=== PATIENT | male | born 1980 | race Caucasian/White ===

== ENCOUNTER 2021-03-03 19:34 | Emergency (ER) | payer OTHER, SELFPAY ==
[2021-03-03 20:05] VITALS: BP 121/65; PULSE 69; RESP 16; TEMP 36.6; O2SAT 95; BMI 29.4
--- NOTE | 2021-03-03 20:56 | ED.PSYCH ---
HPI - Psych General Chief Complaint: Psychiatric Symptoms Stated Complaint: Crisis Source: patient History of Present Illness HPI Narrative: 40-year-old male presents with suicidal ideation with plan to hang himself, has not been taking his medications for several weeks, and is homeless. He does report opioid and cocaine abuse. MD complaint: suicidal ideation, feels depressed and substance abuse Onset (ago): unknown History of same: Yes Exacerbating factors: drug use Context: recent drug abuse and not taking psychiatric medications Associated psychiatric symptoms: depression, suicidal ideation and racing thoughts Associated symptoms: denies other symptoms If self harm: admits thoughts of self harm and has plan Related Data Home Medications Medication Instructions Recorded Confirmed clonidine HCl 0.1 mg PO DAILY 03/03/21 03/03/21 clotrimazole [Antifungal See Rx Instructions .ROUTE .COMPLEX 03/03/21 03/03/21 (clotrimazole)] docusate sodium 1 cap PO BID 03/03/21 03/03/21 gabapentin 1,200 mg PO TID 03/03/21 03/03/21 hydroxyzine HCl 1 tab PO QID 03/03/21 03/03/21 ibuprofen 1 tab PO BID PRN 03/03/21 03/03/21 lurasidone [Latuda] 1 tab PO BEDTIME 03/03/21 03/03/21 melatonin 3 mg PO BEDTIME 03/03/21 03/03/21 methylphenidate HCl 1 tab PO BEDTIME 03/03/21 03/03/21 nicotine (polacrilex) 4 mg PO NEEDED 03/03/21 03/03/21 Allergies Allergy/AdvReac Type Severity Reaction Status Date / Time fish derived [FISH] Allergy Severe ANAPHYLAXIS Unverified 06/07/20 15:25 quetiapine [From SEROQUEL] AdvReac Severe INVOLUNTARY Unverified 06/07/20 15:25 SPASMS trazodone AdvReac Unknown INVOLUNTARY Unverified 06/07/20 15:25 SPASMS SEAFOOD Allergy Severe ANAPHYLAXIS Uncoded 06/07/20 15:25 Review of Systems Review of Systems: Constitutional: No Fever, No Chills ENT/Mouth: No Ear Pain, No Nasal Congestion, No sore throat Eyes: No Eye Pain, No Swelling, No Redness Cardiovascular: No Chest Pain, No SOB Respiratory: No Cough, No Sputum, No Dyspnea Gastrointestinal: No Nausea, No Vomiting, No Diarrhea, No Hematochezia, No Melena Genitourinary: No Dysuria, No Urinary Frequency, No Hematuria Musculoskeletal: No Myalgias Skin: No Skin Lesions, No rash Neuro: No Weakness, No Numbness, No Paresthesias, No Dizziness, No Headache Psych: positive Anxiety, positive Depression, positive SI, positive substance abuse Heme/Lymph: No Lymphadenopathy Endocrine: No Polyuria, No Polydipsia Yes all other systems are reviewed and are negative [facility] Past Medical History Attestation statement: The following information was validated with the patient. Source: old records reviewed Medical History No known health problems Surgical History History of appendectomy Social History Social History Alcohol intake: never Patient Tobacco Use Status: Current everyday Tobacco user Smoked in Last 30 Days: Yes Use of substances other than those prescribed or required for medical reasons: Yes Substance Use Type: Crack/Cocaine and Heroin Last Used Substance: Days (ago) Advance Directives: No Advance Directives Information Provided: Yes Physical Exam Vital Signs: Vital Signs: Last Vital Signs Temp 98 F 03/03/21 20:05 Pulse 69 03/03/21 20:05 Resp 16 03/03/21 20:05 BP 121/65 03/03/21 20:05 Pulse Ox 95 03/03/21 20:05 Body Mass Index 29.4 Appearance: Alert. Oriented X3. Severe psychiatric distress. Eyes: Pupils equal, round and reactive to light. ENT: Pharynx normal. Neck: Normal inspection. Neck supple. CVS: Normal heart rate and rhythm. Pulses normal. Respiratory: No respiratory distress. Breath sounds normal. Abdomen: Soft and nontender. Skin: Skin warm and dry. Normal skin color. Normal skin turgor. Extremities: No lower extremity edema. Neuro: No motor deficit. No sensory deficit. Course Course Course Narrative: 40-year-old male presents with suicidal ideation with plan to hang himself, has not been taking his medications for over 3 weeks, and has been using speed balls and marijuana. Plan is for Section 12. BHN consult. And psychiatric consult for med management. Physician observation started at this time. MDM - Psych Differential Diagnosis Differential diagnosis: Likely acute psychosis, suicidal ideation, depression, drug-induced psychotic disorder, substance abuse and mood disorder Medical Records Attestation: I reviewed the patient's medical records. Lab Data Attestation: I reviewed the patient's lab results. Result diagrams: 03/03/21 21:31 Labs: Lab Results 03/03/21 03/03/21 03/03/21 Range/Units 21:31 21:31 21:31 WBC 4.3 L (4.8-10.8) X10*3/uL RBC 4.11 L (4.60-5.80) X10*6/uL Hgb 12.4 L (14.0-18.0) g/dl Hct 37.3 L (42-52) % MCV 90.8 (80-98) fL MCH 30.2 (27.0-33.0) pg MCHC 33.2 (31.0-36.0) g/dl RDW 12.6 (11.0-16.0) % Plt Count 255 (160-400) X10*3/uL MPV 9.9 (9.4-12.4) fL Immature Gran % (Auto) 0.2 (0.0-0.4) % Neut % (Auto) 34.8 L (45-73) % Lymph % (Auto) 49.9 H (20-40) % [place] % (Auto) 10.4 (2-11) % Eos % (Auto) 4.2 H (0-4) % Baso % (Auto) 0.5 (0-2) % Lymph # (Auto) 2.1 (1.2-4.9) X10*3/uL [place] # (Auto) 0.4 (0.1-1.2) X10*3/uL Eos # (Auto) 0.2 (0.0-0.4) X10*3/uL Baso # (Auto) 0.0 (0.0-0.2) X10*3/uL Abs Immat Gran (auto) 0.01 (0.00-0.03) X10*3/uL Absolute Neuts (auto) 1.5 L (2.0-8.3) X10*3/uL Absolute Nucleated RBC 0.000 (0.0-0.012) X10*3/uL Nucleated RBC % (auto) 0.0 (0.0-0.2) /100WBC Salicylates < 5.0 L (15-30) mg/dL Urine Opiates Screen (Not Detect) Acetaminophen < 1 (<30) mcg/mL Ur Barbiturates Screen (Not Detect) Ur Phencyclidine Scrn (Not Detect) Ur Amphetamines Screen (Not Detect) U Benzodiazepines Scrn (Not Detect) Urine Cocaine Screen (Not Detect) U Marijuana (THC) Screen (Not Detect) Ethyl Alcohol < 10 mg/dL 03/03/21 Range/Units 21:52 WBC (4.8-10.8) X10*3/uL RBC (4.60-5.80) X10*6/uL Hgb (14.0-18.0) g/dl Hct (42-52) % MCV (80-98) fL MCH (27.0-33.0) pg MCHC (31.0-36.0) g/dl RDW (11.0-16.0) % Plt Count (160-400) X10*3/uL MPV (9.4-12.4) fL Immature Gran % (Auto) (0.0-0.4) % Neut % (Auto) (45-73) % Lymph % (Auto) (20-40) % [place] % (Auto) (2-11) % Eos % (Auto) (0-4) % Baso % (Auto) (0-2) % Lymph # (Auto) (1.2-4.9) X10*3/uL [place] # (Auto) (0.1-1.2) X10*3/uL Eos # (Auto) (0.0-0.4) X10*3/uL Baso # (Auto) (0.0-0.2) X10*3/uL Abs Immat Gran (auto) (0.00-0.03) X10*3/uL Absolute Neuts (auto) (2.0-8.3) X10*3/uL Absolute Nucleated RBC (0.0-0.012) X10*3/uL Nucleated RBC % (auto) (0.0-0.2) /100WBC Salicylates (15-30) mg/dL Urine Opiates Screen POSITIVE H (Not Detect) Acetaminophen (<30) mcg/mL Ur Barbiturates Screen Not Detected (Not Detect) Ur Phencyclidine Scrn Not Detected (Not Detect) Ur Amphetamines Screen Not Detected (Not Detect) U Benzodiazepines Scrn Not Detected (Not Detect) Urine Cocaine Screen POSITIVE H (Not Detect) U Marijuana (THC) Screen POSITIVE H (Not Detect) Ethyl Alcohol mg/dL Discharge Plan Discharge Clinical Impression: Suicidal ideation, Acute psychosis Bipolar disorder Qualifiers: Active/Remission status: currently active Current bipolar episode type: manic Current episode severity: severe Psychotic features: with psychotic features Qualified Code(s): F31.2 - Bipolar disorder, current episode manic severe with psychotic features Prescriptions: No Action clonidine HCl 0.1 mg tablet 0.1 mg PO DAILY RF: 0 gabapentin 600 mg tablet 1,200 mg PO TID RF: 0 melatonin 3 mg tablet 3 mg PO BEDTIME RF: 0 nicotine (polacrilex) 4 mg gum 4 mg PO NEEDED RF: 0 methylphenidate HCl 20 mg tablet extended release 1 tab PO BEDTIME RF: 0 docusate sodium 100 mg capsule 1 cap PO BID RF: 0 hydroxyzine HCl 25 mg tablet 1 tab PO QID RF: 0 ibuprofen 600 mg tablet 1 tab PO BID PRN (Reason: Pain) RF: 0 clotrimazole [Antifungal (clotrimazole)] 1 % cream See Rx Instructions .ROUTE .COMPLEX RF: 0 Latuda 60 mg tablet 1 tab PO BEDTIME RF: 0
--- NOTE | 2021-03-03 21:22 | PC.NURSE ---
late entry for 2030. Pt arrival to pod is calm, aware of pod procedures, skin pwd, steady on feet. States his PCP left practice and he's been out of meds x 3+ weeks. homeless, was clean x 1.5 months then used heroine and cocaine yesterday. planned to hang himself in a quiet spot tdoay. on methadone 120mg andtook it this am. [facility] site. hasn't been eating much on the street. Pt given snacks, changed over without diff, unable to give urine. Is calm. no tremor. SKin pwd. no resp depression and pupils 5-6mm.
[2021-03-03 21:36] LABS: MANUAL DIFF FLAG NO
[2021-03-03 21:38] LABS: Basophils Percent Auto 0.5 % (0-2); Eosinophils Absolute Auto 0.2 X10*3/uL (0.0-0.4); Eosinophils Percent Auto 4.2 % (0-4); Hematocrit 37.3 % (42-52); Hemoglobin 12.4 g/dl (14.0-18.0); Imm Gran Abs Auto 0.01 X10*3/uL (0.00-0.03); Imm Gran Pct Auto 0.2 % (0.0-0.4); Lymphocytes Absolute Auto 2.1 X10*3/uL (1.2-4.9); Lymphocytes Percent Auto 49.9 % (20-40); Mean Corpuscular HGB Conc 33.2 g/dl (31.0-36.0); Mean Corpuscular Hemoglobin 30.2 pg (27.0-33.0); Mean Corpuscular Volume 90.8 fL (80-98); Mean Platelet Volume 9.9 fL (9.4-12.4); Monocytes Absolute Auto 0.4 X10*3/uL (0.1-1.2); Monocytes Percent Auto 10.4 % (2-11); Neutrophils Absolute Auto 1.5 X10*3/uL (2.0-8.3); Neutrophils Percent Auto 34.8 % (45-73); Platelet Count 255 X10*3/uL (160-400); Red Blood Count 4.11 X10*6/uL (4.60-5.80); Red Cell Distribution Width 12.6 % (11.0-16.0); White Blood Count 4.3 X10*3/uL (4.8-10.8)
[2021-03-03 22:07] LABS: Ethanol < 10 mg/dL
[2021-03-03 22:09] LABS: Acetaminophen LAB < 1 mcg/mL (<30); Salicylate < 5.0 mg/dL (15-30)
--- NOTE | 2021-03-03 22:20 | PC.NURSE ---
sleeping. NAD. awaits [facility]. Kiera from [facility] called to state that universal branch consultant will arrive around 1130pm.
[2021-03-03 22:26] LABS: Amphetamine Screen Urine Not Detected (Not Detect); Barbiturates, Urine Not Detected (Not Detect); Benzodiazepines Screen Urine Not Detected (Not Detect); Cannabinoid Screen Urine POSITIVE (Not Detect); Cocaine Screen Urine POSITIVE (Not Detect); Opiate Screen Urine POSITIVE (Not Detect); Phencyclidine Screen Urine Not Detected (Not Detect)
--- NOTE | 2021-03-03 22:46 | ECG_ITS ---
Test Reason : MEDICAL CLEAR Blood Pressure : / mmHG Vent. Rate : 045 BPM Atrial Rate : 045 BPM P-R Int : 096 ms QRS Dur : 102 ms QT Int : 506 ms P-R-T Axes : 060 072 026 degrees QTc Int : 437 ms Sinus bradycardia with short WA Otherwise normal ECG When compared with ECG of 17-NOV-2018 07:24, WA shorter Referred By: Rachael Castañeda Electronically Signed By:ABHINAV ESTRADA
[2021-03-04 00:51] VITALS: BP 124/68; PULSE 55; RESP 17; TEMP 36.6; O2SAT 96
--- NOTE | 2021-03-04 01:21 | MHC.CARE ---
Crisis evaluation completed by [facility] clinician, with plan for inpatient psychiatric admission. Pt is on a Sect 12 and will be held in ED until placement is secured. Pt will be presented in the morning for possible admission on M5 or M3 if there is an available bed.
--- NOTE | 2021-03-04 10:07 | PC.NURSE ---
pt in room, resting quietly. calm and cooperative at this time. pts methadone verified and dose given this AM. pt awaiting bed assignment.
[2021-03-04 10:58] VITALS: BP 100/48; PULSE 48; RESP 12; TEMP 36.6; O2SAT 98
--- NOTE | 2021-03-04 11:55 | MHC.RECOVSUP ---
Recovery Support note: This va underwriter checked in with patient to discuss his substance use and recovery. Patient presented to [facility] after a relapse and feeling suicidal after being off his medications for a period of time. Patient is currently awaiting an inpatient psychiatric bed. Patient reports that the methadone has been helpful and that he is ready to get back into recovery. This va underwriter offered patient the opportunity to discuss his substance use and recovery supports and patient declined. Patient also declined meeting with a [employer] at this time. Encouraged patient to reach out to nursing staff if he would like to discuss his recovery. This va underwriter available as needed.
[2021-03-04] MEDS: clonazePAM 1 MG TABLET PO (14:11)
[2021-03-04 20:42] LABS: COVID-19 Test Negative (Negative)
[2021-03-04 21:01] VITALS: BP 118/79; PULSE 66; RESP 17; TEMP 37.1; O2SAT 96
[2021-03-04] MEDS: Gabapentin 600 MG TABLET 1200 MG PO (21:57)
[2021-03-04] MEDS: Melatonin 3 MG TABLET PO (22:00)
[2021-03-05 06:27] VITALS: BP 141/80; PULSE 45; RESP 17; TEMP 36.4; O2SAT 99
[2021-03-05] MEDS: Gabapentin 600 MG TABLET 1200 MG PO ×3 (08:18→20:15)
[2021-03-05] MEDS: Acetaminophen 325 MG TABLET 650 MG PO (08:35)
--- NOTE | 2021-03-05 09:48 | PC.NURSE ---
Patient resting comfortably in bed at this time. Morning medications given and taken with no issues. Patient did complain of 7/10 chronic back pain and Loraine HAY made aware, PRN tylenol placed in the patients MAR. Patient is a bedsearch, aware of plan and agreeable. Will update as needed.
--- NOTE | 2021-03-05 11:23 | PC.NURSE ---
Patient ambulting throughout the pod conversing with staff and other patients. Patient states that the prior Tylenol did relieve his chronic back pain and this RN informed him to alert staff if it returns. Patient agreeable to plan of care, aware that he is a current bed search. Patients needs met and will update when more information is known.
--- NOTE | 2021-03-05 12:41 | PC.NURSE ---
Patient has been calm and cooperative throughout the morning with no complaints at this time. Per update from CARE team the patient will remain a bedsearch at this time. Patient alerted of the plan of care and is agreeable at this time. Patient ambulating throughout the pod with no complaints, basic care needs met.
[2021-03-05] MEDS: clonazePAM 1 MG TABLET PO (13:05)
[2021-03-05] MEDS: Nicotine Polacrilex 2 MG GUM 4 MG BUCCAL (13:10)
--- NOTE | 2021-03-05 15:16 | PC.NURSE ---
Patient given medication for anxiety as a 1X dose per Loraine ALLEN Pt anxiously awaiting bed assignment and told that we will update him with any news. Patient resting comfortably in his room in NAD, advised to alert staff if increasing anxiety or chronic back pain returns.
[2021-03-05 19:28] VITALS: BP 146/77; PULSE 68; RESP 18; TEMP 37.1; O2SAT 96
[2021-03-05] MEDS: LORazepam 1 MG TABLET 2 MG PO (20:11)
[2021-03-05] MEDS: Melatonin 3 MG TABLET PO (20:15)
[2021-03-06 00:45] VITALS: BP 114/64; PULSE 54; RESP 16; TEMP 36.4; O2SAT 97
--- NOTE | 2021-03-06 07:21 | PC.NURSE ---
patient appears to be at rest at present respirations even and unlabored, patient appears in no distress
[2021-03-06] MEDS: Gabapentin 600 MG TABLET 1200 MG PO (08:34)
[2021-03-06] MEDS: Acetaminophen 325 MG TABLET 650 MG PO (08:36)
--- NOTE | 2023-03-15 13:38 | ED.PSYCH ---
HPI - Psych General Chief Complaint: Psychiatric Symptoms Stated Complaint: Crisis Time Seen by Provider: 03/04/21 00:53 Source: patient History of Present Illness Exacerbating factors: drug use Associated symptoms: denies other symptoms Related Data Home Medications Medication Instructions Recorded Confirmed methadone 10 mg/mL oral 115 mg PO DAILY 06/12/21 03/07/22 concentrate (Methadose) Previous Rx's Medication Instructions Recorded clonidine HCl 0.1 mg tablet 0.1 mg PO DAILY PRN 03/17/22 anxiety/agitation 30 days #30 tabs clonidine HCl 0.2 mg tablet 0.2 mg PO BEDTIME 30 days #30 tabs 03/17/22 divalproex 250 mg tablet,extended 250 mg PO BID 30 days #60 tabs 03/17/22 release 24 hr doxepin 25 mg capsule 100 mg PO BEDTIME 30 days #120 caps 03/17/22 fenofibrate 54 mg tablet 54 mg PO DAILY 30 days #30 tabs 03/17/22 gabapentin 400 mg capsule 800 mg PO QID 30 days #240 caps 03/17/22 hydroxyzine HCl 50 mg tablet 50 mg PO BID PRN Anxiety 30 days 03/17/22 #60 tabs ibuprofen 800 mg tablet 800 mg PO BID PRN knee pain, tooth 03/17/22 pain 30 days #60 tabs lurasidone 40 mg tablet (Latuda) 40 mg PO DAILY@1800 30 days #30 03/17/22 tabs melatonin 3 mg tablet 9 mg PO BEDTIME PRN sleep 30 days 03/17/22 #60 tabs nicotine (polacrilex) 2 mg gum 2 mg buccal Q2H PRN nicotine 03/17/22 withdrawal 30 days #120 ea sennosides 8.6 mg tablet (Senna 8.6 mg PO BID 30 days #60 tabs 03/17/22 Lax) dextroamphetamine-amphetamine ER 30 mg PO DAILY 30 days #30 caps 03/19/22 30 mg 24hr capsule,extend release (Adderall XR) Allergies Allergy/AdvReac Type Severity Reaction Status Date / Time fish derived [FISH] Allergy Severe ANAPHYLAXIS Verified 03/04/21 20:52 quetiapine [From SEROQUEL] AdvReac Severe INVOLUNTARY Verified 03/04/21 20:52 SPASMS trazodone AdvReac Unknown INVOLUNTARY Verified 03/04/21 20:52 SPASMS SEAFOOD Allergy Severe ANAPHYLAXIS Uncoded 03/04/21 20:52 Review of Systems Review of Systems: ROS: See HPI, all other ROS are negative PMFSH Past Medical History Medical History Chronic post-traumatic stress disorder (PTSD) Hepatitis C MDD (major depressive disorder), recurrent episode, moderate No known health problems Surgical History History of appendectomy Social History Social History Household Members: Other Household Members Other:: 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 couch-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 Housing: Other Do you presently have visiting nurse or other home services: No Alcohol intake: never Patient Tobacco Use Status: Current everyday Tobacco user Tobacco use type: Cigarette Cigarette Packs Per Day: 1 Cigarettes Per Day: 20.0 Years Smoked: 10 e-Cigarette/Vaping Use: Never Used Second Hand Smoke Exposure: No Substance Use Type: Crack/Cocaine service: No Current occupational status: unemployed Sexual orientation: Straight/Heterosexual Physical Exam Vital Signs: Vital Signs: Last Vital Signs Temp 97.6 F 03/06/21 00:45 Pulse 54 03/06/21 00:45 Resp 16 03/06/21 00:45 BP 114/64 03/06/21 00:45 Pulse Ox 97 03/06/21 00:45 O2 Del Method Room Air 03/06/21 00:45 BMI result Body Mass Index 29.4 Medications Administered Discontinued Medications Generic Name Dose Route Start Last Admin Trade Name Tyrone PRN Reason Stop Dose Admin Acetaminophen 650 mg 03/05/21 08:27 03/06/21 08:36 Acetaminophen 325 Mg Tablet PO 650 mg Q6H PRN Administration pain Clonazepam 1 mg 03/04/21 14:05 03/04/21 14:11 Clonazepam 1 Mg Tablet PO 03/04/21 14:06 1 mg ONCE ONE Administration Clonazepam 1 mg 03/05/21 13:01 03/05/21 13:05 Clonazepam 1 Mg Tablet PO 03/05/21 13:02 1 mg ONCE ONE Administration Gabapentin 1,200 mg 03/04/21 21:15 03/06/21 08:34 Gabapentin 600 Mg Tablet PO 1,200 mg TID DACIA Administration Lorazepam 2 mg 03/05/21 20:05 03/05/21 20:11 Lorazepam 1 Mg Tablet PO 03/05/21 20:06 2 mg ONCE ONE Administration Melatonin 3 mg 03/04/21 08:45 03/05/21 20:15 Melatonin 3 Mg Tablet PO 3 mg BEDTIME PRN Administration Sleep Methadone HCl 120 mg 03/04/21 09:00 03/06/21 09:22 Methadone Hcl 1 Mg/0.1 Ml Oral.Conc PO 120 mg DAILY DACIA Administration Nicotine Polacrilex 4 mg 03/04/21 08:45 03/05/21 13:10 Nicotine Polacrilex 2 Mg Gum BUCCAL 4 mg Q2H PRN Administration Nicotine Cravings Medical Decision Making Medical Decision Making MDM Narrative: This record is being created on 03/15/2023 in order to complete documentation of the record from 03/06/2022. Exam: ROS: See HPI, all other ROS are negative General: Awake, alert in no distress Head: Normocephalic, atraumatic EENT: PERRL, Lids normal, sclera normal, conjunctiva normal, nose normal , ears normal, throat without erythema or exudates Neck: Supple, no adenopathy, trachea midline and nontender Lung: breath sounds symmetric, no wheezing, rales or rhonchi Chest: symmetric movement, nontender Heart: regular rate and rhythm, normal S1, S2 no murmurs or rubs Abdomen: soft, non-tender, nondistended, normal bowel sounds Back: no vertebral tenderness, no CVAT Extremities: no deformities, moves all extremities symmetrically Skin: no rashes, no lesion, normal color and warmth Neuro: Awake, alert, oriented, normal speech, cranial nerves intact, moves all extremities symmetrically Psych: Pleasant, cooperative, Mic MD Светлана (my printed name counts as my signature for this document Lab Data 03/03/21 21:31 Labs: Lab Results 03/03/21 03/03/21 03/03/21 Range/Units 21:31 21:31 21:31 WBC 4.3 L (4.8-10.8) X10*3/uL RBC 4.11 L (4.60-5.80) X10*6/uL Hgb 12.4 L (14.0-18.0) g/dl Hct 37.3 L (42-52) % MCV 90.8 (80-98) fL MCH 30.2 (27.0-33.0) pg MCHC 33.2 (31.0-36.0) g/dl RDW 12.6 (11.0-16.0) % Plt Count 255 (160-400) X10*3/uL MPV 9.9 (9.4-12.4) fL Immature Gran % (Auto) 0.2 (0.0-0.4) % Neut % (Auto) 34.8 L (45-73) % Lymph % (Auto) 49.9 H (20-40) % [place] % (Auto) 10.4 (2-11) % Eos % (Auto) 4.2 H (0-4) % Baso % (Auto) 0.5 (0-2) % Lymph # (Auto) 2.1 (1.2-4.9) X10*3/uL [place] # (Auto) 0.4 (0.1-1.2) X10*3/uL Eos # (Auto) 0.2 (0.0-0.4) X10*3/uL Baso # (Auto) 0.0 (0.0-0.2) X10*3/uL Abs Immat Gran (auto) 0.01 (0.00-0.03) X10*3/uL Absolute Neuts (auto) 1.5 L (2.0-8.3) X10*3/uL Absolute Nucleated RBC 0.000 (0.0-0.012) X10*3/uL Nucleated RBC % (auto) 0.0 (0.0-0.2) /100WBC Salicylates < 5.0 L (15-30) mg/dL Urine Opiates Screen (Not Detect) Acetaminophen < 1 (<30) mcg/mL Ur Barbiturates Screen (Not Detect) Ur Phencyclidine Scrn (Not Detect) Ur Amphetamines Screen (Not Detect) U Benzodiazepines Scrn (Not Detect) Urine Cocaine Screen (Not Detect) U Marijuana (THC) Screen (Not Detect) Ethyl Alcohol < 10 mg/dL COVID-19 (GILMA) (Negative) COVID-19 Clin Com 03/03/21 03/04/21 Range/Units 21:52 20:02 WBC (4.8-10.8) X10*3/uL RBC (4.60-5.80) X10*6/uL Hgb (14.0-18.0) g/dl Hct (42-52) % MCV (80-98) fL MCH (27.0-33.0) pg MCHC (31.0-36.0) g/dl RDW (11.0-16.0) % Plt Count (160-400) X10*3/uL MPV (9.4-12.4) fL Immature Gran % (Auto) (0.0-0.4) % Neut % (Auto) (45-73) % Lymph % (Auto) (20-40) % [place] % (Auto) (2-11) % Eos % (Auto) (0-4) % Baso % (Auto) (0-2) % Lymph # (Auto) (1.2-4.9) X10*3/uL [place] # (Auto) (0.1-1.2) X10*3/uL Eos # (Auto) (0.0-0.4) X10*3/uL Baso # (Auto) (0.0-0.2) X10*3/uL Abs Immat Gran (auto) (0.00-0.03) X10*3/uL Absolute Neuts (auto) (2.0-8.3) X10*3/uL Absolute Nucleated RBC (0.0-0.012) X10*3/uL Nucleated RBC % (auto) (0.0-0.2) /100WBC Salicylates (15-30) mg/dL Urine Opiates Screen POSITIVE H (Not Detect) Acetaminophen (<30) mcg/mL Ur Barbiturates Screen Not Detected (Not Detect) Ur Phencyclidine Scrn Not Detected (Not Detect) Ur Amphetamines Screen Not Detected (Not Detect) U Benzodiazepines Scrn Not Detected (Not Detect) Urine Cocaine Screen POSITIVE H (Not Detect) U Marijuana (THC) Screen POSITIVE H (Not Detect) Ethyl Alcohol mg/dL COVID-19 (GILMA) Negative (Negative) COVID-19 Clin Com See Note Discharge Plan Discharge Clinical Impression: Suicidal ideation, Bipolar disorder, Acute psychosis Patient Disposition: Xfer Psychiatric Hosp Transfer Details: [facility] at 11:00am via BLS Instructions: Bipolar Disorder (ED), Suicide Prevention (ED) Prescriptions: No Action methadone [Methadose] 10 mg/mL concentrate 115 mg PO DAILY nicotine (polacrilex) 2 mg Gum 2 mg buccal Q2H PRN (Reason: nicotine withdrawal) 30 Days Qty: 120 0RF clonidine HCl 0.1 mg Tablet 0.1 mg PO DAILY PRN (Reason: anxiety/agitation) 30 Days Qty: 30 0RF Protocol: Hold for SBP< HOLD for SBP < : 90 ibuprofen 800 mg Tablet 800 mg PO BID PRN (Reason: knee pain, tooth pain ) 30 Days Qty: 60 0RF doxepin 25 mg Capsule 100 mg PO BEDTIME 30 Days Qty: 120 0RF gabapentin 400 mg Capsule 800 mg PO QID 30 Days Qty: 240 0RF hydroxyzine HCl 50 mg Tablet 50 mg PO BID PRN (Reason: Anxiety) 30 Days Qty: 60 0RF clonidine HCl 0.2 mg Tablet 0.2 mg PO BEDTIME 30 Days Qty: 30 0RF Protocol: Hold for SBP< HOLD for SBP < : 90 divalproex 250 mg Tablet Extended Release 24 Hr 250 mg PO BID 30 Days Qty: 60 0RF fenofibrate 54 mg Tablet 54 mg PO DAILY 30 Days Qty: 30 0RF Latuda 40 mg Tablet 40 mg PO DAILY@1800 30 Days Qty: 30 0RF sennosides [Senna Lax] 8.6 mg Tablet 8.6 mg PO BID 30 Days Qty: 60 0RF melatonin 3 mg Tablet 9 mg PO BEDTIME PRN (Reason: sleep) 30 Days Qty: 60 0RF dextroamphetamine-amphetamine [Adderall XR] 30 mg capsule,extended release 24hr 30 mg PO DAILY 30 Days Qty: 30 0RF Rx Instructions: Partial Fill upon patient request. Referrals: Erika Tena NP [Primary Care Provider] - 2 days Discharge Date/Time: 03/06/21 10:27 Print Language: Danish
== END 2021-03-06 10:27 ==
PROVIDERS: Nurse Practitioner Family; Physician Assistant; Emergency Provider Emergency Medicine Emergency Medical Services; PCP Nurse Practitioner Family
DX: F31.2 Bipolar disorder, current episode manic severe with psychotic features (principal); R45.851 Suicidal ideations; F23 Brief psychotic disorder; F41.9 Anxiety disorder, unspecified; G89.29 Other chronic pain; M54.9 Dorsalgia, unspecified; F17.210 Nicotine dependence, cigarettes, uncomplicated; F14.90 Cocaine use, unspecified, uncomplicated; F11.20 Opioid dependence, uncomplicated; Z59.0 Homelessness; Z91.14 Patient's other noncompliance with medication regimen
CPT/HCPCS: 36415; 80143; 80179; 80307; 82077; 85025; 87635; 93005; 99285

== ENCOUNTER 2021-04-27 18:48 | Inpatient (IN) | payer OTHER, SELFPAY ==
[2021-04-27 18:52] VITALS: BP 130/88; PULSE 91; RESP 16; TEMP 37.1; O2SAT 98; BMI 31.8
[2021-04-27 19:31] LABS: Glucose Urine UA NEG (NEG); Leukocyte Esterase Urine NEG (NEG); Nitrite Urine NEG (NEG); Specific Gravity - Urine >= 1.030 (1.005-1.025); UACC Culture Trigger NO; Urine Blood NEG (NEG); Urine Ketones 5 MG/DL (NEG); Urine Protein 1+ MG/DL (NEG-TRACE)
[2021-04-27 19:34] LABS: Appearance Urine HAZY; Color Urine DARK YELLOW
[2021-04-27] MEDS: Lactulose 20 GM/30 ML SOLUTION 10 GM PO (19:37)
[2021-04-27] MEDS: Nicotine 21 MG PATCH.TD24 TRANSDERMA (19:37)
--- NOTE | 2021-04-27 19:38 | ED.PSYCH ---
HPI - Psych General Chief Complaint: Psychiatric Symptoms Stated Complaint: crisis Time Seen by Provider: 04/27/21 19:17 Source: patient Mode of arrival: ambulatory Limitations: no limitations History of Present Illness HPI Narrative: 37-year-old male with a past medical history of hepatitis-C, substance abuse here with complaints of suicidal thoughts, hearing voices telling him to kill himself for the last few days. Recently released from [facility]. Missed methadone doses this weekend. Last night used heroin and cocaine in an attempt to overdose and kill himself. Patient tells me he woke up hours later and his bag in his bottles of medications were gone. Now he is feeling more suicidal. Depressed. Complaining of mild headache. Complaining of constipation. No vomiting or abdominal pain. Related Data Home Medications Medication Instructions Recorded Confirmed clonazepam 1 mg tablet 1 tab PO TID PRN 04/27/21 04/27/21 dextroamphetamine-amphetamine ER 1 cap PO BEDTIME 04/27/21 04/27/21 30 mg 24hr capsule,extend release doxazosin 2 mg tablet 1 tab PO BEDTIME 04/27/21 04/27/21 fenofibrate 54 mg tablet 1 tab PO DAILY 04/27/21 04/27/21 gabapentin 600 mg tablet 1,200 mg PO 04/27/21 glecaprevir 100 mg-pibrentasvir 40 3 tab PO DAILY 04/27/21 04/27/21 mg tablet (Mavyret) hydroxyzine pamoate 50 mg capsule 1 cap PO TID 04/27/21 04/27/21 lurasidone 60 mg tablet (Latuda) 1 tab PO BEDTIME 04/27/21 04/27/21 melatonin 5 mg tablet 1 tab PO BEDTIME 04/27/21 04/27/21 omega-3 acid ethyl esters 1 gram 1 PO BEDTIME 04/27/21 capsule Allergies Allergy/AdvReac Type Severity Reaction Status Date / Time fish derived [FISH] Allergy Severe ANAPHYLAXIS Verified 03/04/21 20:52 quetiapine [From SEROQUEL] AdvReac Severe INVOLUNTARY Verified 03/04/21 20:52 SPASMS trazodone AdvReac Unknown INVOLUNTARY Verified 03/04/21 20:52 SPASMS SEAFOOD Allergy Severe ANAPHYLAXIS Uncoded 03/04/21 20:52 Review of Systems Review of Systems: Yes all other systems are reviewed and are negative Constitutional: Constitutional: Reports no additional constitutional complaints, Denies body ache(s), Denies chills, Denies fever(s), Reports headache(s) and Denies weakness Eyes: Eyes: Reports no additional eye complaints and Denies change in vision ENT: Reports system reviewed and no additional complaints, except as documented, Denies dizziness, Reports headache(s), Denies nasal congestion, Denies nasal discharge and Denies neck pain Cardiovascular: Cardiovascular: Reports no additional cardiovascular complaints, Denies chest pain, Denies leg edema and Denies dyspnea Respiratory: Respiratory: Reports no additional respiratory complaints, Denies cough and Denies dyspnea Gastrointestinal: Gastrointestinal: Reports no additional gastrointestinal complaints, Denies abdominal pain, Reports constipation, Denies diarrhea, Denies nausea and Denies vomiting Genitourinary: Genitourinary: Denies urinary incontinence Musculoskeletal: Musculoskeletal: Reports no additional musculoskeletal complaints, Denies back pain, Denies arthralgias, Denies joint swelling, Denies neck pain, Denies numbness and Denies tingling Integumentary/Breasts: Skin/Breast: Reports system reviewed and no additional complaints, except as docu and Denies rash Neurologic: Reports system reviewed and no additional complaints, except as documented, Denies Abnormal speech present, Denies dizziness, Reports headache(s), Denies numbness, Denies tingling and Denies weakness Psychiatric: Psychiatric: Denies anxiety, Reports depression, Denies hallucinations, Denies homicidal ideation and Reports suicidal ideation [facility] Past Medical History Attestation statement: The following information was validated with the patient. Source: old records reviewed and nursing notes reviewed Medical History No known health problems Surgical History History of appendectomy Social History Social History Alcohol intake: never Patient Tobacco Use Status: Current everyday Tobacco user Substance Use Type: Crack/Cocaine and Heroin Advance Directives: No Advance Directives Information Provided: No Physical Exam Vital Signs: Vital Signs: Last Vital Signs Temp 98.7 F 04/27/21 18:52 Pulse 91 04/27/21 18:52 Resp 16 04/27/21 18:52 BP 130/88 04/27/21 18:52 Pulse Ox 98 04/27/21 18:52 Body Mass Index 31.8 Const: General: cooperative, healthy appearing, comfortable and no acute distress Orientation/consciousness: patient oriented x3 Limitations: no limitations HENMT: Head: Yes normal to inspection Ears: hearing grossly normal bilaterally General nose exam: Normal external nose present Face and sinus: Yes normal facial exam Mouth: Normal oral and palatal mucosa present Throat: Yes posterior oropharynx normal Eyes: General: appearance normal, both eyes and all related structures Pupils: Equal, round and reactive pupils present Neck: Neck: Yes normal visual inspection Chest: Chest palpation & inspection: normal inspection of the chest Resp: Effort & Inspection: normal respiratory effort Auscultation: clear to auscultation bilaterally Cardio: Rate: regular rate Rhythm: regular rhythm Peripheral pulses: Peripheral pulses 2+ throughout GI: Inspection: Yes normal to inspection Palpation (GI): Soft to palpation and nontender Auscultation: normal bowel sounds Back/Spine/Pelvis: Thoracic/Lumbar Spine: thoracic and lumbar spine normal to inspection Skin: General skin exam: no rashes or lesions noted Neuro: General: patient oriented x3, no focal motor deficits and normal sensation to monofilament Cranial nerves: Yes Equal, round and reactive pupils present Cognition (Neuro): normal cognition Speech: No Abnormal speech present Gait exam (Neuro): Normal gait present Motor exam (neuro): 5/5 motor strength present throughout Extrem: General: Yes normal to inspection Course Course Course Narrative: 40-year-old male here with suicidal thoughts, increasing depression, attempt of OD last night to kill himself. Complaining of mild headache and constipation. Will check labs, drug screen, EKG, COVID screen. Nursing to verify medications. WIll need crisis eval once medically cleared. Placed in physician observation pending above 2100-Medications reconciled. Sign out to night team pending above. MDM - Psych Medical Records Attestation: I reviewed the patient's medical records. Lab Data Attestation: I reviewed the patient's lab results. Labs: Lab Results 04/27/21 04/27/21 04/27/21 Range/Units 19:24 19:24 19:24 Urine Color DARK YELLOW Urine Appearance HAZY Urine pH 6.0 (5.0-8.0) Ur Specific [place] >= 1.030 H (1.005-1.025) Urine Protein 1+ H (NEG-TRACE) MG/DL Urine Glucose (UA) NEG (NEG) MG/DL Urine Ketones 5 (NEG) MG/DL Urine Blood NEG (NEG) Urine Nitrite NEG (NEG) Ur Leukocyte Esterase NEG (NEG) Urine RBC 10-14 H (0) /HPF Urine WBC 0 (0-4) /HPF Ur Squamous Epith Cells TRACE /LPF Calcium Oxalate Crystal 2+ /LPF Urine Bacteria TRACE /LPF Urine Mucus 4+ /LPF Urine Opiates Screen POSITIVE H (Not Detect) Ur Barbiturates Screen Not Detected (Not Detect) Ur Phencyclidine Scrn Not Detected (Not Detect) Ur Amphetamines Screen POSITIVE H (Not Detect) U Benzodiazepines Scrn POSITIVE H (Not Detect) Urine Cocaine Screen POSITIVE H (Not Detect) U Marijuana (THC) Screen POSITIVE H (Not Detect) Coronavirus (PCR) NEGATIVE (Negative) Influenza Type A (PCR) NEGATIVE (Negative) Influenza Type B (PCR) NEGATIVE (Negative) RSV RNA Qual (PCR) NEGATIVE (Negative) ECG Data Attestation: I personally reviewed and interpreted this ECG as follows: ECG interpretation date: 04/27/21 ECG interpretation time: 19:38 Interpretation: Normal sinus rhythm, normal NC, normal QRS, normal QT Discharge Plan Discharge Clinical Impression: Suicidal ideation Prescriptions: No Action gabapentin 600 mg tablet 1,200 mg PO RF: 0 clonazepam 1 mg tablet 1 tab PO TID PRN (Reason: Anxiety) RF: 0 hydroxyzine pamoate 50 mg capsule 1 cap PO TID RF: 0 dextroamphetamine-amphetamine 30 mg capsule,extended release 24hr 1 cap PO BEDTIME RF: 0 doxazosin 2 mg tablet 1 tab PO BEDTIME RF: 0 omega-3 acid ethyl esters 1 gram capsule 1 PO BEDTIME RF: 0 melatonin 5 mg tablet 1 tab PO BEDTIME RF: 0 fenofibrate 54 mg tablet 1 tab PO DAILY RF: 0 Latuda 60 mg tablet 1 tab PO BEDTIME RF: 0 Mavyret 100-40 mg tablet 3 tab PO DAILY RF: 0
[2021-04-27 19:45] LABS: Bacteria Urine TRACE /LPF; Calcium Oxalate Crystals Urine 2+ /LPF; Mucus Urine 4+ /LPF; Squamous Epithelial Cell Urine TRACE /LPF; WBC Urine 0 /HPF (0-4)
[2021-04-27 19:56] LABS: Amphetamine Screen Urine POSITIVE (Not Detect); Barbiturates, Urine Not Detected (Not Detect); Benzodiazepines Screen Urine POSITIVE (Not Detect); Cannabinoid Screen Urine POSITIVE (Not Detect); Cocaine Screen Urine POSITIVE (Not Detect); Opiate Screen Urine POSITIVE (Not Detect); Phencyclidine Screen Urine Not Detected (Not Detect)
[2021-04-27 20:08] LABS: Influenza A PCR NEGATIVE (Negative); Influenza B PCR NEGATIVE (Negative); Resp Syncy Virus RNA Qual PCR NEGATIVE (Negative); SARS COV2 PCR INHOUSE NEGATIVE (Negative)
[2021-04-27 21:32] LABS: MANUAL DIFF FLAG NO
[2021-04-27 21:33] LABS: Basophils Percent Auto 0.3 % (0-2); Eosinophils Absolute Auto 0.3 X10*3/uL (0.0-0.4); Eosinophils Percent Auto 4.9 % (0-4); Hematocrit 35.3 % (42-52); Hemoglobin 12.2 g/dl (14.0-18.0); Imm Gran Abs Auto 0.01 X10*3/uL (0.00-0.03); Imm Gran Pct Auto 0.2 % (0.0-0.4); Lymphocytes Percent Auto 29.8 % (20-40); Mean Corpuscular HGB Conc 34.6 g/dl (31.0-36.0); Mean Corpuscular Hemoglobin 30.9 pg (27.0-33.0); Mean Corpuscular Volume 89.4 fL (80-98); Mean Platelet Volume 9.9 fL (9.4-12.4); Monocytes Absolute Auto 0.4 X10*3/uL (0.1-1.2); Monocytes Percent Auto 6.1 % (2-11); Neutrophils Absolute Auto 3.9 X10*3/uL (2.0-8.3); Neutrophils Percent Auto 58.7 % (45-73); Platelet Count 196 X10*3/uL (160-400); Red Blood Count 3.95 X10*6/uL (4.60-5.80); Red Cell Distribution Width 12.5 % (11.0-16.0); White Blood Count 6.6 X10*3/uL (4.8-10.8)
[2021-04-27] MEDS: hydrOXYzine HCL 50 MG TABLET PO (21:49)
[2021-04-27 21:57] VITALS: BP 97/55; PULSE 80
[2021-04-27 22:00] LABS: Ethanol < 10 mg/dL
[2021-04-27] MEDS: Lurasidone HCl 20 MG TABLET 60 MG PO (22:01)
[2021-04-27 22:05] LABS: Alanine Aminotransferase 25 U/L (0-40); Albumin Level 4.2 g/dL (3.5-5.0); Alkaline Phosphatase 47 U/L (39-117); Anion Gap 12 (12-20); Aspartate Amino Transferase 29 U/L (5-37); Bilirubin Direct 0.3 mg/dL (0.0-0.5); Bilirubin Total 0.7 mg/dL (0.0-1.0); Blood Urea Nitrogen 14 mg/dL (9-16); Calcium 9.1 mg/dL (8.4-10.2); Carbon Dioxide 30 mmol/L (22-29); Chloride 103 mmol/L (96-108); Creatinine Clr Calc Pharmacy 105.1; Estimated Glomerular Filt Rate > 60; Glucose Random 130 mg/dL (60-115); Potassium 3.5 mmol/L (3.3-5.1); Sodium 141 mmol/L (135-145); Total Protein 7.1 g/dL (6.5-8.0)
--- NOTE | 2021-04-27 22:20 | PC.NURSE ---
[facility] faxed and called spoke with pavan
--- NOTE | 2021-04-27 23:31 | PC.NURSE ---
Patient resting comfortably in bed no s/s of pain or discomfort. Awaiting BHN consult.
[2021-04-28 08:02] VITALS: BP 106/56; PULSE 63; RESP 18; TEMP 37.2; O2SAT 95
[2021-04-28] MEDS: clonazePAM 1 MG TABLET PO ×2 (10:04→17:04)
[2021-04-28] MEDS: Acetaminophen 325 MG TABLET 650 MG PO (10:04)
[2021-04-28] MEDS: hydrOXYzine HCL 50 MG TABLET PO ×2 (10:04→20:19)
[2021-04-28] MEDS: Ibuprofen 800 MG TABLET PO ×2 (10:27→17:09)
[2021-04-28] MEDS: Fenofibrate 54 MG TABLET PO (10:28)
[2021-04-28] MEDS: Cyclobenzaprine HCl 10 MG TABLET PO ×2 (10:28→17:10)
--- NOTE | 2021-04-28 11:11 | MHC.RECOVSUP ---
Recovery Support note: Patient is a 40 year old Slovenian speaking male who presented to [facility] ED reporting that he is off his medications, recently used heroin and is experiencing AH. Patient was evaluated by the CARE Team and is currently awaiting an inpatient psychiatric bed. This information writer met with patient to discuss his methadone treatment. Patient reports that he goes to [facility] in [place] and that he was last dosed on 04/23. Patient reports he gets 110mg. Patient states that he received take home bottles on 04/23 and brought them to a [facility] affiliated with [facility] in [place]. Patient reports he left AMA and they did not provide him with his bottles upon discharge. Patient states he did not take any of the bottles while at [facility]. Patient reports he is going out of his mind and having difficulty sleeping. Patient appears agitated however no other withdrawal symptoms are noted. This information writer spoke with Yari at [facility] and she reports patient got 111mg on 04/23 and that he got enough bottles to last until tomorrow. Discussed with patient's RN and completed methadone dose verification form which was faxed to pharmacy. Discussed case with Marissa Christianson NP who recommends 30-40mg today and she will re-evaluate patient tomorrow. This information writer explained the situation to patient and he expressed frustration, stating that won't do anything for me. Reassured patient that he will be re-evaluated tomorrow and that his dose will be adjusted if needed. Patient requests 30mg now and 10mg later on to help him sleep. Discussed case with patient's ED provider. This information writer will follow up with patient later on in the day.
--- NOTE | 2021-04-28 11:37 | PC.NURSE ---
Pt medicated with prns previously as charted, sleeping as this RN entered the room, states no relief in pain, medicated with Methadon 30 mg, pt was previously being dosed by [facility] in [place] with a dose of 111mg but has not had a dose since 04/23. Plan to start on 30-40mg / day to start, Marissa Christianson and recovery team involved in pt care.
[2021-04-28 20:18] VITALS: BP 120/75; PULSE 57
[2021-04-28] MEDS: Doxazosin Mesylate 2 MG TABLET PO (20:18)
[2021-04-28] MEDS: Melatonin 3 MG TABLET 6 MG PO (20:18)
[2021-04-28] MEDS: Lurasidone HCl 20 MG TABLET 60 MG PO (20:22)
--- NOTE | 2021-04-28 21:21 | PC.NURSE ---
Pt's gabapentin returned to pyxis, pt currently sleeping
--- NOTE | 2021-04-29 | ECG_ITS ---
Test Reason : MEDCLEARANCE Blood Pressure : / mmHG Vent. Rate : 066 BPM Atrial Rate : 066 BPM P-R Int : 158 ms QRS Dur : 106 ms QT Int : 432 ms P-R-T Axes : 015 038 024 degrees QTc Int : 452 ms Normal sinus rhythm Normal ECG When compared with ECG of 04-MAR-2021 00:34, No significant change was found Referred By: Marissa Christianson Electronically Signed By:RACHEL GRECO MD
[2021-04-29 03:57] VITALS: BP 126/77; PULSE 62; TEMP 36; O2SAT 97
--- NOTE | 2021-04-29 06:39 | PC.NURSE ---
Patient slept through the night, no distress observed/reported, asymptomatic of withdrawal at this time, out of room x1 for bathroom use and back, VSS, appetite adequate, disposition is section 12 inpatient bed search, med compliant, behavior appropriate, will continue to monitor.
--- NOTE | 2021-04-29 07:11 | PC.NURSE ---
patient appears to remain at rest at present with even unlabored breaths, patient appears in no distress
[2021-04-29] MEDS: Gabapentin 400 MG CAPSULE 800 MG PO ×4 (08:11→20:36)
[2021-04-29] MEDS: hydrOXYzine HCL 50 MG TABLET PO ×2 (08:11→14:21)
[2021-04-29] MEDS: Fenofibrate 54 MG TABLET PO (08:11)
[2021-04-29] MEDS: clonazePAM 1 MG TABLET PO ×2 (08:16→12:56)
[2021-04-29 08:46] VITALS: BP 122/76; PULSE 79; RESP 13; TEMP 36.6; O2SAT 99
[2021-04-29] MEDS: Ibuprofen 800 MG TABLET PO (10:56)
[2021-04-29 14:21] VITALS: BP 135/81; PULSE 67; RESP 14; O2SAT 98
[2021-04-29] MEDS: Nicotine Polacrilex 2 MG GUM BUCCAL ×3 (14:21→20:53)
--- NOTE | 2021-04-29 16:22 | MHC.RECOVRN ---
T/w met with pt in [facility] to discuss methadone. Pt worried that if he was transferred to another facility that his methadone increase would not occur. T/w spoke with CARE Team and pt will most likely stay at [facility] for inpatient treatment. Pt appears comfortable in bed, napping when t/w entered. Woke to voice. T/w will obtain DAIN for [facility] in order to maintain continuity of care. Will continue to follow.
--- NOTE | 2021-04-29 16:32 | HO.ADDICT_ITS ---
History of Present Illness Date of Service: 04/29/2021 Chief Complaint: crisis Reason for Consult: methadone titration Requesting physician: Adelina Beauchamp Discussed with referring provider: Yes Additional Sources of Information: Recovery administrative support clerk [facility] Narrative: Patient is a 40 year old male with OUD on methadone, in ED awaiting psychiatric admission. Consult requested to assess and treat OUD and patient has missed several doses o f daily methadone. Patient seen in room 2 of ED, minimal engagement, laying on his side under t he blankets. Reporting that he is feeling some withdrawal--chills, body aches, loose stools, irritability. Per documentation patient has been receiving methadone 111mg QD. Last documented dose was 04/23 for 111mg. Presented to ED yesterday and was given 40mg, which patient tolerated. Patient hoping to be titrated back to previous dose Review of Systems Review of Systems as per HPI Diagnostics Vital Signs (24Hr): Vital Signs - 24 hr 04/28/21 20:18 04/29/21 03:57 04/29/21 08:46 Temperature 96.8 F 97.8 F Pulse Rate 57 62 79 Respiratory Rate 13 Blood Pressure 120/75 126/77 122/76 Pulse Oximetry 97 99 04/29/21 14:21 Temperature Pulse Rate 67 Respiratory Rate 14 Blood Pressure 135/81 Pulse Oximetry 98 Body Mass Index 31.8 Labs Results: 04/27/21 21:26 04/27/21 21:26 Labs: Laboratory Results - last 48 hr 04/27/21 04/27/21 04/27/21 19:24 19:24 19:24 WBC RBC Hgb Hct MCV MCH MCHC RDW Plt Count MPV Immature Gran % (Auto) Neut % (Auto) Lymph % (Auto) Parker % (Auto) Eos % (Auto) Baso % (Auto) Lymph # (Auto) Parker # (Auto) Eos # (Auto) Baso # (Auto) Abs Immat Gran (auto) Absolute Neuts (auto) Absolute Nucleated RBC Nucleated RBC % (auto) Sodium Potassium Chloride Carbon Dioxide Anion Gap BUN Creatinine Estim Creat Clear Calc Estimated GFR Random Glucose Calcium Total Bilirubin Direct Bilirubin AST ALT Alkaline Phosphatase Total Protein Albumin Urine Color DARK YELLOW Urine Appearance HAZY Urine pH 6.0 Ur Specific [place] >= 1.030 H Urine Protein 1+ H Urine Glucose (UA) NEG Urine Ketones 5 Urine Blood NEG Urine Nitrite NEG Ur Leukocyte Esterase NEG Urine RBC 10-14 H Urine WBC 0 Ur Squamous Epith Cells TRACE Calcium Oxalate Crystal 2+ Urine Bacteria TRACE Urine Mucus 4+ Urine Opiates Screen POSITIVE H Ur Barbiturates Screen Not Detected Ur Phencyclidine Scrn Not Detected Ur Amphetamines Screen POSITIVE H U Benzodiazepines Scrn POSITIVE H Urine Cocaine Screen POSITIVE H U Marijuana (THC) Screen POSITIVE H Ethyl Alcohol Coronavirus (PCR) NEGATIVE Influenza Type A (PCR) NEGATIVE Influenza Type B (PCR) NEGATIVE RSV RNA Qual (PCR) NEGATIVE 04/27/21 04/27/21 04/27/21 21:26 21:26 21:26 WBC 6.6 RBC 3.95 L Hgb 12.2 L Hct 35.3 L MCV 89.4 MCH 30.9 MCHC 34.6 RDW 12.5 Plt Count 196 MPV 9.9 Immature Gran % (Auto) 0.2 Neut % (Auto) 58.7 Lymph % (Auto) 29.8 Parker % (Auto) 6.1 Eos % (Auto) 4.9 H Baso % (Auto) 0.3 Lymph # (Auto) 2.0 Parker # (Auto) 0.4 Eos # (Auto) 0.3 Baso # (Auto) 0.0 Abs Immat Gran (auto) 0.01 Absolute Neuts (auto) 3.9 Absolute Nucleated RBC 0.000 Nucleated RBC % (auto) 0.0 Sodium 141 Potassium 3.5 Chloride 103 Carbon Dioxide 30 H Anion Gap 12 BUN 14 Creatinine 1.19 Estim Creat Clear Calc 105.1 Estimated GFR > 60 Random Glucose 130 H Calcium 9.1 Total Bilirubin 0.7 Direct Bilirubin 0.3 AST 29 ALT 25 Alkaline Phosphatase 47 Total Protein 7.1 Albumin 4.2 Urine Color Urine Appearance Urine pH Ur Specific [place] Urine Protein Urine Glucose (UA) Urine Ketones Urine Blood Urine Nitrite Ur Leukocyte Esterase Urine RBC Urine WBC Ur Squamous Epith Cells Calcium Oxalate Crystal Urine Bacteria Urine Mucus Urine Opiates Screen Ur Barbiturates Screen Ur Phencyclidine Scrn Ur Amphetamines Screen U Benzodiazepines Scrn Urine Cocaine Screen U Marijuana (THC) Screen Ethyl Alcohol < 10 Coronavirus (PCR) Influenza Type A (PCR) Influenza Type B (PCR) RSV RNA Qual (PCR) EKG EKG: reviewed Mental Status Exam Mental Status Exam Patient Appearance: Appropriate Level of Consciousness: Awake and Alert Patient Behavior: Guarded and Anxious Thought Process: Goal Oriented Thought Content: positive for Goal Oriented Medications Medications Current Medications Generic Name Dose Route Start Last Admin Trade Name Freq PRN Reason Stop Dose Admin Acetaminophen 650 mg 04/27/21 19:24 04/28/21 10:04 Acetaminophen 325 Mg Tablet PO 650 mg QID PRN Administration pain Acetaminophen 650 mg 04/28/21 10:15 Acetaminophen 325 Mg Tablet PO Q6H PRN PAIN Amphetamine/Dextroamphetamine 30 mg 04/28/21 09:00 04/29/21 08:10 Dextroamphetami/Amphetamine Xr 10 Mg Cap.Er.24h PO 30 mg DAILY DACIA Administration Clonazepam 1 mg 04/27/21 20:33 04/29/21 12:56 Clonazepam 1 Mg Tablet PO 1 mg TID PRN Administration Anxiety Cyclobenzaprine HCl 10 mg 04/28/21 10:15 04/28/21 17:10 Cyclobenzaprine Hcl 10 Mg Tablet PO 10 mg Q6H PRN Administration PAIN Doxazosin Mesylate 2 mg 04/27/21 21:00 04/28/21 20:18 Doxazosin Mesylate 2 Mg Tablet PO 2 mg BEDTIME DACIA Administration Protocol Fenofibrate 54 mg 04/28/21 09:00 04/29/21 08:11 Fenofibrate 54 Mg Tablet PO 54 mg DAILY DACIA Administration Gabapentin 800 mg 04/28/21 21:15 04/29/21 12:56 Gabapentin 400 Mg Capsule PO 800 mg QID DACIA Administration Hydroxyzine HCl 50 mg 04/27/21 21:00 04/29/21 14:21 Hydroxyzine Hcl 50 Mg Tablet PO 50 mg TID DACIA Administration Ibuprofen 800 mg 04/28/21 10:15 04/29/21 10:56 Ibuprofen 800 Mg Tablet PO 800 mg Q6H PRN Administration PAIN Lurasidone HCl 60 mg 04/27/21 21:30 04/28/21 20:22 Lurasidone Hcl 20 Mg Tablet PO 60 mg BEDTIME DACIA Administration Melatonin 6 mg 04/28/21 21:00 04/28/21 20:18 Melatonin 3 Mg Tablet PO 6 mg BEDTIME DACIA Administration Nicotine Polacrilex 2 mg 04/27/21 19:24 04/29/21 14:21 Nicotine Polacrilex 2 Mg Gum BUCCAL 2 mg QID PRN Administration nicotine withdrawl Non-Formulary Medication 3 tab 04/28/21 09:00 Glecaprevir-Pibrentasvir [Mavyret] PO DAILY [facility] Pharmacy Consult 1 each 04/27/21 19:24 Consult Rx Perform Med Rec MISCELLANE ONCE PRN Consult order Allergies Allergies Allergy/AdvReac Type Severity Reaction Status Date / Time fish derived [FISH] Allergy Severe ANAPHYLAXIS Verified 03/04/21 20:52 quetiapine [From SEROQUEL] AdvReac Severe INVOLUNTARY Verified 03/04/21 20:52 SPASMS trazodone AdvReac Unknown INVOLUNTARY Verified 03/04/21 20:52 SPASMS SEAFOOD Allergy Severe ANAPHYLAXIS Uncoded 03/04/21 20:52 Assessment & Plan Assessment & Plan (1) Opioid use disorder: Status: Acute Code(s): F11.99 - Opioid use, unspecified with unspecified opioid-induced disorder Assessment and Plan: * this AM received methadone 50mg--tolerated dose * this evening additional 10mg (total of 60mg today) * tomorrow morning 60mg in AM and re-eval with plan to increase by 10mg more if appropriate * pending admission, will continue to follow and titrate dose * Please monitor for sedation during titration period and hold evening methadone dose as appropriate 35 mins spent with patient coordinating care Greater than 50% of the session was spent on counseling and/or coordination of care PMFSH Past Medical History Medical History No known health problems Surgical History Surgical History History of appendectomy Social History Social History Alcohol intake: never Patient Tobacco Use Status: Current everyday Tobacco user Substance Use Type: Crack/Cocaine and Heroin Advance Directives: No Advance Directives Information Provided: No Healthcare Proxy: No Guardian: No
[2021-04-29] MEDS: clonazePAM 0.5 MG TABLET PO (20:36)
[2021-04-29] MEDS: Melatonin 3 MG TABLET 6 MG PO (20:36)
[2021-04-29] MEDS: Lurasidone HCl 20 MG TABLET 60 MG PO (20:51)
[2021-04-29 20:52] VITALS: BP 128/63; PULSE 62
[2021-04-29] MEDS: Doxazosin Mesylate 2 MG TABLET PO (20:52)
[2021-04-29 20:55] VITALS: BP 128/63; PULSE 62; RESP 18; TEMP 36.7; O2SAT 97
--- NOTE | 2021-04-30 06:06 | PC.NURSE ---
Patient slept through the night, no distress observed/reported, med compliant, patient exhibited some sadness over his medication changes, appetite good, VSS, behavior mostly appropriate, disposition is inpatient bed search, pre-accepted to [facility], will continue to monitor.
--- NOTE | 2021-04-30 07:34 | PC.NURSE ---
patient appears to remain at rest at present patient appears in no distress respirations even and unlabored
[2021-04-30] MEDS: Nicotine Polacrilex 2 MG GUM BUCCAL (08:22)
[2021-04-30] MEDS: Fenofibrate 54 MG TABLET PO (08:51)
[2021-04-30] MEDS: Gabapentin 400 MG CAPSULE 800 MG PO ×4 (08:51→21:20)
[2021-04-30] MEDS: clonazePAM 0.5 MG TABLET PO ×4 (08:54→21:21)
--- NOTE | 2021-04-30 10:02 | MHC.RECOVRN ---
T/w met with pt to obtain clarity on where pts home OTP is. Pts home OTP is [facility] in [place]. Pt had gone to [facility] x 14 days and then transitioned to [facility]. While at [facility] pt was guest dosing at [facility] in [place], receiving take home bottles. Most recently, per pt, he had received 3. He took one dose (the 111 mg on 04/23) and did not take the other two. Per pt, provider at [facility] OT did not want to continue that methadone dose while pt was also on other sedating medications and requested pt return to [facility] to detox from benzodiazepines. It was at this time pt became upset and left [facility] and the last 2 bottles of methadone. Pt currently in [facility] in ED with plans to transfer to later today. Pt would like to increase methadone slightly but not titrate to previous dose. Case discussed with Marissa Christianson APRN.
--- NOTE | 2021-04-30 17:22 | PM.EVENT ---
Event Note Date of Service: 04/30/21 Event Note: Addiction follow up: Patient tolerating methadone 60 mg dose. Reporting that he would like to increase by 10 mg but does not want to go back up to 111 mg as he previously was. Patient is somewhat upset that clonazepam dose was decreased by this sign writer letterer or painter to 0.5 mg t.i.d., discussed with patient that medication history was miss read by this sign writer letterer or painter. Patient understanding and not upset, but does wish to have clonazepam increased back to 1 mg t.i.d.. Patient also concerned about hep C medication as he is due for it and is not on formulary here. Plan: -increase methadone to 70 mg tomorrow -recovery support nurse had hepatitis C medication transferred to local pharmacy, this sign writer letterer or painter pick it up and bring it in to the hospital tomorrow 05/01. -patient pending admission to [facility] today, clonazepam ordered to be addressed at that time by attending provider. Patient verbalized understanding -recovery support RN verified that patient has main clinic is [facility] in [place], and this is where patient wishes to resume his care.
[2021-04-30 21:00] VITALS: BP 141/94; PULSE 69; TEMP 36.1
[2021-04-30 21:20] VITALS: BP 141/94; PULSE 69
[2021-04-30] MEDS: Melatonin 3 MG TABLET 6 MG PO (21:20)
[2021-04-30] MEDS: Doxazosin Mesylate 2 MG TABLET PO (21:20)
[2021-04-30] MEDS: Cyclobenzaprine HCl 10 MG TABLET PO (21:20)
[2021-04-30] MEDS: Ibuprofen 800 MG TABLET PO (21:21)
[2021-04-30] MEDS: hydrOXYzine HCL 50 MG TABLET PO (21:21)
--- NOTE | 2021-04-30 23:50 | PC.ADMIT ---
Pt is a 40 year old male who came into [facility] secondary to intentional OD with Heroin and cocaine as a means to ending his life. Pt reported that he went on a recent binge and reports that he was 40 days clean prior. I got about 20 bags and $100 dollars worth of cocaine . States that he does not experience withdrawal symptoms during the day I mostly get anxious around this time (1999) with restlessness and I can not go to sleep . Tox positive for amphetamines, benzos, marijuana, opiates and cocaine. Rates pain in lower back 7/10 and hand pain 5/10. Experiences AH telling him that he is worthless . Denies SI and HI. Extensive history of trauma and substance use. On Methadone through [facility]'s methadone clinic in [place]. CV signed. Placed on 15 minute checks. Medications ordered and prescribed by recreation assistant MD.
[2021-05-01] MEDS: Gabapentin 400 MG CAPSULE 800 MG PO ×4 (08:02→20:09)
[2021-05-01] MEDS: Fenofibrate 54 MG TABLET PO (08:02)
[2021-05-01] MEDS: clonazePAM 0.5 MG TABLET PO ×2 (08:19→11:16)
--- NOTE | 2021-05-01 09:42 | P.HPPS_ITS ---
HPI Chief Complaint: Suicide Sources of Information: patient interviewed, chart reviewed and crisis/core team assessment reviewed HPI Subjective Notes: Colón Warning and Conditional Voluntary Narrative: Patient is a 41-year-old male with history of PTSD, depression and substance abuse who presents for depression and reportedly SI. Patient reports that he is currently no longer depressed, that it was short-lived and fully resolved. He says he has never really suicidal and did not want to and denied intentionally overdosed; he says he was just upset and used more than he should have; patient also reports that he reported suicidality in order to get admission since he felt he had no where else to go and would be without his medications otherwise. Patient said that he has been sober for a little over a month was recently at the [facility] program; though pt has chronic mild depression he felt stable. However, anxiety and subsequently depression worsened when he learned that his outpatient physician retired and he had no way to get his medications which he says are helpful and he relies on. Because of this, he left the [facility] program hoping to get an urgent appointment at [facility] so he could get refills on his medications, however this did not work out. Patient went to his methadone clinic, but without last dose letter from the [facility] in [place] and the methadone clinic would not dose him and he says they refused to call [facility] program to confirm. Patient said he became overwhelmed and very upset which for him is a big trigger to relapse. He said he procured an used IV heroin; he says it was a clean needle and not shared. Patient denies this was a suicide attempt and that was only an accidental overdose. Patient had only missed about 2 days of his medication. Since coming to the hospital patient has been restarted on Latuda which he says is very helpful as are his other medications. Patient says that his anxiety is overall in control. He feels ready for discharge and says that if he can get into a program even if it will not start for a few weeks, he can stay with his stepmother until then. Past Psychiatric History: History of admissions, detox History of trauma and depression Medical Evaluation Reviewed: Yes [facility] Medical History (Updated 05/02/21 @ 12:10 by Yogi Cao MD) Chronic post-traumatic stress disorder (PTSD) MDD (major depressive disorder), recurrent episode, moderate No known health problems Surgical History History of appendectomy Family History: See care team note Social History: See care team note Substance History: See HPI Trauma History: History of trauma; patient did not want to discuss Diagnostics Vital Signs (24Hr): Vital Signs - 24 hr 04/30/21 21:00 04/30/21 21:20 Temperature 97.0 F Pulse Rate 69 69 Blood Pressure 141/94 H 141/94 H Body Mass Index 31.8 Labs Results: 05/01/21 12:26 05/01/21 12:26 Meds/Allergies Meds Home Medications Acetaminophen (Acetaminophen 325 Mg Tablet) 650 mg PO Q6H PRN PRN Reason: PAIN Last Admin: 05/02/21 09:46 Dose: 650 mg Documented by: Acetaminophen (Acetaminophen 325 Mg Tablet) 650 mg PO Q6H PRN PRN Reason: Headache/Pain Mild Scale (1-3) Al Hydroxide/Mg Hydroxide (Magnesium Hydrox/Alum Hydrox 30 Ml Oral.Susp) 30 ml PO Q6H PRN PRN Reason: Heartburn/Nausea Amphetamine/Dextroamphetamine (Dextroamphetami/Amphetamine Xr 10 Mg Cap.Er.24h) 30 mg PO DAILY DACIA Last Admin: 05/02/21 08:51 Dose: 30 mg Documented by: Clonazepam (Clonazepam 1 Mg Tablet) 1 mg PO TID PRN PRN Reason: Anxiety Last Admin: 05/02/21 09:45 Dose: 1 mg Documented by: Doxazosin Mesylate (Doxazosin Mesylate 2 Mg Tablet) 2 mg PO BEDTIME DACIA; Protocol Last Admin: 05/01/21 20:10 Dose: 2 mg Documented by: Fenofibrate (Fenofibrate 54 Mg Tablet) 54 mg PO DAILY DACIA Last Admin: 05/02/21 08:52 Dose: 54 mg Documented by: Gabapentin (Gabapentin 400 Mg Capsule) 800 mg PO QID DACIA Last Admin: 05/02/21 08:52 Dose: 800 mg Documented by: Hydroxyzine HCl (Hydroxyzine Hcl 50 Mg Tablet) 50 mg PO TID PRN PRN Reason: Anxiety Last Admin: 05/01/21 20:11 Dose: 50 mg Documented by: Ibuprofen (Ibuprofen 800 Mg Tablet) 800 mg PO Q6H PRN PRN Reason: PAIN Last Admin: 04/30/21 21:21 Dose: 800 mg Documented by: Lurasidone HCl (Lurasidone Hcl 20 Mg Tablet) 60 mg PO BEDTIME [facility] Last Admin: 05/01/21 20:10 Dose: 60 mg Documented by: Magnesium Hydroxide (Milk Of Magnesia 30 Ml Oral.Susp) 30 ml PO DAILY PRN PRN Reason: Constipation Melatonin (Melatonin 3 Mg Tablet) 6 mg PO BEDTIME [facility] Last Admin: 05/01/21 20:10 Dose: 6 mg Documented by: Methadone HCl (Methadone Hcl 1 Mg/0.1 Ml Oral.Conc) 70 mg PO DAILY [facility] Last Admin: 05/02/21 08:51 Dose: 70 mg Documented by: Nicotine (Nicotine 21 Mg Patch.Td24) 21 mg TRANSDERMA DAILY PRN PRN Reason: smoking cessation Last Admin: 05/02/21 09:32 Dose: 21 mg Documented by: Nicotine Polacrilex (Nicotine Polacrilex 2 Mg Gum) 4 mg BUCCAL Q1H PRN PRN Reason: nicotine withdrawl Last Admin: 05/01/21 20:10 Dose: 4 mg Documented by: Non-Formulary Medication (Glecaprevir-Pibrentasvir [Mavyret]) 3 tab PO DAILY [facility] Pharmacy Consult (Consult Rx Perform Med Rec) 1 each MISCELLANE ONCE PRN PRN Reason: Consult order Trazodone HCl (Trazodone Hcl 50 Mg Tablet) 50 mg PO BEDTIME PRN PRN Reason: Insomnia Allergies Allergies Allergy/AdvReac Type Severity Reaction Status Date / Time fish derived [FISH] Allergy Severe ANAPHYLAXIS Verified 03/04/21 20:52 quetiapine [From SEROQUEL] AdvReac Severe INVOLUNTARY Verified 03/04/21 20:52 SPASMS trazodone AdvReac Unknown INVOLUNTARY Verified 03/04/21 20:52 SPASMS SEAFOOD Allergy Severe ANAPHYLAXIS Uncoded 03/04/21 20:52 Mental Status Exam Mental Status Exam Narrative: Pt is alert and oriented; behavior is cooperative, friendly and calm; patient is not in distress; dressed in casual attirewith adequate hygiene; mood is describe d as good and affect congruent; eye contact appropriate; Speech is normal rate, volume and prosody and not pressured; no psychomotor agitation/retardation present; thought process is organized, linear, logical and goal directed. Thought content is on treatment; otherwise TC relevant to pertinent topics and without any delusional content, paranoid ideations or grandiosity; denies any SI/HI. There is no evidence of perceptual disturbance. ?Patients insight and judgment appear intact. Assessment & Plan Assessment & Plan (1) MDD (major depressive disorder), recurrent episode, moderate: Status: Chronic Code(s): F33.1 - Major depressive disorder, recurrent, moderate (2) Chronic post-traumatic stress disorder (PTSD): Status: Chronic Code(s): F43.12 - Post-traumatic stress disorder, chronic (3) Opioid use disorder: Status: Acute Code(s): F11.99 - Opioid use, unspecified with unspecified opioid-induced disorder Assessment and Plan: Impression: Patient is a 41-year-old male with history of PTSD, depression and substance abuse who presents for depression and reportedly SI. Patient reports that he is currently no longer depressed, that it was short-lived and fully resolved. Patient denies SI and says overdose was unintentional but that use situation to gain admission since he felt he had no other choice and would otherwise be without medication, which he felt would subsequently worsen his depression and eventually lead to worse outcome. Patient was restarted on home medication to good effect. Patient feels that he is likely ready for discharge soon Plan: Patient on CV Q 15 minutes checks Will continue home medications which were restarted in the ED Dispo planning with social Work Reason for continued inpatient stay Substantial Risk for: rapid decompensation
[2021-05-01] MEDS: Nicotine Polacrilex 2 MG GUM BUCCAL (11:18)
[2021-05-01] MEDS: hydrOXYzine HCL 50 MG TABLET PO ×2 (12:23→20:11)
[2021-05-01 12:48] LABS: MANUAL DIFF FLAG NO
[2021-05-01 12:53] LABS: Basophils Percent Auto 0.3 % (0-2); Eosinophils Absolute Auto 0.2 X10*3/uL (0.0-0.4); Eosinophils Percent Auto 2.7 % (0-4); Hematocrit 39.9 % (42-52); Hemoglobin 14.1 g/dl (14.0-18.0); Imm Gran Abs Auto 0.02 X10*3/uL (0.00-0.03); Imm Gran Pct Auto 0.3 % (0.0-0.4); Lymphocytes Absolute Auto 2.6 X10*3/uL (1.2-4.9); Lymphocytes Percent Auto 40.2 % (20-40); Mean Corpuscular HGB Conc 35.3 g/dl (31.0-36.0); Mean Corpuscular Hemoglobin 30.9 pg (27.0-33.0); Mean Corpuscular Volume 87.5 fL (80-98); Mean Platelet Volume 10.5 fL (9.4-12.4); Monocytes Absolute Auto 0.3 X10*3/uL (0.1-1.2); Monocytes Percent Auto 4.8 % (2-11); Neutrophils Absolute Auto 3.3 X10*3/uL (2.0-8.3); Neutrophils Percent Auto 51.7 % (45-73); Platelet Count 260 X10*3/uL (160-400); Red Blood Count 4.56 X10*6/uL (4.60-5.80); Red Cell Distribution Width 12.8 % (11.0-16.0); White Blood Count 6.4 X10*3/uL (4.8-10.8)
[2021-05-01 13:32] LABS: Albumin Level 4.6 g/dL (3.5-5.0); Alkaline Phosphatase 48 U/L (39-117); Aspartate Amino Transferase 35 U/L (5-37); Bilirubin Direct 0.2 mg/dL (0.0-0.5); Bilirubin Total 0.6 mg/dL (0.0-1.0); Blood Urea Nitrogen 13 mg/dL (9-16); Creatinine Clr Calc Pharmacy 107.8; Estimated Glomerular Filt Rate > 60; Glucose Fasting 86 mg/dL (60-99); Magnesium 2.1 mg/dL (1.6-2.6); Total Protein 8.2 g/dL (6.5-8.0)
[2021-05-01 13:45] LABS: Alanine Aminotransferase 40 U/L (0-40); Anion Gap 17 (12-20); Carbon Dioxide 18 mmol/L (22-29); Chloride 106 mmol/L (96-108); Potassium 4.8 mmol/L (3.3-5.1); Sodium 136 mmol/L (135-145)
[2021-05-01 13:50] LABS: Thyroid Stimulating Hormone 0.62 uIU/mL (0.32-4.0)
[2021-05-01] MEDS: clonazePAM 1 MG TABLET PO ×2 (14:07→20:11)
[2021-05-01] MEDS: Nicotine Polacrilex 2 MG GUM 4 MG BUCCAL ×2 (16:46→20:10)
[2021-05-01] MEDS: Acetaminophen 325 MG TABLET 650 MG PO (17:05)
[2021-05-01 17:13] VITALS: BP 125/81; PULSE 70; RESP 18; TEMP 36.4; O2SAT 97
[2021-05-01 20:06] VITALS: BP 124/77; PULSE 91; RESP 16; TEMP 36.3; O2SAT 98
[2021-05-01 20:10] VITALS: BP 124/77; PULSE 91
[2021-05-01] MEDS: Doxazosin Mesylate 2 MG TABLET PO (20:10)
[2021-05-01] MEDS: Lurasidone HCl 20 MG TABLET 60 MG PO (20:10)
[2021-05-01] MEDS: Melatonin 3 MG TABLET 6 MG PO (20:10)
[2021-05-02 06:00] VITALS: BP 107/61; PULSE 64; RESP 14; TEMP 36.7; O2SAT 95
--- NOTE | 2021-05-02 08:31 | MHC.RECOVRN ---
T/w spoke with Alicia Garza, Operating Theatre Technician [facility], who reports pt is able to return to the program upon dc. They are requesting pt have an appt with outpatient psychiatrist prior to dc. T/w available as needed.
[2021-05-02] MEDS: Fenofibrate 54 MG TABLET PO (08:52)
[2021-05-02] MEDS: Gabapentin 400 MG CAPSULE 800 MG PO ×4 (08:52→20:37)
[2021-05-02] MEDS: Nicotine 21 MG PATCH.TD24 TRANSDERMA (09:32)
[2021-05-02] MEDS: clonazePAM 1 MG TABLET PO ×3 (09:45→20:32)
[2021-05-02] MEDS: Acetaminophen 325 MG TABLET 650 MG PO (09:46)
[2021-05-02] MEDS: Nicotine Polacrilex 2 MG GUM 4 MG BUCCAL ×2 (12:49→20:32)
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
[2021-05-02 18:00] VITALS: BP 132/76; PULSE 78; TEMP 36.6
[2021-05-02] MEDS: hydrOXYzine HCL 50 MG TABLET PO ×2 (18:54→20:37)
[2021-05-02] MEDS: Melatonin 3 MG TABLET 6 MG PO (20:32)
[2021-05-02 20:33] VITALS: BP 139/88; PULSE 81
[2021-05-02] MEDS: Doxazosin Mesylate 2 MG TABLET PO (20:33)
[2021-05-02] MEDS: Lurasidone HCl 20 MG TABLET 60 MG PO (20:33)
[2021-05-02 20:53] VITALS: BP 139/88; PULSE 81; TEMP 36.9
[2021-05-03 06:00] VITALS: BP 111/74; PULSE 87; RESP 18; TEMP 36.4; O2SAT 97
--- NOTE | 2021-05-03 06:50 | HO.HSGERICON ---
History of Present Illness Data of Consult Service Date: 05/02/21 Primary Care Provider: Unknown Physician HPI Reason for consult: Hepatitis-C This is a 40-year-old male with past medical history of hepatitis-C currently being treated, admitted to [facility] for suicidal ideation wanted to speak to medical team regarding his hepatitis-C medication. Patient is concerned because he has not had access to his hepatitis-C medications for the past 1 week since being admitted to [facility] and is concerned that the medication may not be effective or he may have to restart medication all over again. He also wanted to know his viral load. It appears that the indication is non formulary, patient does not have the medication at home because he was homeless, his outpatient pharmacy is feeling the medication, [facility] unit attempted to machine operator picker the medication from the pharmacy yesterday but the medication was not ready. Review of Systems Review of Systems: Yes all other systems are reviewed and are negative [facility] Medical History (Updated 05/03/21 @ 06:53 by Yanique Mullins MD) Chronic post-traumatic stress disorder (PTSD) Hepatitis C MDD (major depressive disorder), recurrent episode, moderate No known health problems Surgical History History of appendectomy Social History Household Members: Unknown / Unable to assess Housing: Unknown / Unable to assess Do you presently have visiting nurse or other home services: No Alcohol intake: never Patient Tobacco Use Status: Current everyday Tobacco user Tobacco use type: Cigarette Cigarette Packs Per Day: 0.5 Cigarettes Per Day: 10.0 Smoked in Last 30 Days: No Patient Interested in Nicotine Replacement: Yes Patient Given Instructions on How to Stop Smoking: No Second Hand Smoke Exposure: No Use of substances other than those prescribed or required for medical reasons: Yes Substance Use Type: Crack/Cocaine and Marijuana Substance Use Frequency: Recent Binge Last Used Substance: Just Prior to Admission Currently Displaying Signs/Symptoms of Drug Intoxication Withdrawal: No Any prior treatment program specific to substance use: No Have you been hit, kicked, punched, or otherwise hurt by someone within the past year? If so, by whom?: No Do you feel safe in your current relationship?: No Is there a partner from a previous relationship who is making you feel unsafe now?: No Are you made to feel afraid or neglected: No Advance Directives: No Advance Directives Information Provided: No Advance Directives on File: No Healthcare Proxy: No Guardian: No Do you have thoughts of harming others: None Do you have a plan to hurt others: No Plan Recently lost weight without trying: Unsure How much weight loss: Unsure Eating poorly because of decreased appetite: No Nutrition screen score: 4 Nutrition Risks: No Nutritional Risk Poor oral hygiene: No service: No Sexual orientation: Straight/Heterosexual Meds Allergies Allergy/AdvReac Type Severity Reaction Status Date / Time fish derived [FISH] Allergy Severe ANAPHYLAXIS Verified 03/04/21 20:52 quetiapine [From SEROQUEL] AdvReac Severe INVOLUNTARY Verified 03/04/21 20:52 SPASMS trazodone AdvReac Unknown INVOLUNTARY Verified 03/04/21 20:52 SPASMS SEAFOOD Allergy Severe ANAPHYLAXIS Uncoded 03/04/21 20:52 Active Medications: Current Medications Generic Name Dose Route Start Last Admin Trade Name Freq PRN Reason Stop Dose Admin Acetaminophen 650 mg 04/28/21 10:15 05/02/21 09:46 Acetaminophen 325 Mg Tablet PO 650 mg Q6H PRN Administration PAIN Acetaminophen 650 mg 04/30/21 19:08 Acetaminophen 325 Mg Tablet PO Q6H PRN Headache/Pain Mild Scale (1-3) Al Hydroxide/Mg Hydroxide 30 ml 04/30/21 19:08 Magnesium Hydrox/Alum Hydrox 30 Ml Oral.Susp PO Q6H PRN Heartburn/Nausea Amphetamine/Dextroamphetamine 30 mg 04/28/21 09:00 05/02/21 08:51 Dextroamphetami/Amphetamine Xr 10 Mg Cap.Er.24h PO 30 mg DAILY DACIA Administration Clonazepam 1 mg 05/01/21 15:00 05/02/21 20:32 Clonazepam 1 Mg Tablet PO 1 mg TID PRN Administration Anxiety Doxazosin Mesylate 2 mg 04/27/21 21:00 05/02/21 20:33 Doxazosin Mesylate 2 Mg Tablet PO 2 mg BEDTIME DACIA Administration Protocol Fenofibrate 54 mg 04/28/21 09:00 05/02/21 08:52 Fenofibrate 54 Mg Tablet PO 54 mg DAILY DACIA Administration Gabapentin 800 mg 04/28/21 21:15 05/02/21 20:37 Gabapentin 400 Mg Capsule PO 800 mg QID DACIA Administration Hydroxyzine HCl 50 mg 04/29/21 17:14 05/02/21 20:37 Hydroxyzine Hcl 50 Mg Tablet PO 50 mg TID PRN Administration Anxiety Ibuprofen 800 mg 04/28/21 10:15 04/30/21 21:21 Ibuprofen 800 Mg Tablet PO 800 mg Q6H PRN Administration PAIN Lurasidone HCl 60 mg 04/27/21 21:30 05/02/21 20:33 Lurasidone Hcl 20 Mg Tablet PO 60 mg BEDTIME DACIA Administration Magnesium Hydroxide 30 ml 04/30/21 19:08 Milk Of Magnesia 30 Ml Oral.Susp PO DAILY PRN Constipation Melatonin 6 mg 04/28/21 21:00 05/02/21 20:32 Melatonin 3 Mg Tablet PO 6 mg BEDTIME DACIA Administration Methadone HCl 70 mg 05/01/21 09:00 05/02/21 08:51 Methadone Hcl 1 Mg/0.1 Ml Oral.Conc PO 70 mg DAILY DACIA Administration Nicotine 21 mg 05/01/21 12:56 05/02/21 09:32 Nicotine 21 Mg Patch.Td24 TRANSDERMA 21 mg DAILY PRN Administration smoking cessation Nicotine Polacrilex 4 mg 05/01/21 11:27 05/02/21 20:32 Nicotine Polacrilex 2 Mg Gum BUCCAL 4 mg Q1H PRN Administration nicotine withdrawl Non-Formulary Medication 3 tab 04/28/21 09:00 Glecaprevir-Pibrentasvir [Mavyret] PO DAILY [facility] Pharmacy Consult 1 each 04/27/21 19:24 Consult Rx Perform Med Rec MISCELLANE ONCE PRN Consult order Home Medications Medication Instructions Recorded Confirmed Last Taken Type clonazepam 1 mg tablet 1 tab PO TID PRN 04/27/21 04/27/21 Unknown History dextroamphetamine-amphetamine ER 1 cap PO DAILY 04/27/21 04/27/21 Unknown History 30 mg 24hr capsule,extend release doxazosin 2 mg tablet 1 tab PO BEDTIME 04/27/21 04/27/21 Unknown History fenofibrate 54 mg tablet 1 tab PO DAILY 04/27/21 04/27/21 Unknown History gabapentin 600 mg tablet 1,200 mg PO 04/27/21 Unknown History glecaprevir 100 mg-pibrentasvir 40 3 tab PO DAILY 04/27/21 04/27/21 Unknown History mg tablet (Mavyret) hydroxyzine pamoate 50 mg capsule 1 cap PO TID 04/27/21 04/27/21 Unknown History lurasidone 60 mg tablet (Latuda) 1 tab PO BEDTIME 04/27/21 04/27/21 Unknown History melatonin 5 mg tablet 1 tab PO BEDTIME 04/27/21 04/27/21 Unknown History omega-3 acid ethyl esters 1 gram 1 PO BEDTIME 04/27/21 Unknown History capsule gabapentin 400 mg capsule 800 mg PO QID 04/28/21 04/28/21 Unknown History Results Labs CBC and Chem 7: 05/01/21 12:26 05/01/21 12:26 Assessment and Plan (1) Hepatitis C: Status: Acute 40-year-old male with past medical history of hepatitis-C currently being managed with Mavyret his medication since being admitted to the hospital for suicidal ideation and depression. U will attempt to pick of patient's medication from outpatient pharmacy today, patient is also curious about obtaining his viral load, hepatitis C viral load ordered The advised patient to follow-up with frozen meat cutter/administrative project coordinator upon discharge to discuss his medications and further evaluation of his hepatitis-C Thank you for this consult Physical Exam Vital Signs: Last Vital Signs Temp 97.6 F 05/03/21 06:00 Pulse 87 05/03/21 06:00 Resp 18 05/03/21 06:00 BP 111/74 05/03/21 06:00 Pulse Ox 97 05/03/21 06:00 Body Mass Index 31.8 Const General: cooperative and no acute distress Orientation/consciousness: patient oriented x3 Eyes General: appearance normal, both eyes and all related structures Resp Effort & Inspection: normal respiratory effort and able to speak in complete sentences Cardio Rate: regular rate Rhythm: regular rhythm GI Palpation (GI): Soft to palpation Auscultation: normal bowel sounds Skin General skin exam: no rashes or lesions noted Neuro General: patient oriented x3 Cranial nerves: Yes CN's II-XII intact bilaterally Cognition (Neuro): normal cognition Extrem General: Yes normal to inspection
[2021-05-03] MEDS: Fenofibrate 54 MG TABLET PO (08:52)
[2021-05-03] MEDS: Gabapentin 400 MG CAPSULE 800 MG PO ×4 (08:52→20:11)
[2021-05-03] MEDS: clonazePAM 1 MG TABLET PO ×3 (09:08→18:33)
[2021-05-03] MEDS: Nicotine Polacrilex 2 MG GUM 4 MG BUCCAL (09:08)
--- NOTE | 2021-05-03 17:18 | P.DS_ITS ---
DS: Providers Provider Date of Service: 05/05/21 Date of admission: 04/30/21 19:09 Date of discharge: 05/05/21 Primary care physician: Unknown Physician Attending physician on admission: Yogi Cao Consults: 05/02/21 09:40 Consult to Infectious Diseases Routine Consulting Provider: Danisha Aguilar Reason for consultation: hep C; on meds for this; has questions Attending physician on discharge: Yogi Cao DS: Diagnosis Discharge Diagnosis (1) MDD (major depressive disorder), recurrent episode, moderate: Status: Chronic (2) Chronic post-traumatic stress disorder (PTSD): Status: Chronic (3) Opioid use disorder: Status: Chronic (4) Hepatitis C: Status: Chronic DS: Medications Discharge Medications Home Medications: Home Medications Medication Instructions Recorded Confirmed glecaprevir 100 mg-pibrentasvir 40 3 tab PO DAILY 04/27/21 04/27/21 mg tablet (Mavyret) omega-3 acid ethyl esters 1 gram 1 PO BEDTIME 04/27/21 capsule Previous Rx's Medication Instructions Recorded clonazepam 1 mg tablet 1 mg PO TID PRN 15 Days #45 tab 05/03/21 dextroamphetamine-amphetamine ER 1 cap PO DAILY 30 Days #30 cap 05/03/21 30 mg 24hr capsule,extend release doxazosin 1 mg tablet 3 mg PO BEDTIME 30 Days #90 tab 05/03/21 fenofibrate 54 mg tablet 54 mg PO DAILY 30 Days #30 tab 05/03/21 gabapentin 400 mg capsule 800 mg PO QID 15 Days #120 cap 05/03/21 hydroxyzine pamoate 50 mg capsule 50 mg PO TID PRN 30 Days #90 cap 05/03/21 lurasidone 60 mg tablet (Latuda) 60 mg PO BEDTIME 30 Days #30 tab 05/03/21 melatonin 3 mg tablet 6 mg PO BEDTIME PRN 30 Days #60 tab 05/03/21 methadone 10 mg/mL oral 70 mg PO DAILY #0 ml 05/03/21 concentrate (Methadose) Mental Status Exam Mental Status Exam Narrative: dr. Schmitt: in today's visit he is alert, oriented and pleasant.? Normal speech.? Good eye contact.? Appropriate affect.? No signs of depression.? No SI/HI.? Cognitively is intact.? Judgment is intact Data Data Completed and Pending Completed studies during hospitalization [Text1]: 04/27/21 04/27/21 04/27/21 19:24 19:24 19:24 WBC RBC Hgb Hct MCV MCH MCHC RDW Plt Count MPV Immature Gran % (Auto) Neut % (Auto) Lymph % (Auto) [place] % (Auto) Eos % (Auto) Baso % (Auto) Lymph # (Auto) [place] # (Auto) Eos # (Auto) Baso # (Auto) Abs Immat Gran (auto) Absolute Neuts (auto) Absolute Nucleated RBC Nucleated RBC % (auto) Sodium Potassium Chloride Carbon Dioxide Anion Gap BUN Creatinine Estim Creat Clear Calc Estimated GFR Random Glucose Fasting Glucose Calcium Magnesium Total Bilirubin Direct Bilirubin AST ALT Alkaline Phosphatase Total Protein Albumin TSH Urine Color DARK YELLOW Urine Appearance HAZY Urine pH 6.0 Ur Specific [place] >= 1.030 H Urine Protein 1+ H Urine Glucose (UA) NEG Urine Ketones 5 Urine Blood NEG Urine Nitrite NEG Ur Leukocyte Esterase NEG Urine RBC 10-14 H Urine WBC 0 Ur Squamous Epith Cells TRACE Calcium Oxalate Crystal 2+ Urine Bacteria TRACE Urine Mucus 4+ Urine Opiates Screen POSITIVE H Ur Barbiturates Screen Not Detected Ur Phencyclidine Scrn Not Detected Ur Amphetamines Screen POSITIVE H U Benzodiazepines Scrn POSITIVE H Urine Cocaine Screen POSITIVE H U Marijuana (THC) Screen POSITIVE H Ethyl Alcohol Coronavirus (PCR) NEGATIVE Hep C Viral Load Hep C Viral Load Log Influenza Type A (PCR) NEGATIVE Influenza Type B (PCR) NEGATIVE RSV RNA Qual (PCR) NEGATIVE 04/27/21 04/27/21 04/27/21 21:26 21:26 21:26 WBC 6.6 RBC 3.95 L Hgb 12.2 L Hct 35.3 L MCV 89.4 MCH 30.9 MCHC 34.6 RDW 12.5 Plt Count 196 MPV 9.9 Immature Gran % (Auto) 0.2 Neut % (Auto) 58.7 Lymph % (Auto) 29.8 [place] % (Auto) 6.1 Eos % (Auto) 4.9 H Baso % (Auto) 0.3 Lymph # (Auto) 2.0 [place] # (Auto) 0.4 Eos # (Auto) 0.3 Baso # (Auto) 0.0 Abs Immat Gran (auto) 0.01 Absolute Neuts (auto) 3.9 Absolute Nucleated RBC 0.000 Nucleated RBC % (auto) 0.0 Sodium 141 Potassium 3.5 Chloride 103 Carbon Dioxide 30 H Anion Gap 12 BUN 14 Creatinine 1.19 Estim Creat Clear Calc 105.1 Estimated GFR > 60 Random Glucose 130 H Fasting Glucose Calcium 9.1 Magnesium Total Bilirubin 0.7 Direct Bilirubin 0.3 AST 29 ALT 25 Alkaline Phosphatase 47 Total Protein 7.1 Albumin 4.2 TSH Urine Color Urine Appearance Urine pH Ur Specific [place] Urine Protein Urine Glucose (UA) Urine Ketones Urine Blood Urine Nitrite Ur Leukocyte Esterase Urine RBC Urine WBC Ur Squamous Epith Cells Calcium Oxalate Crystal Urine Bacteria Urine Mucus Urine Opiates Screen Ur Barbiturates Screen Ur Phencyclidine Scrn Ur Amphetamines Screen U Benzodiazepines Scrn Urine Cocaine Screen U Marijuana (THC) Screen Ethyl Alcohol < 10 Coronavirus (PCR) Hep C Viral Load Hep C Viral Load Log Influenza Type A (PCR) Influenza Type B (PCR) RSV RNA Qual (PCR) 05/01/21 05/01/21 05/03/21 12:26 12:26 08:59 WBC 6.4 RBC 4.56 L Hgb 14.1 Hct 39.9 L MCV 87.5 MCH 30.9 MCHC 35.3 RDW 12.8 Plt Count 260 D MPV 10.5 Immature Gran % (Auto) 0.3 Neut % (Auto) 51.7 Lymph % (Auto) 40.2 H [place] % (Auto) 4.8 Eos % (Auto) 2.7 Baso % (Auto) 0.3 Lymph # (Auto) 2.6 [place] # (Auto) 0.3 Eos # (Auto) 0.2 Baso # (Auto) 0.0 Abs Immat Gran (auto) 0.02 Absolute Neuts (auto) 3.3 Absolute Nucleated RBC 0.000 Nucleated RBC % (auto) 0.0 Sodium 136 Potassium 4.8 D Chloride 106 Carbon Dioxide 18 L Anion Gap 17 BUN 13 Creatinine 1.16 Estim Creat Clear Calc 107.8 Estimated GFR > 60 Random Glucose Fasting Glucose 86 Calcium 10.0 D Magnesium 2.1 Total Bilirubin 0.6 Direct Bilirubin 0.2 AST 35 ALT 40 Alkaline Phosphatase 48 Total Protein 8.2 H Albumin 4.6 TSH 0.62 Urine Color Urine Appearance Urine pH Ur Specific [place] Urine Protein Urine Glucose (UA) Urine Ketones Urine Blood Urine Nitrite Ur Leukocyte Esterase Urine RBC Urine WBC Ur Squamous Epith Cells Calcium Oxalate Crystal Urine Bacteria Urine Mucus Urine Opiates Screen Ur Barbiturates Screen Ur Phencyclidine Scrn Ur Amphetamines Screen U Benzodiazepines Scrn Urine Cocaine Screen U Marijuana (THC) Screen Ethyl Alcohol Coronavirus (PCR) Hep C Viral Load Pending Hep C Viral Load Log Pending Influenza Type A (PCR) Influenza Type B (PCR) RSV RNA Qual (PCR) DS: Summary Hospital Course Hospital Course: Impression: Patient is a 41-year-old male with history of PTSD, depression and substance abuse who presents for depression and reportedly SI.? Patient reports that he is currently no longer depressed, that it was short-lived and fully resolved.? Patient denied SI and says overdose was unintentional but that he used thesituation to gain admission since he felt he had no other choice and would otherwise be without medication, which he felt would subsequently worsen his depression and eventually lead to worse outcome. Patient had only been off his medications for a couple of days; he was restarted on home medication regimen to good effect.? Patient feels that he is likely ready for discharge soon Over the next few days...Depression remains resolved; pt in good mood, future oriented and w/out SI.? Patient signed a 3 day notice increased Doxasosin to address nightmares; otherwise no med changes Throughout the admission, patient remained without SI or HI and demonstrated appropriate behaviors and good behavioral and impulse control. He was in a good mood, future oriented and optimistic about staying sober. Patient's plan was to go stay at his stepmother's who is supportive, until his program is available. Patient is not in imminent risk for harm to self or others and does not meet criteria for involuntary commitment. Patient's request for discharge was honored. Time spent discussing smoking cessation with patient: 3 to 10 minutes Status at Discharge Functional status at discharge: independent ambulation Overall status at discharge: patient is back to baseline Time Spent with Patient Time attestation: Total time spent providing and/or coordinating discharge services: Time spent: Less than 30 minutes Discharge Plan Discharge Patient Disposition: Home, Self-Care Discharge Diagnosis: MDD, recurrent, moderate in remission Referrals: [facility] [Other] - 05/06/21 6:00 am (Please arrive at the clinic between 6-8AM on Thursday to be reinstated in the program. Please also bring your last dose letter and discharge packet) [facility] [Other] - 1 Week (Please contact Disha Owen, Packaging Sales Consultant, at the above number upon discharge to show continued interest in the program) [facility] [Other] - 1 Week (*A referral has been placed on your behalf for [facility]. Please contact Kenyatta Benefits Consultant, at the above number if you are interested in attending the program after discharge) Loraine Colin (therapy) [Other] - 05/07/21 10:00 am (This appointment is via Telehealth) Lilia Richards (psychiatry) [Other] - 06/05/21 12:00 pm (This appointment is via Telehealth) Lilia Richards (psychiatry) [Other] - 07/02/21 10:40 am (This appointment is via Telehealth) Physician,Unknown [Primary Care Provider] - 1 Week Discharge Medications: New doxazosin 1 mg Tablet 3 mg PO BEDTIME 30 Days Qty: 90 RF: 0 melatonin 3 mg Tablet 6 mg PO BEDTIME PRN (Reason: sleep) 30 Days Qty: 60 RF: 0 methadone [Methadose] 10 mg/mL Concentrate 70 mg PO DAILY Qty: 0 RF: 0 Continued omega-3 acid ethyl esters 1 gram capsule 1 PO BEDTIME RF: 0 Mavyret 100-40 mg tablet 3 tab PO DAILY RF: 0 gabapentin 400 mg capsule 800 mg PO QID 15 Days Qty: 120 RF: 1 dextroamphetamine-amphetamine 30 mg capsule,extended release 24hr 1 cap PO DAILY 30 Days Qty: 30 RF: 0 Changed clonazepam 1 mg tablet 1 mg PO TID PRN (Reason: Anxiety) 15 Days Qty: 45 RF: 1 hydroxyzine pamoate 50 mg capsule 50 mg PO TID PRN (Reason: anxiety) 30 Days Qty: 90 RF: 0 fenofibrate 54 mg tablet 54 mg PO DAILY 30 Days Qty: 30 RF: 0 Latuda 60 mg tablet 60 mg PO BEDTIME 30 Days Qty: 30 RF: 0 Discontinued gabapentin 600 mg tablet 1,200 mg PO RF: 0 doxazosin 2 mg tablet 1 tab PO BEDTIME RF: 0 melatonin 5 mg tablet 1 tab PO BEDTIME RF: 0 Discharge Orders: Discharge Order (Routine); Ordered 05/05/21 Ordered By: Yogi Cao Diet: regular diet Activity on Discharge: As tolerated Stand Alone Forms: Patient Portal Discharge page, Community Support Care Plan Goals: Maintain mood and safe behaviors Take medications as prescribed Continue to pursue sobriety Practice coping skills Continue with outpatient providers and reach out to them as needed Health Concerns: Mood instability and behaviors Substance Abuse Hep C Plan of Treatment: Follow up with your PCP and psychiatric provider regarding above concerns Take medications as prescribed Assessment: Risk assessment at time of discharge:? Patient was interviewed prior to discharge and found to be fully oriented and without any SI or HI. Patient has insight and demonstrates good judgment in terms of wanting to pursue treatment. Patient is not in imminent risk of harm to self or others and has a safety plan that includes presenting to the closest ER or calling 911 if feeling unsafe.? Patient has been observed closely by nursing and unit staff throughout admission; patient has not engaged in any behaviors that suggest dangerousness to self or others and has demonstrated appropriate behaviors and impulse control. Discharge Date/Time: 05/05/21 12:20
--- NOTE | 2021-05-03 17:18 | HO.PSYCHPN ---
Subjective Subjective Date of Service: 05/04/21 Reason For Visit: Suicide Interim History: pt reports doing well; he shared that he got anxious last night due to trauma hx/ptsd symptoms being triggered by yelling on the unit and sharing about trauma during a group but that anxiety has since resolved Pt disclosed some of childhood trauma and says this issue is something he's never really addressed until recently; he feels it's what drives much of his relapse and he's feeling ready to deal with it in therapy. Pt feels ready for discharge home to step mothers where he'll wait for program to start. He says he's in good mood w/out any SI and feeling optimistic about staying sober. Mental Status Exam Mental Status Exam Narrative: Pt is alert and oriented; behavior is cooperative, friendly and calm; patient is not in distress; dressed in casual attire with adequate hygiene; mood is described as good and affect congruent; eye contact appropriate; Speech is normal rate, volume and prosody and not pressured; no psychomotor agitation/retardation present; thought process is organized, linear, logical and goal directed. Thought content is on treatment; otherwise TC relevant to pertinent topics and without any delusional content, paranoid ideations or grandiosity; denies any SI/HI. There is no evidence of perceptual disturbance. ?Patients insight and judgment appear intact. Diagnostics Vital Signs (24Hr): Vital Signs - 24 hr 05/02/21 18:00 05/02/21 20:33 05/02/21 20:53 Temperature 98 F 98.4 F Pulse Rate 78 81 81 Respiratory Rate Blood Pressure 132/76 139/88 139/88 Pulse Oximetry 05/03/21 06:00 Temperature 97.6 F Pulse Rate 87 Respiratory Rate 18 Blood Pressure 111/74 Pulse Oximetry 97 Body Mass Index 31.8 Labs Results: 05/01/21 12:26 05/01/21 12:26 Medications Medications Current Medications Generic Name Dose Route Start Last Admin Trade Name Freq PRN Reason Stop Dose Admin Acetaminophen 650 mg 04/28/21 10:15 05/02/21 09:46 Acetaminophen 325 Mg Tablet PO 650 mg Q6H PRN Administration PAIN Acetaminophen 650 mg 04/30/21 19:08 Acetaminophen 325 Mg Tablet PO Q6H PRN Headache/Pain Mild Scale (1-3) Al Hydroxide/Mg Hydroxide 30 ml 04/30/21 19:08 Magnesium Hydrox/Alum Hydrox 30 Ml Oral.Susp PO Q6H PRN Heartburn/Nausea Amphetamine/Dextroamphetamine 30 mg 04/28/21 09:00 05/03/21 08:55 Dextroamphetami/Amphetamine Xr 10 Mg Cap.Er.24h PO 30 mg DAILY DACIA Administration Clonazepam 1 mg 05/01/21 15:00 05/03/21 13:09 Clonazepam 1 Mg Tablet PO 1 mg TID PRN Administration Anxiety Doxazosin Mesylate 3 mg 05/03/21 21:00 Doxazosin Mesylate 1 Mg Tablet PO BEDTIME DACIA Protocol Fenofibrate 54 mg 04/28/21 09:00 05/03/21 08:52 Fenofibrate 54 Mg Tablet PO 54 mg DAILY DACIA Administration Gabapentin 800 mg 04/28/21 21:15 05/03/21 17:16 Gabapentin 400 Mg Capsule PO 800 mg QID DACIA Administration Hydroxyzine HCl 50 mg 04/29/21 17:14 05/02/21 20:37 Hydroxyzine Hcl 50 Mg Tablet PO 50 mg TID PRN Administration Anxiety Ibuprofen 800 mg 04/28/21 10:15 04/30/21 21:21 Ibuprofen 800 Mg Tablet PO 800 mg Q6H PRN Administration PAIN Lurasidone HCl 60 mg 04/27/21 21:30 05/02/21 20:33 Lurasidone Hcl 20 Mg Tablet PO 60 mg BEDTIME DACIA Administration Magnesium Hydroxide 30 ml 04/30/21 19:08 Milk Of Magnesia 30 Ml Oral.Susp PO DAILY PRN Constipation Melatonin 6 mg 04/28/21 21:00 05/02/21 20:32 Melatonin 3 Mg Tablet PO 6 mg BEDTIME DACIA Administration Methadone HCl 70 mg 05/01/21 09:00 05/03/21 08:53 Methadone Hcl 1 Mg/0.1 Ml Oral.Conc PO 70 mg DAILY DACIA Administration Nicotine 21 mg 05/01/21 12:56 05/02/21 09:32 Nicotine 21 Mg Patch.Td24 TRANSDERMA 21 mg DAILY PRN Administration smoking cessation Nicotine Polacrilex 4 mg 05/01/21 11:27 05/03/21 09:08 Nicotine Polacrilex 2 Mg Gum BUCCAL 4 mg Q1H PRN Administration nicotine withdrawl Non-Formulary Medication 3 tab 05/03/21 15:45 05/03/21 16:17 Glecaprevir-Pibrentasvir [Mavyret] PO 3 tab DAILY DACIA Administration Pharmacy Consult 1 each 04/27/21 19:24 Consult Rx Perform Med Rec MISCELLANE ONCE PRN Consult order Allergies Allergies Allergy/AdvReac Type Severity Reaction Status Date / Time fish derived [FISH] Allergy Severe ANAPHYLAXIS Verified 03/04/21 20:52 quetiapine [From SEROQUEL] AdvReac Severe INVOLUNTARY Verified 03/04/21 20:52 SPASMS trazodone AdvReac Unknown INVOLUNTARY Verified 03/04/21 20:52 SPASMS SEAFOOD Allergy Severe ANAPHYLAXIS Uncoded 03/04/21 20:52 Assessment & Plan Assessment & Plan (1) Hepatitis C: Status: Acute Code(s): B19.20 - Unspecified viral hepatitis C without hepatic coma Assessment and Plan: hospitalist consult: 40-year-old male with past medical history of hepatitis-C currently being managed with Mavyret his medication since being admitted to the hospital for suicidal ideation and depression. [facility] will attempt to pick of patient's medication from outpatient pharmacy today, patient is also curious about obtaining his viral load, hepatitis C viral load ordered The advised patient to follow-up with international student advisor/contour path tape mill operator upon discharge to discuss his medications and further evaluation of his hepatitis-C Impression: Patient is a 41-year-old male with history of PTSD, depression and substance abuse who presents for depression and reportedly SI.? Patient reports that he is currently no longer depressed, that it was short-lived and fully resolved.? Patient denies SI and says overdose was unintentional but that use situation to gain admission since he felt he had no other choice and would otherwise be without medication, which he felt would subsequently worsen his depression and eventually lead to worse outcome. Patient was restarted on home medication to good effect.? Patient feels that he is likely ready for discharge soon Depression remains abated; pt in good mood, future oriented and w/out SI.? will increase Doxasosin to address nightmares; otherwise no med changes Pharmacy fed-exing Pedro Hep C med and dosing ordered pt to DC Thursday Plan: Patient signed 3 day notice; he says he has willing to stay a few more days for dispo planning Q 15 minutes checks Dispo planning with social Work Greater than 50% of the session was spent on counseling and/or coordination of care Reason for contiued inpatient stay Substantial Risk for: stable for discharge
--- NOTE | 2021-05-03 18:24 | PM.EVENT ---
Event Note Date of Service: 05/03/21 Event Note: Addiction note: -patient reporting withdrawl sx overnight--frequent waking, discomfort. Plan: -Increase methadone 5mg (total of 75mg) starting 05/04
[2021-05-03] MEDS: Melatonin 3 MG TABLET 6 MG PO (20:11)
[2021-05-03] MEDS: Lurasidone HCl 20 MG TABLET 60 MG PO (20:11)
[2021-05-03 20:12] VITALS: BP 126/76; PULSE 67
[2021-05-03] MEDS: Doxazosin Mesylate 1 MG TABLET 3 MG PO (20:12)
[2021-05-03] MEDS: hydrOXYzine HCL 50 MG TABLET PO (20:18)
[2021-05-03 21:00] VITALS: BP 124/76; PULSE 67; TEMP 36.7
[2021-05-04 06:00] VITALS: BP 111/68; PULSE 75; RESP 18; TEMP 36.6; O2SAT 96
[2021-05-04] MEDS: Fenofibrate 54 MG TABLET PO (08:15)
[2021-05-04] MEDS: Gabapentin 400 MG CAPSULE 800 MG PO ×4 (08:15→21:57)
[2021-05-04] MEDS: clonazePAM 1 MG TABLET PO ×4 (08:15→21:56)
[2021-05-04] MEDS: Ibuprofen 800 MG TABLET PO (11:04)
--- NOTE | 2021-05-04 11:56 | P.PNPSI_ITS ---
Subjective Subjective Date of Service: 05/04/21 Reason For Visit: Suicide Interim History: Patient was seen in rounds today. He has been stable and is doing well, preparing for a planned discharge tomorrow. He denies any side effects. No complaints. Eating and sleeping adequately. Questions about his discharge planning discussed. No changes were made today Review of Systems Review of Systems Yes all other systems are reviewed and are negative Mental Status Exam Mental Status Exam Narrative: In today's visit he is alert, oriented and pleasant. Normal speech. Good eye contact. Appropriate affect. No SI/HI. No signs of psychosis. Cognitively intact. Judgment is intact Diagnostics Vital Signs (24Hr): Vital Signs - 24 hr 05/03/21 20:12 05/03/21 21:00 05/04/21 06:00 Temperature 98.1 F 97.9 F Pulse Rate 67 67 75 Respiratory Rate 18 Blood Pressure 126/76 124/76 111/68 Pulse Oximetry 96 Body Mass Index 31.8 Labs Results: 05/01/21 12:26 05/01/21 12:26 Medications Medications Current Medications Generic Name Dose Route Start Last Admin Trade Name Freq PRN Reason Stop Dose Admin Acetaminophen 650 mg 04/28/21 10:15 05/02/21 09:46 Acetaminophen 325 Mg Tablet PO 650 mg Q6H PRN Administration PAIN Acetaminophen 650 mg 04/30/21 19:08 Acetaminophen 325 Mg Tablet PO Q6H PRN Headache/Pain Mild Scale (1-3) Al Hydroxide/Mg Hydroxide 30 ml 04/30/21 19:08 Magnesium Hydrox/Alum Hydrox 30 Ml Oral.Susp PO Q6H PRN Heartburn/Nausea Amphetamine/Dextroamphetamine 30 mg 04/28/21 09:00 05/04/21 08:15 Dextroamphetami/Amphetamine Xr 10 Mg Cap.Er.24h PO 30 mg DAILY DACIA Administration Clonazepam 1 mg 05/01/21 15:00 05/04/21 08:15 Clonazepam 1 Mg Tablet PO 1 mg TID PRN Administration Anxiety Doxazosin Mesylate 3 mg 05/03/21 21:00 05/03/21 20:12 Doxazosin Mesylate 1 Mg Tablet PO 3 mg BEDTIME DACIA Administration Protocol Fenofibrate 54 mg 04/28/21 09:00 05/04/21 08:15 Fenofibrate 54 Mg Tablet PO 54 mg DAILY DACIA Administration Gabapentin 800 mg 04/28/21 21:15 05/04/21 08:15 Gabapentin 400 Mg Capsule PO 800 mg QID DACIA Administration Hydroxyzine HCl 50 mg 04/29/21 17:14 05/03/21 20:18 Hydroxyzine Hcl 50 Mg Tablet PO 50 mg TID PRN Administration Anxiety Ibuprofen 800 mg 04/28/21 10:15 05/04/21 11:04 Ibuprofen 800 Mg Tablet PO 800 mg Q6H PRN Administration PAIN Lurasidone HCl 60 mg 04/27/21 21:30 05/03/21 20:11 Lurasidone Hcl 20 Mg Tablet PO 60 mg BEDTIME DACIA Administration Magnesium Hydroxide 30 ml 04/30/21 19:08 Milk Of Magnesia 30 Ml Oral.Susp PO DAILY PRN Constipation Melatonin 6 mg 04/28/21 21:00 05/03/21 20:11 Melatonin 3 Mg Tablet PO 6 mg BEDTIME DACIA Administration Methadone HCl 75 mg 05/04/21 09:00 05/04/21 08:15 Methadone Hcl 1 Mg/0.1 Ml Oral.Conc PO 75 mg DAILY DACIA Administration Naloxone HCl 4 mg 05/05/21 09:00 Naloxone Hcl Nasal Take Home 4 Mg [place] NOSTRILALT 05/05/21 09:01 ONCE ONE Nicotine 21 mg 05/01/21 12:56 05/02/21 09:32 Nicotine 21 Mg Patch.Td24 TRANSDERMA 21 mg DAILY PRN Administration smoking cessation Nicotine Polacrilex 4 mg 05/01/21 11:27 05/03/21 09:08 Nicotine Polacrilex 2 Mg Gum BUCCAL 4 mg Q1H PRN Administration nicotine withdrawl Non-Formulary Medication 3 tab 05/04/21 16:00 Glecaprevir-Pibrentasvir [Mavyret] PO DAILY@1600 [facility] Pharmacy Consult 1 each 04/27/21 19:24 Consult Rx Perform Med Rec MISCELLANE ONCE PRN Consult order Allergies Allergies Allergy/AdvReac Type Severity Reaction Status Date / Time fish derived [FISH] Allergy Severe ANAPHYLAXIS Verified 03/04/21 20:52 quetiapine [From SEROQUEL] AdvReac Severe INVOLUNTARY Verified 03/04/21 20:52 SPASMS trazodone AdvReac Unknown INVOLUNTARY Verified 03/04/21 20:52 SPASMS SEAFOOD Allergy Severe ANAPHYLAXIS Uncoded 03/04/21 20:52 Assessment & Plan Assessment & Plan (1) Hepatitis C: Status: Acute Code(s): B19.20 - Unspecified viral hepatitis C without hepatic coma Assessment and Plan: hospitalist consult: 40-year-old male with past medical history of hepatitis-C currently being managed with Mavyret his medication since being admitted to the hospital for suicidal ideation and depression. [facility] will attempt to pick of patient's medication from outpatient pharmacy today, patient is also curious about obtaining his viral load, hepatitis C viral load ordered The advised patient to follow-up with newspaper library manager/ribbing machine operator upon discharge to discuss his medications and further evaluation of his hepatitis-C Impression: Patient is a 41-year-old male with history of PTSD, depression and substance ab use who presents for depression and reportedly SI.? Patient reports that he is currently no longer depressed, that it was short-lived and fully resolved.? Patient denies SI and says overdose was unintentional but that use situation to gain admission since he felt he had no other choice and would otherwise be without medication, which he felt would subsequently worsen his depression and eventually lead to worse outcome. Patient was restarted on home medication to good effect.? Patient feels that he is likely ready for discharge soon Continue current regimen and proceed with discharge tomorrow Greater than 50% of the session was spent on counseling and/or coordination of care Reason for contiued inpatient stay Substantial Risk for: other
[2021-05-04] MEDS: Nicotine Polacrilex 2 MG GUM 4 MG BUCCAL ×2 (12:38→21:58)
--- NOTE | 2021-05-04 14:51 | W.PM.IDCN ---
History of Present Illness Data of Consult Service Date: 05/03/21 Requesting physician: Yogi Cao Primary Care Provider: Unknown Physician HPI Reason for consult: hepatitis C He present to hospital for depression/psych care. He has hepatitis C positivity,reason for consult. He has OUD and is on Mavyret. He has been on Methadone. He has been on Mavyret (DAA for Hepatitis C) for one month He is seen through [facility] Review of Systems Review of Systems: Yes all other systems are reviewed and are negative [facility] Past Medical History Medical History (Updated 05/13/21 @ 00:01 by Quinton Romero) Chronic post-traumatic stress disorder (PTSD) Hepatitis C MDD (major depressive disorder), recurrent episode, moderate No known health problems Family History Family history: reviewed and not pertinent Surgical History Surgical History History of appendectomy Social History Social History Household Members: Unknown / Unable to assess Housing: Unknown / Unable to assess Do you presently have visiting nurse or other home services: No Alcohol intake: never Patient Tobacco Use Status: Current everyday Tobacco user Tobacco use type: Cigarette Cigarette Packs Per Day: 0.5 Cigarettes Per Day: 10.0 Smoked in Last 30 Days: No Patient Interested in Nicotine Replacement: Yes Patient Given Instructions on How to Stop Smoking: No Second Hand Smoke Exposure: No Use of substances other than those prescribed or required for medical reasons: Yes Substance Use Type: Crack/Cocaine and Marijuana Substance Use Frequency: Recent Binge Last Used Substance: Just Prior to Admission Currently Displaying Signs/Symptoms of Drug Intoxication Withdrawal: No Any prior treatment program specific to substance use: No Have you been hit, kicked, punched, or otherwise hurt by someone within the past year? If so, by whom?: No Do you feel safe in your current relationship?: No Is there a partner from a previous relationship who is making you feel unsafe now?: No Are you made to feel afraid or neglected: No Advance Directives: No Advance Directives Information Provided: No Advance Directives on File: No Healthcare Proxy: No Guardian: No Do you have thoughts of harming others: None Do you have a plan to hurt others: No Plan Recently lost weight without trying: Unsure How much weight loss: Unsure Eating poorly because of decreased appetite: No Nutrition screen score: 4 Nutrition Risks: No Nutritional Risk Poor oral hygiene: No service: No Sexual orientation: Straight/Heterosexual Meds Allergies Allergy/AdvReac Type Severity Reaction Status Date / Time fish derived [FISH] Allergy Severe ANAPHYLAXIS Verified 03/04/21 20:52 quetiapine [From SEROQUEL] AdvReac Severe INVOLUNTARY Verified 03/04/21 20:52 SPASMS trazodone AdvReac Unknown INVOLUNTARY Verified 03/04/21 20:52 SPASMS SEAFOOD Allergy Severe ANAPHYLAXIS Uncoded 03/04/21 20:52 Active Medications: Current Medications Generic Name Dose Route Start Last Admin Trade Name Freq PRN Reason Stop Dose Admin Acetaminophen 650 mg 04/28/21 10:15 05/02/21 09:46 Acetaminophen 325 Mg Tablet PO 650 mg Q6H PRN Administration PAIN Acetaminophen 650 mg 04/30/21 19:08 Acetaminophen 325 Mg Tablet PO Q6H PRN Headache/Pain Mild Scale (1-3) Al Hydroxide/Mg Hydroxide 30 ml 04/30/21 19:08 Magnesium Hydrox/Alum Hydrox 30 Ml Oral.Susp PO Q6H PRN Heartburn/Nausea Amphetamine/Dextroamphetamine 30 mg 04/28/21 09:00 05/04/21 08:15 Dextroamphetami/Amphetamine Xr 10 Mg Cap.Er.24h PO 30 mg DAILY DACIA Administration Clonazepam 1 mg 05/01/21 15:00 05/04/21 12:38 Clonazepam 1 Mg Tablet PO 1 mg TID PRN Administration Anxiety Doxazosin Mesylate 3 mg 05/03/21 21:00 05/03/21 20:12 Doxazosin Mesylate 1 Mg Tablet PO 3 mg BEDTIME DACIA Administration Protocol Fenofibrate 54 mg 04/28/21 09:00 05/04/21 08:15 Fenofibrate 54 Mg Tablet PO 54 mg DAILY DACIA Administration Gabapentin 800 mg 04/28/21 21:15 05/04/21 12:38 Gabapentin 400 Mg Capsule PO 800 mg QID DACIA Administration Hydroxyzine HCl 50 mg 04/29/21 17:14 05/03/21 20:18 Hydroxyzine Hcl 50 Mg Tablet PO 50 mg TID PRN Administration Anxiety Ibuprofen 800 mg 04/28/21 10:15 05/04/21 11:04 Ibuprofen 800 Mg Tablet PO 800 mg Q6H PRN Administration PAIN Lurasidone HCl 60 mg 04/27/21 21:30 05/03/21 20:11 Lurasidone Hcl 20 Mg Tablet PO 60 mg BEDTIME DACIA Administration Magnesium Hydroxide 30 ml 04/30/21 19:08 Milk Of Magnesia 30 Ml Oral.Susp PO DAILY PRN Constipation Melatonin 6 mg 04/28/21 21:00 05/03/21 20:11 Melatonin 3 Mg Tablet PO 6 mg BEDTIME DACIA Administration Methadone HCl 75 mg 05/04/21 09:00 05/04/21 08:15 Methadone Hcl 1 Mg/0.1 Ml Oral.Conc PO 75 mg DAILY DACIA Administration Naloxone HCl 4 mg 05/05/21 09:00 Naloxone Hcl Nasal Take Home 4 Mg [place] NOSTRILALT 05/05/21 09:01 ONCE ONE Nicotine 21 mg 05/01/21 12:56 05/02/21 09:32 Nicotine 21 Mg Patch.Td24 TRANSDERMA 21 mg DAILY PRN Administration smoking cessation Nicotine Polacrilex 4 mg 05/01/21 11:27 05/04/21 12:38 Nicotine Polacrilex 2 Mg Gum BUCCAL 4 mg Q1H PRN Administration nicotine withdrawl Non-Formulary Medication 3 tab 05/04/21 16:00 Glecaprevir-Pibrentasvir [Mavyret] PO DAILY@1600 [facility] Pharmacy Consult 1 each 04/27/21 19:24 Consult Rx Perform Med Rec MISCELLANE ONCE PRN Consult order Home Medications Medication Instructions Recorded Confirmed Last Taken Type glecaprevir 100 mg-pibrentasvir 40 3 tab PO DAILY 04/27/21 04/27/21 Unknown History mg tablet (Mavyret) omega-3 acid ethyl esters 1 gram 1 PO BEDTIME 04/27/21 Unknown History capsule Physical Exam Vital Signs: Vital Signs: Last Vital Signs Temp 97.9 F 05/04/21 06:00 Pulse 75 05/04/21 06:00 Resp 18 05/04/21 06:00 BP 111/68 05/04/21 06:00 Pulse Ox 96 05/04/21 06:00 Body Mass Index 31.8 Const: General: cooperative Orientation/consciousness: patient oriented x3 HENMT: Head: Yes normal to inspection Mouth: Normal oral and palatal mucosa present Resp: Effort & Inspection: normal respiratory effort Cardio: Rate: regular rate Rhythm: regular rhythm GI: Palpation (GI): Soft to palpation and nontender Skin: General skin exam: no rashes or lesions noted Neuro: General: patient oriented x3 Results Labs CBC & Chem 7: 05/01/21 12:26 05/01/21 12:26 Assessment and Plan (1) Hepatitis C: Status: Chronic He has active Hepatitis C and is four of eight weeks therapy presumably He has been taking regularly but stopped one week ago Would get medication from home Check hepatitis C viral load and HIV test (2) Chronic post-traumatic stress disorder (PTSD): Status: Chronic (3) MDD (major depressive disorder), recurrent episode, moderate: Status: Chronic (4) Opioid use disorder: Status: Chronic (5) Suicidal ideation: Status: Resolved
[2021-05-04] MEDS: GLECAPREVIR PIBRENTASVIR 3 EACH PO (16:02)
[2021-05-04 20:51] VITALS: BP 122/75; PULSE 75; TEMP 36.8
[2021-05-04 21:16] LABS: HCV Log PCR 1.54 Log IU/mL (NOT DETECTED); HepC Viral Load 35 IU/mL (NOT DETECTED)
[2021-05-04 21:56] VITALS: BP 122/75; PULSE 75
[2021-05-04] MEDS: Doxazosin Mesylate 1 MG TABLET 3 MG PO (21:56)
[2021-05-04] MEDS: Melatonin 3 MG TABLET 6 MG PO (21:56)
[2021-05-04] MEDS: hydrOXYzine HCL 50 MG TABLET PO (21:58)
[2021-05-04] MEDS: Lurasidone HCl 20 MG TABLET 60 MG PO (21:58)
[2021-05-05] MEDS: Gabapentin 400 MG CAPSULE 800 MG PO (08:09)
[2021-05-05] MEDS: Naloxone HCl Nasal TAKE HOME 4 MG SPRAY NOSTRILALT (08:10)
--- NOTE | 2021-05-05 08:30 | HO.PSYCHPN ---
Subjective Subjective Date of Service: 05/05/21 Reason For Visit: Suicide Interim History: patient was seen in rounds today. He states that he is feeling ready for discharge as it was planned and implemented by Dr. Cao. he is connected to the [facility] an outpatient referral has also been made for psychiatric follow-up and therapy. He did not have any questions and feels good about his stay here Medication Compliance: Yes Side effects from medications: No Review of Systems Review of Systems Yes all other systems are reviewed and are negative Mental Status Exam Mental Status Exam Narrative: in today's visit he is alert, oriented and pleasant. Normal speech. Good eye contact. Appropriate affect. No signs of depression. No SI/HI. Cognitively is intact. Judgment is intact Diagnostics Vital Signs (24Hr): Vital Signs - 24 hr 05/04/21 20:51 05/04/21 21:56 Temperature 98.3 F Pulse Rate 75 75 Blood Pressure 122/75 122/75 Body Mass Index 31.8 Labs Results: 05/01/21 12:26 05/01/21 12:26 Labs: Laboratory Results - last 48 hr 05/03/21 08:59 Hep C Viral Load 35 H Hep C Viral Load Log 1.54 H Medications Medications Current Medications Generic Name Dose Route Start Last Admin Trade Name Freq PRN Reason Stop Dose Admin Acetaminophen 650 mg 04/28/21 10:15 05/02/21 09:46 Acetaminophen 325 Mg Tablet PO 650 mg Q6H PRN Administration PAIN Acetaminophen 650 mg 04/30/21 19:08 Acetaminophen 325 Mg Tablet PO Q6H PRN Headache/Pain Mild Scale (1-3) Al Hydroxide/Mg Hydroxide 30 ml 04/30/21 19:08 Magnesium Hydrox/Alum Hydrox 30 Ml Oral.Susp PO Q6H PRN Heartburn/Nausea Amphetamine/Dextroamphetamine 30 mg 04/28/21 09:00 05/05/21 08:09 Dextroamphetami/Amphetamine Xr 10 Mg Cap.Er.24h PO 30 mg DAILY DACIA Administration Clonazepam 1 mg 05/01/21 15:00 05/04/21 21:56 Clonazepam 1 Mg Tablet PO 1 mg TID PRN Administration Anxiety Doxazosin Mesylate 3 mg 05/03/21 21:00 05/04/21 21:56 Doxazosin Mesylate 1 Mg Tablet PO 3 mg BEDTIME DACIA Administration Protocol Fenofibrate 54 mg 04/28/21 09:00 05/04/21 08:15 Fenofibrate 54 Mg Tablet PO 54 mg DAILY DACIA Administration Gabapentin 800 mg 04/28/21 21:15 05/05/21 08:09 Gabapentin 400 Mg Capsule PO 800 mg QID DACIA Administration Hydroxyzine HCl 50 mg 04/29/21 17:14 05/04/21 21:58 Hydroxyzine Hcl 50 Mg Tablet PO 50 mg TID PRN Administration Anxiety Ibuprofen 800 mg 04/28/21 10:15 05/04/21 11:04 Ibuprofen 800 Mg Tablet PO 800 mg Q6H PRN Administration PAIN Lurasidone HCl 60 mg 04/27/21 21:30 05/04/21 21:58 Lurasidone Hcl 20 Mg Tablet PO 60 mg BEDTIME DACIA Administration Magnesium Hydroxide 30 ml 04/30/21 19:08 Milk Of Magnesia 30 Ml Oral.Susp PO DAILY PRN Constipation Melatonin 6 mg 04/28/21 21:00 05/04/21 21:56 Melatonin 3 Mg Tablet PO 6 mg BEDTIME DACIA Administration Methadone HCl 75 mg 05/04/21 09:00 05/05/21 08:09 Methadone Hcl 1 Mg/0.1 Ml Oral.Conc PO 75 mg DAILY DACIA Administration Naloxone HCl 4 mg 05/05/21 09:00 05/05/21 08:10 Naloxone Hcl Nasal Take Home 4 Mg [place] NOSTRILALT 05/05/21 09:01 4 mg ONCE ONE Administration Nicotine 21 mg 05/01/21 12:56 05/02/21 09:32 Nicotine 21 Mg Patch.Td24 TRANSDERMA 21 mg DAILY PRN Administration smoking cessation Nicotine Polacrilex 4 mg 05/01/21 11:27 05/04/21 21:58 Nicotine Polacrilex 2 Mg Gum BUCCAL 4 mg Q1H PRN Administration nicotine withdrawl Non-Formulary Medication 3 tab 05/04/21 16:00 05/04/21 16:02 Glecaprevir-Pibrentasvir [Mavyret] PO 3 tab DAILY@1600 DACIA Administration Pharmacy Consult 1 each 04/27/21 19:24 Consult Rx Perform Med Rec MISCELLANE ONCE PRN Consult order Allergies Allergies Allergy/AdvReac Type Severity Reaction Status Date / Time fish derived [FISH] Allergy Severe ANAPHYLAXIS Verified 03/04/21 20:52 quetiapine [From SEROQUEL] AdvReac Severe INVOLUNTARY Verified 03/04/21 20:52 SPASMS trazodone AdvReac Unknown INVOLUNTARY Verified 03/04/21 20:52 SPASMS SEAFOOD Allergy Severe ANAPHYLAXIS Uncoded 03/04/21 20:52 Assessment & Plan Assessment & Plan (1) Hepatitis C: Status: Acute Code(s): B19.20 - Unspecified viral hepatitis C without hepatic coma Assessment and Plan: patient will be discharged today as planned (2) Chronic post-traumatic stress disorder (PTSD): Status: Chronic Code(s): F43.12 - Post-traumatic stress disorder, chronic (3) MDD (major depressive disorder), recurrent episode, moderate: Status: Chronic Code(s): F33.1 - Major depressive disorder, recurrent, moderate (4) Opioid use disorder: Status: Acute Code(s): F11.99 - Opioid use, unspecified with unspecified opioid-induced disorder (5) Suicidal ideation: Status: Acute Code(s): R45.851 - Suicidal ideations Greater than 50% of the session was spent on counseling and/or coordination of care Reason for contiued inpatient stay Substantial Risk for: other
[2021-05-05] MEDS: Fenofibrate 54 MG TABLET PO (08:33)
[2021-05-05 09:34] VITALS: BP 146/77; PULSE 73; RESP 16; TEMP 36.5; O2SAT 96
[2021-05-05] MEDS: clonazePAM 1 MG TABLET PO (11:43)
== END 2021-05-05 12:20 | disposition home or self-care (01) | DRG 885 ==
LOC: HO.ED 19:17 → HO.PM5 04-30 19:42
PROVIDERS: Internal Medicine; Nurse Practitioner Family; Admitting Provider Psychiatry & Neurology Psychiatry; Emergency Provider Internal Medicine; Visit Provider Psychiatry & Neurology Psychiatry
DX: F33.1 Major depressive disorder, recurrent, moderate (principal); F11.20 Opioid dependence, uncomplicated; F17.210 Nicotine dependence, cigarettes, uncomplicated; F43.12 Post-traumatic stress disorder, chronic; B19.20 Unspecified viral hepatitis C without hepatic coma; Z91.5 Personal history of self-harm; Z71.6 Tobacco abuse counseling; Z20.822 Contact with and (suspected) exposure to COVID-19; Z79.899 Other long term (current) drug therapy
CPT/HCPCS: 0241U; 36415; 80048; 80053; 80076; 80307; 81001; 82077; 83735; 84443; 85025; 87522; 93005; 99285

== ENCOUNTER 2021-05-21 02:49 | Emergency (ER) | payer OTHER, SELFPAY ==
[2021-05-21 03:01] VITALS: BP 147/84; BP 150/93; PULSE 89; PULSE 98; RESP 21; TEMP 36.9; O2SAT 95; O2SAT 97; BMI 31.8
--- NOTE | 2021-05-21 03:18 | ED.ALLEREA ---
HPI - Allergic Reaction General Chief complaint: Allergic Reaction Stated complaint: HIVES Time Seen by Provider: 05/21/21 03:07 Source: patient Mode of arrival: ambulatory History of Present Illness HPI narrative: 40-year-old male, SAUNDRA, arrives via EMS with acute onset of fleshy papular rash that patient states he woke up with and denies new foods, exposure to lotions/soaps. Otherwise, denies scratchy throat but states that his chest does feel tight. Endorses that took to COVID-19 tests, 1 was positive and the other was negative. Also states that his last use injection drugs was 3 days ago. Related Data Home Medications Medication Instructions Recorded Confirmed glecaprevir 100 mg-pibrentasvir 40 3 tab PO DAILY 04/27/21 04/27/21 mg tablet (Mavyret) omega-3 acid ethyl esters 1 gram 1 PO BEDTIME 04/27/21 capsule Previous Rx's Medication Instructions Recorded clonazepam 1 mg tablet 1 mg PO TID PRN 15 Days #45 tab 05/03/21 dextroamphetamine-amphetamine ER 1 cap PO DAILY 30 Days #30 cap 05/03/21 30 mg 24hr capsule,extend release doxazosin 1 mg tablet 3 mg PO BEDTIME 30 Days #90 tab 05/03/21 fenofibrate 54 mg tablet 54 mg PO DAILY 30 Days #30 tab 05/03/21 gabapentin 400 mg capsule 800 mg PO QID 15 Days #120 cap 05/03/21 hydroxyzine pamoate 50 mg capsule 50 mg PO TID PRN 30 Days #90 cap 05/03/21 lurasidone 60 mg tablet (Latuda) 60 mg PO BEDTIME 30 Days #30 tab 05/03/21 melatonin 3 mg tablet 6 mg PO BEDTIME PRN 30 Days #60 tab 05/03/21 methadone 10 mg/mL oral 70 mg PO DAILY #0 ml 05/03/21 concentrate (Methadose) Allergies Allergy/AdvReac Type Severity Reaction Status Date / Time fish derived [FISH] Allergy Severe ANAPHYLAXIS Verified 03/04/21 20:52 quetiapine [From SEROQUEL] AdvReac Severe INVOLUNTARY Verified 03/04/21 20:52 SPASMS trazodone AdvReac Unknown INVOLUNTARY Verified 03/04/21 20:52 SPASMS SEAFOOD Allergy Severe ANAPHYLAXIS Uncoded 03/04/21 20:52 Review of Systems Review of Systems: Pertinent positives and negatives as stated in HPI 10 point review of systems is otherwise negative. [facility] Past Medical History Source: nursing notes reviewed Medical History Chronic post-traumatic stress disorder (PTSD) Hepatitis C MDD (major depressive disorder), recurrent episode, moderate No known health problems Surgical History History of appendectomy Social History Social History Household Members: Unknown / Unable to assess Housing: Unknown / Unable to assess Do you presently have visiting nurse or other home services: No Alcohol intake: never Patient Tobacco Use Status: Current everyday Tobacco user Tobacco use type: Cigarette Cigarette Packs Per Day: 0.5 Cigarettes Per Day: 10.0 Second Hand Smoke Exposure: No Substance Use Type: Crack/Cocaine and Marijuana Advance Directives: No service: No Sexual orientation: Straight/Heterosexual Physical Exam Vital Signs: Vital Signs: Last Vital Signs Temp 98.5 F 05/21/21 03:01 Pulse 82 05/21/21 03:33 Resp 12 05/21/21 03:33 BP 133/84 05/21/21 03:33 Pulse Ox 96 05/21/21 03:33 Body Mass Index 31.8 VITAL SIGNS: Reviewed. GENERAL: Well developed, well nourished, in no acute distress. HEAD: Normocephalic/atraumatic EYES: PERRLA, EOMI OROPHARYNX: no oral lesions noted, posterior pharynx clear, no lip/tongue swelling, there is some mild swelling on the underside of right eye NECK: Supple, no adenopathy LUNGS: Normal breath sounds. No adventitious sounds or accessory muscle use. SpO2<95> CARDIOVASCULAR: Regular rate and rhythm without noted murmurs ABDOMEN: Soft, non-tender, non-distended with bowel sounds. MUSCULOSKELETAL: No tenderness, deformities, or effusions noted on gross inspection. EXTREMITIES: No cyanosis, clubbing or edema. SKIN: Inspection of the skin reveals no rashes, flesh-colored papular lesions primarily at the axilla/buttocks/groin NEUROLOGIC: Alert and oriented x 4. Strength and sensation to light touch were grossly intact x 4. Course Course Course Narrative: 40-year-old male with history and clinical presentation consistent with allergic reaction with hives and no lip/tongue swelling. And receiving both Benadryl, Solu-Medrol, and Pepcid the rash has almost completely resolved. Informed by nursing that patient eloped. MDM - Allergic Reaction Lab Data Labs: Lab Results 05/21/21 Range/Units 03:34 COVID-19 ([facility]) Negative (Negative) COVID-19 Clin Com See Note Discharge Plan Discharge Clinical Impression: Allergic reaction Patient Disposition: Elopement Prescriptions: No Action omega-3 acid ethyl esters 1 gram capsule 1 PO BEDTIME RF: 0 Mavyret 100-40 mg tablet 3 tab PO DAILY RF: 0 doxazosin 1 mg Tablet 3 mg PO BEDTIME 30 Days Qty: 90 RF: 0 melatonin 3 mg Tablet 6 mg PO BEDTIME PRN (Reason: sleep) 30 Days Qty: 60 RF: 0 methadone [Methadose] 10 mg/mL Concentrate 70 mg PO DAILY Qty: 0 RF: 0 gabapentin 400 mg capsule 800 mg PO QID 15 Days Qty: 120 RF: 1 clonazepam 1 mg tablet 1 mg PO TID PRN (Reason: Anxiety) 15 Days Qty: 45 RF: 1 hydroxyzine pamoate 50 mg capsule 50 mg PO TID PRN (Reason: anxiety) 30 Days Qty: 90 RF: 0 dextroamphetamine-amphetamine 30 mg capsule,extended release 24hr 1 cap PO DAILY 30 Days Qty: 30 RF: 0 fenofibrate 54 mg tablet 54 mg PO DAILY 30 Days Qty: 30 RF: 0 Latuda 60 mg tablet 60 mg PO BEDTIME 30 Days Qty: 30 RF: 0 Discharge Date/Time: 05/21/21 22:00
[2021-05-21] MEDS: methylPREDNISolone Sod Succ 125 MG/2 ML VIAL IVPUSH (03:27)
[2021-05-21] MEDS: Famotidine/PF 20 MG/2 ML VIAL IVPUSH (03:27)
[2021-05-21] MEDS: diphenhydrAMINE HCL 50 MG/ML VIAL IVPUSH (03:27)
[2021-05-21 03:33] VITALS: BP 133/84; PULSE 82; RESP 12; O2SAT 96
[2021-05-21 03:55] LABS: COVID-19 Test Negative (Negative); IDNOW Serial# 9DD0AD1C
--- NOTE | 2021-05-21 22:12 | PC.NURSE ---
CALLED PT RE: VISIT IN THE ED/DISCHARGE FROM ED. PT DID NOT [employer] INST[employer] AND VOICEMAIL WAS FULL SO UNABLE TO LEAVE A MESSAGE AT THIS TIME.
--- NOTE | 2021-05-22 03:43 | PC.NURSE ---
This writer technical publications took the patients IV out before he left the department.
== END 2021-05-21 22:00 | disposition left against medical advice (07) ==
PROVIDERS: Emergency Provider Student in an Organized Health Care Education/Training Program; PCP Nurse Practitioner Family
DX: R21 Rash and other nonspecific skin eruption (principal); T78.40XA Allergy, unspecified, initial encounter; X58.XXXA Exposure to other specified factors, initial encounter; F19.10 Other psychoactive substance abuse, uncomplicated; Z20.822 Contact with and (suspected) exposure to COVID-19; F17.210 Nicotine dependence, cigarettes, uncomplicated
CPT/HCPCS: 36415; 87635; 96374; 96375; 99283; 99284; J1200; J2930

== ENCOUNTER 2021-06-11 23:34 | Inpatient (IN) | payer OTHER, SELFPAY ==
[2021-06-11 23:49] VITALS: BP 120/70; PULSE 40; PULSE 43; RESP 14; TEMP 36.6; O2SAT 96; O2SAT 97; BMI 31.1
--- NOTE | 2021-06-11 23:52 | ED.OVERDOSE ---
HPI - Overdose General Chief Complaint: Overdose Stated Complaint: intentional OD/SI/bradycardia Time Seen by Provider: 06/11/21 23:49 Source: patient Mode of arrival: EMS History of Present Illness HPI Narrative: Patient history of depression, IVDA heroin abuse took intentionally about 60 tablets of 0.1 mg clonidine an hour prior to arrival (22:00) patient has been more depressed lately. Still feels suicidal . patient has been more lethargic and sleepy MD complaint: intentional overdose Related Data Home Medications Medication Instructions Recorded Confirmed glecaprevir 100 mg-pibrentasvir 40 3 tab PO DAILY 04/27/21 04/27/21 mg tablet (Mavyret) omega-3 acid ethyl esters 1 gram 1 PO BEDTIME 04/27/21 capsule Previous Rx's Medication Instructions Recorded clonazepam 1 mg tablet 1 mg PO TID PRN 15 Days #45 tab 05/03/21 dextroamphetamine-amphetamine ER 1 cap PO DAILY 30 Days #30 cap 05/03/21 30 mg 24hr capsule,extend release doxazosin 1 mg tablet 3 mg PO BEDTIME 30 Days #90 tab 05/03/21 fenofibrate 54 mg tablet 54 mg PO DAILY 30 Days #30 tab 05/03/21 gabapentin 400 mg capsule 800 mg PO QID 15 Days #120 cap 05/03/21 hydroxyzine pamoate 50 mg capsule 50 mg PO TID PRN 30 Days #90 cap 05/03/21 lurasidone 60 mg tablet (Latuda) 60 mg PO BEDTIME 30 Days #30 tab 05/03/21 melatonin 3 mg tablet 6 mg PO BEDTIME PRN 30 Days #60 tab 05/03/21 methadone 10 mg/mL oral 70 mg PO DAILY #0 ml 05/03/21 concentrate (Methadose) Allergies Allergy/AdvReac Type Severity Reaction Status Date / Time fish derived [FISH] Allergy Severe ANAPHYLAXIS Verified 03/04/21 20:52 quetiapine [From SEROQUEL] AdvReac Severe INVOLUNTARY Verified 03/04/21 20:52 SPASMS trazodone AdvReac Unknown INVOLUNTARY Verified 03/04/21 20:52 SPASMS SEAFOOD Allergy Severe ANAPHYLAXIS Uncoded 03/04/21 20:52 Review of Systems Review of Systems: Constitutional : No Fever, No Chills ENT/Mouth : No Ear Pain, No Nasal Congestion, No sore throat Eyes: No Eye Pain, No Swelling, No Redness Cardiovascular : No Chest Pain, No SOB Respiratory : No Cough, No Sputum, No Dyspnea Gastrointestinal : No Nausea, No Vomiting, No Diarrhea, No Hematochezia, No Melena Genitourinary : No Dysuria, No Urinary Frequency, No Hematuria Musculoskeletal : No Myalgias Skin : No Skin Lesions, No rash Neuro : No Weakness, No Numbness, No Paresthesias, No Dizziness, No Headache Psych : neg Anxiety, positive Depression, positive SI Heme/Lymph: No Lymphadenopathy Endocrine : No Polyuria, No Polydipsia [facility] Past Medical History Medical History Chronic post-traumatic stress disorder (PTSD) Hepatitis C MDD (major depressive disorder), recurrent episode, moderate No known health problems Surgical History History of appendectomy Social History Social History Household Members: Unknown / Unable to assess Housing: Unknown / Unable to assess Do you presently have visiting nurse or other home services: No Alcohol intake: never Patient Tobacco Use Status: Current everyday Tobacco user Tobacco use type: Cigarette Cigarette Packs Per Day: 0.5 Cigarettes Per Day: 10.0 Second Hand Smoke Exposure: No Substance Use Type: Crack/Cocaine and Marijuana Advance Directives: No Advance Directives Information Provided: Yes service: No Sexual orientation: Straight/Heterosexual Physical Exam Vital Signs: Vital Signs: Last Vital Signs Temp 100.3 F 06/12/21 06:00 Pulse 38 L 06/12/21 06:00 Resp 15 06/12/21 06:00 BP 118/68 06/12/21 06:00 Pulse Ox 97 06/12/21 06:00 Body Mass Index 31.1 Appearance: Alert. Oriented X3. No acute distress. Lethargic sleepy easily arousable Eyes: Pupils 2 mm bilaterally No Nystagmus ENT: Pharynx normal. Oral Mucosa moist Neck: Normal inspection. Neck supple. CVS: Sinus bradycardia, no murmur or gallop Pulses normal. Respiratory: No respiratory distress. Equal air entry bilateral, no wheezing/rales/rhonchi Abdomen: Soft and nontender. Bowel sounds are present, no mass palpable, no CVA tenderness Skin: Skin warm and dry. Normal skin color. Normal skin turgor. Extremities: No lower extremity edema. No calf tenderness Neuro: Oriented X 3. No motor deficit. No sensory deficit.No cerebellar signs , cranial nerves II-XII intact MDM - Overdose MDM Narrative Medical decision making narrative: Patient with clonidine overdose responded to Narcan intermittently saturating 96% at room air heart rate dropping to 36 will give atropine 0.5 plan to admit to ICU. Patient alert oriented x3 but lethargic case discussed with poison Control agreed for observation and management Lab Data Attestation: I reviewed the patient's lab results. Result diagrams: 06/12/21 00:18 06/12/21 00:47 Labs: Lab Results 06/11/21 06/12/21 06/12/21 Range/Units 23:58 00:18 00:25 WBC 7.5 (4.8-10.8) X10*3/uL RBC 4.01 L (4.60-5.80) X10*6/uL Hgb 12.4 L (14.0-18.0) g/dl Hct 36.4 L (42-52) % MCV 90.8 (80-98) fL MCH 30.9 (27.0-33.0) pg MCHC 34.1 (31.0-36.0) g/dl RDW 12.2 (11.0-16.0) % Plt Count 237 (160-400) X10*3/uL MPV 10.3 (9.4-12.4) fL Immature Gran % (Auto) 0.3 (0.0-0.4) % Neut % (Auto) 59.1 (45-73) % Lymph % (Auto) 31.9 (20-40) % [place] % (Auto) 7.3 (2-11) % Eos % (Auto) 1.1 (0-4) % Baso % (Auto) 0.3 (0-2) % Lymph # (Auto) 2.4 (1.2-4.9) X10*3/uL [place] # (Auto) 0.6 (0.1-1.2) X10*3/uL Eos # (Auto) 0.1 (0.0-0.4) X10*3/uL Baso # (Auto) 0.0 (0.0-0.2) X10*3/uL Abs Immat Gran (auto) 0.02 (0.00-0.03) X10*3/uL Absolute Neuts (auto) 4.4 (2.0-8.3) X10*3/uL Absolute Nucleated RBC 0.000 (0.0-0.012) X10*3/uL Nucleated RBC % (auto) 0.0 (0.0-0.2) /100WBC Sodium (135-145) mmol/L Potassium (3.3-5.1) mmol/L Chloride (96-108) mmol/L Carbon Dioxide (22-29) mmol/L Anion Gap (12-20) BUN (9-16) mg/dL Creatinine (0.5-1.4) mg/dL Estim Creat Clear Calc Estimated GFR Random Glucose (60-115) mg/dL Calcium (8.4-10.2) mg/dL Magnesium (1.6-2.6) mg/dL Total Bilirubin (0.0-1.0) mg/dL Direct Bilirubin (0.0-0.5) mg/dL AST (5-37) U/L ALT (0-40) U/L Alkaline Phosphatase (39-117) U/L Total Protein (6.5-8.0) g/dL Albumin (3.5-5.0) g/dL Salicylates (15-30) mg/dL Acetaminophen (<30) mcg/mL Ethyl Alcohol < 10 mg/dL COVID-19 ([facility]) Negative (Negative) COVID-19 Clin Com See Note 06/12/21 Range/Units 00:47 WBC (4.8-10.8) X10*3/uL RBC (4.60-5.80) X10*6/uL Hgb (14.0-18.0) g/dl Hct (42-52) % MCV (80-98) fL MCH (27.0-33.0) pg MCHC (31.0-36.0) g/dl RDW (11.0-16.0) % Plt Count (160-400) X10*3/uL MPV (9.4-12.4) fL Immature Gran % (Auto) (0.0-0.4) % Neut % (Auto) (45-73) % Lymph % (Auto) (20-40) % [place] % (Auto) (2-11) % Eos % (Auto) (0-4) % Baso % (Auto) (0-2) % Lymph # (Auto) (1.2-4.9) X10*3/uL [place] # (Auto) (0.1-1.2) X10*3/uL Eos # (Auto) (0.0-0.4) X10*3/uL Baso # (Auto) (0.0-0.2) X10*3/uL Abs Immat Gran (auto) (0.00-0.03) X10*3/uL Absolute Neuts (auto) (2.0-8.3) X10*3/uL Absolute Nucleated RBC (0.0-0.012) X10*3/uL Nucleated RBC % (auto) (0.0-0.2) /100WBC Sodium 138 (135-145) mmol/L Potassium 4.0 (3.3-5.1) mmol/L Chloride 101 (96-108) mmol/L Carbon Dioxide 29 (22-29) mmol/L Anion Gap 12 (12-20) BUN 15 (9-16) mg/dL Creatinine 1.15 (0.5-1.4) mg/dL Estim Creat Clear Calc 104.6 Estimated GFR > 60 Random Glucose 148 H (60-115) mg/dL Calcium 9.1 D (8.4-10.2) mg/dL Magnesium 2.1 (1.6-2.6) mg/dL Total Bilirubin 0.5 (0.0-1.0) mg/dL Direct Bilirubin 0.2 (0.0-0.5) mg/dL AST 39 H (5-37) U/L ALT 26 (0-40) U/L Alkaline Phosphatase 64 D (39-117) U/L Total Protein 6.8 (6.5-8.0) g/dL Albumin 4.1 (3.5-5.0) g/dL Salicylates < 5.0 L (15-30) mg/dL Acetaminophen < 1 (<30) mcg/mL Ethyl Alcohol mg/dL COVID-19 ([facility]) (Negative) COVID-19 Clin Com ECG Data Attestation: I personally reviewed and interpreted this ECG as follows: Interpretation: Sinus bradycardia with heart rate 42 beats per minute normal intervals normal axis no acute ischemic changes Critical Care Time Critical Care Time Critical Care Time: Yes Total Critical Care Time: 45 Attestation: I spent 45 minutes of critical care, with interventions, assessments, speaking to patient, consultants, Discharge Plan Discharge Clinical Impression: Opioid use disorder Drug overdose Qualifiers: Encounter type: initial encounter Injury intent: intentional self-harm Qualified Code(s): T50.902A - Poisoning by unspecified drugs, medicaments and biological substances, intentional self-harm, initial encounter Major depression Qualifiers: Major depression recurrence: recurrent Active/Remission status: currently active Major depression episode severity: severe Psychotic features: without psychotic features Qualified Code(s): F33.2 - Major depressive disorder, recurrent severe without psychotic features Patient Disposition: Admitted As Inpatient Interventions: Admission Worksheet (ED) Last Done: 06/12/21 05:38
--- NOTE | 2021-06-11 23:53 | ECG_ITS ---
Test Reason : OD Blood Pressure : / mmHG Vent. Rate : 042 BPM Atrial Rate : 042 BPM P-R Int : 188 ms QRS Dur : 106 ms QT Int : 508 ms P-R-T Axes : 027 036 022 degrees QTc Int : 424 ms Marked sinus bradycardia Abnormal ECG When compared with ECG of 29-APR-2021 14:06, Vent. rate has decreased BY 24 BPM Referred By: Guy Jonas Electronically Signed By:MIRTHA MILTON
[2021-06-12] VITALS (25 sets, daily range): BP systolic 91–163; BP diastolic 44–86; PULSE 35–55; RESP 11–100; TEMP 36.1–37.9; O2SAT 92–99; BMI 31.1
[2021-06-12 00:25] LABS: MANUAL DIFF FLAG NO
[2021-06-12 00:26] LABS: Basophils Percent Auto 0.3 % (0-2); Eosinophils Absolute Auto 0.1 X10*3/uL (0.0-0.4); Eosinophils Percent Auto 1.1 % (0-4); Hematocrit 36.4 % (42-52); Hemoglobin 12.4 g/dl (14.0-18.0); Imm Gran Abs Auto 0.02 X10*3/uL (0.00-0.03); Imm Gran Pct Auto 0.3 % (0.0-0.4); Lymphocytes Absolute Auto 2.4 X10*3/uL (1.2-4.9); Lymphocytes Percent Auto 31.9 % (20-40); Mean Corpuscular HGB Conc 34.1 g/dl (31.0-36.0); Mean Corpuscular Hemoglobin 30.9 pg (27.0-33.0); Mean Corpuscular Volume 90.8 fL (80-98); Mean Platelet Volume 10.3 fL (9.4-12.4); Monocytes Absolute Auto 0.6 X10*3/uL (0.1-1.2); Monocytes Percent Auto 7.3 % (2-11); Neutrophils Absolute Auto 4.4 X10*3/uL (2.0-8.3); Neutrophils Percent Auto 59.1 % (45-73); Platelet Count 237 X10*3/uL (160-400); Red Blood Count 4.01 X10*6/uL (4.60-5.80); Red Cell Distribution Width 12.2 % (11.0-16.0); White Blood Count 7.5 X10*3/uL (4.8-10.8)
[2021-06-12] MEDS: 0.9 % Sodium Chloride 1,000 ML 999 ML IVCONT (00:32)
[2021-06-12] MEDS: Naloxone HCl 2 MG/2 ML SYRINGE 1 MG IVPUSH (00:32)
[2021-06-12] MEDS: Activated charcoaL 50 GM/240 ML ORAL.SUSP PO (00:33)
[2021-06-12 00:42] LABS: COVID-19 Test Negative (Negative)
[2021-06-12 00:43] LABS: Ethanol < 10 mg/dL
[2021-06-12 01:43] LABS: Alanine Aminotransferase 26 U/L (0-40); Albumin Level 4.1 g/dL (3.5-5.0); Alkaline Phosphatase 64 U/L (39-117); Anion Gap 12 (12-20); Aspartate Amino Transferase 39 U/L (5-37); Bilirubin Direct 0.2 mg/dL (0.0-0.5); Bilirubin Total 0.5 mg/dL (0.0-1.0); Blood Urea Nitrogen 15 mg/dL (9-16); Calcium 9.1 mg/dL (8.4-10.2); Carbon Dioxide 29 mmol/L (22-29); Chloride 101 mmol/L (96-108); Creatinine Clr Calc Pharmacy 104.6; Estimated Glomerular Filt Rate > 60; Glucose Random 148 mg/dL (60-115); Magnesium 2.1 mg/dL (1.6-2.6); Sodium 138 mmol/L (135-145); Total Protein 6.8 g/dL (6.5-8.0)
--- NOTE | 2021-06-12 02:46 | PC.NURSE ---
poison controll called and talked with Laurie, monitor pt for resp distress, give supportive care, may treat with narcan and atropine if needed. provider made aware.
[2021-06-12 03:38] LABS: Acetaminophen LAB < 1 mcg/mL (<30); Salicylate < 5.0 mg/dL (15-30)
[2021-06-12] MEDS: Atropine Sulfate 1 MG/10 ML SYRINGE 0.5 MG IVPUSH (04:38)
--- NOTE | 2021-06-12 04:51 | PM.CCHP ---
History of Present Illness Date of Service: 06/12/21 Attending physician on admission: Kobi Rodriguez Chief Complaint: OD, Bradycardia HPI:? Patient with underlying history of significant depression, PTSD, opiate abuse, hep C, drug abuse (heroin), was seen in emergency room around 10:00 p.m. last night reporting feeling suicidal and feeling well, patient reported he intentionally ingested approximately 60 tablets of 0.1 mg clonidine above 9:00 a.m. last night. Lately he has been feeling more depressed than usual. In the air he was still reporting to feel suicidal, he was found to be significantly lethargic and sleepy. Poison control was contacted, patient was placed on monitor, he received charcoal and was advised to monitor his heart rate. In the ER, patient's heart rate has been anywhere between 30 and 40 beats per minute. In the ER, workup revealed white count 7.5, H&H of 12.4 and 36 respectively with an MCV of 90.8.? Platelet count 237. Sodium 138, potassium 4.0, chloride 101, carbon dioxide 29, anion gap 12, BUN 15, creatinine 1.15, random glucose 148, calcium 9.1, magnesium 2.1.? S 8039, ALT 26, total bilirubin 0.5.? Albumin 4.1. Toxicology screen reveal salicylates less than 5, acetaminophen less than 1, ethyl alcohol less than 10. EKG revealed sinus bradycardia 42 beats per minute. No ST elevations, no depressions. QTC 424. Given significant bradycardia, the patient was admitted to ICU. Covid (-). ROS:? Unable to obtain due to lethargy Past Medical History: As above Past Surgical History: Appendectomy Family history:? Noncontributory Social History:? History of IV drug abuse. Smokes half pack per day. No alcohol reported. Smokes marijuana. Living situation is unknown. CODE STATUS: Full code Allergies:? Fish (anaphylaxis) Seroquel and trazodone (involuntary spasms) Home Medications: Please see med rec PHYSICAL EXAM: VS:? Blood pressure 100/53, heart rate 38, respirations 10, O2 sat 96% on room air ?General:? Lethargic and sleeping. Arthrosis to verbal and touch full stimuli, follows basic commands. ?Skin:? Intact, no lesions, edema, erythema, clubbing or cyanosis.? No ulcers. ?HEENT:? Head is normocephalic, atraumatic, pupils equal round reactive to light accommodation bilaterally.? Extraocular movements appear intact.? Buccal mucosa is dry. Neck is supple without lymphadenopathy. ?Cardiac:? Clear S1-S2, bradycardic at 40 beats per minute; no murmurs rubs or gallops. ?Pulmonary:? Clear to auscultation, no wheezes, rales or rhonchi. ?Abdomen:? Protuberant, positive bowel sounds in all 4 quadrants.? Soft, nontender, no rebound or guarding.?? ?Musculoskeletal:? Moving all 4 extremities upon request a major joints, there is no crepitus or tenderness.? The strength is 5/5 bilaterally and throughout all 4 extremities.? There is no leg edema , no calf tenderness , no leg asymmetry.? Gait not assessed at this point. ?Neurologic:? As above, cranial nerves 2-12 are grossly intact.? No focal deficits noted. ?Motor strength as above.?? ?Vascular:? 2+ pulses upper and lower extremities distally.? ? SIGNIFICANT LABORATORY DATA: As above REVIEW OF IMAGES:? None EKG REVIEW: As above ASSESSMENT AND PLAN: 1. Clonidine intentional overdose 2. Bradycardia secondary to above 3. Lethargy due to above 4. Major depressive disorder with suicidal ideation and attempt 5. Reactive hypotension due to toxic ingestion 6. History of methadone dependence, dose to be confirmed. Admit to ICU, I's and O's, vital signs, pacer pads at bedside, monitor heart rate and rhythm, gentle IV fluids, Reglan p.r.n. nausea, avoid QT prolonging agents, poison control was contacted no additional advised at this point. Patient will need a one-to-one sitter, psych evaluation. If bradycardia worsen or patient is symptomatic, will administer atropine. Pacer pads at bedside. Will add TSH level, repeat salicylate, Tylenol level and remainder U tox panel. Methadone and does administration site should be confirmed. GI PROPHYLAXIS: IV ppi DVT PROPHYLAXIS: Lovenox subQ Critical care time used for critical evaluation of this patient, diagnosis, treatment and coordination of care, review her records and documentation TOTAL CRITICAL CARE TIME 90 MIN .? Patient's care was discussed in detail with Dr. Rodriguez.? He is aware of all the above as well as the plan of care for this patient.? [facility]LY [facility], [facility] Past Medical History Medical History Chronic post-traumatic stress disorder (PTSD) Hepatitis C MDD (major depressive disorder), recurrent episode, moderate No known health problems Surgical History Surgical History History of appendectomy Social History Social History Household Members: Unknown / Unable to assess Housing: Homeless Do you presently have visiting nurse or other home services: No Alcohol intake: never Patient Tobacco Use Status: Current everyday Tobacco user Tobacco use type: Cigarette Cigarette Packs Per Day: 0.5 Cigarettes Per Day: 10.0 Second Hand Smoke Exposure: No Use of substances other than those prescribed or required for medical reasons: Yes Substance Use Type: Crack/Cocaine, Heroin, IV Drugs, Marijuana, Opiates, Painkillers and Prescription Drugs Currently Displaying Signs/Symptoms of Drug Intoxication Withdrawal: No Have you been hit, kicked, punched, or otherwise hurt by someone within the past year? If so, by whom?: No Do you feel safe in your current relationship?: No Current Relationship Is there a partner from a previous relationship who is making you feel unsafe now?: No Are you made to feel afraid or neglected: No Advance Directives: No Advance Directives Information Provided: Yes Advance Directives on File: No Do you have thoughts of harming others: None Do you have a plan to hurt others: No Plan Recently lost weight without trying: Unsure Nutrition Risks: No Nutritional Risk Poor oral hygiene: Yes service: No Current occupational status: unemployed Sexual orientation: Straight/Heterosexual Meds Allergies Allergy/AdvReac Type Severity Reaction Status Date / Time fish derived [FISH] Allergy Severe ANAPHYLAXIS Verified 03/04/21 20:52 quetiapine [From SEROQUEL] AdvReac Severe INVOLUNTARY Verified 03/04/21 20:52 SPASMS trazodone AdvReac Unknown INVOLUNTARY Verified 03/04/21 20:52 SPASMS SEAFOOD Allergy Severe ANAPHYLAXIS Uncoded 03/04/21 20:52 Home Medications Medication Instructions Recorded Confirmed Last Taken Type glecaprevir 100 mg-pibrentasvir 40 3 tab PO DAILY 04/27/21 06/12/21 Unknown History mg tablet (Mavyret) clonidine HCl 0.1 mg tablet 1 tab PO TID PRN 06/12/21 06/12/21 Unknown History divalproex 125 mg tablet,delayed 1 tab PO BID 06/12/21 06/12/21 Unknown History release doxepin 50 mg capsule 1 mg PO BEDTIME 06/12/21 06/12/21 Unknown History methadone 10 mg/mL oral 75 mg PO DAILY 06/12/21 06/12/21 Unknown History concentrate (Methadose) Physical Exam Vital Signs: Vital Signs: Last Vital Signs Temp 97.9 F 06/11/21 23:49 Pulse 43 L 06/12/21 04:48 Resp 100 H 06/12/21 04:41 BP 100/53 L 06/12/21 04:41 Pulse Ox 98 06/12/21 04:41 Body Mass Index 31.1 Results Labs CBC and Chem 7: 06/12/21 00:18 06/12/21 00:47 Labs: Laboratory Results - last 24 hr 06/11/21 06/12/21 06/12/21 23:58 00:18 00:25 Hgb 12.4 L MCV 90.8 MCH 30.9 MCHC 34.1 RDW 12.2 Plt Count 237 MPV 10.3 Immature Gran % (Auto) 0.3 Neut % (Auto) 59.1 Lymph % (Auto) 31.9 [place] % (Auto) 7.3 Eos % (Auto) 1.1 Baso % (Auto) 0.3 Lymph # (Auto) 2.4 [place] # (Auto) 0.6 Eos # (Auto) 0.1 Baso # (Auto) 0.0 Abs Immat Gran (auto) 0.02 Absolute Neuts (auto) 4.4 Absolute Nucleated RBC 0.000 Nucleated RBC % (auto) 0.0 Anion Gap Estim Creat Clear Calc Estimated GFR Random Glucose Calcium Magnesium Total Bilirubin Direct Bilirubin AST ALT Alkaline Phosphatase Total Protein Albumin Salicylates Acetaminophen Ethyl Alcohol < 10 COVID-19 ([facility]) Negative COVID-19 Clin Com See Note 06/12/21 00:47 Hgb MCV MCH MCHC RDW Plt Count MPV Immature Gran % (Auto) Neut % (Auto) Lymph % (Auto) [place] % (Auto) Eos % (Auto) Baso % (Auto) Lymph # (Auto) [place] # (Auto) Eos # (Auto) Baso # (Auto) Abs Immat Gran (auto) Absolute Neuts (auto) Absolute Nucleated RBC Nucleated RBC % (auto) Anion Gap 12 Estim Creat Clear Calc 104.6 Estimated GFR > 60 Random Glucose 148 H Calcium 9.1 D Magnesium 2.1 Total Bilirubin 0.5 Direct Bilirubin 0.2 AST 39 H ALT 26 Alkaline Phosphatase 64 D Total Protein 6.8 Albumin 4.1 Salicylates < 5.0 L Acetaminophen < 1 Ethyl Alcohol COVID-19 ([facility]) COVID-19 Clin Com
--- NOTE | 2021-06-12 05:42 | PC.NURSE ---
report given to Laurie from poison controll. pt is being admitted to icu.
[2021-06-12 06:08] LABS: Acetaminophen LAB < 1 mcg/mL (<30); Salicylate < 5.0 mg/dL (15-30)
[2021-06-12] MEDS: Pantoprazole Sodium 40 MG/10 ML VIAL IVPUSH (06:34)
[2021-06-12] MEDS: Enoxaparin Sodium 40 MG/0.4 ML SYRINGE SUBCUT (06:34)
[2021-06-12 06:46] LABS: Thyroid Stimulating Hormone 0.27 uIU/mL (0.32-4.0)
--- NOTE | 2021-06-12 10:09 | MHC.CLN ---
DISCUSSED CASE WITH MD AT ROUNDS MD REQUESTED REGULAR DIET TO START
--- NOTE | 2021-06-12 10:29 | PC.NURSE ---
METHADONE DOSE OF 75 MG VERIFIED THIS MORNING AT 0930 WITH GLADYS FROM [facility]. LAST DOSE GIVEN YESTERDAY 06/11/21. RELEASE FORM SENT TO FACILITY AT GLADYS'S REQUEST FAX: [phone]. OUR METHADONE VERIFICATION FORM GIVEN TO PHARMACIST IN ROUNDS. PRIMARY RN AWARE.
--- NOTE | 2021-06-12 11:24 | MHC.CM.PN ---
Pt in ICU with bradycardia after intentional ingestion of Clonidine. Met with pt to review demographics and discuss d/c planning: pt states he has a mailing address in [place] but stays with other people or on the streets on occassion. Affiliated with [facility] Methadone clinic per pt: pt would not disclose much information, declined listing a next of contact or HCP and frequently asked for food and methadone. Pt would not state where he was going to stay following C d/c only noting, local, I'll be around Pt states his providers are Lilia and Erika from [facility]. At this time, pt is minimally participatory in CM interview. He will need to see CARE team and [facility] when he is medically stable for SI and continued substance abuse. CM will follow.
[2021-06-12] MEDS: methADONE HCl 20 MG/2 ML ORAL.CONC 75 MG PO (13:30)
--- NOTE | 2021-06-12 18:43 | PC.NURSE ---
Patient remained sinus jud. Slowly awoke through the day. Cooperative and appropriate. PO Methadone as ordered. Tolerating PO foods. Voiding without issue. POISON CONTROL updated. Patient's mother called, patient did not want any detailed information given. He only wanted her to know that he was OK .
[2021-06-12] MEDS: Divalproex Sodium Sprinkles 125 MG CAP.DR.SPR PO (22:44)
[2021-06-12] MEDS: clonazePAM 1 MG TABLET PO (22:45)
--- NOTE | 2021-06-12 23:27 | PC.NURSE ---
Assumed care of pt at 1900. Pt was upset at that time because he said he had to go to the bathroom to have a bowel movement and was told by SOFTWARE PROJECT ENGINEER he had to use bedside commode. He wanted a real bathroom with a toilet. He said he felt like he was going to have diarrhea. Finally accepted the commode because he had to go. Said he was going to throw the contents of the commode at the staff but when he was finished, he did not do that. He got into bed and fell asleep. BHARTI Howard at bedside for pt's outburst. Orders put in for a few of the pt's meds as at home but, according to Jose Angel, nothing that can lower the bp or heart rate. Pt received clonazepam prn for anxiety later in the shift at 0. He was cooperative and took med. Was hungry and snack given. He ate 2 jellos and some anibal damien. Monitor shows SB, HR mid 40's. SBP soft with a map mid 60's. 1:1 sitter at bedside for suicide precautions.
[2021-06-13] VITALS (13 sets, daily range): BP systolic 99–128; BP diastolic 34–74; PULSE 44–65; RESP 14–26; TEMP 36.4–36.7; O2SAT 93–98; BMI 31.9
[2021-06-13] MEDS: Pantoprazole Sodium 40 MG/10 ML VIAL IVPUSH (06:28)
--- NOTE | 2021-06-13 08:02 | MHC.CARE ---
Please consult CARE Team when medically cleared for intervention.
[2021-06-13] MEDS: Divalproex Sodium Sprinkles 125 MG CAP.DR.SPR PO ×2 (08:30→21:50)
[2021-06-13] MEDS: Fenofibrate 54 MG TABLET PO (08:30)
[2021-06-13] MEDS: clonazePAM 1 MG TABLET PO ×2 (08:31→18:29)
[2021-06-13] MEDS: NaPROXEN 500 MG TABLET PO (08:31)
[2021-06-13] MEDS: methADONE HCl 20 MG/2 ML ORAL.CONC 75 MG PO (09:08)
[2021-06-13] MEDS: Nicotine 14 MG PATCH.TD24 TRANSDERMA (09:08)
--- NOTE | 2021-06-13 09:11 | P.PNCC_ITS ---
Subjective Subjective Date of Service: 06/13/21 Interval History: Mr. Gustafson was admitted to the ICU yesterday from the ED after presenting with a deliberate clonidine overdose. The patient is a 40 yo M with underlying history of significant depression, P TSD, opiate abuse, hep C, and drug abuse (heroin), currently on methadone. He was BIBA to the ED late 06/11 feeling suicidal, reporting that he intentionally ingested approximately 60 tablets of 0.1 mg clonidine about 9pm.? Lately been feeling more depressed than usual.? In the ED he was still feeling suicidal.? On exam, he was lethargic.? Heart rate was 38, blood pressure was 118/68, respiratory rate was 15, with a sat 97% on room air.? General exam was otherwise unremarkable. The patient was given a dose of atropine in the ED and his heart rate shot up to the 140s.? Poison control was contacted, and charcoal was given.? Labs were ba sically unremarkable.? Tox screen was negative. ?COVID negative.? The patient was admitted to the ICU for monitoring. Over the day yesterday the patient was sleepy but easily arousable and ate lunch and dinner with no problem. ?Heart rate during the day yesterday ran around 40, with blood pressure running around high 90s/45.? Since 19:00 last night the heart rate has been above 40 ranging into the 60s.? Blood pressures since 1am has been 101-118 systolic. This morning, he is easily arousable, asking questions.? Complaining of back pain; I gave him 500 mg Naprosyn.? Also requested a nicotine patch.? Heart rate is 48, blood pressure 102/46.? Breathing easy on room air with sat mid 90s.? He?s afebrile.? Chest is clear, with normal expiratory phase.? No edema. LABORATORY DATA:? None this morning. ASSESSMENT AND PLAN: 1. Clonidine intentional overdose. 2. Bradycardia secondary to above.? Resolving.? According to the [employer] tech vital signs records, his baseline heart rate appears to be in the 60s-70. 3. Major depressive disorder with suicidal ideation and attempt.? The patient has a sitter and will need psychiatric evaluation. 4. History of intravenous drug use, on methadone.? His methadone dose has been determined (75 mg daily), and we get we gave him his methadone dose yesterday. Hemodynamics are stable enough for transfer to the floor.? I will sign out to the hospitalists. Time:? [id number]. Critical Care Time (minutes): 0 Physical Exam Vital Signs: Vital Signs: Last Vital Signs Temp 97.5 F 06/13/21 08:00 Pulse 49 L 06/13/21 09:00 Resp 23 H 06/13/21 09:00 BP 115/56 L 06/13/21 09:00 Pulse Ox 93 06/13/21 09:00 Oxygen Flow Rate 2 06/12/21 04:40 Body Mass Index 31.9 Objective Data Labs CBC & Chem 7: 06/12/21 00:18 06/12/21 00:47 Quality Stroke Does the patient have a stroke diagnosis?: No VTE Prior VTE?: No VTE Risk Level:: Medical - moderate - high VTE Device Contraindication: N/A - Device Ordered VTE Drug Contraindication: N/A - Med Ordered
[2021-06-14] VITALS: BP 126/73; PULSE 50; RESP 17; TEMP 36.3; O2SAT 95
[2021-06-14 03:53] VITALS: BP 128/71; PULSE 52; RESP 16; TEMP 36.4; O2SAT 96
[2021-06-14 08:27] VITALS: BP 135/73; PULSE 50; RESP 15; TEMP 36; O2SAT 99
[2021-06-14] MEDS: Fenofibrate 54 MG TABLET PO (09:00)
[2021-06-14] MEDS: Divalproex Sodium Sprinkles 125 MG CAP.DR.SPR PO ×2 (09:00→20:39)
[2021-06-14] MEDS: methADONE HCl 20 MG/2 ML ORAL.CONC 75 MG PO (09:00)
[2021-06-14] MEDS: clonazePAM 1 MG TABLET PO ×3 (09:01→20:38)
--- NOTE | 2021-06-14 11:57 | HO.PM.IMPN ---
Subjective Subjective Date of Service: 06/14/21 Interval History: seen and examined feels depressed denies dizzines, cp, sob Review of Systems +depression denies cp or sob or dizziness Physical Exam Vital Signs: Vital Signs: Last Vital Signs Temp 96.8 F 06/14/21 08:27 Pulse 50 06/14/21 08:27 Resp 15 06/14/21 08:27 BP 135/73 06/14/21 08:27 Pulse Ox 99 06/14/21 08:27 Oxygen Flow Rate 2 06/12/21 04:40 Body Mass Index 31.9 Const: Other: General - no acute distress, appears comfortable, appears depressed Cardiovascular - s1s2, bradycardic, sinus jud on monitor without any blocks Lungs - normal respiratory effort, clear to auscultation bilaterally, no wheezing Abdomen - soft, nontender, no rebound or guarding Extremities - no edema bilaterally Neuro - awake and alert, no focal deficits psych - flat affect Objective Data Active Medications Clonazepam (Clonazepam 1 Mg Tablet) 1 mg PO TID PRN PRN Reason: Anxiety Last Admin: 06/14/21 09:01 Dose: 1 mg Documented by: CARI Divalproex Sodium (Divalproex Sodium Sprinkles 125 Mg Tha.) 125 mg PO BID [facility] Last Admin: 06/14/21 09:00 Dose: 125 mg Documented by: CARI Enoxaparin Sodium (Enoxaparin Sodium 40 Mg/0.4 Ml Syringe) 40 mg SUBCUT Q24H [facility] Last Admin: 06/14/21 05:04 Dose: Not Given Documented by: CHASE Non-Admin Reason: Patient Refused Fenofibrate (Fenofibrate 54 Mg Tablet) 54 mg PO DAILY [facility] Last Admin: 06/14/21 09:00 Dose: 54 mg Documented by: CRAI Methadone HCl (Methadone Hcl 20 Mg/2 Ml Oral.Conc) 75 mg PO DAILY [facility] Last Admin: 06/14/21 09:00 Dose: 75 mg Documented by: CARI Nicotine (Nicotine 14 Mg Patch.Td24) 14 mg TRANSDERMA DAILY [facility] Last Admin: 06/14/21 09:01 Dose: Not Given Documented by: CARI Non-Admin Reason: Patient Refused Non-Formulary Medication (Dextroamphetamine-Amphetamine) 1 cap PO DAILY [facility] Non-Formulary Medication (Glecaprevir-Pibrentasvir [Mavyret]) 3 tab PO DAILY [facility] Pharmacy Consult (Consult Rx Perform Med Rec) 1 each MISCELLANE ONCE PRN PRN Reason: Consult order Labs CBC & Chem 7: 06/12/21 00:18 06/12/21 00:47 Assessment and Plan (1) Clonidine overdose: Status: Acute Assessment and Plan: This is a 40 yo M with a PMH of Depression, PTSD, substance abuse who was initially admitted to ICU on 06/12 after intentional OD with approximately 60 tabs of 0.1mg clonidine. Initially admitted to ICU and transferred out on 06/13/2021. 1. Intentional OD with clonidine HR remains in the 40s/50s but BP has normalized he denies any symptoms of bradycardia will touch base with poison control to determined duration of his monitoring. If cleared by them, will get Crisis/Care team involved. Still feeling depressed and I anticipate he will need inpatient psych admission. Keep 1:1 obs 2. Chronic opiate dependence methadone 3. Mood anticipate inpatient psych admission DVT pptx, Lovenox Quality Stroke Does the patient have a stroke diagnosis?: No VTE Prior VTE?: No VTE Risk Level:: Medical - moderate - high VTE Device Contraindication: N/A - Device Ordered VTE Drug Contraindication: N/A - Med Ordered
--- NOTE | 2021-06-14 12:43 | MHC.CM.PN ---
per multi dis rounds pt meeds to be cleared by [facility] prior to dc
[2021-06-14 14:56] VITALS: BP 139/82; PULSE 43; RESP 16; TEMP 36.4; O2SAT 96
--- NOTE | 2021-06-14 17:54 | PM.EVENT ---
Event Note Date of Service: 06/14/21 Event Note: Nurse reported complaints of chest pain. Patient is sleeping upon arrival to bedside. Pt reports intermittent left-sided stabbing chest pain lasting a few minutes in duration each time and resolving spontaneously. Patient denies any associated dizziness, diaphoresis, shortness of breath, palpitations. This pain has been intermittent since last night. Patient refused EKG or further lab testing at this time. Was encouraged to update nurse if pain returns.
--- NOTE | 2021-06-14 18:20 | PC.NURSE ---
Patient complained of chest pain 7/10 midsternal intermittent. Sinus jud on telemetry. VS stable. PA at bedside to evaluate patient. EKG ordered but pt refused. No other new orders at this time.
[2021-06-14 19:05] VITALS: BP 139/83; PULSE 44; RESP 17; TEMP 36.6; O2SAT 96
[2021-06-14] MEDS: Melatonin 3 MG TABLET 6 MG PO (21:21)
[2021-06-14] MEDS: Doxepin HCl 25 MG CAPSULE 50 MG PO (21:21)
[2021-06-15] VITALS: PULSE 41
[2021-06-15] MEDS: methADONE HCl 20 MG/2 ML ORAL.CONC 75 MG PO (10:09)
[2021-06-15] MEDS: Fenofibrate 54 MG TABLET PO (10:10)
[2021-06-15] MEDS: Divalproex Sodium Sprinkles 125 MG CAP.DR.SPR PO ×2 (10:10→20:33)
[2021-06-15] MEDS: clonazePAM 1 MG TABLET PO ×2 (10:25→16:50)
--- NOTE | 2021-06-15 12:19 | PM.PSYCN ---
History of Present Illness Date of Service: 06/15/21 Chief Complaint: OD Reason for Consult: medication management Requesting physician: Josselyn Ladd Discussed with referring provider: Yes Sources of Information: patient interviewed and chart reviewed Additional Sources of Information: pt reports his mood is still depressed, but says SI has mostly resolved. He says he still thinks he needs inpatient psychiatric admission to which tech writer agrees. Pt wants to restart his home psychiatric medications and at first had trouble accepting that due overdose and subsequent bradycardia, some of these meds will need to remain held. However with further discussion pt agreed and understood need to be care about restarting some meds. to that end, tech writer agreed that Adderall could be restarted He is also on Depakote, Latuda and doxasosin, all of which carries some risk, albeit low of hypotenstion. Pt is on Gabapentin 800mg qid. This too carries some risk of hypotension, however he's been on high dose and will consider restarting but at lower dose. HPI Past Psychiatric History: History of admissions, detox History of trauma and depression Medical Evaluation Reviewed: Yes [facility] Medical History Chronic post-traumatic stress disorder (PTSD) Hepatitis C MDD (major depressive disorder), recurrent episode, moderate No known health problems Surgical History History of appendectomy Family History: See care team note Social History: See care team note Trauma History: History of trauma; patient did not want to discuss Diagnostics Vital Signs (24Hr): Vital Signs - 24 hr 06/14/21 14:56 06/14/21 19:05 06/15/21 00:00 Temperature 97.6 F 97.8 F Pulse Rate 43 L 44 L 41 L Respiratory Rate 16 17 Blood Pressure 139/82 139/83 Pulse Oximetry 96 96 Body Mass Index 31.9 Labs Results: 06/12/21 00:18 06/12/21 00:47 Medications Medications Current Medications Clonazepam (Clonazepam 1 Mg Tablet) 1 mg PO TID PRN PRN Reason: Anxiety Last Admin: 06/15/21 10:25 Dose: 1 mg Documented by: Divalproex Sodium (Divalproex Sodium Sprinkles 125 Mg ) 125 mg PO BID [facility] Last Admin: 06/15/21 10:10 Dose: 125 mg Documented by: Doxepin HCl (Doxepin Hcl 25 Mg Capsule) 50 mg PO BEDTIME [facility] Last Admin: 06/14/21 21:21 Dose: 50 mg Documented by: Enoxaparin Sodium (Enoxaparin Sodium 40 Mg/0.4 Ml Syringe) 40 mg SUBCUT Q24H [facility] Last Admin: 06/15/21 05:03 Dose: Not Given Documented by: Fenofibrate (Fenofibrate 54 Mg Tablet) 54 mg PO DAILY [facility] Last Admin: 06/15/21 10:10 Dose: 54 mg Documented by: Hydroxyzine HCl (Hydroxyzine Hcl 50 Mg Tablet) 50 mg PO TID PRN PRN Reason: anxiety Melatonin (Melatonin 3 Mg Tablet) 6 mg PO BEDTIME [facility] Last Admin: 06/14/21 21:21 Dose: 6 mg Documented by: Methadone HCl (Methadone Hcl 20 Mg/2 Ml Oral.Conc) 75 mg PO DAILY [facility] Last Admin: 06/15/21 10:09 Dose: 75 mg Documented by: Nicotine (Nicotine 14 Mg Patch.Td24) 14 mg TRANSDERMA DAILY [facility] Last Admin: 06/15/21 10:03 Dose: Not Given Documented by: Non-Formulary Medication (Dextroamphetamine-Amphetamine) 1 cap PO DAILY [facility] Non-Formulary Medication (Glecaprevir-Pibrentasvir [Mavyret]) 3 tab PO DAILY [facility] Pharmacy Consult (Consult Rx Perform Med Rec) 1 each MISCELLANE ONCE PRN PRN Reason: Consult order Allergies Allergies Allergy/AdvReac Type Severity Reaction Status Date / Time fish derived [FISH] Allergy Severe ANAPHYLAXIS Verified 03/04/21 20:52 quetiapine [From SEROQUEL] AdvReac Severe INVOLUNTARY Verified 03/04/21 20:52 SPASMS trazodone AdvReac Unknown INVOLUNTARY Verified 03/04/21 20:52 SPASMS SEAFOOD Allergy Severe ANAPHYLAXIS Uncoded 03/04/21 20:52 Assessment & Plan Assessment & Plan (1) Clonidine overdose: Status: Acute Code(s): T46.5X1A - Poisoning by other antihypertensive drugs, accidental (unintentional), initial encounter Assessment and Plan: 40 yo male with hx ptsd, depression, substance abuse on Methadone, currenty treated on medical floor following intentional overdose with clonidine. Counsellors consulted to assess psychiatric meds. Plan: -tech writer discussed case with Dr. Arcos -tech writer agreed that Adderall could be restarted (tech writer restarted) -Patient is also normally on Depakote, Latuda and doxasosin, all of which carries some risk, albeit low, of hypotension.?Also on clonazepam. -Pt is on Gabapentin 800mg qid. This too carries some risk of hypotension, however he's been on high dose and will consider restarting but at lower dose. Will defer to Dr. Arcos regarding Gabapentin (and clonazepam) otherwise remain on 1:1 admit to psychiatric floor once stable Greater than 50% of the session was spent on counseling and/or coordination of care
--- NOTE | 2021-06-15 13:47 | HO.PM.IMPN ---
Subjective Subjective Date of Service: 06/15/21 Interval History: Clonidine OD follow-up Review of Systems Patient sitting comfortably and seems depressed, asking for taking bath Denies any new complaint of chest pain or shortness of breath or abdominal pain or fever or chills or nausea or vomiting Denies any cough Denies any weakness or numbness. Physical Exam Vital Signs: Vital Signs: Last Vital Signs Temp 97.8 F 06/14/21 19:05 Pulse 41 L 06/15/21 00:00 Resp 17 06/14/21 19:05 BP 139/83 06/14/21 19:05 Pulse Ox 96 06/14/21 19:05 Oxygen Flow Rate 2 06/12/21 04:40 Body Mass Index 31.9 General - no acute distress, appears comfortable, appears depressed Cardiovascular - s1s2, bradycardic, sinus jud on monitor without any blocks Lungs - normal respiratory effort, clear to auscultation bilaterally, no wheezing Abdomen - soft, nontender, no rebound or guarding Extremities - no edema bilaterally Neuro - awake and alert, no focal deficits psych - flat affect Objective Data Active Medications Clonazepam (Clonazepam 1 Mg Tablet) 1 mg PO TID PRN PRN Reason: Anxiety Last Admin: 06/15/21 10:25 Dose: 1 mg Documented by: IZABELLA Divalproex Sodium (Divalproex Sodium Sprinkles 125 Mg ) 125 mg PO BID [facility] Last Admin: 06/15/21 10:10 Dose: 125 mg Documented by: IZABELLA Doxepin HCl (Doxepin Hcl 25 Mg Capsule) 50 mg PO BEDTIME [facility] Last Admin: 06/14/21 21:21 Dose: 50 mg Documented by: AJZ Enoxaparin Sodium (Enoxaparin Sodium 40 Mg/0.4 Ml Syringe) 40 mg SUBCUT Q24H [facility] Last Admin: 06/15/21 05:03 Dose: Not Given Documented by: JAZ Non-Admin Reason: Patient Refused Fenofibrate (Fenofibrate 54 Mg Tablet) 54 mg PO DAILY [facility] Last Admin: 06/15/21 10:10 Dose: 54 mg Documented by: IZABELLA Hydroxyzine HCl (Hydroxyzine Hcl 50 Mg Tablet) 50 mg PO TID PRN PRN Reason: anxiety Melatonin (Melatonin 3 Mg Tablet) 6 mg PO BEDTIME [facility] Last Admin: 06/14/21 21:21 Dose: 6 mg Documented by: JAZ Methadone HCl (Methadone Hcl 20 Mg/2 Ml Oral.Conc) 75 mg PO DAILY [facility] Last Admin: 06/15/21 10:09 Dose: 75 mg Documented by: IZABELLA Nicotine (Nicotine 14 Mg Patch.Td24) 14 mg TRANSDERMA DAILY [facility] Last Admin: 06/15/21 10:03 Dose: Not Given Documented by: IZABELLA Non-Admin Reason: Patient Refused Non-Formulary Medication (Dextroamphetamine-Amphetamine) 1 cap PO DAILY [facility] Non-Formulary Medication (Glecaprevir-Pibrentasvir [Mavyret]) 3 tab PO DAILY [facility] Pharmacy Consult (Consult Rx Perform Med Rec) 1 each MISCELLANE ONCE PRN PRN Reason: Consult order Labs CBC & Chem 7: 06/12/21 00:18 06/12/21 00:47 Assessment and Plan (1) Clonidine overdose: Status: Acute Assessment and Plan: 40 yo M with a PMH of Depression, PTSD, substance abuse who was initially admitted to ICU on 06/12 after intentional OD with approximately 60 tabs of 0.1mg clonidine. Initially admitted to ICU and transferred out on 06/13/2021. 1. Intentional OD with clonidine HR remains in the 40s/50s but BP has normalized he denies any symptoms of bradycardia will touch base with poison control to determined duration of his monitoring-d/w poision control recommended to observe until heart rate comes near baseline, his heart rate pretty much was in 60-80 range before . If heart rate improves and remain symptomatic then will consider BH and crisis in the morning. Still feeling depressed and I anticipate he will need inpatient psych admission. Keep 1:1 obs 2. Chronic opiate dependence methadone 3. Mood anticipate inpatient psych admission DVT pptx, Lovenox Quality Stroke Does the patient have a stroke diagnosis?: No VTE Prior VTE?: No VTE Risk Level:: Medical - moderate - high VTE Device Contraindication: N/A - Device Ordered VTE Drug Contraindication: N/A - Med Ordered
[2021-06-15 15:03] VITALS: BP 134/77; PULSE 52; RESP 20; TEMP 36.5; O2SAT 96
[2021-06-15] MEDS: Amphetamine Mixed Salts 10 MG TABLET PO (16:39)
[2021-06-15] MEDS: Melatonin 3 MG TABLET 6 MG PO (20:32)
[2021-06-15] MEDS: Doxepin HCl 25 MG CAPSULE 50 MG PO (20:33)
[2021-06-16] MEDS: clonazePAM 1 MG TABLET PO ×2 (02:08→12:50)
[2021-06-16 07:30] VITALS: BP 124/72; PULSE 56; RESP 18; TEMP 36.1; O2SAT 94
[2021-06-16] MEDS: methADONE HCl 20 MG/2 ML ORAL.CONC 75 MG PO (08:06)
[2021-06-16] MEDS: Divalproex Sodium Sprinkles 125 MG CAP.DR.SPR PO (08:06)
[2021-06-16] MEDS: Amphetamine Mixed Salts 10 MG TABLET PO ×2 (08:07→12:50)
[2021-06-16] MEDS: Fenofibrate 54 MG TABLET PO (08:07)
--- NOTE | 2021-06-16 09:56 | MHC.CM.PN ---
MD indicates patient most likely will require M5 for D/C from unit. CM to follow.
--- NOTE | 2021-06-16 13:53 | P.DS_ITS ---
DS: Providers Provider Date of Service: 06/16/21 Date of admission: 06/12/21 04:40 Date of discharge: 06/16/21 Primary care physician: Unknown Physician Consults: 06/15/21 10:21 Consult to Psychiatry Routine Consulting Provider: Psych Covering Reason for consultation: clonidine overdose , patient is very anxious /depressed -please advise . Has provider been notified: No 06/16/21 08:14 Consult to Crisis Stat Reason for consultation: Medical clear, need psych placement Has provider been notified: No 06/16/21 09:08 Consult to Care Team Routine Comment: Reason for consultation: med clear , need psych placement DS: Diagnosis Discharge Diagnosis (1) Clonidine overdose: Status: Acute DS: Summary Hospital Course Hospital Course: 40 yo M with a PMH of Depression, PTSD, substance abuse who was initially admitted to ICU on 06/12 after intentional OD with approximately 60 tabs of 0.1mg clonidine. Initially admitted to ICU and transferred out on 06/13/2021. Hospital course: Intentional OD with clonidine-patient was initially admitted to ICU for monitoring subsequently patient was feeling better and transferred to the floor on 06/13/2021-patient was monitored and his heart rate is coming to 50s and above now and he is asymptomatic, discussed with the poison Control since is heart rate is near baseline and also patient asymptomatic. Patient will go to inpatient psych for further but and management of his depression and mood disorder and and recent clonidine overdose. Will hold of a clonidine. Gabapentin and Latuda is on hold due to above, further use as per Psychiatry 2. Chronic opiate dependence methadone. Discussed with psych attending in detail-patient is being transferred to psych service. Above management discussed with the patient in detail length he understand and in agreement with the above plan, time spent 50 minutes and 50% time spent on counseling. Significant findings: As above. Procedures performed: None. Treatment and response: As above. Complications: None. Time Spent with Patient Time attestation: Total time spent providing and/or coordinating discharge s ervices: Discharge coordination time: Greater than 30 minutes Quality: Stroke Does the patient have a stroke diagnosis?: No Physical Exam Vital Signs: Vital Signs: Last Vital Signs Temp 96.9 F 06/16/21 07:30 Pulse 56 06/16/21 07:30 Resp 18 06/16/21 07:30 BP 124/72 06/16/21 07:30 Pulse Ox 94 06/16/21 07:30 Oxygen Flow Rate 2 06/12/21 04:40 Body Mass Index 31.9 General - no acute distress, appears comfortable, appears depressed Cardiovascular - s1s2, bradycardic, sinus jud on monitor without any blocks Lungs - normal respiratory effort, clear to auscultation bilaterally, no wheezing Abdomen - soft, nontender, no rebound or guarding Extremities - no edema bilaterally Neuro - awake and alert, no focal deficits psych - flat affect Discharge Plan Discharge Patient Disposition: Xfer Psychiatric Hosp Discharge Diagnosis: clonidine overdose Referrals: Physician,Unknown [Primary Care Provider] - 1 Week Discharge Medications: New nicotine 14 mg/24 hr Patch 24 Hour 14 mg transdermal DAILY Qty: 1 RF: 0 Continued Mavyret 100-40 mg tablet 3 tab PO DAILY RF: 0 melatonin 3 mg Tablet 6 mg PO BEDTIME PRN (Reason: sleep) 30 Days Qty: 60 RF: 0 clonazepam 1 mg tablet 1 mg PO TID PRN (Reason: Anxiety) 15 Days Qty: 45 RF: 1 hydroxyzine pamoate 50 mg capsule 50 mg PO TID PRN (Reason: anxiety) 30 Days Qty: 90 RF: 0 dextroamphetamine-amphetamine 30 mg capsule,extended release 24hr 1 cap PO DAILY 30 Days Qty: 30 RF: 0 fenofibrate 54 mg tablet 54 mg PO DAILY 30 Days Qty: 30 RF: 0 methadone [Methadose] 10 mg/mL concentrate 75 mg PO DAILY RF: 0 doxepin 50 mg capsule 50 mg PO BEDTIME RF: 0 divalproex 125 mg tablet,delayed release (DR/EC) 1 tab PO BID RF: 0 Held gabapentin 400 mg capsule 800 mg PO QID 15 Days Qty: 120 RF: 1 Hold Instructions: Resume on 06/28/21. Further use as per Psychiatry. Latuda 60 mg tablet 60 mg PO BEDTIME 30 Days Qty: 30 RF: 0 Hold Instructions: Resume on 06/27/21. Further use as per Psychiatry outpatient. Discontinued clonidine HCl 0.1 mg tablet 1 tab PO TID PRN (Reason: anxiety) RF: 0 Discharge Orders: Discharge Order (Routine); Ordered 06/16/21 Ordered By: Josselyn Ladd Diet: advance to usual diet Activity on Discharge: As tolerated Stand Alone Forms: Patient Portal Discharge page Discharge Date/Time: 06/16/21 15:19
[2021-06-16 15:04] VITALS: BP 132/90; PULSE 93; RESP 20; TEMP 36.6; O2SAT 96
== END 2021-06-16 15:19 | DRG 918 ==
LOC: HO.ED 06-12 04:39 → HO.ICU 06-12 04:46 → HO.IMC 06-13 14:31
PROVIDERS: Admitting Provider Physician Assistant Medical; Emergency Provider Internal Medicine; Visit Provider Internal Medicine
DX: T46.5X2A Poisoning by other antihypertensive drugs, intentional self-harm, initial encounter (principal); R45.851 Suicidal ideations; F11.20 Opioid dependence, uncomplicated; F33.2 Major depressive disorder, recurrent severe without psychotic features; R00.1 Bradycardia, unspecified; F43.12 Post-traumatic stress disorder, chronic; F17.210 Nicotine dependence, cigarettes, uncomplicated; Z71.6 Tobacco abuse counseling; Z20.822 Contact with and (suspected) exposure to COVID-19; Z79.899 Other long term (current) drug therapy
CPT/HCPCS: 36415; 80048; 80076; 80143; 80179; 82077; 83735; 84443; 85025; 87635; 93005; 99285; J0461; J1650

== ENCOUNTER 2021-06-16 15:33 | Inpatient (IN) | payer OTHER, SELFPAY ==
[2021-06-16] MEDS: Acetaminophen 325 MG TABLET 650 MG PO (17:02)
[2021-06-16] MEDS: clonazePAM 1 MG TABLET PO (17:07)
[2021-06-16 18:36] VITALS: BP 129/85; PULSE 96; RESP 18; TEMP 36.6; O2SAT 100
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
[2021-06-16 18:44] VITALS: BMI 29.2
[2021-06-16] MEDS: Nicotine Polacrilex 2 MG GUM 4 MG BUCCAL (18:59)
[2021-06-16] MEDS: Divalproex Sodium Sprinkles 125 MG CAP.DR.SPR PO (21:30)
[2021-06-16] MEDS: Sennosides 8.6 MG TABLET PO (21:30)
[2021-06-16] MEDS: Melatonin 3 MG TABLET 6 MG PO (21:30)
[2021-06-16] MEDS: Doxepin HCl 25 MG CAPSULE 50 MG PO (21:30)
[2021-06-16] MEDS: Gabapentin 400 MG CAPSULE 800 MG PO (21:30)
[2021-06-17] MEDS: Gabapentin 400 MG CAPSULE 800 MG PO ×3 (08:23→20:06)
[2021-06-17] MEDS: Fenofibrate 54 MG TABLET PO (08:25)
[2021-06-17] MEDS: Sennosides 8.6 MG TABLET PO ×2 (08:25→20:06)
[2021-06-17] MEDS: Divalproex Sodium Sprinkles 125 MG CAP.DR.SPR PO ×2 (08:25→20:06)
[2021-06-17] MEDS: Amphetamine Mixed Salts 10 MG TABLET PO ×2 (08:25→12:08)
[2021-06-17] MEDS: Nicotine Polacrilex 2 MG GUM 4 MG BUCCAL ×3 (08:36→15:11)
[2021-06-17] MEDS: methADONE HCl 20 MG/2 ML ORAL.CONC 75 MG PO (09:07)
--- NOTE | 2021-06-17 12:39 | P.HPPS_ITS ---
HPI Date of Service: 06/17/21 Chief Complaint: OD HPI Narrative: amina yoon MD 06/15 consultation: pt reports his mood is still depressed, but says SI has mostly resolved. He says he still thinks he needs inpatient psychiatric admission to which engineering technical writer agrees. Pt wants to restart his home psychiatric medications and at first had trouble accepting that due overdose and subsequent bradycardia, some of these meds will need to remain held. However with further discussion pt agreed and understood need to be care about restarting some meds. to that end, engineering technical writer agreed that Adderall could be restarted He is also on Depakote, Latuda and doxasosin, all of which carries some risk, albeit low of hypotenstion. Pt is on Gabapentin 800mg qid. This too carries some risk of hypotension, however he's been on high dose and will consider restarting but at lower dose.? HPI Past Psychiatric History: History of admissions, detox History of trauma and depression Medical Evaluation Reviewed: Yes pt was transferred from medicine to psychiatry on 06/16. amina lee MD 06/17 evaluation: pt states he does not believe he was really trying to kill himself. ? he was just trying to get messed up. ? he reports he lost two good friends in the past month and has been feeling down.? he ran out of meds and didn't have a psych MD bcse he no-showed to the appointment he got at discharge from .? he states he took 20 pills of clonidine, which he had from a previous script, and ended up telling someone on the street about it.? that person told him he could and urged him to call 911, which he did.? he states he is glad to be alive.? he would like to get back on the regimen he was on prior to discharging from .? specifics of said regimen discussed, as well as his current medications and clinical state.? changes to current regimen agreed up include:? increasing gabapentin 800 mg from BID to TID, restarting latuda at 20 mg with dinner, and changing stimulant dosing to once daily in the morning.? departures from previous regimen which pt would like to continue are as follows: discontinuation of doxazosin, increase in methadone from 70 mg daily to 75 mg daily, initiation of VPA 125 BID, and start of doxepin 50 mg at bedtime.? per staff, pt overdosed on clonidine.? was on M5 a few weeks ago.? felt meds there were helpful, but ran out, then relapsed. Past Psychiatric History: History of admissions, detox History of trauma and depression Medical Evaluation Reviewed: Yes [facility] Medical History Chronic post-traumatic stress disorder (PTSD) Hepatitis C MDD (major depressive disorder), recurrent episode, moderate No known health problems Surgical History History of appendectomy Family History: See care team note Social History: See care team note Trauma History: History of trauma; patient did not want to discuss Diagnostics Vital Signs (24Hr): Body Mass Index 29.2 Meds/Allergies Allergies Allergies Allergy/AdvReac Type Severity Reaction Status Date / Time fish derived [FISH] Allergy Severe ANAPHYLAXIS Verified 03/04/21 20:52 quetiapine [From SEROQUEL] AdvReac Severe INVOLUNTARY Verified 03/04/21 20:52 SPASMS trazodone AdvReac Unknown INVOLUNTARY Verified 03/04/21 20:52 SPASMS SEAFOOD Allergy Severe ANAPHYLAXIS Uncoded 03/04/21 20:52 Mental Status Exam Mental Status Exam Narrative: in today's visit he is alert, oriented and pleasant.? Normal speech.? Good eye contact.? Appropriate affect.? No signs of depression.? No SI/HI.? Cognitively is intact.? Judgment is intact. Assessment & Plan Assessment & Plan (1) Chronic post-traumatic stress disorder (PTSD): Status: Chronic Code(s): F43.12 - Post-traumatic stress disorder, chronic (2) Opioid use disorder: Status: Chronic Code(s): F11.99 - Opioid use, unspecified with unspecified opioid-induced disorder Assessment and Plan: return to regimen pt was on at the conclusion of his recent M5 stay, with a few changes as detailed above. improved mood already, lack of SI. Reason for continued inpatient stay Substantial Risk for: harm to self, inability to function and rapid decompensation
--- NOTE | 2021-06-17 13:21 | HO.PSYCHPN ---
Subjective Subjective Date of Service: 06/17/21 Reason For Visit: OD Interim History: pt states he does not believe he was really trying to kill himself. he was just trying to get messed up. he reports he lost two good friends in the past month and has been feeling down. he ran out of meds and didn't have a psych MD rosend[place] he no-showed to the appointment he got at discharge from . he states he took 20 pills of clonidine, which he had from a previous script, and ended up telling someone on the street about it. that person told him he could and urged him to call 911, which he did. he states he is glad to be alive. he would like to get back on the regimen he was on prior to discharging from . specifics of said regimen discussed, as well as his current medications and clinical state. changes to current regimen agreed up include: increasing gabapentin 800 mg from BID to TID, restarting latuda at 20 mg with dinner, and changing stimulant dosing to once daily in the morning. departures from previous regimen which pt would like to continue are as follows: discontinuation of doxazosin, increase in methadone from 70 mg daily to 75 mg daily, initiation of VPA 125 BID, and start of doxepin 50 mg at bedtime. per staff, pt overdosed on clonidine. was on M5 a few weeks ago. felt meds there were helpful, but ran out, then relapsed. Mental Status Exam Mental Status Exam Narrative: in today's visit he is alert, oriented and pleasant. Normal speech. Good eye contact. Appropriate affect. No signs of depression. No SI/HI. Cognitively is intact. Judgment is intact. Diagnostics Vital Signs (24Hr): Vital Signs - 24 hr 06/16/21 18:36 Temperature 97.9 F Pulse Rate 96 Respiratory Rate 18 Blood Pressure 129/85 Pulse Oximetry 100 Body Mass Index 29.2 Medications Medications Current Medications Acetaminophen (Acetaminophen 325 Mg Tablet) 650 mg PO Q6H PRN PRN Reason: Headache/Pain Mild Scale (1-3) Last Admin: 06/16/21 17:02 Dose: 650 mg Documented by: Al Hydroxide/Mg Hydroxide (Magnesium Hydrox/Alum Hydrox 30 Ml Oral.Susp) 30 ml PO Q6H PRN PRN Reason: Heartburn/Nausea Amphetamine/Dextroamphetamine (Amphetamine Mixed Salts 10 Mg Tablet) 20 mg PO DAILY [facility] Clonazepam (Clonazepam 1 Mg Tablet) 1 mg PO TID PRN PRN Reason: Anxiety Last Admin: 06/16/21 17:07 Dose: 1 mg Documented by: Divalproex Sodium (Divalproex Sodium Sprinkles 125 Mg ) 125 mg PO BID [facility] Last Admin: 06/17/21 08:25 Dose: 125 mg Documented by: Doxepin HCl (Doxepin Hcl 25 Mg Capsule) 50 mg PO BEDTIME [facility] Last Admin: 06/16/21 21:30 Dose: 50 mg Documented by: Fenofibrate (Fenofibrate 54 Mg Tablet) 54 mg PO DAILY [facility] Last Admin: 06/17/21 08:25 Dose: 54 mg Documented by: Gabapentin (Gabapentin 400 Mg Capsule) 800 mg PO TID [facility] Hydroxyzine HCl (Hydroxyzine Hcl 50 Mg Tablet) 50 mg PO TID PRN PRN Reason: anxiety Hydroxyzine HCl (Hydroxyzine Hcl 25 Mg Tablet) 25 mg PO BEDTIME PRN PRN Reason: Anxiety Lurasidone HCl (Lurasidone Hcl 40 Mg Tablet) 40 mg PO DAILY [facility] Magnesium Hydroxide (Milk Of Magnesia 30 Ml Oral.Susp) 30 ml PO DAILY PRN PRN Reason: Constipation Melatonin (Melatonin 3 Mg Tablet) 6 mg PO BEDTIME [facility] Last Admin: 06/16/21 21:30 Dose: 6 mg Documented by: Methadone HCl (Methadone Hcl 20 Mg/2 Ml Oral.Conc) 75 mg PO DAILY [facility] Last Admin: 06/17/21 09:07 Dose: 75 mg Documented by: Nicotine (Nicotine 14 Mg Patch.Td24) 14 mg TRANSDERMA DAILY [facility] Last Admin: 06/17/21 09:58 Dose: Not Given Documented by: Nicotine Polacrilex (Nicotine Polacrilex 2 Mg Gum) 4 mg BUCCAL Q2H PRN PRN Reason: Nicotine Cravings Last Admin: 06/17/21 11:01 Dose: 4 mg Documented by: Senna (Sennosides 8.6 Mg Tablet) 8.6 mg PO BID [facility] Last Admin: 06/17/21 08:25 Dose: 8.6 mg Documented by: Allergies Allergies Allergy/AdvReac Type Severity Reaction Status Date / Time fish derived [FISH] Allergy Severe ANAPHYLAXIS Verified 03/04/21 20:52 quetiapine [From SEROQUEL] AdvReac Severe INVOLUNTARY Verified 03/04/21 20:52 SPASMS trazodone AdvReac Unknown INVOLUNTARY Verified 03/04/21 20:52 SPASMS SEAFOOD Allergy Severe ANAPHYLAXIS Uncoded 03/04/21 20:52 Assessment & Plan Assessment & Plan (1) Chronic post-traumatic stress disorder (PTSD): Status: Chronic Code(s): F43.12 - Post-traumatic stress disorder, chronic (2) Opioid use disorder: Status: Chronic Code(s): F11.99 - Opioid use, unspecified with unspecified opioid-induced disorder Assessment and Plan: return to regimen pt was on at the conclusion of his recent M5 stay, with a few changes as detailed above. improved mood already, lack of SI. Greater than 50% of the session was spent on counseling and/or coordination of care Reason for contiued inpatient stay Substantial Risk for: harm to self
[2021-06-17] MEDS: hydrOXYzine HCL 50 MG TABLET PO (14:05)
--- NOTE | 2021-06-17 15:36 | MHC.CLN ---
NUTRITION PATIENT REQUESTING VANILLA SOY MILK EACH MEAL. KITCHEN AWARE. SUSPECT ERROR IN RECENT WEIGHT WITH 06/16=97.7 KG AND 06/1384=172.9 KG. BSVHBO=821.9 KG IS IN LINE WITH MOST RECENT WEIGHTS. INTAKE RECORDED GOOD AT PRIOR ADMISSION.
[2021-06-17] MEDS: Lurasidone HCl 40 MG TABLET PO (18:03)
[2021-06-17] MEDS: clonazePAM 1 MG TABLET PO (18:05)
[2021-06-17 19:54] VITALS: BP 118/77; PULSE 99; TEMP 36.3; O2SAT 96
[2021-06-17] MEDS: Doxepin HCl 25 MG CAPSULE 50 MG PO (20:06)
[2021-06-17] MEDS: Melatonin 3 MG TABLET 6 MG PO (20:06)
[2021-06-18 09:10] VITALS: BP 138/89; PULSE 87; RESP 18; TEMP 36.3; O2SAT 100
[2021-06-18] MEDS: Nicotine 14 MG PATCH.TD24 TRANSDERMA (09:10)
[2021-06-18] MEDS: Gabapentin 400 MG CAPSULE 800 MG PO ×4 (09:11→20:07)
[2021-06-18] MEDS: Sennosides 8.6 MG TABLET PO ×2 (09:11→20:06)
[2021-06-18] MEDS: methADONE HCl 20 MG/2 ML ORAL.CONC 75 MG PO (09:11)
[2021-06-18] MEDS: Divalproex Sodium Sprinkles 125 MG CAP.DR.SPR PO ×2 (09:11→20:06)
[2021-06-18] MEDS: Fenofibrate 54 MG TABLET PO (09:11)
[2021-06-18] MEDS: Amphetamine Mixed Salts 10 MG TABLET 20 MG PO (09:11)
[2021-06-18] MEDS: Lurasidone HCl 40 MG TABLET PO (09:26)
[2021-06-18] MEDS: clonazePAM 1 MG TABLET PO ×2 (11:57→18:23)
--- NOTE | 2021-06-18 13:46 | P.PNPSI_ITS ---
Subjective Subjective Date of Service: 06/18/21 Reason For Visit: OD Interim History: pt reports he feels well. would like to get back to his previous regimen, largely, and then discharge home. states he has neuropathic pain in right hand/finger which he continues to feel at gabapentin 800 TID but which is largely controlled at 800 QID. agrees to increase gabapentin dosing to 800 QID, reports no sedation or ill effect from the 800 TID dosing these past 24 hours. hoping for discharge thursday. per staff, visible, watching TV. anxious, polite. slept well. signed 3-day notice, retracted today, then signed another one today. Mental Status Exam Mental Status Exam Narrative: in today's visit he is alert, oriented and pleasant. Normal speech. Good eye contact. Appropriate affect. No signs of depression. No SI/HI. Cognitively is intact. Judgment is intact. Diagnostics Vital Signs (24Hr): Vital Signs - 24 hr 06/17/21 19:54 06/18/21 09:10 Temperature 97.3 F 97.4 F Pulse Rate 99 87 Respiratory Rate 18 Blood Pressure 118/77 138/89 Pulse Oximetry 96 100 Body Mass Index 29.2 Medications Medications Current Medications Acetaminophen (Acetaminophen 325 Mg Tablet) 650 mg PO Q6H PRN PRN Reason: Headache/Pain Mild Scale (1-3) Last Admin: 06/16/21 17:02 Dose: 650 mg Documented by: Al Hydroxide/Mg Hydroxide (Magnesium Hydrox/Alum Hydrox 30 Ml Oral.Susp) 30 ml PO Q6H PRN PRN Reason: Heartburn/Nausea Amphetamine/Dextroamphetamine (Amphetamine Mixed Salts 10 Mg Tablet) 20 mg PO DAILY [facility] Last Admin: 06/18/21 09:11 Dose: 20 mg Documented by: Clonazepam (Clonazepam 1 Mg Tablet) 1 mg PO TID PRN PRN Reason: Anxiety Last Admin: 06/18/21 11:57 Dose: 1 mg Documented by: Divalproex Sodium (Divalproex Sodium Sprinkles 125 Mg ) 125 mg PO BID [facility] Last Admin: 06/18/21 09:11 Dose: 125 mg Documented by: Doxepin HCl (Doxepin Hcl 25 Mg Capsule) 50 mg PO BEDTIME [facility] Last Admin: 06/17/21 20:06 Dose: 50 mg Documented by: Fenofibrate (Fenofibrate 54 Mg Tablet) 54 mg PO DAILY [facility] Last Admin: 06/18/21 09:11 Dose: 54 mg Documented by: Gabapentin (Gabapentin 400 Mg Capsule) 800 mg PO QID [facility] Last Admin: 06/18/21 13:14 Dose: 800 mg Documented by: Hydroxyzine HCl (Hydroxyzine Hcl 50 Mg Tablet) 50 mg PO TID PRN PRN Reason: anxiety Last Admin: 06/17/21 14:05 Dose: 50 mg Documented by: Hydroxyzine HCl (Hydroxyzine Hcl 25 Mg Tablet) 25 mg PO BEDTIME PRN PRN Reason: Anxiety Lurasidone HCl (Lurasidone Hcl 40 Mg Tablet) 40 mg PO DAILY [facility] Last Admin: 06/18/21 09:26 Dose: 40 mg Documented by: Magnesium Hydroxide (Milk Of Magnesia 30 Ml Oral.Susp) 30 ml PO DAILY PRN PRN Reason: Constipation Melatonin (Melatonin 3 Mg Tablet) 6 mg PO BEDTIME [facility] Last Admin: 06/17/21 20:06 Dose: 6 mg Documented by: Methadone HCl (Methadone Hcl 20 Mg/2 Ml Oral.Conc) 75 mg PO DAILY [facility] Last Admin: 06/18/21 09:11 Dose: 75 mg Documented by: Nicotine (Nicotine 14 Mg Patch.Td24) 14 mg TRANSDERMA DAILY [facility] Last Admin: 06/18/21 09:10 Dose: 14 mg Documented by: Nicotine Polacrilex (Nicotine Polacrilex 2 Mg Gum) 4 mg BUCCAL Q2H PRN PRN Reason: Nicotine Cravings Last Admin: 06/17/21 15:11 Dose: 4 mg Documented by: Senna (Sennosides 8.6 Mg Tablet) 8.6 mg PO BID [facility] Last Admin: 06/18/21 09:11 Dose: 8.6 mg Documented by: Allergies Allergies Allergy/AdvReac Type Severity Reaction Status Date / Time fish derived [FISH] Allergy Severe ANAPHYLAXIS Verified 03/04/21 20:52 quetiapine [From SEROQUEL] AdvReac Severe INVOLUNTARY Verified 03/04/21 20:52 SPASMS trazodone AdvReac Unknown INVOLUNTARY Verified 03/04/21 20:52 SPASMS SEAFOOD Allergy Severe ANAPHYLAXIS Uncoded 03/04/21 20:52 Assessment & Plan Assessment & Plan (1) Chronic post-traumatic stress disorder (PTSD): Status: Chronic Code(s): F43.12 - Post-traumatic stress disorder, chronic (2) Opioid use disorder: Status: Chronic Code(s): F11.99 - Opioid use, unspecified with unspecified opioid-induced disorder Assessment and Plan: return to regimen pt was on at the conclusion of his recent M5 stay, with a few changes as detailed in note of 06/17. gabapentin increased from 800 TID to 800 QID as of today. plan to increase latuda from 20 mg daily to 40 mg daily as of 06/19. improved mood already, lack of SI. Greater than 50% of the session was spent on counseling and/or coordination of care Reason for contiued inpatient stay Substantial Risk for: rapid decompensation
[2021-06-18] MEDS: hydrOXYzine HCL 50 MG TABLET PO (15:56)
[2021-06-18] MEDS: Nicotine Polacrilex 2 MG GUM 4 MG BUCCAL (15:56)
[2021-06-18] MEDS: Doxepin HCl 25 MG CAPSULE 50 MG PO (20:06)
[2021-06-18] MEDS: Melatonin 3 MG TABLET 6 MG PO (20:06)
[2021-06-18 20:26] VITALS: BP 116/72; PULSE 93; TEMP 36.1; O2SAT 95
[2021-06-19] MEDS: hydrOXYzine HCL 50 MG TABLET PO ×2 (04:53→23:00)
[2021-06-19 08:15] VITALS: BP 125/75; PULSE 85; RESP 16; TEMP 36.6; O2SAT 96
[2021-06-19] MEDS: Divalproex Sodium Sprinkles 125 MG CAP.DR.SPR PO ×2 (08:15→20:10)
[2021-06-19] MEDS: Amphetamine Mixed Salts 10 MG TABLET 20 MG PO (08:16)
[2021-06-19] MEDS: Sennosides 8.6 MG TABLET PO ×2 (08:16→20:10)
[2021-06-19] MEDS: Gabapentin 400 MG CAPSULE 800 MG PO ×4 (08:17→20:09)
[2021-06-19] MEDS: Fenofibrate 54 MG TABLET PO (08:18)
[2021-06-19] MEDS: methADONE HCl 20 MG/2 ML ORAL.CONC 75 MG PO (08:19)
[2021-06-19] MEDS: clonazePAM 1 MG TABLET PO ×3 (08:22→22:58)
[2021-06-19] MEDS: Lurasidone HCl 40 MG TABLET PO ×2 (10:24→17:34)
--- NOTE | 2021-06-19 15:23 | HO.PSYCHPN ---
Subjective Subjective Date of Service: 06/19/21 Reason For Visit: OD Interim History: pt reports poor night of sleep, asks for increase in doxepin or melatonin. also states latuda is a bit sedating and would like to have it all in the evening, with dinner. MD suggests that will help him sleep at night and melatonin also increased at bedtime. pt planning for DC on thursday. will start latuda 60 mg tomorrow evening (but will get 40 twice today for a total of 80 mg today). per staff, appears to be sleeping well despite his report of last night, med-compliant, social. good convo with mother. doesn't feel rested this morning. planning for thursday discharge. Mental Status Exam Mental Status Exam Narrative: in today's visit he is alert, oriented and pleasant. Normal speech. Good eye contact. Appropriate affect. No signs of depression. No SI/HI. Cognitively is intact. Judgment is intact. Diagnostics Vital Signs (24Hr): Vital Signs - 24 hr 06/18/21 20:26 06/19/21 08:15 Temperature 97.0 F 97.9 F Pulse Rate 93 85 Respiratory Rate 16 Blood Pressure 116/72 125/75 Pulse Oximetry 95 96 Body Mass Index 29.2 Medications Medications Current Medications Acetaminophen (Acetaminophen 325 Mg Tablet) 650 mg PO Q6H PRN PRN Reason: Headache/Pain Mild Scale (1-3) Last Admin: 06/16/21 17:02 Dose: 650 mg Documented by: Al Hydroxide/Mg Hydroxide (Magnesium Hydrox/Alum Hydrox 30 Ml Oral.Susp) 30 ml PO Q6H PRN PRN Reason: Heartburn/Nausea Amphetamine/Dextroamphetamine (Amphetamine Mixed Salts 10 Mg Tablet) 20 mg PO DAILY [facility] Last Admin: 06/19/21 08:16 Dose: 20 mg Documented by: Clonazepam (Clonazepam 1 Mg Tablet) 1 mg PO TID PRN PRN Reason: Anxiety Last Admin: 06/19/21 13:29 Dose: 1 mg Documented by: Divalproex Sodium (Divalproex Sodium Sprinkles 125 Mg ) 125 mg PO BID [facility] Last Admin: 06/19/21 08:15 Dose: 125 mg Documented by: Doxepin HCl (Doxepin Hcl 25 Mg Capsule) 50 mg PO BEDTIME [facility] Last Admin: 06/18/21 20:06 Dose: 50 mg Documented by: Fenofibrate (Fenofibrate 54 Mg Tablet) 54 mg PO DAILY [facility] Last Admin: 06/19/21 08:18 Dose: 54 mg Documented by: Gabapentin (Gabapentin 400 Mg Capsule) 800 mg PO QID [facility] Last Admin: 06/19/21 12:36 Dose: 800 mg Documented by: Hydroxyzine HCl (Hydroxyzine Hcl 50 Mg Tablet) 50 mg PO TID PRN PRN Reason: anxiety Last Admin: 06/19/21 04:53 Dose: 50 mg Documented by: Hydroxyzine HCl (Hydroxyzine Hcl 25 Mg Tablet) 25 mg PO BEDTIME PRN PRN Reason: Anxiety Lurasidone HCl (Lurasidone Hcl 40 Mg Tablet) 40 mg PO DAILY@1700 [facility] Stop: 06/20/21 09:00 Lurasidone HCl (Lurasidone Hcl 20 Mg Tablet) 60 mg PO DAILY@1700 [facility] Magnesium Hydroxide (Milk Of Magnesia 30 Ml Oral.Susp) 30 ml PO DAILY PRN PRN Reason: Constipation Melatonin (Melatonin 3 Mg Tablet) 9 mg PO BEDTIME [facility] Methadone HCl (Methadone Hcl 20 Mg/2 Ml Oral.Conc) 75 mg PO DAILY [facility] Last Admin: 06/19/21 08:19 Dose: 75 mg Documented by: Nicotine (Nicotine 14 Mg Patch.Td24) 14 mg TRANSDERMA DAILY [facility] Last Admin: 06/19/21 10:31 Dose: Not Given Documented by: Nicotine Polacrilex (Nicotine Polacrilex 2 Mg Gum) 4 mg BUCCAL Q2H PRN PRN Reason: Nicotine Cravings Last Admin: 06/18/21 15:56 Dose: 4 mg Documented by: Senna (Sennosides 8.6 Mg Tablet) 8.6 mg PO BID [facility] Last Admin: 06/19/21 08:16 Dose: 8.6 mg Documented by: Allergies Allergies Allergy/AdvReac Type Severity Reaction Status Date / Time fish derived [FISH] Allergy Severe ANAPHYLAXIS Verified 03/04/21 20:52 quetiapine [From SEROQUEL] AdvReac Severe INVOLUNTARY Verified 03/04/21 20:52 SPASMS trazodone AdvReac Unknown INVOLUNTARY Verified 03/04/21 20:52 SPASMS SEAFOOD Allergy Severe ANAPHYLAXIS Uncoded 03/04/21 20:52 Assessment & Plan Assessment & Plan (1) Chronic post-traumatic stress disorder (PTSD): Status: Chronic Code(s): F43.12 - Post-traumatic stress disorder, chronic (2) Opioid use disorder: Status: Chronic Code(s): F11.99 - Opioid use, unspecified with unspecified opioid-induced disorder Assessment and Plan: return to regimen pt was on at the conclusion of his recent M5 stay, with a few changes as detailed in note of 06/17. gabapentin increased from 800 TID to 800 QID as of 06/18. latuda increased to 60 mg daily as of 06/20. melatonin increased from 6 mg QHS to 9 mg QHS as of 06/19. improved mood already, lack of SI. Greater than 50% of the session was spent on counseling and/or coordination of care Reason for contiued inpatient stay Substantial Risk for: harm to self, inability to function and rapid decompensation
[2021-06-19] MEDS: Nicotine Polacrilex 2 MG GUM 4 MG BUCCAL (17:34)
[2021-06-19 18:00] VITALS: BP 118/70; PULSE 91; RESP 16; TEMP 36.6; O2SAT 96
[2021-06-19] MEDS: Doxepin HCl 25 MG CAPSULE 50 MG PO (20:09)
[2021-06-19] MEDS: Melatonin 3 MG TABLET 9 MG PO (20:10)
[2021-06-20] MEDS: Magnesium Hydrox/Alum Hydrox 30 ML ORAL.SUSP PO (02:37)
[2021-06-20] MEDS: Fenofibrate 54 MG TABLET PO (08:09)
[2021-06-20] MEDS: Gabapentin 400 MG CAPSULE 800 MG PO ×4 (08:09→20:15)
[2021-06-20] MEDS: Sennosides 8.6 MG TABLET PO ×2 (08:09→20:15)
[2021-06-20] MEDS: Amphetamine Mixed Salts 10 MG TABLET 20 MG PO (08:09)
[2021-06-20] MEDS: Acetaminophen 325 MG TABLET 650 MG PO (08:10)
[2021-06-20] MEDS: clonazePAM 1 MG TABLET PO ×2 (08:10→20:14)
[2021-06-20] MEDS: Divalproex Sodium Sprinkles 125 MG CAP.DR.SPR PO (08:11)
[2021-06-20] MEDS: methADONE HCl 20 MG/2 ML ORAL.CONC 75 MG PO (08:11)
[2021-06-20 08:30] VITALS: BP 127/76; PULSE 82; RESP 18; TEMP 36.3; O2SAT 98
[2021-06-20] MEDS: hydrOXYzine HCL 50 MG TABLET PO ×2 (10:49→15:37)
[2021-06-20] MEDS: Nicotine Polacrilex 2 MG GUM 4 MG BUCCAL (13:13)
[2021-06-20] MEDS: Lurasidone HCl 20 MG TABLET 60 MG PO (18:16)
[2021-06-20 20:10] VITALS: BP 118/73; PULSE 81; TEMP 36.5; O2SAT 97
[2021-06-20] MEDS: hydrOXYzine HCL 25 MG TABLET PO (20:15)
[2021-06-20] MEDS: Melatonin 3 MG TABLET 9 MG PO (20:15)
[2021-06-20] MEDS: Divalproex Sodium Sprinkles 125 MG CAP.DR.SPR 250 MG PO (20:15)
[2021-06-20] MEDS: Doxepin HCl 25 MG CAPSULE 50 MG PO (20:15)
--- NOTE | 2021-06-20 20:59 | HO.PSYCHPN ---
Subjective Subjective Date of Service: 06/20/21 Reason For Visit: OD Subjective Notes: Conditional Voluntary and 3 Day Interim History: Patient future oriented denies current self-harming thoughts patient again given the [place] warning he is aware he is on a 3 day this hopeful for discharge tomorrow some anxiety and depressive symptoms noted Medication Compliance: Yes Mental Status Exam Mental Status Exam Narrative: Patient cooperative casually dressed speech regular rate and rhythm mood anxious mildly dysphoric denies any self-harming thoughts able to take in information regarding blood work no psychotic symptoms noted Diagnostics Vital Signs (24Hr): Vital Signs - 24 hr 06/20/21 08:30 06/20/21 20:10 Temperature 97.3 F 97.7 F Pulse Rate 82 81 Respiratory Rate 18 Blood Pressure 127/76 118/73 Pulse Oximetry 98 97 Body Mass Index 29.2 Medications Medications Current Medications Acetaminophen (Acetaminophen 325 Mg Tablet) 650 mg PO Q6H PRN PRN Reason: Headache/Pain Mild Scale (1-3) Last Admin: 06/20/21 08:10 Dose: 650 mg Documented by: Al Hydroxide/Mg Hydroxide (Magnesium Hydrox/Alum Hydrox 30 Ml Oral.Susp) 30 ml PO Q6H PRN PRN Reason: Heartburn/Nausea Last Admin: 06/20/21 02:37 Dose: 30 ml Documented by: Amphetamine/Dextroamphetamine (Amphetamine Mixed Salts 10 Mg Tablet) 20 mg PO DAILY [facility] Last Admin: 06/20/21 08:09 Dose: 20 mg Documented by: Clonazepam (Clonazepam 1 Mg Tablet) 1 mg PO TID PRN PRN Reason: Anxiety Last Admin: 06/20/21 20:14 Dose: 1 mg Documented by: Divalproex Sodium (Divalproex Sodium Sprinkles 125 Mg ) 250 mg PO BID [facility] Last Admin: 06/20/21 20:15 Dose: 250 mg Documented by: Doxepin HCl (Doxepin Hcl 25 Mg Capsule) 50 mg PO BEDTIME [facility] Last Admin: 06/20/21 20:15 Dose: 50 mg Documented by: Fenofibrate (Fenofibrate 54 Mg Tablet) 54 mg PO DAILY [facility] Last Admin: 06/20/21 08:09 Dose: 54 mg Documented by: Gabapentin (Gabapentin 400 Mg Capsule) 800 mg PO QID [facility] Last Admin: 06/20/21 20:15 Dose: 800 mg Documented by: Hydroxyzine HCl (Hydroxyzine Hcl 50 Mg Tablet) 50 mg PO TID PRN PRN Reason: anxiety Last Admin: 06/20/21 15:37 Dose: 50 mg Documented by: Hydroxyzine HCl (Hydroxyzine Hcl 25 Mg Tablet) 25 mg PO BEDTIME PRN PRN Reason: Anxiety Last Admin: 06/20/21 20:15 Dose: 25 mg Documented by: Lurasidone HCl (Lurasidone Hcl 20 Mg Tablet) 60 mg PO DAILY@1700 [facility] Last Admin: 06/20/21 18:16 Dose: 60 mg Documented by: Magnesium Hydroxide (Milk Of Magnesia 30 Ml Oral.Susp) 30 ml PO DAILY PRN PRN Reason: Constipation Melatonin (Melatonin 3 Mg Tablet) 9 mg PO BEDTIME [facility] Last Admin: 06/20/21 20:15 Dose: 9 mg Documented by: Methadone HCl (Methadone Hcl 20 Mg/2 Ml Oral.Conc) 75 mg PO DAILY [facility] Last Admin: 06/20/21 08:11 Dose: 75 mg Documented by: Nicotine (Nicotine 14 Mg Patch.Td24) 14 mg TRANSDERMA DAILY [facility] Last Admin: 06/20/21 10:47 Dose: Not Given Documented by: Nicotine Polacrilex (Nicotine Polacrilex 2 Mg Gum) 4 mg BUCCAL Q2H PRN PRN Reason: Nicotine Cravings Last Admin: 06/20/21 13:13 Dose: 4 mg Documented by: Senna (Sennosides 8.6 Mg Tablet) 8.6 mg PO BID [facility] Last Admin: 06/20/21 20:15 Dose: 8.6 mg Documented by: Allergies Allergies Allergy/AdvReac Type Severity Reaction Status Date / Time fish derived [FISH] Allergy Severe ANAPHYLAXIS Verified 03/04/21 20:52 quetiapine [From SEROQUEL] AdvReac Severe INVOLUNTARY Verified 03/04/21 20:52 SPASMS trazodone AdvReac Unknown INVOLUNTARY Verified 03/04/21 20:52 SPASMS SEAFOOD Allergy Severe ANAPHYLAXIS Uncoded 03/04/21 20:52 Assessment & Plan Assessment & Plan (1) Chronic post-traumatic stress disorder (PTSD): Status: Chronic Code(s): F43.12 - Post-traumatic stress disorder, chronic Assessment and Plan: Patient had been on Depakote 125 b.i.d. increased to 250 b.i.d. history of hepatitis-C no Depakote levels have been done check LFTs (2) Opioid use disorder: Status: Chronic Code(s): F11.99 - Opioid use, unspecified with unspecified opioid-induced disorder Assessment and Plan: return to regimen pt was on at the conclusion of his recent M5 stay, with a few changes as detailed in note of 06/17. gabapentin increased from 800 TID to 800 QID as of 06/18. latuda increased to 60 mg daily as of 06/20. melatonin increased from 6 mg QHS to 9 mg QHS as of 06/19. improved mood already, lack of SI. Patient had been started on Depakote 125 b.i.d. for the past week Increased to 250 b.i.d. check fasting blood sugar LFTs check TSH Greater than 50% of the session was spent on counseling and/or coordination of care Reason for contiued inpatient stay Substantial Risk for: inability to function and rapid decompensation
[2021-06-21] MEDS: methADONE HCl 20 MG/2 ML ORAL.CONC 75 MG PO (08:51)
[2021-06-21] MEDS: Divalproex Sodium Sprinkles 125 MG CAP.DR.SPR 250 MG PO (08:53)
[2021-06-21] MEDS: Fenofibrate 54 MG TABLET PO (08:53)
[2021-06-21] MEDS: Gabapentin 400 MG CAPSULE 800 MG PO (08:53)
[2021-06-21] MEDS: Amphetamine Mixed Salts 10 MG TABLET 20 MG PO (08:54)
[2021-06-21] MEDS: Sennosides 8.6 MG TABLET PO (08:54)
[2021-06-21] MEDS: Nicotine Polacrilex 2 MG GUM 4 MG BUCCAL (09:48)
--- NOTE | 2021-06-21 10:08 | P.DS_ITS ---
DS: Providers Provider Date of Service: 06/21/21 Date of admission: 06/16/21 15:33 Primary care physician: Unknown Physician DS: Diagnosis Discharge Diagnosis (1) Chronic post-traumatic stress disorder (PTSD): Status: Chronic (2) Opioid use disorder: Status: Chronic DS: Medications Discharge Medications Home Medications: Home Medications Medication Instructions Recorded Confirmed doxepin 50 mg capsule 50 mg PO BEDTIME 06/12/21 06/14/21 methadone 10 mg/mL oral 75 mg PO DAILY 06/12/21 06/12/21 concentrate (Methadose) Previous Rx's Medication Instructions Recorded fenofibrate 54 mg tablet 54 mg PO DAILY 30 Days #30 tab 05/03/21 hydroxyzine pamoate 50 mg capsule 50 mg PO TID PRN 30 Days #90 cap 05/03/21 clonazepam 1 mg tablet 1 mg PO TID PRN 15 Days #45 tab 06/21/21 dextroamphetamine-amphetamine ER 1 cap PO DAILY 30 Days #30 cap 06/21/21 30 mg 24hr capsule,extend release divalproex 125 mg capsule,delayed 250 mg PO BID 30 Days #120 cap 06/21/21 release sprinkle gabapentin 400 mg capsule 800 mg PO QID 15 Days #120 cap 06/21/21 lurasidone 60 mg tablet (Latuda) 60 mg PO BEDTIME 30 Days #30 tab 06/21/21 melatonin 3 mg tablet 9 mg PO BEDTIME PRN 30 Days #60 tab 06/21/21 sennosides 8.6 mg tablet (Senna 8.6 mg PO BID 30 Days #60 tab 06/21/21 Lax) Mental Status Exam Mental Status Exam Narrative: in today's visit he is alert, oriented and pleasant. Normal speech. Good eye contact. mood good. Appropriate affect. No signs of depression. No SI/HI/AVH. Cognitively is intact. Judgment is intact. DS: Summary Hospital Course Hospital Course: per Kiley 06/15 Consult Note: pt reports his mood is still depressed, but says SI has mostly resolved. 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 Pt wants to restart his home psychiatric medications and at first had trouble accepting that due overdose and subsequent bradycardia, some of these meds will need to remain held. However with further discussion pt agreed and understood need to be care about restarting some meds. to that end, telegraphic typewriter operator agreed that Adderall could be restarted He is also on Depakote, Latuda and doxasosin, all of which carries some risk, albeit low of hypotenstion. Pt is on Gabapentin 800mg qid. This too carries some risk of hypotension, however he's been on high dose and will consider restarting but at lower dose.? HPI Past Psychiatric History: History of admissions, detox History of trauma and depression Medical Evaluation Reviewed: Yes [facility] Medical History? Chronic post-traumatic stress disorder (PTSD) Hepatitis C MDD (major depressive disorder), recurrent episode, moderate No known health problems Surgical History? History of appendectomy Family History: See care team note Social History: See care team note Trauma History: History of trauma; patient did not want to discuss per Tuan 06/17 Progress Note: pt states he does not believe he was really trying to kill himself. ? he was just trying to get messed up. ? he reports he lost two good friends in the past month and has been feeling down.? he ran out of meds and didn't have a psych MD rosendoe he no-showed to the appointment he got at discharge from .? he states he took 20 pills of clonidine, which he had from a previous script, and ended up telling someone on the street about it.? that person told him he could and u rged him to call 911, which he did.? he states he is glad to be alive.? he would like to get back on the regimen he was on prior to discharging from .? specifics of said regimen discussed, as well as his current medications and clinical state.? changes to current regimen agreed up include:? increasing gabapentin 800 mg from BID to TID, restarting latuda at 20 mg with dinner, and changing stimulant dosing to once daily in the morning.? departures from previous regimen which pt would like to continue are as follows: discontinuation of doxazosin, increase in methadone from 70 mg daily to 75 mg daily, initiation of VPA 125 BID, and start of doxepin 50 mg at bedtime.? per staff, pt overdosed on clonidine.? was on M5 a few weeks ago.? felt meds there were helpful, but ran out, then relapsed. per Tuan 06/18 Progress Note: pt reports he feels well.? would like to get back to his previous regimen, largely, and then discharge home.? states he has neuropathic pain in right hand/finger which he continues to feel at gabapentin 800 TID but which is largely controlled at 800 QID.? agrees to increase gabapentin dosing to 800 QID, reports no sedation or ill effect from the 800 TID dosing these past 24 hours.? hoping for discharge thursday.? per staff, visible, watching TV.? anxious, polite.? slept well.? signed 3-day notice, retracted today, then signed another one today. per Tuan 06/19 Progress Note: pt reports poor night of sleep, asks for increase in doxepin or melatonin.? also states latuda is a bit sedating and would like to have it all in the evening, with dinner.? suggests that will help him sleep at night and melatonin also increased at bedtime.? pt planning for DC on thursday.? will start latuda 60 mg tomorrow evening (but will get 40 twice today for a total of 80 mg today).? per staff, appears to be sleeping well despite his report of last night, med- compliant, social.? good convo with mother.? doesn't feel rested this morning.? planning for thursday discharge. per Paul 06/20 Progress Note: Patient future oriented denies current self-harming thoughts patient again given the [place] warning he is aware he is on a 3 day this hopeful for discharge tomorrow some anxiety and depressive symptoms noted Medication Compliance: Yes 06/21: pt remains feeling well, interested in discharge today. meds reviewed, reconciled, prescribed. no safety concerns, aftercare in place. per staff, pleasant, visible, engageable. in a good space. quiet, isolative. Time Spent with Patient Time attestation: Total time spent providing and/or coordinating discharge services: Discharge Plan Discharge Patient Disposition: Home, Self-Care Discharge Diagnosis: PTSD, Chronic Referrals: Yair (therapy intake) [Other] - 07/03/21 10:00 am (In-office appointment) Rodrigo Helton ([facility]) [Other] (Rodirgo will be calling early next week to provide more information about services. Please reach out with any questions in the meantime) [facility] [Other] - 1 Week (Please fax DC paperwork Attn: Lyndsey Smith ) Psychiatry [Other] - 3-5 Days (Referral submitted, please follow up if you do not receive a call within a few days to provide appointment) Physician,Unknown [Primary Care Provider] - 1 Week Discharge Medications: New sennosides [Senna Lax] 8.6 mg Tablet 8.6 mg PO BID 30 Days Qty: 60 RF: 0 divalproex 125 mg Capsule, Delayed Rel Sprinkle 250 mg PO BID 30 Days Qty: 120 RF: 0 Continued hydroxyzine pamoate 50 mg capsule 50 mg PO TID PRN (Reason: anxiety) 30 Days Qty: 90 RF: 0 fenofibrate 54 mg tablet 54 mg PO DAILY 30 Days Qty: 30 RF: 0 methadone [Methadose] 10 mg/mL concentrate 75 mg PO DAILY RF: 0 doxepin 50 mg capsule 50 mg PO BEDTIME RF: 0 gabapentin 400 mg capsule 800 mg PO QID 15 Days Qty: 120 RF: 1 clonazepam 1 mg tablet 1 mg PO TID PRN (Reason: Anxiety) 15 Days Qty: 45 RF: 1 dextroamphetamine-amphetamine 30 mg capsule,extended release 24hr 1 cap PO DAILY 30 Days Qty: 30 RF: 0 Latuda 60 mg tablet 60 mg PO BEDTIME 30 Days Qty: 30 RF: 0 Changed melatonin 3 mg Tablet 9 mg PO BEDTIME PRN (Reason: sleep) 30 Days Qty: 60 RF: 0 Discontinued Mavyret 100-40 mg tablet 3 tab PO DAILY RF: 0 clonidine HCl 0.1 mg tablet 1 tab PO TID PRN (Reason: anxiety) RF: 0 divalproex 125 mg tablet,delayed release (DR/EC) 1 tab PO BID RF: 0 Discharge Orders: Discharge Order (Routine); Ordered 06/21/21 Ordered By: Jose Dickerson Diet: advance to usual diet Activity on Discharge: As tolerated Stand Alone Forms: Patient Portal Discharge page, Community Support, Substance Abuse Outpt Detox Care Plan Goals: maintain independent and substance-free living in the community, supported by outpatient providerd and [facility] services. Health Concerns: Hyperlipidemia Plan of Treatment: continue to take medications as prescribed, attend appointments as scheduled. Assessment: not at imminent risk of harm to self or others. Discharge Date/Time: 06/21/21 11:23
[2021-06-21] MEDS: clonazePAM 1 MG TABLET PO (11:06)
== END 2021-06-21 11:23 | disposition home or self-care (01) | DRG 882 ==
PROVIDERS: Admitting Provider Psychiatry & Neurology Psychiatry; Visit Provider Psychiatry & Neurology Psychiatry
DX: F43.12 Post-traumatic stress disorder, chronic (principal); F11.20 Opioid dependence, uncomplicated; G62.9 Polyneuropathy, unspecified; F17.210 Nicotine dependence, cigarettes, uncomplicated; Z71.6 Tobacco abuse counseling; Z79.899 Other long term (current) drug therapy

== ENCOUNTER 2022-03-06 13:13 | Inpatient (IN) | payer OTHER, SELFPAY ==
--- NOTE | 2022-03-06 | ECG_ITS ---
Test Reason : MEDICAL CLEARANCE Blood Pressure : / mmHG Vent. Rate : 047 BPM Atrial Rate : 047 BPM P-R Int : 164 ms QRS Dur : 110 ms QT Int : 470 ms P-R-T Axes : 030 045 025 degrees QTc Int : 415 ms Sinus bradycardia Otherwise normal ECG When compared with ECG of 11-JUN-2021 23:59, No significant change was found Referred By: Tabby Christie Electronically Signed By:Paolo Carroll
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
[2022-03-06 13:27] VITALS: BP 143/77; PULSE 55; RESP 17; TEMP 36.2; O2SAT 97; BMI 25.7
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
[2022-03-06] MEDS: Ibuprofen 600 MG TABLET PO (15:32)
[2022-03-06] MEDS: LORazepam 1 MG TABLET 2 MG PO ×2 (15:33→19:55)
[2022-03-06 15:56] LABS: Appearance Urine CLEAR; Color Urine YELLOW; Glucose Urine UA NEG (NEG); Leukocyte Esterase Urine NEG (NEG); Nitrite Urine NEG (NEG); Specific Gravity - Urine >= 1.030 (1.005-1.025); Urine Blood NEG (NEG); Urine Ketones NEG (NEG); Urine Protein NEG (NEG-TRACE)
[2022-03-06 16:13] LABS: Amphetamine Screen Urine Not Detected (Not Detect); Barbiturates, Urine Not Detected (Not Detect); Benzodiazepines Screen Urine Not Detected (Not Detect); Cannabinoid Screen Urine POSITIVE (Not Detect); Cocaine Screen Urine POSITIVE (Not Detect); Fentanyl, urine POSITIVE (Not Detect); Opiate Screen Urine POSITIVE (Not Detect); Phencyclidine Screen Urine Not Detected (Not Detect)
[2022-03-06 16:35] LABS: MANUAL DIFF FLAG NO
[2022-03-06 16:39] LABS: IDNOW Serial# 9DB6401D
[2022-03-06 16:39] LABS: Basophils Percent Auto 0.2 % (0-2); Eosinophils Absolute Auto 0.2 X10*3/uL (0.0-0.4); Eosinophils Percent Auto 3.2 % (0-4); Hematocrit 40.1 % (42.0-52.0); Hemoglobin 13.3 g/dl (14.0-18.0); Imm Gran Abs Auto 0.01 X10*3/uL (0.00-0.03); Imm Gran Pct Auto 0.2 % (0.0-0.4); Lymphocytes Percent Auto 42.7 % (20-40); Mean Corpuscular HGB Conc 33.2 g/dl (31.0-36.0); Mean Corpuscular Volume 90.3 fL (80.0-98.0); Mean Platelet Volume 10.2 fL (9.4-12.4); Monocytes Absolute Auto 0.4 X10*3/uL (0.1-1.2); Monocytes Percent Auto 8.2 % (2-11); Neutrophils Absolute Auto 2.1 x10*3/uL (2.0-8.3); Neutrophils Percent Auto 45.5 % (45-73); Platelet Count 244 X10*3/uL (160-400); Red Blood Count 4.44 X10*6/uL (4.60-5.80); Red Cell Distribution Width 12.6 % (11.0-16.0); White Blood Count 4.7 X10*3/uL (4.8-10.8)
[2022-03-06 16:40] LABS: COVID-19 Test Negative (Negative)
[2022-03-06 16:44] LABS: Acetaminophen LAB < 1 mcg/mL (<30); Alanine Aminotransferase 104 U/L (0-40); Albumin Level 4.4 g/dL (3.5-5.0); Alkaline Phosphatase 76 U/L (39-117); Anion Gap 14 (12-20); Aspartate Amino Transferase 45 U/L (5-37); Bilirubin Total 0.5 mg/dL (0.0-1.0); Blood Urea Nitrogen 15 mg/dL (9-16); Calcium 9.3 mg/dL (8.4-10.2); Carbon Dioxide 22 mmol/L (22-29); Chloride 107 mmol/L (96-108); Creatinine Clr Calc Pharmacy 119.7; Estimated Glomerular Filt Rate > 60; Glucose Random 91 mg/dL (60-115); Lipase 25 U/L (8-78); Potassium 4.2 mmol/L (3.3-5.1); Salicylate < 5.0 mg/dL (15-30); Sodium 139 mmol/L (135-145)
[2022-03-06 16:47] LABS: INTERNATIONAL NORM RATIO 1.1 (0.9-1.1)
[2022-03-06 16:50] LABS: Partial Thromboplastin Time 37.6 SEC (24.1-38.0)
[2022-03-06 16:53] LABS: Ethanol < 10 mg/dL
--- NOTE | 2022-03-06 19:49 | PHA.MEDREC ---
Pharmacy Consult ? Medication Reconciliation Pharmacy has completed the medication reconciliation. updated medications per pt report
[2022-03-06 23:53] VITALS: BP 105/49; PULSE 53; RESP 16; TEMP 36.6; O2SAT 98
[2022-03-07 00:56] VITALS: BP 146/82; PULSE 68; RESP 18; TEMP 36.3; O2SAT 97
[2022-03-07] MEDS: Doxepin HCl 25 MG CAPSULE 50 MG PO ×2 (01:04→20:51)
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
[2022-03-07 09:05] VITALS: BP 134/92; PULSE 61; RESP 15; TEMP 36.4; O2SAT 99
[2022-03-07] MEDS: methADONE HCl 20 MG/2 ML ORAL.CONC 115 MG PO (09:06)
[2022-03-07] MEDS: Nicotine 21 MG PATCH.TD24 TRANSDERMA (09:07)
[2022-03-07] MEDS: Acetaminophen 325 MG TABLET 650 MG PO ×2 (10:25→20:52)
[2022-03-07] MEDS: Nicotine Polacrilex 2 MG GUM BUCCAL (10:26)
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
[2022-03-07] MEDS: Divalproex Sodium ER 250 MG TAB.ER.24H PO ×2 (16:13→20:51)
[2022-03-07] MEDS: Sennosides 8.6 MG TABLET PO ×2 (16:13→20:52)
[2022-03-07] MEDS: Gabapentin 300 MG CAPSULE PO ×2 (16:13→20:52)
[2022-03-07 20:20] VITALS: BP 131/83; PULSE 61; RESP 18; TEMP 36.4; O2SAT 96
[2022-03-07] MEDS: Lurasidone HCl 20 MG TABLET PO (20:51)
[2022-03-07] MEDS: hydrOXYzine HCL 25 MG TABLET PO (20:52)
[2022-03-08 05:44] VITALS: BP 141/76; PULSE 62; RESP 16; TEMP 36.1; O2SAT 99
[2022-03-08] MEDS: cloNIDine HCL 0.1 MG TABLET PO ×2 (05:46→10:32)
[2022-03-08 08:29] VITALS: BP 129/79; PULSE 63; RESP 17; TEMP 36.5; O2SAT 98
[2022-03-08] MEDS: Divalproex Sodium ER 250 MG TAB.ER.24H PO ×2 (08:34→21:31)
[2022-03-08] MEDS: Sennosides 8.6 MG TABLET PO ×2 (08:35→21:32)
[2022-03-08] MEDS: Fenofibrate 54 MG TABLET PO (08:35)
[2022-03-08] MEDS: Gabapentin 300 MG CAPSULE PO ×2 (08:35→14:05)
[2022-03-08] MEDS: Acetaminophen 325 MG TABLET 650 MG PO (08:35)
[2022-03-08] MEDS: methADONE HCl 20 MG/2 ML ORAL.CONC 115 MG PO (08:36)
[2022-03-08] MEDS: Nicotine Polacrilex 2 MG GUM BUCCAL (14:05)
[2022-03-08] MEDS: Ibuprofen 800 MG TABLET PO (14:59)
--- NOTE | 2022-03-08 17:26 | HO.PSYCHPN ---
Subjective Subjective Date of Service: 03/08/22 Reason For Visit: Depression, Anxiety, SI Medical Problems Affecting Mental Status: No Interim History: met with patient. Discussed with Nursing. Aware concerns regarding left knee. Overall continues to report feeling depressed with poor concentration, poor sleep, low energy and no motivation. Had been off medications for around 1 month. Team had restarted same. Previously on Latuda 60 mg and gabapentin 800 mg 3 times per day. Still has suicidal thoughts but no plans or intent. Feels thankful is in the hospital. Regarding left knee, same examined there is swelling and bruising consistent with injury described in the ED. X-ray in ED was unremarkable. Patient has been weight-bearing and during interview with web content writer was crossing legs and moving knee without difficulty. We utilize Motrin and ice patient is satisfied with same. Medication Compliance: Yes Side effects from medications: No Attending Groups: Intermittent Review of Systems Acute medical concerns: No see above ref knee Medical Review of Systems: unchanged Review of Systems Review of Systems left knee pain Mental Status Exam Mental Status Exam Narrative: Seen in room. Pleasant. Poor self-care. Engaged. Depressed. SI without plan or intent. No HI. No psychosis. Insight and judgment okay Diagnostics Vital Signs (24Hr): Vital Signs - 24 hr 03/07/22 20:20 03/08/22 05:44 03/08/22 08:29 Temperature 97.6 F 97.0 F 97.7 F Pulse Rate 61 62 63 Respiratory Rate 18 16 17 Blood Pressure 131/83 141/76 H 129/79 Pulse Oximetry 96 99 98 Oxygen Delivery Method Room Air Room Air Room Air BMI result Body Mass Index 25.7 Labs Results: 03/06/22 16:29 03/06/22 16:09 Imaging Radiology Impressions: ITS Impressions Knee X-Ray 03/06/22 15:52 IMPRESSION: Normal left knee. Medications Medications Current Medications Acetaminophen (Acetaminophen 325 Mg Tablet) 650 mg PO Q6H PRN PRN Reason: Headache/Pain Mild Scale (1-3) Last Admin: 03/08/22 08:35 Dose: 650 mg Al Hydroxide/Mg Hydroxide (Magnesium Hydrox/Alum Hydrox 30 Ml Oral.Susp) 30 ml PO Q6H PRN PRN Reason: Heartburn/Nausea Clonidine HCl (Clonidine Hcl 0.1 Mg Tablet) 0.1 mg PO Q2H PRN; Protocol PRN Reason: anxiety/agitation Last Admin: 03/08/22 10:32 Dose: 0.1 mg Divalproex Sodium (Divalproex Sodium Er 250 Mg Tab.Er.24h) 250 mg PO BID [facility] Last Admin: 03/08/22 08:34 Dose: 250 mg Doxepin HCl (Doxepin Hcl 25 Mg Capsule) 50 mg PO BEDTIME [facility] Last Admin: 03/07/22 20:51 Dose: 50 mg Fenofibrate (Fenofibrate 54 Mg Tablet) 54 mg PO DAILY [facility] Last Admin: 03/08/22 08:35 Dose: 54 mg Gabapentin (Gabapentin 400 Mg Capsule) 400 mg PO BID@0800,1500 [facility] Gabapentin (Gabapentin 600 Mg Tablet) 600 mg PO BEDTIME [facility] Hydroxyzine HCl (Hydroxyzine Hcl 25 Mg Tablet) 25 mg PO Q6H PRN PRN Reason: Anxiety Last Admin: 03/07/22 20:52 Dose: 25 mg Ibuprofen (Ibuprofen 800 Mg Tablet) 800 mg PO Q8H PRN PRN Reason: knee pain Lurasidone HCl (Lurasidone Hcl 40 Mg Tablet) 40 mg PO DAILY@1800 [facility] Magnesium Hydroxide (Milk Of Magnesia 30 Ml Oral.Susp) 30 ml PO DAILY PRN PRN Reason: Constipation Methadone HCl (Methadone Hcl 20 Mg/2 Ml Oral.Conc) 115 mg PO DAILY [facility] Last Admin: 03/08/22 08:36 Dose: 115 mg Nicotine (Nicotine 21 Mg Patch.Td24) 21 mg TRANSDERMA DAILY [facility] Last Admin: 03/08/22 08:39 Dose: Not Given Nicotine Polacrilex (Nicotine Polacrilex 2 Mg Gum) 2 mg BUCCAL Q2H PRN PRN Reason: nicotine withdrawal Last Admin: 03/08/22 14:05 Dose: 2 mg Senna (Sennosides 8.6 Mg Tablet) 8.6 mg PO BID [facility] Last Admin: 03/08/22 08:35 Dose: 8.6 mg Allergies Allergies Allergy/AdvReac Type Severity Reaction Status Date / Time fish derived [FISH] Allergy Severe ANAPHYLAXIS Verified 03/04/21 20:52 quetiapine [From SEROQUEL] AdvReac Severe INVOLUNTARY Verified 03/04/21 20:52 SPASMS trazodone AdvReac Unknown INVOLUNTARY Verified 03/04/21 20:52 SPASMS SEAFOOD Allergy Severe ANAPHYLAXIS Uncoded 03/04/21 20:52 Assessment & Plan Assessment & Plan (1) Depression: Status: Acute Code(s): F32.A - Depression, unspecified (2) Suicidal ideation: Status: Acute Code(s): R45.851 - Suicidal ideations (3) Opiate use: Status: Acute Code(s): F11.90 - Opioid use, unspecified, uncomplicated (4) Cocaine use: Status: Acute Code(s): F14.90 - Cocaine use, unspecified, uncomplicated (5) Chronic post-traumatic stress disorder (PTSD): Status: Chronic Code(s): F43.12 - Post-traumatic stress disorder, chronic (6) MDD (major depressive disorder), recurrent episode, moderate: Status: Chronic Code(s): F33.1 - Major depressive disorder, recurrent, moderate Plan restart last regimen from [facility] aside from adderall and klonopin. start gabapentin at 300 TID and plan to titrate to 800 TID as indicated. start latuda 20 mg daily and titrate toward 60 mg daily as indicated. start senna, fenofibrate. continune doxepin. continue methadone 115 mg daily. restart VPA 250 mg BID. clonidine 0.1 mg PRN anxiety. 03/08/2022: Increase Latuda to 40 mg and gabapentin 400 mg morning and afternoon and 600 mg at bedtime. Motrin 800 mg as needed 3 times per day and ice for left knee I spent minutes with the patient and/or on the patient floor today, greater than?50% of which was spent counseling/coordinating care. Reason for contiued inpatient stay Substantial Risk for: harm to self
[2022-03-08] MEDS: Lurasidone HCl 40 MG TABLET PO (19:03)
[2022-03-08] MEDS: Doxepin HCl 25 MG CAPSULE 50 MG PO (21:31)
[2022-03-08] MEDS: Gabapentin 600 MG TABLET PO (21:32)
[2022-03-09 08:45] VITALS: BP 118/65; PULSE 65; RESP 18; TEMP 36.4; O2SAT 98
[2022-03-09] MEDS: Divalproex Sodium ER 250 MG TAB.ER.24H PO ×2 (08:49→20:23)
[2022-03-09] MEDS: Sennosides 8.6 MG TABLET PO ×2 (08:49→20:23)
[2022-03-09] MEDS: Fenofibrate 54 MG TABLET PO (08:49)
[2022-03-09] MEDS: Gabapentin 400 MG CAPSULE PO ×2 (08:49→15:42)
[2022-03-09] MEDS: Nicotine Polacrilex 2 MG GUM BUCCAL ×4 (08:51→16:38)
[2022-03-09] MEDS: hydrOXYzine HCL 25 MG TABLET PO (08:51)
[2022-03-09] MEDS: Ibuprofen 800 MG TABLET PO ×2 (08:51→16:38)
[2022-03-09] MEDS: methADONE HCl 20 MG/2 ML ORAL.CONC 115 MG PO (08:53)
[2022-03-09] MEDS: Nicotine 21 MG PATCH.TD24 TRANSDERMA ×2 (10:55→10:56)
[2022-03-09] MEDS: Acetaminophen 325 MG TABLET 650 MG PO ×2 (11:06→20:23)
--- NOTE | 2022-03-09 11:14 | P.PNPSI_ITS ---
Subjective Subjective Date of Service: 03/09/22 Reason For Visit: Depression, Anxiety, SI Subjective Notes: Colón Warning and Conditional Voluntary Interim History: Patient seen and discussed with team. Per team, Germán has been complaining of anxiety. Patient evaluated today and upon interview he reports he feels really depressed and has been having very bad anxiety attacks. Sleep is not good due to anxiety. Appetite is low. Continues to endorse passive SI, I wish i wouldnt wake up. Says he has been on doxepin 100 mg, asks for dose to be increased for sleep. Pt says in the past he has been on klonopin for anxiety, was on this during his previous admission, I know people dont wanna give it to me, but says anxiety is unbearable. Says he is okay with not having this prescribed when he discharges. Denies benefit on PRN Vistaril and says PRN clonidine really just makes me sleepy. Says he has had a bad reaction to seoquel i.e. restless legs. He reports previous dose of gabapentin 800 mg QID was working well, also asks for an increase in this. Denies withdrawal sx. In the milieu, patient is safe but keeps to himself. Says he feels safe. Medication Compliance: Yes Side effects from medications: No Attending Groups: Yes Review of Systems Acute medical concerns: No Medical Review of Systems: unchanged Mental Status Exam Mental Status Exam Narrative: A&O. Casual attire. Poor eye contact, attentive. No Tics or Tremors. No abnormal involuntary movements. Calm, cooperative, engaged. Non-pressured speech, spontaneous with regular rate and rhythm, normal volume and prosody. No prolonged speech latency or dysarthria. Mood is ?anxious,? affect is anxious. Endorses passive SI without plan or intent/ Denies SIB/HI upon inquiry. Denies A/VH or delusional thought content. Thoughts are goal oriented. No known cognitive or memory impairment. Insight/ Judgment fair and adequate. Diagnostics Vital Signs (24Hr): BMI result Body Mass Index 25.7 Labs Results: 03/06/22 16:29 03/06/22 16:09 Imaging Radiology Impressions: ITS Impressions Knee X-Ray 03/06/22 15:52 IMPRESSION: Normal left knee. Medications Medications Current Medications Acetaminophen (Acetaminophen 325 Mg Tablet) 650 mg PO Q6H PRN PRN Reason: Headache/Pain Mild Scale (1-3) Last Admin: 03/09/22 11:06 Dose: 650 mg Al Hydroxide/Mg Hydroxide (Magnesium Hydrox/Alum Hydrox 30 Ml Oral.Susp) 30 ml PO Q6H PRN PRN Reason: Heartburn/Nausea Clonidine HCl (Clonidine Hcl 0.1 Mg Tablet) 0.1 mg PO Q2H PRN; Protocol PRN Reason: anxiety/agitation Last Admin: 03/08/22 10:32 Dose: 0.1 mg Divalproex Sodium (Divalproex Sodium Er 250 Mg Tab.Er.24h) 250 mg PO BID [facility] Last Admin: 03/09/22 08:49 Dose: 250 mg Doxepin HCl (Doxepin Hcl 25 Mg Capsule) 50 mg PO BEDTIME [facility] Last Admin: 03/08/22 21:31 Dose: 50 mg Fenofibrate (Fenofibrate 54 Mg Tablet) 54 mg PO DAILY [facility] Last Admin: 03/09/22 08:49 Dose: 54 mg Gabapentin (Gabapentin 400 Mg Capsule) 400 mg PO BID@0800,1500 [facility] Last Admin: 03/09/22 08:49 Dose: 400 mg Gabapentin (Gabapentin 600 Mg Tablet) 600 mg PO BEDTIME [facility] Last Admin: 03/08/22 21:32 Dose: 600 mg Hydroxyzine HCl (Hydroxyzine Hcl 25 Mg Tablet) 25 mg PO Q6H PRN PRN Reason: Anxiety Last Admin: 03/09/22 08:51 Dose: 25 mg Ibuprofen (Ibuprofen 800 Mg Tablet) 800 mg PO Q8H PRN PRN Reason: knee pain Last Admin: 03/09/22 08:51 Dose: 800 mg Lurasidone HCl (Lurasidone Hcl 40 Mg Tablet) 40 mg PO DAILY@1800 [facility] Last Admin: 03/08/22 19:03 Dose: 40 mg Magnesium Hydroxide (Milk Of Magnesia 30 Ml Oral.Susp) 30 ml PO DAILY PRN PRN Reason: Constipation Methadone HCl (Methadone Hcl 20 Mg/2 Ml Oral.Conc) 115 mg PO DAILY [facility] Last Admin: 03/09/22 08:53 Dose: 115 mg Nicotine (Nicotine 21 Mg Patch.Td24) 21 mg TRANSDERMA DAILY [facility] Last Admin: 03/09/22 10:56 Dose: 21 mg Nicotine Polacrilex (Nicotine Polacrilex 2 Mg Gum) 2 mg BUCCAL Q2H PRN PRN Reason: nicotine withdrawal Last Admin: 03/09/22 10:55 Dose: 2 mg Senna (Sennosides 8.6 Mg Tablet) 8.6 mg PO BID [facility] Last Admin: 03/09/22 08:49 Dose: 8.6 mg Allergies Allergies Allergy/AdvReac Type Severity Reaction Status Date / Time fish derived [FISH] Allergy Severe ANAPHYLAXIS Verified 03/04/21 20:52 quetiapine [From SEROQUEL] AdvReac Severe INVOLUNTARY Verified 03/04/21 20:52 SPASMS trazodone AdvReac Unknown INVOLUNTARY Verified 03/04/21 20:52 SPASMS SEAFOOD Allergy Severe ANAPHYLAXIS Uncoded 03/04/21 20:52 Assessment & Plan Assessment & Plan (1) Depression: Status: Acute Code(s): F32.A - Depression, unspecified (2) Suicidal ideation: Status: Acute Code(s): R45.851 - Suicidal ideations (3) Opiate use: Status: Acute Code(s): F11.90 - Opioid use, unspecified, uncomplicated (4) Cocaine use: Status: Acute Code(s): F14.90 - Cocaine use, unspecified, uncomplicated (5) Chronic post-traumatic stress disorder (PTSD): Status: Chronic Code(s): F43.12 - Post-traumatic stress disorder, chronic (6) MDD (major depressive disorder), recurrent episode, moderate: Status: Chronic Code(s): F33.1 - Major depressive disorder, recurrent, moderate Plan restart last regimen from [facility] aside from adderall and klonopin. start gabapentin at 300 TID and plan to titrate to 800 TID as indicated. start latuda 20 mg daily and titrate toward 60 mg daily as indicated. start senna, fenofibrate. continune doxepin. continue methadone 115 mg daily. restart VPA 250 mg BID. clonidine 0.1 mg PRN anxiety. 03/08/2022: Increase Latuda to 40 mg and gabapentin 400 mg morning and afternoon and 600 mg at bedtime. Motrin 800 mg as needed 3 times per day and ice for left knee 03/09/22: Increase gabapentin to 600 mg TID. Start klonopin 1 mg BID PRN, however pt understands this may not be continued on discharge. Will increase doxepin to 100 mg QHS for sleep. I spent minutes with the patient and/or on the patient floor today, greater than?50% of which was spent counseling/coordinating care. Patient educated on: medication risk/benefits Reason for contiued inpatient stay Substantial Risk for: harm to self and med/psych decompensation
[2022-03-09] MEDS: clonazePAM 1 MG TABLET PO ×2 (16:38→20:23)
[2022-03-09] MEDS: Lurasidone HCl 40 MG TABLET PO (19:36)
[2022-03-09 20:18] VITALS: BP 130/84; PULSE 71; RESP 18; TEMP 36.3; O2SAT 98
[2022-03-09] MEDS: Doxepin HCl 25 MG CAPSULE 100 MG PO (20:22)
[2022-03-09] MEDS: Gabapentin 600 MG TABLET PO (20:23)
[2022-03-10] MEDS: Nicotine Polacrilex 2 MG GUM BUCCAL (05:41)
[2022-03-10] MEDS: Ibuprofen 800 MG TABLET PO ×2 (05:41→21:30)
[2022-03-10] MEDS: clonazePAM 1 MG TABLET PO ×3 (05:41→21:30)
[2022-03-10 08:19] VITALS: BP 119/67; PULSE 75; RESP 16; TEMP 36.7; O2SAT 98
[2022-03-10] MEDS: Sennosides 8.6 MG TABLET PO ×2 (08:23→21:30)
[2022-03-10] MEDS: Fenofibrate 54 MG TABLET PO (08:23)
[2022-03-10] MEDS: Nicotine 21 MG PATCH.TD24 TRANSDERMA (08:23)
[2022-03-10] MEDS: Divalproex Sodium ER 250 MG TAB.ER.24H PO ×2 (08:23→21:30)
[2022-03-10] MEDS: Gabapentin 300 MG CAPSULE 600 MG PO ×2 (08:23→14:41)
[2022-03-10] MEDS: methADONE HCl 20 MG/2 ML ORAL.CONC 115 MG PO (08:24)
[2022-03-10 11:55] VITALS: BP 138/79; PULSE 83; RESP 17
[2022-03-10] MEDS: Acetaminophen 325 MG TABLET 650 MG PO (11:57)
[2022-03-10] MEDS: cloNIDine HCL 0.1 MG TABLET PO (11:57)
[2022-03-10] MEDS: Lurasidone HCl 40 MG TABLET PO (17:00)
--- NOTE | 2022-03-10 17:36 | HO.PSYCHPN ---
Subjective Subjective Date of Service: 03/10/22 Reason For Visit: Depression, Anxiety, SI Interim History: Patient seen and discussed with team. Patient evaluated today and upon interview he reports he is feeling ramona down and My mind is racing everywhere. Pt is found in the sensory room with the lights off. Says he is not sleeping and that the Doxepin is not working, waking up every 10 minutes. Reports lack of benefit on most sleep aids and that when i took adderall i was able to sleep and i was calm. Says at night Nothing is waking me up, its just my mind doesnt stop. He says he is worried about his job. Likes his med regimen that he was discharged on during last admission, that?s the best deisy done. He is advocating for adderall and says he prefers that to klonopin. Says his knee is still in pain and he asks for an orthopedic consult, which was placed. Denies SI/SIB/HI upon inquiry. Denies irritability or assaultive ideation. Says he feels safe. Medication Compliance: Yes Side effects from medications: No Attending Groups: No Review of Systems Acute medical concerns: No Medical Review of Systems: unchanged Mental Status Exam Mental Status Exam Narrative: A&O. Casual attire. Poor eye contact, attentive. No Tics or Tremors. No abnormal involuntary movements. Calm, cooperative, engaged. Non-pressured speech, spontaneous with regular rate and rhythm, normal volume and prosody. No prolonged speech latency or dysarthria. Mood is ?anxious,? affect is anxious. Denies SI/SIB/HI upon inquiry. Denies A/VH or delusional thought content. Thoughts are goal oriented. No known cognitive or memory impairment. Insight/ Judgment fair and adequate. Diagnostics Vital Signs (24Hr): Vital Signs - 24 hr 03/09/22 20:18 03/10/22 08:19 03/10/22 11:55 Temperature 97.4 F 98.1 F Pulse Rate 71 75 83 Respiratory Rate 18 16 17 Blood Pressure 130/84 119/67 138/79 Pulse Oximetry 98 98 Oxygen Delivery Method Room Air Room Air BMI result Body Mass Index 25.7 Labs Results: 03/06/22 16:29 03/06/22 16:09 Imaging Radiology Impressions: ITS Impressions Knee X-Ray 03/06/22 15:52 IMPRESSION: Normal left knee. Medications Medications Current Medications Acetaminophen (Acetaminophen 325 Mg Tablet) 650 mg PO Q6H PRN PRN Reason: Headache/Pain Mild Scale (1-3) Last Admin: 03/10/22 11:57 Dose: 650 mg Al Hydroxide/Mg Hydroxide (Magnesium Hydrox/Alum Hydrox 30 Ml Oral.Susp) 30 ml PO Q6H PRN PRN Reason: Heartburn/Nausea Clonazepam (Clonazepam 1 Mg Tablet) 1 mg PO BID PRN PRN Reason: anxiety Last Admin: 03/10/22 11:57 Dose: 1 mg Clonidine HCl (Clonidine Hcl 0.1 Mg Tablet) 0.1 mg PO Q2H PRN; Protocol PRN Reason: anxiety/agitation Last Admin: 03/10/22 11:57 Dose: 0.1 mg Divalproex Sodium (Divalproex Sodium Er 250 Mg Tab.Er.24h) 250 mg PO BID [facility] Last Admin: 03/10/22 08:23 Dose: 250 mg Doxepin HCl (Doxepin Hcl 25 Mg Capsule) 100 mg PO BEDTIME [facility] Last Admin: 03/09/22 20:22 Dose: 100 mg Fenofibrate (Fenofibrate 54 Mg Tablet) 54 mg PO DAILY [facility] Last Admin: 03/10/22 08:23 Dose: 54 mg Gabapentin (Gabapentin 600 Mg Tablet) 600 mg PO BEDTIME [facility] Last Admin: 03/09/22 20:23 Dose: 600 mg Gabapentin (Gabapentin 300 Mg Capsule) 600 mg PO BID@0800,1500 [facility] Last Admin: 03/10/22 14:41 Dose: 600 mg Hydroxyzine HCl (Hydroxyzine Hcl 25 Mg Tablet) 25 mg PO Q6H PRN PRN Reason: Anxiety Last Admin: 03/09/22 08:51 Dose: 25 mg Ibuprofen (Ibuprofen 800 Mg Tablet) 800 mg PO Q8H PRN PRN Reason: knee pain Last Admin: 03/10/22 05:41 Dose: 800 mg Lurasidone HCl (Lurasidone Hcl 40 Mg Tablet) 40 mg PO DAILY@1800 [facility] Last Admin: 03/10/22 17:00 Dose: 40 mg Magnesium Hydroxide (Milk Of Magnesia 30 Ml Oral.Susp) 30 ml PO DAILY PRN PRN Reason: Constipation Methadone HCl (Methadone Hcl 20 Mg/2 Ml Oral.Conc) 115 mg PO DAILY [facility] Last Admin: 03/10/22 08:24 Dose: 115 mg Nicotine (Nicotine 21 Mg Patch.Td24) 21 mg TRANSDERMA DAILY [facility] Last Admin: 03/10/22 08:23 Dose: 21 mg Nicotine Polacrilex (Nicotine Polacrilex 2 Mg Gum) 2 mg BUCCAL Q2H PRN PRN Reason: nicotine withdrawal Last Admin: 03/10/22 05:41 Dose: 2 mg Senna (Sennosides 8.6 Mg Tablet) 8.6 mg PO BID [facility] Last Admin: 03/10/22 08:23 Dose: 8.6 mg Allergies Allergies Allergy/AdvReac Type Severity Reaction Status Date / Time fish derived [FISH] Allergy Severe ANAPHYLAXIS Verified 03/04/21 20:52 quetiapine [From SEROQUEL] AdvReac Severe INVOLUNTARY Verified 03/04/21 20:52 SPASMS trazodone AdvReac Unknown INVOLUNTARY Verified 03/04/21 20:52 SPASMS SEAFOOD Allergy Severe ANAPHYLAXIS Uncoded 03/04/21 20:52 Assessment & Plan Assessment & Plan (1) Depression: Status: Acute Code(s): F32.A - Depression, unspecified (2) Suicidal ideation: Status: Acute Code(s): R45.851 - Suicidal ideations (3) Opiate use: Status: Acute Code(s): F11.90 - Opioid use, unspecified, uncomplicated (4) Cocaine use: Status: Acute Code(s): F14.90 - Cocaine use, unspecified, uncomplicated (5) Chronic post-traumatic stress disorder (PTSD): Status: Chronic Code(s): F43.12 - Post-traumatic stress disorder, chronic (6) MDD (major depressive disorder), recurrent episode, moderate: Status: Chronic Code(s): F33.1 - Major depressive disorder, recurrent, moderate Plan restart last regimen from [facility] aside from adderall and klonopin. start gabapentin at 300 TID and plan to titrate to 800 TID as indicated. start latuda 20 mg daily and titrate toward 60 mg daily as indicated. start senna, fenofibrate. continune doxepin. continue methadone 115 mg daily. restart VPA 250 mg BID. clonidine 0.1 mg PRN anxiety. 03/08/2022: Increase Latuda to 40 mg and gabapentin 400 mg morning and afternoon and 600 mg at bedtime. Motrin 800 mg as needed 3 times per day and ice for left knee 03/09/22: Increase gabapentin to 600 mg TID. Start klonopin 1 mg BID PRN, however pt understands this may not be continued on discharge. Will increase doxepin to 100 mg QHS for sleep. 03/10/22: Discontinue klonopin and start adderall XR 20 mg QAM, reviewed previous med regimen and pt is advocating for adderall as harm reduction for substance use and for focus. I spent minutes with the patient and/or on the patient floor today, greater than?50% of which was spent counseling/coordinating care. Patient educated on: medication risk/benefits and therapeutic strategies Reason for contiued inpatient stay Substantial Risk for: harm to self and med/psych decompensation
[2022-03-10 18:46] VITALS: BP 133/69; PULSE 76; RESP 16; TEMP 36.2; O2SAT 97
[2022-03-10] MEDS: Gabapentin 600 MG TABLET PO (21:30)
[2022-03-10] MEDS: Doxepin HCl 25 MG CAPSULE 100 MG PO (21:30)
[2022-03-11] MEDS: cloNIDine HCL 0.1 MG TABLET PO (02:24)
[2022-03-11 08:40] VITALS: BP 118/75; PULSE 68; RESP 16; TEMP 36.7; O2SAT 98
[2022-03-11] MEDS: Fenofibrate 54 MG TABLET PO (08:45)
[2022-03-11] MEDS: Gabapentin 300 MG CAPSULE 600 MG PO (08:45)
[2022-03-11] MEDS: Sennosides 8.6 MG TABLET PO ×2 (08:45→20:33)
[2022-03-11] MEDS: Dextroamphetamine/Amphetamine XR 10 MG CAP.ER.24H 20 MG PO (08:45)
[2022-03-11] MEDS: Divalproex Sodium ER 250 MG TAB.ER.24H PO ×2 (08:45→20:32)
[2022-03-11] MEDS: methADONE HCl 20 MG/2 ML ORAL.CONC 115 MG PO (08:45)
[2022-03-11] MEDS: Nicotine Polacrilex 2 MG GUM BUCCAL ×5 (09:55→20:34)
[2022-03-11] MEDS: Acetaminophen 325 MG TABLET 650 MG PO (09:55)
[2022-03-11] MEDS: Gabapentin 600 MG TABLET PO ×3 (12:01→20:33)
[2022-03-11 13:08] LABS: Alanine Aminotransferase 146 U/L (0-40); Albumin Level 4.4 g/dL (3.5-5.0); Alkaline Phosphatase 72 U/L (39-117); Aspartate Amino Transferase 72 U/L (5-37); Bilirubin Direct < 0.2 mg/dL (0.0-0.5); Bilirubin Total 0.4 mg/dL (0.0-1.0); Cholesterol 182 mg/dL; HDL Cholesterol 42 mg/dL; LDL Cholesterol Calculated 82 mg/dl; Total Protein 7.8 g/dL (6.5-8.0); Triglycerides 292 mg/dL
--- NOTE | 2022-03-11 13:19 | P.PNPSI_ITS ---
Subjective Subjective Date of Service: 03/11/22 Reason For Visit: Depression, Anxiety, SI Interim History: pt calm, cooperative. reviews weekend's events, his having restarted klonopin and then discontinued it. having started adderall today. c/o anxiety. agree to increase gabapentin to 600 QID. concerned about DM and lipids, agrees to labs today. trying to get into a [facility]. per staff, feeling improved. anx 4, dep 6. no SI. attending groups but leaves after 10 minutes typically. social with peers. panic attack yesterday and got klonopin and clonidine. Mental Status Exam Mental Status Exam Narrative: in today's visit he is alert, oriented and pleasant.? Normal speech.? Good eye contact.? Appropriate affect.? c/o depression and anxiety.? + SI, no intent or plan.? denies HI/AVH. Cognitively is intact.? Judgment is impaired. Diagnostics Vital Signs (24Hr): Vital Signs - 24 hr 03/10/22 18:46 03/11/22 08:40 Temperature 97.2 F 98.1 F Pulse Rate 76 68 Respiratory Rate 16 16 Blood Pressure 133/69 118/75 Pulse Oximetry 97 98 Oxygen Delivery Method Room Air Room Air BMI result Body Mass Index 25.7 Labs Results: 03/06/22 16:29 03/06/22 16:09 Labs: Laboratory Results - last 48 hr 03/11/22 12:17 Total Bilirubin 0.4 Direct Bilirubin < 0.2 AST 72 H ALT 146 H Alkaline Phosphatase 72 Total Protein 7.8 Albumin 4.4 Triglycerides 292 Cholesterol 182 LDL Cholesterol, Calc 82 HDL Cholesterol 42 Imaging Radiology Impressions: ITS Impressions Knee X-Ray 03/06/22 15:52 IMPRESSION: Normal left knee. Medications Medications Current Medications Acetaminophen (Acetaminophen 325 Mg Tablet) 650 mg PO Q6H PRN PRN Reason: Headache/Pain Mild Scale (1-3) Last Admin: 03/11/22 09:55 Dose: 650 mg Al Hydroxide/Mg Hydroxide (Magnesium Hydrox/Alum Hydrox 30 Ml Oral.Susp) 30 ml PO Q6H PRN PRN Reason: Heartburn/Nausea Amphetamine/Dextroamphetamine (Dextroamphetamine/Amphetamine Xr 10 Mg Cap.Er.24h) 20 mg PO DAILY [facility] Last Admin: 03/11/22 08:45 Dose: 20 mg Clonidine HCl (Clonidine Hcl 0.1 Mg Tablet) 0.1 mg PO Q2H PRN; Protocol PRN Reason: anxiety/agitation Last Admin: 03/11/22 02:24 Dose: 0.1 mg Clonidine HCl (Clonidine Hcl 0.2 Mg Tablet) 0.2 mg PO BEDTIME [facility]; Protocol Divalproex Sodium (Divalproex Sodium Er 250 Mg Tab.Er.24h) 250 mg PO BID [facility] Last Admin: 03/11/22 08:45 Dose: 250 mg Doxepin HCl (Doxepin Hcl 25 Mg Capsule) 100 mg PO BEDTIME [facility] Last Admin: 03/10/22 21:30 Dose: 100 mg Fenofibrate (Fenofibrate 54 Mg Tablet) 54 mg PO DAILY [facility] Last Admin: 03/11/22 08:45 Dose: 54 mg Gabapentin (Gabapentin 600 Mg Tablet) 600 mg PO QID [facility] Last Admin: 03/11/22 12:01 Dose: 600 mg Hydroxyzine HCl (Hydroxyzine Hcl 50 Mg Tablet) 50 mg PO Q6H PRN PRN Reason: Anxiety Ibuprofen (Ibuprofen 800 Mg Tablet) 800 mg PO Q8H PRN PRN Reason: knee pain Last Admin: 03/10/22 21:30 Dose: 800 mg Lurasidone HCl (Lurasidone Hcl 40 Mg Tablet) 40 mg PO DAILY@1800 [facility] Last Admin: 03/10/22 17:00 Dose: 40 mg Magnesium Hydroxide (Milk Of Magnesia 30 Ml Oral.Susp) 30 ml PO DAILY PRN PRN Reason: Constipation Methadone HCl (Methadone Hcl 20 Mg/2 Ml Oral.Conc) 115 mg PO DAILY [facility] Last Admin: 03/11/22 08:45 Dose: 115 mg Nicotine (Nicotine 21 Mg Patch.Td24) 21 mg TRANSDERMA DAILY [facility] Last Admin: 03/11/22 09:21 Dose: Not Given Nicotine Polacrilex (Nicotine Polacrilex 2 Mg Gum) 2 mg BUCCAL Q2H PRN PRN Reason: nicotine withdrawal Last Admin: 03/11/22 12:01 Dose: 2 mg Senna (Sennosides 8.6 Mg Tablet) 8.6 mg PO BID [facility] Last Admin: 03/11/22 08:45 Dose: 8.6 mg Allergies Allergies Allergy/AdvReac Type Severity Reaction Status Date / Time fish derived [FISH] Allergy Severe ANAPHYLAXIS Verified 03/04/21 20:52 quetiapine [From SEROQUEL] AdvReac Severe INVOLUNTARY Verified 03/04/21 20:52 SPASMS trazodone AdvReac Unknown INVOLUNTARY Verified 03/04/21 20:52 SPASMS SEAFOOD Allergy Severe ANAPHYLAXIS Uncoded 03/04/21 20:52 Assessment & Plan Assessment & Plan (1) Depression: Status: Acute Code(s): F32.A - Depression, unspecified (2) Suicidal ideation: Status: Acute Code(s): R45.851 - Suicidal ideations (3) Opiate use: Status: Acute Code(s): F11.90 - Opioid use, unspecified, uncomplicated (4) Cocaine use: Status: Acute Code(s): F14.90 - Cocaine use, unspecified, uncomplicated (5) Chronic post-traumatic stress disorder (PTSD): Status: Chronic Code(s): F43.12 - Post-traumatic stress disorder, chronic (6) MDD (major depressive disorder), recurrent episode, moderate: Status: Chronic Code(s): F33.1 - Major depressive disorder, recurrent, moderate Plan restart last regimen from [facility] [place] aside from adderall and klonopin. start gabapentin at 300 TID and plan to titrate to 800 TID as indicated. start latuda 20 mg daily and titrate toward 60 mg daily as indicated. start senna, fenofibrate. continune doxepin. continue methadone 115 mg daily. restart VPA 250 mg BID. clonidine 0.1 mg PRN anxiety. 03/08/2022: Increase Latuda to 40 mg and gabapentin 400 mg morning and afternoon and 600 mg at bedtime. Motrin 800 mg as needed 3 times per day and ice for left knee 03/09/22: Increase gabapentin to 600 mg TID. Start klonopin 1 mg BID PRN, however pt understands this may not be continued on discharge. Will increase doxepin to 100 mg QHS for sleep. 03/10: adderall restarted. klonopin DCed. 03/11: gabapentin increased to 600 QID. lipds WNL, minor LFT elevations remain (pt reports he is Hep C +). I spent ___25___ minutes with the patient and/or on the patient floor today, greater than?50% of which was spent counseling/coordinating care. Reason for contiued inpatient stay Substantial Risk for: inability to function and rapid decompensation
[2022-03-11 13:47] LABS: Estimated Average Glucose 103 mg/dL; Hemoglobin A1c % 5.2 %
[2022-03-11] MEDS: hydrOXYzine HCL 50 MG TABLET PO (14:22)
[2022-03-11] MEDS: Lurasidone HCl 40 MG TABLET PO (18:15)
[2022-03-11 20:30] VITALS: BP 129/70; PULSE 75; RESP 18; TEMP 36.2; O2SAT 96
[2022-03-11] MEDS: Doxepin HCl 25 MG CAPSULE 100 MG PO (20:33)
[2022-03-11] MEDS: cloNIDine HCL 0.2 MG TABLET PO (20:33)
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
[2022-03-12 08:20] VITALS: BP 119/68; PULSE 67; RESP 16; TEMP 36.6; O2SAT 97
[2022-03-12] MEDS: Fenofibrate 54 MG TABLET PO (08:39)
[2022-03-12] MEDS: Divalproex Sodium ER 250 MG TAB.ER.24H PO ×2 (08:39→21:10)
[2022-03-12] MEDS: Dextroamphetamine/Amphetamine XR 10 MG CAP.ER.24H 20 MG PO (08:39)
[2022-03-12] MEDS: methADONE HCl 20 MG/2 ML ORAL.CONC 115 MG PO (08:39)
[2022-03-12] MEDS: Sennosides 8.6 MG TABLET PO ×2 (08:39→21:09)
[2022-03-12] MEDS: Gabapentin 600 MG TABLET PO ×4 (08:39→21:10)
[2022-03-12] MEDS: Ibuprofen 800 MG TABLET PO (09:38)
[2022-03-12] MEDS: Nicotine Polacrilex 2 MG GUM BUCCAL ×2 (09:39→15:04)
--- NOTE | 2022-03-12 14:16 | P.PNPSI_ITS ---
Subjective Subjective Date of Service: 03/12/22 Reason For Visit: Depression, Anxiety, SI Interim History: pt reports he got into a sober house, about which he feels good. feels his mood is picking up. asks to return to his previous outpt dose of adderall XR, 30 mg daily, which is so ordered. only other med change he remains interested in is returning gabapentin to 800 QID, which we plan to do in the next couple of days. slept well, no issues. per staff, attending some groups. seen by ortho today. anx/dep 02/28. slept well. Mental Status Exam Mental Status Exam Narrative: in today's visit he is alert, oriented and pleasant.? Normal speech.? Good eye contact.? Appropriate affect.? reports improved mood. no SI/HI/AVH expressed.? Cognitively is intact.? Judgment is adequate. Diagnostics Vital Signs (24Hr): Vital Signs - 24 hr 03/11/22 20:30 03/12/22 08:20 Temperature 97.2 F 97.9 F Pulse Rate 75 67 Respiratory Rate 18 16 Blood Pressure 129/70 119/68 Pulse Oximetry 96 97 Oxygen Delivery Method Room Air Room Air BMI result Body Mass Index 25.7 Labs Results: 03/06/22 16:29 03/06/22 16:09 Labs: Laboratory Results - last 48 hr 03/11/22 03/11/22 12:17 12:17 Estimat Average Glucose 103 Hemoglobin A1c % 5.2 Total Bilirubin 0.4 Direct Bilirubin < 0.2 AST 72 H ALT 146 H Alkaline Phosphatase 72 Total Protein 7.8 Albumin 4.4 Triglycerides 292 Cholesterol 182 LDL Cholesterol, Calc 82 HDL Cholesterol 42 Imaging Radiology Impressions: ITS Impressions Knee X-Ray 03/06/22 15:52 IMPRESSION: Normal left knee. Medications Medications Current Medications Acetaminophen (Acetaminophen 325 Mg Tablet) 650 mg PO Q6H PRN PRN Reason: Headache/Pain Mild Scale (1-3) Last Admin: 03/11/22 09:55 Dose: 650 mg Al Hydroxide/Mg Hydroxide (Magnesium Hydrox/Alum Hydrox 30 Ml Oral.Susp) 30 ml PO Q6H PRN PRN Reason: Heartburn/Nausea Amphetamine/Dextroamphetamine (Dextroamphetamine/Amphetamine Xr 10 Mg Cap.Er.24h) 30 mg PO DAILY [facility] Clonidine HCl (Clonidine Hcl 0.1 Mg Tablet) 0.1 mg PO Q2H PRN; Protocol PRN Reason: anxiety/agitation Last Admin: 03/11/22 02:24 Dose: 0.1 mg Clonidine HCl (Clonidine Hcl 0.2 Mg Tablet) 0.2 mg PO BEDTIME [facility]; Protocol Last Admin: 03/11/22 20:33 Dose: 0.2 mg Divalproex Sodium (Divalproex Sodium Er 250 Mg Tab.Er.24h) 250 mg PO BID [facility] Last Admin: 03/12/22 08:39 Dose: 250 mg Doxepin HCl (Doxepin Hcl 25 Mg Capsule) 100 mg PO BEDTIME [facility] Last Admin: 03/11/22 20:33 Dose: 100 mg Fenofibrate (Fenofibrate 54 Mg Tablet) 54 mg PO DAILY [facility] Last Admin: 03/12/22 08:39 Dose: 54 mg Gabapentin (Gabapentin 600 Mg Tablet) 600 mg PO QID [facility] Last Admin: 03/12/22 12:24 Dose: 600 mg Hydroxyzine HCl (Hydroxyzine Hcl 50 Mg Tablet) 50 mg PO Q6H PRN PRN Reason: Anxiety Last Admin: 03/11/22 14:22 Dose: 50 mg Ibuprofen (Ibuprofen 800 Mg Tablet) 800 mg PO Q8H PRN PRN Reason: knee pain Last Admin: 03/12/22 09:38 Dose: 800 mg Lurasidone HCl (Lurasidone Hcl 40 Mg Tablet) 40 mg PO DAILY@1800 [facility] Last Admin: 03/11/22 18:15 Dose: 40 mg Magnesium Hydroxide (Milk Of Magnesia 30 Ml Oral.Susp) 30 ml PO DAILY PRN PRN Reason: Constipation Methadone HCl (Methadone Hcl 20 Mg/2 Ml Oral.Conc) 115 mg PO DAILY [facility] Last Admin: 03/12/22 08:39 Dose: 115 mg Nicotine (Nicotine 21 Mg Patch.Td24) 21 mg TRANSDERMA DAILY [facility] Last Admin: 03/12/22 09:03 Dose: Not Given Nicotine Polacrilex (Nicotine Polacrilex 2 Mg Gum) 2 mg BUCCAL Q2H PRN PRN Reason: nicotine withdrawal Last Admin: 03/12/22 09:39 Dose: 2 mg Senna (Sennosides 8.6 Mg Tablet) 8.6 mg PO BID [facility] Last Admin: 03/12/22 08:39 Dose: 8.6 mg Allergies Allergies Allergy/AdvReac Type Severity Reaction Status Date / Time fish derived [FISH] Allergy Severe ANAPHYLAXIS Verified 03/04/21 20:52 quetiapine [From SEROQUEL] AdvReac Severe INVOLUNTARY Verified 03/04/21 20:52 SPASMS trazodone AdvReac Unknown INVOLUNTARY Verified 03/04/21 20:52 SPASMS SEAFOOD Allergy Severe ANAPHYLAXIS Uncoded 03/04/21 20:52 Assessment & Plan Assessment & Plan (1) Suicidal ideation: Status: Acute Code(s): R45.851 - Suicidal ideations (2) Cocaine use: Status: Acute Code(s): F14.90 - Cocaine use, unspecified, uncomplicated (3) Chronic post-traumatic stress disorder (PTSD): Status: Chronic Code(s): F43.12 - Post-traumatic stress disorder, chronic (4) Opioid use disorder: Status: Chronic Code(s): F11.99 - Opioid use, unspecified with unspecified opioid-induced disorder (5) MDD (major depressive disorder), recurrent episode, moderate: Status: Chronic Code(s): F33.1 - Major depressive disorder, recurrent, moderate (6) Hepatitis C: Status: Chronic Code(s): B19.20 - Unspecified viral hepatitis C without hepatic coma (7) Contusion of left knee: Status: Acute Code(s): S80.02XA - Contusion of left knee, initial encounter Assessment and Plan: Mr. Gustafson is a 41-year-old male who is currently in the psychiatric unit for depression, anxiety and suicidal ideation. During his stay with he began to complain of left knee pain. Orthopedics was consulted for further evaluation and treatment. X-rays obtained of the left knee on 03/06/2022 were negative for any acute fracture or dislocation. However, there was some osteoarthritis that was noted. On physical exam he does have some resolving ecchymosis and extreme tenderness to palpation of the medial joint line. Have recommended that the patient follow-up in the outpatient clinic for further evaluation and treatment. No additional orthopedic treatment needed at this time. Plan restart last regimen from [facility] aside from adderall and klonopin. start gabapentin at 300 TID and plan to titrate to 800 TID as indicated. start latuda 20 mg daily and titrate toward 60 mg daily as indicated. start senna, fenofibrate. continune doxepin. continue methadone 115 mg daily. restart VPA 250 mg BID. clonidine 0.1 mg PRN anxiety. 03/08/2022: Increase Latuda to 40 mg and gabapentin 400 mg morning and afternoon and 600 mg at bedtime.? Motrin 800 mg as needed 3 times per day and ice for left knee 03/09/22: Increase gabapentin to 600 mg TID. Start klonopin 1 mg BID PRN, however pt understands this may not be continued on discharge. Will increase doxepin to 100 mg QHS for sleep. 03/10: adderall restarted.? klonopin DCed. 03/11: gabapentin increased to 600 QID.? lipds WNL, minor LFT elevations remain (pt reports he is Hep C +). 03/12: seen by ortho for knee complaint, outpt f/u recommended. adderall dosing increased to 30 mg daily. was accepted into sober house for thursday. I spent ___25___ minutes with the patient and/or on the patient floor today, greater than?50% of which was spent counseling/coordinating care. Reason for contiued inpatient stay Substantial Risk for: inability to function and rapid decompensation
[2022-03-12] MEDS: cloNIDine HCL 0.1 MG TABLET PO (17:28)
[2022-03-12] MEDS: Magnesium Hydrox/Alum Hydrox 30 ML ORAL.SUSP PO (17:42)
[2022-03-12] MEDS: Lurasidone HCl 40 MG TABLET PO (17:58)
[2022-03-12 21:03] VITALS: BP 120/61; PULSE 78; TEMP 36.6; O2SAT 97
[2022-03-12] MEDS: Doxepin HCl 25 MG CAPSULE 100 MG PO (21:09)
[2022-03-12] MEDS: cloNIDine HCL 0.2 MG TABLET PO (21:10)
[2022-03-13 07:00] VITALS: BMI 31.3
[2022-03-13 08:28] VITALS: BP 114/71; PULSE 69; RESP 16; TEMP 36.4; O2SAT 99
[2022-03-13] MEDS: Dextroamphetamine/Amphetamine XR 10 MG CAP.ER.24H 30 MG PO (08:29)
[2022-03-13] MEDS: Divalproex Sodium ER 250 MG TAB.ER.24H PO ×2 (08:29→21:13)
[2022-03-13] MEDS: Sennosides 8.6 MG TABLET PO ×2 (08:30→21:13)
[2022-03-13] MEDS: Fenofibrate 54 MG TABLET PO (08:30)
[2022-03-13] MEDS: Gabapentin 600 MG TABLET PO (08:30)
[2022-03-13] MEDS: methADONE HCl 20 MG/2 ML ORAL.CONC 115 MG PO (08:30)
[2022-03-13] MEDS: Nicotine Polacrilex 2 MG GUM BUCCAL ×3 (08:45→15:41)
[2022-03-13 09:25] VITALS: BP 113/78; PULSE 81
[2022-03-13] MEDS: cloNIDine HCL 0.1 MG TABLET PO ×2 (09:25→13:39)
[2022-03-13] MEDS: Ibuprofen 800 MG TABLET PO (11:15)
[2022-03-13] MEDS: Gabapentin 400 MG CAPSULE 800 MG PO ×3 (13:34→21:13)
--- NOTE | 2022-03-13 13:58 | HO.PSYCHPN ---
Subjective Subjective Date of Service: 03/13/22 Reason For Visit: Depression, Anxiety, SI Interim History: pt calm, cooperative. no complaints or requests other than to return gabapentin to 800 QID, which is done, and to try a non-yab formulation of hydroxyzine (liquid formulation ordered). feels his mood is improving, he is no longer suicidal, states he is optimistic about the future. per staff, D/C thursday to [facility]. dep 6/10 and anx / yesterday. depression improving and anxiety leveling out. passive SI yesterday, brighter, more interactive. playing board games with peers much of the day. more anxious eves. Mental Status Exam Mental Status Exam Narrative: in today's visit he is alert, oriented and pleasant.? Normal speech.? Good eye contact.? Appropriate affect.? reports improved mood. denies SI. no HI/AVH expressed.? Cognitively is intact.? Judgment is adequate. Diagnostics Vital Signs (24Hr): Vital Signs - 24 hr 03/12/22 21:03 03/13/22 08:28 03/13/22 09:25 Temperature 97.8 F 97.6 F Pulse Rate 78 69 81 Respiratory Rate 16 Blood Pressure 120/61 114/71 113/78 Pulse Oximetry 97 99 Oxygen Delivery Method Room Air Room Air BMI result Body Mass Index 31.3 Labs Results: 03/06/22 16:29 03/06/22 16:09 Imaging Radiology Impressions: ITS Impressions Knee X-Ray 03/06/22 15:52 IMPRESSION: Normal left knee. Medications Medications Current Medications Acetaminophen (Acetaminophen 325 Mg Tablet) 650 mg PO Q6H PRN PRN Reason: Headache/Pain Mild Scale (1-3) Last Admin: 03/11/22 09:55 Dose: 650 mg Al Hydroxide/Mg Hydroxide (Magnesium Hydrox/Alum Hydrox 30 Ml Oral.Susp) 30 ml PO Q6H PRN PRN Reason: Heartburn/Nausea Last Admin: 03/12/22 17:42 Dose: 30 ml Amphetamine/Dextroamphetamine (Dextroamphetamine/Amphetamine Xr 10 Mg Cap.Er.24h) 30 mg PO DAILY [facility] Last Admin: 03/13/22 08:29 Dose: 30 mg Clonidine HCl (Clonidine Hcl 0.1 Mg Tablet) 0.1 mg PO Q2H PRN; Protocol PRN Reason: anxiety/agitation Last Admin: 03/13/22 13:39 Dose: 0.1 mg Clonidine HCl (Clonidine Hcl 0.2 Mg Tablet) 0.2 mg PO BEDTIME [facility]; Protocol Last Admin: 03/12/22 21:10 Dose: 0.2 mg Divalproex Sodium (Divalproex Sodium Er 250 Mg Tab.Er.24h) 250 mg PO BID [facility] Last Admin: 03/13/22 08:29 Dose: 250 mg Doxepin HCl (Doxepin Hcl 25 Mg Capsule) 100 mg PO BEDTIME [facility] Last Admin: 03/12/22 21:09 Dose: 100 mg Fenofibrate (Fenofibrate 54 Mg Tablet) 54 mg PO DAILY [facility] Last Admin: 03/13/22 08:30 Dose: 54 mg Gabapentin (Gabapentin 400 Mg Capsule) 800 mg PO QID [facility] Last Admin: 03/13/22 13:34 Dose: 800 mg Hydroxyzine HCl (Hydroxyzine Hcl 10 Mg/5 Ml Solution) 50 mg PO QID PRN PRN Reason: Anxiety Ibuprofen (Ibuprofen 800 Mg Tablet) 800 mg PO Q8H PRN PRN Reason: knee pain Last Admin: 03/13/22 11:15 Dose: 800 mg Lurasidone HCl (Lurasidone Hcl 40 Mg Tablet) 40 mg PO DAILY@1800 [facility] Last Admin: 03/12/22 17:58 Dose: 40 mg Magnesium Hydroxide (Milk Of Magnesia 30 Ml Oral.Susp) 30 ml PO DAILY PRN PRN Reason: Constipation Methadone HCl (Methadone Hcl 20 Mg/2 Ml Oral.Conc) 115 mg PO DAILY [facility] Last Admin: 03/13/22 08:30 Dose: 115 mg Nicotine (Nicotine 21 Mg Patch.Td24) 21 mg TRANSDERMA DAILY [facility] Last Admin: 03/13/22 08:30 Dose: Not Given Nicotine Polacrilex (Nicotine Polacrilex 2 Mg Gum) 2 mg BUCCAL Q2H PRN PRN Reason: nicotine withdrawal Last Admin: 03/13/22 11:57 Dose: 2 mg Senna (Sennosides 8.6 Mg Tablet) 8.6 mg PO BID [facility] Last Admin: 03/13/22 08:30 Dose: 8.6 mg Allergies Allergies Allergy/AdvReac Type Severity Reaction Status Date / Time fish derived [FISH] Allergy Severe ANAPHYLAXIS Verified 03/04/21 20:52 quetiapine [From SEROQUEL] AdvReac Severe INVOLUNTARY Verified 03/04/21 20:52 SPASMS trazodone AdvReac Unknown INVOLUNTARY Verified 03/04/21 20:52 SPASMS SEAFOOD Allergy Severe ANAPHYLAXIS Uncoded 03/04/21 20:52 Assessment & Plan Assessment & Plan (1) Suicidal ideation: Status: Acute Code(s): R45.851 - Suicidal ideations (2) Cocaine use: Status: Acute Code(s): F14.90 - Cocaine use, unspecified, uncomplicated (3) Chronic post-traumatic stress disorder (PTSD): Status: Chronic Code(s): F43.12 - Post-traumatic stress disorder, chronic (4) Opioid use disorder: Status: Chronic Code(s): F11.99 - Opioid use, unspecified with unspecified opioid-induced disorder (5) MDD (major depressive disorder), recurrent episode, moderate: Status: Chronic Code(s): F33.1 - Major depressive disorder, recurrent, moderate (6) Hepatitis C: Status: Chronic Code(s): B19.20 - Unspecified viral hepatitis C without hepatic coma (7) Contusion of left knee: Status: Acute Code(s): S80.02XA - Contusion of left knee, initial encounter Assessment and Plan: Mr. Gustafson is a 41-year-old male who is currently in the psychiatric unit for depression, anxiety and suicidal ideation. During his stay with he began to complain of left knee pain. Orthopedics was consulted for further evaluation and treatment. X-rays obtained of the left knee on 03/06/2022 were negative for any acute fracture or dislocation. However, there was some osteoarthritis that was noted. On physical exam he does have some resolving ecchymosis and extreme tenderness to palpation of the medial joint line. Have recommended that the patient follow-up in the outpatient clinic for further evaluation and treatment. No additional orthopedic treatment needed at this time. Plan restart [place] [facility] [place] from adderall and klonopin. start gabapentin at 300 TID and plan to titrate to 800 TID as indicated. start latuda 20 mg daily and titrate toward 60 mg daily as indicated. start senna, fenofibrate. continune doxepin. continue methadone 115 mg daily. restart VPA 250 mg BID. clonidine 0.1 mg PRN anxiety. 03/08/2022: Increase Latuda to 40 mg and gabapentin 400 mg morning and afternoon and 600 mg at bedtime.? Motrin 800 mg as needed 3 times per day and ice for left knee 03/09/22: Increase gabapentin to 600 mg TID. Start klonopin 1 mg BID PRN, however pt understands this may not be continued on discharge. Will increase doxepin to 100 mg QHS for sleep. 03/10: adderall restarted.? klonopin DCed. 03/11: gabapentin increased to 600 QID.? lipds WNL, minor LFT elevations remain (pt reports he is Hep C +). 03/12: seen by ortho for knee complaint, outpt f/u recommended. adderall dosing increased to 30 mg daily. was accepted into sober house for thursday. 03/13: mood and anxiety improving. gabapentin increased to 800 QID. planning for thursday discharge. I spent __25____ minutes with the patient and/or on the patient floor today, greater than?50% of which was spent counseling/coordinating care. Reason for contiued inpatient stay Substantial Risk for: inability to function and rapid decompensation
[2022-03-13] MEDS: Lurasidone HCl 40 MG TABLET PO (17:10)
[2022-03-13 19:30] VITALS: BP 123/60; PULSE 85; RESP 18; TEMP 36.8; O2SAT 96
[2022-03-13] MEDS: Doxepin HCl 25 MG CAPSULE 100 MG PO (21:13)
[2022-03-13] MEDS: cloNIDine HCL 0.2 MG TABLET PO (21:13)
[2022-03-14] MEDS: Ibuprofen 800 MG TABLET PO ×2 (00:14→17:01)
[2022-03-14] MEDS: cloNIDine HCL 0.1 MG TABLET PO ×2 (00:23→17:02)
[2022-03-14 09:37] VITALS: BP 140/77; PULSE 77; RESP 17; TEMP 36.3; O2SAT 95
[2022-03-14] MEDS: Nicotine Polacrilex 2 MG GUM BUCCAL ×3 (09:40→17:00)
[2022-03-14] MEDS: Divalproex Sodium ER 250 MG TAB.ER.24H PO ×2 (09:41→21:56)
[2022-03-14] MEDS: Dextroamphetamine/Amphetamine XR 10 MG CAP.ER.24H 30 MG PO (09:41)
[2022-03-14] MEDS: Sennosides 8.6 MG TABLET PO ×2 (09:42→21:56)
[2022-03-14] MEDS: Fenofibrate 54 MG TABLET PO (09:42)
[2022-03-14] MEDS: Gabapentin 400 MG CAPSULE 800 MG PO ×4 (09:42→21:56)
[2022-03-14] MEDS: methADONE HCl 20 MG/2 ML ORAL.CONC 115 MG PO (09:43)
--- NOTE | 2022-03-14 14:29 | P.PNPSI_ITS ---
Subjective Subjective Date of Service: 03/14/22 Reason For Visit: Depression, Anxiety, SI Interim History: pt calm, cooperative. slept well. anx and dep improving. no complaints or requests. have achieved his desired medications regimen. looking forward to D/C thursday to [facility]. per staff, dep 3 anx 6. no SI/HI/AVH. brighter affect. visible. watching TV. meds helpful. i actually want to wake up. Mental Status Exam Mental Status Exam Narrative: in today's visit he is alert, oriented and pleasant.? Normal speech.? Good eye contact.? Appropriate affect.? reports improved mood. denies SI. no HI/AVH expressed.? Cognitively is intact.? Judgment is adequate. Diagnostics Vital Signs (24Hr): Vital Signs - 24 hr 03/13/22 19:30 03/14/22 09:37 Temperature 98.2 F 97.3 F Pulse Rate 85 77 Respiratory Rate 18 17 Blood Pressure 123/60 140/77 H Pulse Oximetry 96 95 Oxygen Delivery Method Room Air Room Air BMI result Body Mass Index 31.3 Labs Results: 03/06/22 16:29 03/06/22 16:09 Imaging Radiology Impressions: ITS Impressions Knee X-Ray 03/06/22 15:52 IMPRESSION: Normal left knee. Medications Medications Current Medications Acetaminophen (Acetaminophen 325 Mg Tablet) 650 mg PO Q6H PRN PRN Reason: Headache/Pain Mild Scale (1-3) Last Admin: 03/11/22 09:55 Dose: 650 mg Al Hydroxide/Mg Hydroxide (Magnesium Hydrox/Alum Hydrox 30 Ml Oral.Susp) 30 ml PO Q6H PRN PRN Reason: Heartburn/Nausea Last Admin: 03/12/22 17:42 Dose: 30 ml Amphetamine/Dextroamphetamine (Dextroamphetamine/Amphetamine Xr 10 Mg Cap.Er.24h) 30 mg PO DAILY [facility] Last Admin: 03/14/22 09:41 Dose: 30 mg Clonidine HCl (Clonidine Hcl 0.1 Mg Tablet) 0.1 mg PO Q2H PRN; Protocol PRN Reason: anxiety/agitation Last Admin: 03/14/22 00:23 Dose: 0.1 mg Clonidine HCl (Clonidine Hcl 0.2 Mg Tablet) 0.2 mg PO BEDTIME [facility]; Protocol Last Admin: 03/13/22 21:13 Dose: 0.2 mg Divalproex Sodium (Divalproex Sodium Er 250 Mg Tab.Er.24h) 250 mg PO BID [facility] Last Admin: 03/14/22 09:41 Dose: 250 mg Doxepin HCl (Doxepin Hcl 25 Mg Capsule) 100 mg PO BEDTIME [facility] Last Admin: 03/13/22 21:13 Dose: 100 mg Fenofibrate (Fenofibrate 54 Mg Tablet) 54 mg PO DAILY [facility] Last Admin: 03/14/22 09:42 Dose: 54 mg Gabapentin (Gabapentin 400 Mg Capsule) 800 mg PO QID [facility] Last Admin: 03/14/22 12:01 Dose: 800 mg Hydroxyzine HCl (Hydroxyzine Hcl 10 Mg/5 Ml Solution) 50 mg PO QID PRN PRN Reason: Anxiety Last Admin: 03/13/22 19:02 Dose: 50 mg Ibuprofen (Ibuprofen 800 Mg Tablet) 800 mg PO Q8H PRN PRN Reason: knee pain Last Admin: 03/14/22 00:14 Dose: 800 mg Lurasidone HCl (Lurasidone Hcl 40 Mg Tablet) 40 mg PO DAILY@1800 [facility] Last Admin: 03/13/22 17:10 Dose: 40 mg Magnesium Hydroxide (Milk Of Magnesia 30 Ml Oral.Susp) 30 ml PO DAILY PRN PRN Reason: Constipation Methadone HCl (Methadone Hcl 20 Mg/2 Ml Oral.Conc) 115 mg PO DAILY [facility] Last Admin: 03/14/22 09:43 Dose: 115 mg Nicotine (Nicotine 21 Mg Patch.Td24) 21 mg TRANSDERMA DAILY [facility] Last Admin: 03/14/22 10:01 Dose: Not Given Nicotine Polacrilex (Nicotine Polacrilex 2 Mg Gum) 2 mg BUCCAL Q2H PRN PRN Reason: nicotine withdrawal Last Admin: 03/14/22 14:20 Dose: 2 mg Senna (Sennosides 8.6 Mg Tablet) 8.6 mg PO BID [facility] Last Admin: 03/14/22 09:42 Dose: 8.6 mg Allergies Allergies Allergy/AdvReac Type Severity Reaction Status Date / Time fish derived [FISH] Allergy Severe ANAPHYLAXIS Verified 03/04/21 20:52 quetiapine [From SEROQUEL] AdvReac Severe INVOLUNTARY Verified 03/04/21 20:52 SPASMS trazodone AdvReac Unknown INVOLUNTARY Verified 03/04/21 20:52 SPASMS SEAFOOD Allergy Severe ANAPHYLAXIS Uncoded 03/04/21 20:52 Assessment & Plan Assessment & Plan (1) Suicidal ideation: Status: Acute Code(s): R45.851 - Suicidal ideations (2) Cocaine use: Status: Acute Code(s): F14.90 - Cocaine use, unspecified, uncomplicated (3) Chronic post-traumatic stress disorder (PTSD): Status: Chronic Code(s): F43.12 - Post-traumatic stress disorder, chronic (4) Opioid use disorder: Status: Chronic Code(s): F11.99 - Opioid use, unspecified with unspecified opioid-induced disorder (5) MDD (major depressive disorder), recurrent episode, moderate: Status: Chronic Code(s): F33.1 - Major depressive disorder, recurrent, moderate (6) Hepatitis C: Status: Chronic Code(s): B19.20 - Unspecified viral hepatitis C without hepatic coma (7) Contusion of left knee: Status: Acute Code(s): S80.02XA - Contusion of left knee, initial encounter Assessment and Plan: Mr. Gustafson is a 41-year-old male who is currently in the psychiatric unit for depression, anxiety and suicidal ideation. During his stay with he began to complain of left knee pain. Orthopedics was consulted for further evaluation and treatment. X-rays obtained of the left knee on 03/06/2022 were negative for any acute fracture or dislocation. However, there was some osteoarthritis that was noted. On physical exam he does have some resolving ecchymosis and extreme tenderness to palpation of the medial joint line. Have recommended that the patient follow-up in the outpatient clinic for further evaluation and treatment. No additional orthopedic treatment needed at this time. Plan restart last regimen from [facility] [place] aside from adderall and klonopin. start gabapentin at 300 TID and plan to titrate to 800 TID as indicated. start latuda 20 mg daily and titrate toward 60 mg daily as indicated. start senna, fenofibrate. continune doxepin. continue methadone 115 mg daily. restart VPA 250 mg BID. clonidine 0.1 mg PRN anxiety. 03/08/2022: Increase Latuda to 40 mg and gabapentin 400 mg morning and afternoon and 600 mg at bedtime.? Motrin 800 mg as needed 3 times per day and ice for left knee 03/09/22: Increase gabapentin to 600 mg TID. Start klonopin 1 mg BID PRN, however pt understands this may not be continued on discharge. Will increase doxepin to 100 mg QHS for sleep. 03/10: adderall restarted.? klonopin DCed. 03/11: gabapentin increased to 600 QID.? lipds WNL, minor LFT elevations remain (pt reports he is Hep C +). 03/12: seen by ortho for knee complaint, outpt f/u recommended. adderall dosing increased to 30 mg daily. was accepted into sober house for thursday. 03/13: mood and anxiety improving. gabapentin increased to 800 QID. planning for thursday discharge. 03/14: gains sustained, no complaints. I spent ___25___ minutes with the patient and/or on the patient floor today, greater than?50% of which was spent counseling/coordinating care. Reason for contiued inpatient stay Substantial Risk for: rapid decompensation
[2022-03-14] MEDS: hydrOXYzine HCL 50 MG TABLET PO (15:19)
[2022-03-14 16:57] VITALS: BP 113/72; PULSE 86
[2022-03-14] MEDS: Lurasidone HCl 40 MG TABLET PO (17:02)
[2022-03-14 21:50] VITALS: BP 114/65; PULSE 79; RESP 18; TEMP 36.3; O2SAT 97
[2022-03-14] MEDS: cloNIDine HCL 0.2 MG TABLET PO (21:56)
[2022-03-14] MEDS: Doxepin HCl 25 MG CAPSULE 100 MG PO (21:56)
[2022-03-15] MEDS: Ibuprofen 800 MG TABLET PO ×2 (05:48→20:11)
[2022-03-15] MEDS: Sennosides 8.6 MG TABLET PO ×2 (08:25→20:10)
[2022-03-15] MEDS: methADONE HCl 20 MG/2 ML ORAL.CONC 115 MG PO (08:25)
[2022-03-15] MEDS: Gabapentin 400 MG CAPSULE 800 MG PO ×4 (08:25→20:10)
[2022-03-15] MEDS: Fenofibrate 54 MG TABLET PO (08:25)
[2022-03-15] MEDS: Divalproex Sodium ER 250 MG TAB.ER.24H PO ×2 (08:25→20:10)
[2022-03-15] MEDS: Dextroamphetamine/Amphetamine XR 10 MG CAP.ER.24H 30 MG PO (08:25)
[2022-03-15 08:30] VITALS: BP 123/86; PULSE 67; RESP 17; TEMP 36.7; O2SAT 99
[2022-03-15] MEDS: Nicotine Polacrilex 2 MG GUM BUCCAL ×2 (10:26→13:27)
--- NOTE | 2022-03-15 10:57 | HO.PSYCHPN ---
Subjective Subjective Date of Service: 03/15/22 Reason For Visit: Depression, Anxiety, SI Subjective Notes: Conditional Voluntary Interim History: pt calm, cooperative. slept well. anx and dep improving. pt reports right sided tooth pain and request antibiotic. no swelling; no fever. pt agreeable to use tylenol, ibuprofen prn and use salt mouth wash 2 times a day, agrees to allow nursing to take temp daily and monitor for low grade fever. no other complaints or requests. have achieved his desired medications regimen. looking forward to D/C thursday to [facility]. expresses some anxiety about d/c and acknowledges he needs to f/u with dentist after d/c as well as with psych treatment plan. per staff, dep 3 anx 6. no SI/HI/AVH. brighter affect. visible. watching TV. meds helpful. i actually want to wake up. Medication Compliance: Yes Side effects from medications: No Attending Groups: Yes Review of Systems Acute medical concerns: No right side tooth pain 3 out 10 Review of Systems Review of Systems left knee pain Yes all other systems are reviewed and are negative Mental Status Exam Mental Status Exam Narrative: in today's visit he is alert, oriented and pleasant.? Normal speech.? Good eye contact.? Appropriate affect.? reports improved mood. denies SI. no HI/AVH expressed.? Cognitively is intact.? Judgment is adequate. Diagnostics Vital Signs (24Hr): Vital Signs - 24 hr 03/14/22 16:57 03/14/22 21:50 03/15/22 08:30 Temperature 97.4 F 98.0 F Pulse Rate 86 79 67 Respiratory Rate 18 17 Blood Pressure 113/72 114/65 123/86 Pulse Oximetry 97 99 Oxygen Delivery Method Room Air Room Air BMI result Body Mass Index 31.3 Labs Results: 03/06/22 16:29 03/06/22 16:09 Imaging Radiology Impressions: ITS Impressions Knee X-Ray 03/06/22 15:52 IMPRESSION: Normal left knee. Medications Medications Current Medications Acetaminophen (Acetaminophen 325 Mg Tablet) 650 mg PO Q6H PRN PRN Reason: Headache/Pain Mild Scale (1-3) Last Admin: 03/11/22 09:55 Dose: 650 mg Al Hydroxide/Mg Hydroxide (Magnesium Hydrox/Alum Hydrox 30 Ml Oral.Susp) 30 ml PO Q6H PRN PRN Reason: Heartburn/Nausea Last Admin: 03/12/22 17:42 Dose: 30 ml Amphetamine/Dextroamphetamine (Dextroamphetamine/Amphetamine Xr 10 Mg Cap.Er.24h) 30 mg PO DAILY [facility] Last Admin: 03/15/22 08:25 Dose: 30 mg Clonidine HCl (Clonidine Hcl 0.1 Mg Tablet) 0.1 mg PO Q2H PRN; Protocol PRN Reason: anxiety/agitation Last Admin: 03/14/22 17:02 Dose: 0.1 mg Clonidine HCl (Clonidine Hcl 0.2 Mg Tablet) 0.2 mg PO BEDTIME [facility]; Protocol Last Admin: 03/14/22 21:56 Dose: 0.2 mg Divalproex Sodium (Divalproex Sodium Er 250 Mg Tab.Er.24h) 250 mg PO BID [facility] Last Admin: 03/15/22 08:25 Dose: 250 mg Doxepin HCl (Doxepin Hcl 25 Mg Capsule) 100 mg PO BEDTIME [facility] Last Admin: 03/14/22 21:56 Dose: 100 mg Fenofibrate (Fenofibrate 54 Mg Tablet) 54 mg PO DAILY [facility] Last Admin: 03/15/22 08:25 Dose: 54 mg Gabapentin (Gabapentin 400 Mg Capsule) 800 mg PO QID [facility] Last Admin: 03/15/22 08:25 Dose: 800 mg Hydroxyzine HCl (Hydroxyzine Hcl 50 Mg Tablet) 50 mg PO Q6H PRN PRN Reason: Anxiety Last Admin: 03/14/22 15:19 Dose: 50 mg Ibuprofen (Ibuprofen 800 Mg Tablet) 800 mg PO Q8H PRN PRN Reason: knee pain Last Admin: 03/15/22 05:48 Dose: 800 mg Lurasidone HCl (Lurasidone Hcl 40 Mg Tablet) 40 mg PO DAILY@1800 [facility] Last Admin: 03/14/22 17:02 Dose: 40 mg Magnesium Hydroxide (Milk Of Magnesia 30 Ml Oral.Susp) 30 ml PO DAILY PRN PRN Reason: Constipation Methadone HCl (Methadone Hcl 20 Mg/2 Ml Oral.Conc) 115 mg PO DAILY [facility] Last Admin: 03/15/22 08:25 Dose: 115 mg Nicotine (Nicotine 21 Mg Patch.Td24) 21 mg TRANSDERMA DAILY [facility] Last Admin: 03/15/22 08:28 Dose: Not Given Nicotine Polacrilex (Nicotine Polacrilex 2 Mg Gum) 2 mg BUCCAL Q2H PRN PRN Reason: nicotine withdrawal Last Admin: 03/15/22 10:26 Dose: 2 mg Senna (Sennosides 8.6 Mg Tablet) 8.6 mg PO BID [facility] Last Admin: 03/15/22 08:25 Dose: 8.6 mg Allergies Allergies Allergy/AdvReac Type Severity Reaction Status Date / Time fish derived [FISH] Allergy Severe ANAPHYLAXIS Verified 03/04/21 20:52 quetiapine [From SEROQUEL] AdvReac Severe INVOLUNTARY Verified 03/04/21 20:52 SPASMS trazodone AdvReac Unknown INVOLUNTARY Verified 03/04/21 20:52 SPASMS SEAFOOD Allergy Severe ANAPHYLAXIS Uncoded 03/04/21 20:52 Assessment & Plan Assessment & Plan (1) Suicidal ideation: Status: Acute Code(s): R45.851 - Suicidal ideations (2) Cocaine use: Status: Acute Code(s): F14.90 - Cocaine use, unspecified, uncomplicated (3) Chronic post-traumatic stress disorder (PTSD): Status: Chronic Code(s): F43.12 - Post-traumatic stress disorder, chronic (4) Opioid use disorder: Status: Chronic Code(s): F11.99 - Opioid use, unspecified with unspecified opioid-induced disorder (5) MDD (major depressive disorder), recurrent episode, moderate: Status: Chronic Code(s): F33.1 - Major depressive disorder, recurrent, moderate (6) Hepatitis C: Status: Chronic Code(s): B19.20 - Unspecified viral hepatitis C without hepatic coma (7) Contusion of left knee: Status: Acute Code(s): S80.02XA - Contusion of left knee, initial encounter Assessment and Plan: Mr. Gustafson is a 41-year-old male who is currently in the psychiatric unit for depression, anxiety and suicidal ideation. During his stay with us he began to complain of left knee pain. Orthopedics was consulted for further evaluation and treatment. X-rays obtained of the left knee on 03/06/2022 were negative for any acute fracture or dislocation. However, there was some osteoarthritis that was noted. On physical exam he does have some resolving ecchymosis and extreme tenderness to palpation of the medial joint line. Have recommended that the patient follow-up in the outpatient clinic for further evaluation and treatment. No additional orthopedic treatment needed at this time. Plan restart last regimen from [facility] aside from adderall and klonopin. start gabapentin at 300 TID and plan to titrate to 800 TID as indicated. start latuda 20 mg daily and titrate toward 60 mg daily as indicated. start senna, fenofibrate. continune doxepin. continue methadone 115 mg daily. restart VPA 250 mg BID. clonidine 0.1 mg PRN anxiety. 03/08/2022: Increase Latuda to 40 mg and gabapentin 400 mg morning and afternoon and 600 mg at bedtime.? Motrin 800 mg as needed 3 times per day and ice for left knee 03/09/22: Increase gabapentin to 600 mg TID. Start klonopin 1 mg BID PRN, however pt understands this may not be continued on discharge. Will increase doxepin to 100 mg QHS for sleep. 03/10: adderall restarted.? klonopin DCed. 03/11: gabapentin increased to 600 QID.? lipds WNL, minor LFT elevations remain (pt reports he is Hep C +). 03/12: seen by ortho for knee complaint, outpt f/u recommended. adderall dosing increased to 30 mg daily. was accepted into sober house for thursday. 03/13: mood and anxiety improving. gabapentin increased to 800 QID. planning for thursday discharge. 03/14: gains sustained, no complaints. 03/15: continue treatment plan, use prn tylenol and ibuprofen for tooth pain, salt water rinse bid and temp daily I spent _25 minutes with the patient and/or on the patient floor today, greater than?50% of which was spent counseling/coordinating care. Patient educated on: medication risk/benefits, therapeutic strategies and medical condition Informed Consent: understands Reason for contiued inpatient stay Substantial Risk for: harm to self, inability to function and rapid decompensation
[2022-03-15] MEDS: cloNIDine HCL 0.1 MG TABLET PO (13:29)
[2022-03-15] MEDS: Lurasidone HCl 40 MG TABLET PO (18:10)
[2022-03-15 20:04] VITALS: BP 138/74; PULSE 80; RESP 18; TEMP 36.4; O2SAT 97
[2022-03-15] MEDS: cloNIDine HCL 0.2 MG TABLET PO (20:10)
[2022-03-15] MEDS: Doxepin HCl 25 MG CAPSULE 100 MG PO (20:10)
[2022-03-16] MEDS: Gabapentin 400 MG CAPSULE 800 MG PO ×4 (08:14→21:37)
[2022-03-16] MEDS: methADONE HCl 20 MG/2 ML ORAL.CONC 115 MG PO (08:14)
[2022-03-16] MEDS: Fenofibrate 54 MG TABLET PO (08:14)
[2022-03-16] MEDS: Dextroamphetamine/Amphetamine XR 10 MG CAP.ER.24H 30 MG PO (08:14)
[2022-03-16] MEDS: Ibuprofen 800 MG TABLET PO ×2 (08:14→21:41)
[2022-03-16] MEDS: Sennosides 8.6 MG TABLET PO ×2 (08:14→21:38)
[2022-03-16] MEDS: Divalproex Sodium ER 250 MG TAB.ER.24H PO ×2 (08:14→21:38)
[2022-03-16 08:20] VITALS: BP 125/78; PULSE 86; RESP 17; TEMP 36.7; O2SAT 97
--- NOTE | 2022-03-16 12:09 | P.PNPSI_ITS ---
Subjective Subjective Date of Service: 03/16/22 Reason For Visit: Depression, Anxiety, SI Subjective Notes: Conditional Voluntary Interim History: pt calm, cooperative. reportshe slept well. anxiety and depression improving. pt reports tooth pain is reduced with tylenol and ibuprofen. He feels its improving' States he is ready for discharge next wee. He feels hospital treatment has helped him. expresses some anxiety about d/c and acknowledges he needs to f/u with dentist after d/c as well as with psych treatment plan. per staff, dep 3 anx 6. no SI/HI/AVH. brighter affect. visible. watching TV. meds helpful. i actually want to wake up. Medication Compliance: Yes Side effects from medications: No Review of Systems Acute medical concerns: No Medical Review of Systems: unchanged Review of Systems Review of Systems left knee pain Yes all other systems are reviewed and are negative Mental Status Exam Mental Status Exam Narrative: in today's visit he is alert, oriented and pleasant.? Normal speech.? Good eye contact.? Appropriate affect.? reports improved mood. denies SI. no HI/AVH expressed.? Cognitively is intact.? Judgment is adequate. Diagnostics Vital Signs (24Hr): Vital Signs - 24 hr 03/15/22 20:04 03/16/22 08:20 Temperature 97.6 F 98.1 F Pulse Rate 80 86 Respiratory Rate 18 17 Blood Pressure 138/74 125/78 Pulse Oximetry 97 97 Oxygen Delivery Method Room Air Room Air BMI result Body Mass Index 31.3 Labs Results: 03/06/22 16:29 03/06/22 16:09 Imaging Radiology Impressions: ITS Impressions Knee X-Ray 03/06/22 15:52 IMPRESSION: Normal left knee. Medications Medications Current Medications Acetaminophen (Acetaminophen 325 Mg Tablet) 650 mg PO Q6H PRN PRN Reason: Headache/Pain Mild Scale (1-3) Last Admin: 03/11/22 09:55 Dose: 650 mg Al Hydroxide/Mg Hydroxide (Magnesium Hydrox/Alum Hydrox 30 Ml Oral.Susp) 30 ml PO Q6H PRN PRN Reason: Heartburn/Nausea Last Admin: 03/12/22 17:42 Dose: 30 ml Amphetamine/Dextroamphetamine (Dextroamphetamine/Amphetamine Xr 10 Mg Cap.Er.24h) 30 mg PO DAILY [facility] Last Admin: 03/16/22 08:14 Dose: 30 mg Clonidine HCl (Clonidine Hcl 0.1 Mg Tablet) 0.1 mg PO Q2H PRN; Protocol PRN Reason: anxiety/agitation Last Admin: 03/15/22 13:29 Dose: 0.1 mg Clonidine HCl (Clonidine Hcl 0.2 Mg Tablet) 0.2 mg PO BEDTIME [facility]; Protocol Last Admin: 03/15/22 20:10 Dose: 0.2 mg Divalproex Sodium (Divalproex Sodium Er 250 Mg Tab.Er.24h) 250 mg PO BID [facility] Last Admin: 03/16/22 08:14 Dose: 250 mg Doxepin HCl (Doxepin Hcl 25 Mg Capsule) 100 mg PO BEDTIME [facility] Last Admin: 03/15/22 20:10 Dose: 100 mg Fenofibrate (Fenofibrate 54 Mg Tablet) 54 mg PO DAILY [facility] Last Admin: 03/16/22 08:14 Dose: 54 mg Gabapentin (Gabapentin 400 Mg Capsule) 800 mg PO QID [facility] Last Admin: 03/16/22 08:14 Dose: 800 mg Hydroxyzine HCl (Hydroxyzine Hcl 50 Mg Tablet) 50 mg PO Q6H PRN PRN Reason: Anxiety Last Admin: 03/14/22 15:19 Dose: 50 mg Ibuprofen (Ibuprofen 800 Mg Tablet) 800 mg PO BID PRN PRN Reason: knee pain, tooth pain Last Admin: 03/16/22 08:14 Dose: 800 mg Lurasidone HCl (Lurasidone Hcl 40 Mg Tablet) 40 mg PO DAILY@1800 [facility] Last Admin: 03/15/22 18:10 Dose: 40 mg Magnesium Hydroxide (Milk Of Magnesia 30 Ml Oral.Susp) 30 ml PO DAILY PRN PRN Reason: Constipation Methadone HCl (Methadone Hcl 20 Mg/2 Ml Oral.Conc) 115 mg PO DAILY [facility] Last Admin: 03/16/22 08:14 Dose: 115 mg Nicotine (Nicotine 21 Mg Patch.Td24) 21 mg TRANSDERMA DAILY [facility] Last Admin: 03/16/22 08:27 Dose: Not Given Nicotine Polacrilex (Nicotine Polacrilex 2 Mg Gum) 2 mg BUCCAL Q2H PRN PRN Reason: nicotine withdrawal Last Admin: 03/15/22 13:27 Dose: 2 mg Senna (Sennosides 8.6 Mg Tablet) 8.6 mg PO BID [facility] Last Admin: 03/16/22 08:14 Dose: 8.6 mg Allergies Allergies Allergy/AdvReac Type Severity Reaction Status Date / Time fish derived [FISH] Allergy Severe ANAPHYLAXIS Verified 03/04/21 20:52 quetiapine [From SEROQUEL] AdvReac Severe INVOLUNTARY Verified 03/04/21 20:52 SPASMS trazodone AdvReac Unknown INVOLUNTARY Verified 03/04/21 20:52 SPASMS SEAFOOD Allergy Severe ANAPHYLAXIS Uncoded 03/04/21 20:52 Assessment & Plan Assessment & Plan (1) Suicidal ideation: Status: Acute Code(s): R45.851 - Suicidal ideations (2) Cocaine use: Status: Acute Code(s): F14.90 - Cocaine use, unspecified, uncomplicated (3) Chronic post-traumatic stress disorder (PTSD): Status: Chronic Code(s): F43.12 - Post-traumatic stress disorder, chronic (4) Opioid use disorder: Status: Chronic Code(s): F11.99 - Opioid use, unspecified with unspecified opioid-induced disorder (5) MDD (major depressive disorder), recurrent episode, moderate: Status: Chronic Code(s): F33.1 - Major depressive disorder, recurrent, moderate (6) Hepatitis C: Status: Chronic Code(s): B19.20 - Unspecified viral hepatitis C without hepatic coma (7) Contusion of left knee: Status: Acute Code(s): S80.02XA - Contusion of left knee, initial encounter Assessment and Plan: Mr. Gustafson is a 41-year-old male who is currently in the psychiatric unit for depression, anxiety and suicidal ideation. During his stay with he began to complain of left knee pain. Orthopedics was consulted for further evaluation and treatment. X-rays obtained of the left knee on 03/06/2022 were negative for any acute fracture or dislocation. However, there was some osteoarthritis that was noted. On physical exam he does have some resolving ecchymosis and extreme tenderness to palpation of the medial joint line. Have recommended that the patient follow-up in the outpatient clinic for further evaluation and treatment. No additional orthopedic treatment needed at this time. Plan restart last regimen from [facility] aside from adderall and klonopin. start gabapentin at 300 TID and plan to titrate to 800 TID as indicated. start latuda 20 mg daily and titrate toward 60 mg daily as indicated. start senna, fenofibrate. continune doxepin. continue methadone 115 mg daily. restart VPA 250 mg BID. clonidine 0.1 mg PRN anxiety. 03/08/2022: Increase Latuda to 40 mg and gabapentin 400 mg morning and afternoon and 600 mg at bedtime.? Motrin 800 mg as needed 3 times per day and ice for left knee 03/09/22: Increase gabapentin to 600 mg TID. Start klonopin 1 mg BID PRN, however pt understands this may not be continued on discharge. Will increase doxepin to 100 mg QHS for sleep. 03/10: adderall restarted.? klonopin DCed. 03/11: gabapentin increased to 600 QID.? lipds WNL, minor LFT elevations remain ( pt reports he is Hep C +). 03/12: seen by ortho for knee complaint, outpt f/u recommended. adderall dosing increased to 30 mg daily. was accepted into sober house for thursday. 03/13: mood and anxiety improving. gabapentin increased to 800 QID. planning for thursday discharge. 03/14: gains sustained, no complaints. 03/15: continue treatment plan, use prn tylenol and ibuprofen for tooth pain, salt water rinse bid and temp daily 03/16: continue treatment plan I spent minutes with the patient and/or on the patient floor today, greater than?50% of which was spent counseling/coordinating care. Reason for contiued inpatient stay Substantial Risk for: harm to self, inability to function and rapid decompensation
[2022-03-16] MEDS: Acetaminophen 325 MG TABLET 650 MG PO (12:17)
[2022-03-16 14:15] VITALS: BP 123/71; PULSE 81; RESP 17; TEMP 36.6
[2022-03-16] MEDS: cloNIDine HCL 0.1 MG TABLET PO (14:18)
[2022-03-16] MEDS: Magnesium Hydrox/Alum Hydrox 30 ML ORAL.SUSP PO (14:26)
[2022-03-16] MEDS: Lurasidone HCl 40 MG TABLET PO (18:24)
[2022-03-16 21:30] VITALS: BP 95/55; PULSE 64; RESP 18; TEMP 36.8; O2SAT 95
[2022-03-16] MEDS: cloNIDine HCL 0.2 MG TABLET PO (21:37)
[2022-03-16] MEDS: Doxepin HCl 25 MG CAPSULE 100 MG PO (21:37)
[2022-03-17 06:00] VITALS: BP 129/64; PULSE 66; RESP 16; TEMP 36.6; O2SAT 99
[2022-03-17] MEDS: Ibuprofen 800 MG TABLET PO (06:32)
[2022-03-17] MEDS: Nicotine Polacrilex 2 MG GUM BUCCAL (06:32)
[2022-03-17] MEDS: methADONE HCl 20 MG/2 ML ORAL.CONC 115 MG PO (08:55)
[2022-03-17] MEDS: Fenofibrate 54 MG TABLET PO (08:57)
[2022-03-17] MEDS: Divalproex Sodium ER 250 MG TAB.ER.24H PO (08:57)
[2022-03-17] MEDS: Dextroamphetamine/Amphetamine XR 10 MG CAP.ER.24H 30 MG PO (08:57)
[2022-03-17] MEDS: Gabapentin 400 MG CAPSULE 800 MG PO (08:57)
[2022-03-17] MEDS: Sennosides 8.6 MG TABLET PO (08:58)
--- NOTE | 2022-03-17 11:36 | PC.NURSE ---
Patient is pleasant and cooperative upon approach. Patient reports being ready for discharge. Patient is in agreement with discharge, and reports an understanding of discharge instructions. Patient denies SI/HI/AH/VH. No anxiety or depression is reported. Patient denies complaints at this time.
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
== END 2022-03-17 11:20 | disposition other institution (70) | DRG 885 ==
LOC: HO.ED 03-07 00:29 → HO.PADLT16 03-07 00:36
PROVIDERS: Admitting Provider Registered Nurse; Emergency Provider Emergency Medicine Emergency Medical Services; Visit Provider Psychiatry & Neurology Psychiatry
DX: F33.1 Major depressive disorder, recurrent, moderate (principal); R45.851 Suicidal ideations; F11.20 Opioid dependence, uncomplicated; F14.90 Cocaine use, unspecified, uncomplicated; F43.12 Post-traumatic stress disorder, chronic; F17.210 Nicotine dependence, cigarettes, uncomplicated; S80.02XA Contusion of left knee, initial encounter; X58.XXXA Exposure to other specified factors, initial encounter; B19.20 Unspecified viral hepatitis C without hepatic coma; Z20.822 Contact with and (suspected) exposure to COVID-19; Z91.14 Patient's other noncompliance with medication regimen; Z71.6 Tobacco abuse counseling; Z91.013 Allergy to seafood; Z88.8 Allergy status to other drugs, medicaments and biological substances; Z79.899 Other long term (current) drug therapy
CPT/HCPCS: 36415; 73562; 80053; 80061; 80076; 80143; 80179; 80307; 81003; 82077; 83036; 83690; 85025; 85610; 85730; 87635; 93005; 99285

== ENCOUNTER 2023-11-03 15:06 | Emergency (ER) | payer OTHER, SELFPAY ==
[2023-11-03 15:13] VITALS: BP 142/62; PULSE 80; O2SAT 100
--- NOTE | 2023-11-03 15:15 | ECG_ITS ---
Test Reason : CHEST PAIN Blood Pressure : / mmHG Vent. Rate : 076 BPM Atrial Rate : 076 BPM P-R Int : 166 ms QRS Dur : 108 ms QT Int : 408 ms P-R-T Axes : 024 018 024 degrees QTc Int : 459 ms Normal sinus rhythm Normal ECG When compared with ECG of 06-MAR-2022 21:57, Vent. rate has increased BY 29 BPM Referred By: Generic ED Physician Electronically Signed By:Paolo Carroll
== END 2023-11-03 16:14 | disposition left against medical advice (07) ==
PROVIDERS: Emergency Provider Emergency Medicine
DX: R07.89 Other chest pain (principal); F14.90 Cocaine use, unspecified, uncomplicated
CPT/HCPCS: 93005; 99282; 99283

== ENCOUNTER → 2023-11-03 15:15 | Outpatient (BNV) | payer OTHER, SELFPAY | PROVIDERS: Emergency Provider Emergency Medicine; Visit Provider Internal Medicine Cardiovascular Disease | DX: R00.0 Tachycardia, unspecified (principal) | CPT/HCPCS: 93010 ==

== ENCOUNTER 2023-11-07 23:50 | Emergency (ER) | payer OTHER, SELFPAY ==
[2023-11-08] VITALS: BP 127/92; BP 168/102; PULSE 68; PULSE 78; RESP 18; TEMP 36.8; O2SAT 96; O2SAT 98; BMI 29.8
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
--- NOTE | 2023-11-08 00:34 | ECG_ITS ---
Test Reason : check QTc Blood Pressure : / mmHG Vent. Rate : 054 BPM Atrial Rate : 054 BPM P-R Int : 148 ms QRS Dur : 108 ms QT Int : 464 ms P-R-T Axes : 005 046 035 degrees QTc Int : 440 ms Sinus bradycardia Otherwise normal ECG When compared with ECG of 03-NOV-2023 15:28, No significant change was found Referred By: Rodrigo Guillory Electronically Signed By:Paolo Carroll
[2023-11-08] MEDS: LORazepam 1 MG TABLET PO (00:47)
[2023-11-08] MEDS: Gabapentin 300 MG CAPSULE PO (00:47)
[2023-11-08 00:49] LABS: Amphetamine Screen Urine Not Detected (Not Detect); Barbiturates, Urine Not Detected (Not Detect); Benzodiazepines Screen Urine Not Detected (Not Detect); Cannabinoid Screen Urine POSITIVE (Not Detect); Cocaine Screen Urine POSITIVE (Not Detect); Fentanyl, urine POSITIVE (Not Detect); Opiate Screen Urine POSITIVE (Not Detect); Phencyclidine Screen Urine Not Detected (Not Detect)
--- NOTE | 2023-11-08 01:00 | PC.NURSE ---
Pt A&Ox3, calm and cooperative, states I don't want to be here any more, my girlfriend from 11 years .I just don't think I have a purpose. Denies HI/AH/VH. Pt ambulated independently with steady gait. Pt requesting food and PO fluids.
[2023-11-08 01:16] LABS: MANUAL DIFF FLAG NO
[2023-11-08 01:17] LABS: Basophils Percent Auto 0.5 % (0-2); Eosinophils Absolute Auto 0.3 X10*3/uL (0.0-0.4); Eosinophils Percent Auto 5.1 % (0-4); Hemoglobin 13.1 g/dl (14.0-18.0); Imm Gran Abs Auto 0.01 X10*3/uL (0.00-0.03); Imm Gran Pct Auto 0.2 % (0.0-0.4); Lymphocytes Percent Auto 45.7 % (20-40); Mean Corpuscular HGB Conc 34.5 g/dl (31.0-36.0); Mean Corpuscular Hemoglobin 30.9 pg (27.0-33.0); Mean Corpuscular Volume 89.6 fL (80.0-98.0); Monocytes Absolute Auto 0.4 X10*3/uL (0.1-1.2); Monocytes Percent Auto 6.6 % (2-11); Neutrophils Absolute Auto 2.7 x10*3/uL (2.0-8.3); Neutrophils Percent Auto 41.9 % (45-73); Platelet Count 230 X10*3/uL (160-400); Red Blood Count 4.24 X10*6/uL (4.60-5.80); Red Cell Distribution Width 12.3 % (11.0-16.0); White Blood Count 6.5 X10*3/uL (4.8-10.8)
--- NOTE | 2023-11-08 01:31 | ED_ITS ---
HPI - General Adult General Chief complaint: Psychiatric Symptoms Stated complaint: Behavioral Time Seen by Provider: 11/07/23 23:57 Source: patient, RN notes reviewed and old records reviewed Mode of arrival: ambulatory Limitations: no limitations History of Present Illness HPI narrative: 42-year-old male presents for evaluation of depression. Patient reports increasing depression for the last few months. He reports being compliant with his medications up until about 2 days ago States relapse opioids cocaine after the loss of his girlfriend. Unclear if they simply broke up, or she as the patient does not want to discuss details. Apparently texted his mother today that he wants to or is going to kill himself, so she called for a wellness check The patient was subsequently brought to the ER for evaluation. He denies explicit suicidal ideation but states ?I just do not know what to think. ? Related Data Home Medications Medication Instructions Recorded Confirmed methadone 10 mg/mL oral 115 mg PO DAILY 06/12/21 03/07/22 concentrate (Methadose) dextroamphetamine-amphetamine ER 1 cap PO QAM 11/08/23 11/08/23 20 mg 24hr capsule,extend release Previous Rx's Medication Instructions Recorded clonidine HCl 0.1 mg tablet 0.1 mg PO DAILY PRN 03/17/22 anxiety/agitation 30 days #30 tabs divalproex 250 mg tablet,extended 250 mg PO BID 30 days #60 tabs 03/17/22 release 24 hr doxepin 25 mg capsule 100 mg (4 x 25 mg) PO BEDTIME 30 03/17/22 days #120 caps fenofibrate 54 mg tablet 54 mg PO DAILY 30 days #30 tabs 03/17/22 gabapentin 400 mg capsule 800 mg (2 x 400 mg) PO QID 30 days 03/17/22 #240 caps hydroxyzine HCl 50 mg tablet 50 mg PO BID PRN Anxiety 30 days 03/17/22 #60 tabs ibuprofen 800 mg tablet 800 mg PO BID PRN knee pain, tooth 03/17/22 pain 30 days #60 tabs melatonin 3 mg tablet 9 mg (3 x 3 mg) PO BEDTIME PRN 03/17/22 sleep 30 days #60 tabs nicotine (polacrilex) 2 mg gum 2 mg buccal Q2H PRN nicotine 03/17/22 withdrawal 30 days #120 ea sennosides 8.6 mg tablet (Senna 8.6 mg PO BID 30 days #60 tabs 03/17/22 Lax) Allergies Allergy/AdvReac Type Severity Reaction Status Date / Time fish derived [FISH] Allergy Severe ANAPHYLAXIS Verified 11/08/23 00:00 quetiapine [From SEROQUEL] AdvReac Severe INVOLUNTARY Verified 11/08/23 00:00 SPASMS trazodone AdvReac Unknown INVOLUNTARY Verified 11/08/23 00:00 SPASMS SEAFOOD Allergy Severe ANAPHYLAXIS Uncoded 03/04/21 20:52 Review of Systems 2 Constitutional: Constitutional: Denies chills and Denies fever(s) Cardiovascular: Cardiovascular: Denies chest pain and Denies dyspnea Respiratory: Respiratory: Denies chest congestion, Denies cough and Denies dyspnea Gastrointestinal: Gastrointestinal: Denies abdominal pain Integumentary/Breasts: Skin/Breast: Denies rash Psychiatric: Psychiatric: Reports depression, Denies homicidal ideation and Reports suicidal ideation PMF Past Medical History Medical History Chronic post-traumatic stress disorder (PTSD) Hepatitis C MDD (major depressive disorder), recurrent episode, moderate No known health problems Surgical History History of appendectomy Social History Social History Household Members: Other Household Members Other:: pt has been couch-surfing Housing: Other Do you presently have visiting nurse or other home services: No Alcohol intake: never Comment: 1:1 sitter Patient Tobacco Use Status: Current everyday Tobacco user Tobacco use type: Cigarette Cigarette Packs Per Day: 1 Cigarettes Per Day: 20.0 Years Smoked: 10 Smoked in Last 30 Days: Yes e-Cigarette/Vaping Use: Never Used Second Hand Smoke Exposure: No Use of substances other than those prescribed or required for medical reasons: Yes Substance Use Type: Heroin and Marijuana Advance Directives: No Advance Directives Information Provided: No service: No Current occupational status: unemployed Sexual orientation: Straight/Heterosexual Physical Exam ED Vital Signs: Vital Signs - 24 hr 11/08/23 00:00 11/08/23 03:10 Temperature 98.2 F Pulse Rate 78 57 Respiratory Rate 18 16 Blood Pressure 127/92 H 127/63 Pulse Oximetry 96 93 Oxygen Delivery Method Room Air Room Air BMI result Body Mass Index 29.8 Const General: healthy appearing, comfortable, no acute distress, alert and awake Nutritional Appearance: well nourished Orientation/consciousness: patient oriented x3 HENMT Head: Yes normocephalic and Yes atraumatic Eyes Eyelids: Yes eyelids normal Conjunctivae: conjunctivae normal Sclerae: sclerae normal Corneas: corneas normal Pupils: Equal, round and reactive pupils present EOM: EOMs intact bilaterally Neck Neck: Yes full ROM Resp Effort & Inspection: normal respiratory effort, able to speak in complete sentences and not labored Skin Other: Track de leon noted to bilateral forearms. No obvious area of cellulitis abscess General skin exam: elasticity normal Neuro General: patient oriented x3 Cranial nerves: Yes Equal, round and reactive pupils present and Yes Bilaterally intact EOM present Cognition (Neuro): normal cognition Extrem Other: Moving all extremities well without any obvious deformities Course Reevaluation(s) Reevaluation #1: Patient is medically cleared for care team evaluation Time: 01:49 Reevaluation #2: 11/08/23 9 AM patient was signed out to me by Dr. Lawrence 07:00 he has been medically clear is waiting for care team evaluation because SI Medications Administered Discontinued Medications Generic Name Dose Route Start Last Admin Trade Name Freq PRN Reason Stop Dose Admin Acetaminophen 650 mg 11/08/23 00:48 11/08/23 01:44 Acetaminophen 325 Mg Tablet PO 11/08/23 00:49 650 mg ONCE ONE Administration Gabapentin 300 mg 11/08/23 00:34 11/08/23 00:47 Gabapentin 300 Mg Capsule PO 11/08/23 00:35 300 mg ONCE ONE Administration Lorazepam 1 mg 11/08/23 00:34 11/08/23 00:47 Lorazepam 1 Mg Tablet PO 11/08/23 00:35 1 mg ONCE ONE Administration Nicotine 21 mg 11/08/23 04:26 11/08/23 05:25 Nicotine 21 Mg Patch.[id number] TRANSDERMA 11/08/23 04:27 21 mg ONCE ONE Administration Medical Decision Making Medical Decision Making [facility] Narrative: 42-year-old male presents for evaluation passive suicidal ideation plan for medical clearance and care team evaluation. Differential Diagnosis Differential Diagnoses: The differential diagnosis associated with the presentation includes Polysubstance abuse Opiate abuse Cocaine abuse Depression Medication noncompliance Suicidal ideation Lab Data [facility] Lab Attestation statement: I reviewed the patient's lab results. No leukocytosis. The patient had very mild anemia with a hemoglobin of 13.1 and a hematocrit of 38.0. This anemia is consistent with his baseline. Normal platelet count. 11/08/23 01:05 11/08/23 01:05 Labs: Lab Results 11/08/23 11/08/23 Range/Units 00:27 01:05 WBC 6.5 (4.8-10.8) X10*3/uL RBC 4.24 L (4.60-5.80) X10*6/uL Hgb 13.1 L (14.0-18.0) g/dl Hct 38.0 L (42.0-52.0) % MCV 89.6 (80.0-98.0) fL MCH 30.9 (27.0-33.0) pg MCHC 34.5 (31.0-36.0) g/dl RDW 12.3 (11.0-16.0) % Plt Count 230 (160-400) X10*3/uL MPV 10.0 (9.4-12.4) fL Immature Gran % (Auto) 0.2 (0.0-0.4) % Neut % (Auto) 41.9 L (45-73) % Lymph % (Auto) 45.7 H (20-40) % Woodson % (Auto) 6.6 (2-11) % Eos % (Auto) 5.1 H (0-4) % Baso % (Auto) 0.5 (0-2) % Lymph # (Auto) 3.0 (1.2-4.9) X10*3/uL Woodson # (Auto) 0.4 (0.1-1.2) X10*3/uL Eos # (Auto) 0.3 (0.0-0.4) X10*3/uL Baso # (Auto) 0.0 (0.0-0.2) X10*3/uL Abs Immat Gran (auto) 0.01 (0.00-0.03) X10*3/uL Absolute Neuts (auto) 2.7 (2.0-8.3) x10*3/uL Absolute Nucleated RBC 0.000 (0.0-0.012) X10*3/uL Nucleated RBC % (auto) 0.0 (0.0-0.2) /100WBC Sodium 137 (135-145) mmol/L Potassium 4.0 (3.3-5.1) mmol/L Chloride 104 (96-108) mmol/L Carbon Dioxide 27 (22-29) mmol/L Anion Gap 10 L (12-20) BUN 13 (9-16) mg/dL Creatinine 0.98 (0.5-1.4) mg/dL Estim Creat Clear Calc 121.3 Estimated GFR > 60 Random Glucose 101 (60-115) mg/dL Calcium 9.1 (8.4-10.2) mg/dL Total Bilirubin 0.3 (0.0-1.0) mg/dL AST 18 (5-37) U/L ALT 16 (0-40) U/L Alkaline Phosphatase 64 (39-117) U/L Total Protein 7.9 (6.5-8.0) g/dL Albumin 3.9 (3.5-5.0) g/dL Salicylates < 5.0 L (15-30) mg/dL Urine Opiates Screen POSITIVE H (Not Detect) Urine Fentanyl Screen POSITIVE H (Not Detect) Acetaminophen < 3 (<30) mcg/mL Ur Barbiturates Screen Not Detected (Not Detect) Ur Phencyclidine Scrn Not Detected (Not Detect) Ur Amphetamines Screen Not Detected (Not Detect) U Benzodiazepines Scrn Not Detected (Not Detect) Urine Cocaine Screen POSITIVE H (Not Detect) U Marijuana (THC) Screen POSITIVE H (Not Detect) Ethyl Alcohol < 10 mg/dL Discharge Plan Discharge Clinical Impression: Polysubstance abuse, Depression Patient Disposition: Still a Patient Prescriptions: No Action methadone [Methadose] 10 mg/mL concentrate 115 mg PO DAILY nicotine (polacrilex) 2 mg Gum 2 mg buccal Q2H PRN (Reason: nicotine withdrawal) 30 Days Qty: 120 0RF clonidine HCl 0.1 mg Tablet 0.1 mg PO DAILY PRN (Reason: anxiety/agitation) 30 Days Qty: 30 0RF Protocol: Hold for SBP< HOLD for SBP < : 90 ibuprofen 800 mg Tablet 800 mg PO BID PRN (Reason: knee pain, tooth pain ) 30 Days Qty: 60 0RF doxepin 25 mg Capsule 100 mg PO BEDTIME 30 Days Qty: 120 0RF gabapentin 400 mg Capsule 800 mg PO QID 30 Days Qty: 240 0RF hydroxyzine HCl 50 mg Tablet 50 mg PO BID PRN (Reason: Anxiety) 30 Days Qty: 60 0RF divalproex 250 mg Tablet Extended Release 24 Hr 250 mg PO BID 30 Days Qty: 60 0RF fenofibrate 54 mg Tablet 54 mg PO DAILY 30 Days Qty: 30 0RF sennosides [Senna Lax] 8.6 mg Tablet 8.6 mg PO BID 30 Days Qty: 60 0RF melatonin 3 mg Tablet 9 mg PO BEDTIME PRN (Reason: sleep) 30 Days Qty: 60 0RF dextroamphetamine-amphetamine 20 mg capsule,extended release 24hr 1 cap PO QAM Interventions: [place]-Suicide Risk Severity Scale Last Done: 11/08/23 00:07
[2023-11-08 01:39] LABS: Alanine Aminotransferase 16 U/L (0-40); Albumin Level 3.9 g/dL (3.5-5.0); Alkaline Phosphatase 64 U/L (39-117); Anion Gap 10 (12-20); Aspartate Amino Transferase 18 U/L (5-37); Bilirubin Total 0.3 mg/dL (0.0-1.0); Blood Urea Nitrogen 13 mg/dL (9-16); Calcium 9.1 mg/dL (8.4-10.2); Carbon Dioxide 27 mmol/L (22-29); Chloride 104 mmol/L (96-108); Creatinine Clr Calc Pharmacy 121.3; Estimated Glomerular Filt Rate > 60; Ethanol < 10 mg/dL; Glucose Random 101 mg/dL (60-115); Sodium 137 mmol/L (135-145); Total Protein 7.9 g/dL (6.5-8.0)
[2023-11-08] MEDS: Acetaminophen 325 MG TABLET 650 MG PO (01:44)
[2023-11-08 01:50] LABS: Acetaminophen LAB < 3 mcg/mL (<30); Salicylate < 5.0 mg/dL (15-30)
[2023-11-08 03:10] VITALS: BP 127/63; PULSE 57; RESP 16; O2SAT 93
--- NOTE | 2023-11-08 03:28 | PC.NURSE ---
Med rec done, Pt able to verbalize home meds. Unable to verify methadone dosage.
[2023-11-08] MEDS: Nicotine 21 MG PATCH.TD24 TRANSDERMA (05:25)
--- NOTE | 2023-11-08 09:07 | PC.NURSE ---
ambulated to the bathroom with steady gait. verified methadone dose w/ demetria at [facility]. last dose 11/06/23 145mg. form faxed to pharmacy
--- NOTE | 2023-11-08 09:21 | HE.PHANOTE ---
RE: methadone Received last dose verification from ABDULAZ[facility] 145mg on 11/06/23 @[id number]
[2023-11-08] MEDS: methADONE HCl 20 MG/2 ML ORAL.CONC 145 MG PO (09:39)
--- NOTE | 2023-11-08 09:52 | PC.NURSE ---
medicated per the MAR w/ methadone. awaiting home medications. requesting cell phone from [employer] to call father. provided with toothbrush and toothpaste and mask per request. requesting anxiety medications
[2023-11-08 09:53] VITALS: BP 147/82; PULSE 53; RESP 14; TEMP 36.6; O2SAT 97
[2023-11-08] MEDS: Dextroamphetamine/Amphetamine XR 10 MG CAP.ER.24H 20 MG PO (10:29)
[2023-11-08] MEDS: cloNIDine HCL 0.1 MG TABLET PO ×2 (10:29→23:50)
[2023-11-08] MEDS: Divalproex Sodium ER 250 MG TAB.ER.24H PO ×2 (10:29→21:14)
[2023-11-08] MEDS: Fenofibrate 54 MG TABLET PO (14:19)
[2023-11-08] MEDS: Gabapentin 400 MG CAPSULE 800 MG PO ×3 (14:19→21:15)
--- NOTE | 2023-11-08 14:26 | PC.NURSE ---
medicated per the MAR, patient provided with cranberry juice and chocolate ice cream. patient observer remains in place for patient safety.
[2023-11-08] MEDS: hydrOXYzine HCL 50 MG TABLET PO (16:23)
[2023-11-08 16:33] VITALS: BP 128/78; PULSE 52; RESP 20; TEMP 36.6; O2SAT 99
[2023-11-08] MEDS: Sennosides 8.6 MG TABLET PO (21:14)
[2023-11-08] MEDS: Doxepin HCl 25 MG CAPSULE 100 MG PO (21:14)
[2023-11-08 21:17] VITALS: BP 128/67; PULSE 61; RESP 16; TEMP 36.6; O2SAT 98
[2023-11-08] MEDS: Ibuprofen 800 MG TABLET PO (23:51)
--- NOTE | 2023-11-08 23:59 | PC.NURSE ---
230 clonidone 0/1 administered per verbal order by patient as per patient he takes in PRN and needs it most at night. Will call [facility] to change order from PRN daily at 1030 to PRN
--- NOTE | 2023-11-09 00:21 | PC.NURSE ---
called pharmacy and they will change the order for him to receive the clonidine PRN at bedtime
[2023-11-09 05:50] VITALS: BP 119/64; PULSE 52; RESP 14; TEMP 36.6; O2SAT 95
--- NOTE | 2023-11-09 07:57 | PC.NURSE ---
PT SLEEPING, SITTER MAINTAINED
--- NOTE | 2023-11-09 08:49 | MHC.CARE ---
RAD Team conducted [place] bed[place], referral being reviewed by karey petersen, Giovanna ascencio, [facility], [facility] , [facility] , [facility] , [facility],and [place]. RAD team to f/u with facilities to see outcome
[2023-11-09] MEDS: Dextroamphetamine/Amphetamine XR 10 MG CAP.ER.24H 20 MG PO (09:04)
[2023-11-09] MEDS: Gabapentin 400 MG CAPSULE 800 MG PO ×4 (09:04→21:06)
[2023-11-09] MEDS: Sennosides 8.6 MG TABLET PO ×2 (09:05→21:06)
[2023-11-09] MEDS: Divalproex Sodium ER 250 MG TAB.ER.24H PO ×2 (09:05→21:06)
[2023-11-09] MEDS: methADONE HCl 20 MG/2 ML ORAL.CONC 145 MG PO (09:27)
[2023-11-09] MEDS: Ibuprofen 800 MG TABLET PO (09:35)
[2023-11-09] MEDS: Fenofibrate 54 MG TABLET PO (09:35)
--- NOTE | 2023-11-09 10:29 | MHC.EDTECH ---
Patient refuse vitals.
--- NOTE | 2023-11-09 13:26 | PC.NURSE ---
REPORT TO BHUMIKA FROM [facility]
--- NOTE | 2023-11-09 13:43 | MHC.CARE ---
Patient pre-accepted to [facility] for tomorrow (11/10) Arrival time- 11am Accepting Doctor- Rosa Dominguez Address [facility] [place] [address]
[2023-11-09 13:55] LABS: COVID-19 Test Negative (Negative); IDNOW Serial# 152EDE1D
[2023-11-09 16:14] VITALS: BP 128/71; PULSE 59; RESP 16; TEMP 36.5; O2SAT 95
--- NOTE | 2023-11-09 16:28 | PC.NURSE ---
pt currently sleeping at this time/in no apparent distress. resting w/ the lights off. respirations even and unlabored. 1:1 sitter present. call gipson placed within reach.
--- NOTE | 2023-11-09 17:39 | PC.NURSE ---
medication administered per provider order. pt denies SI/HI at this time. pt resting comfortably w/ lights dimmed in no apparent distress. pt provided w/ requested vanilla pudding. 1:1 sitter remains present. call gipson placed within reach.
[2023-11-09 19:42] VITALS: PULSE 61; RESP 18; O2SAT 98
--- NOTE | 2023-11-09 19:46 | MHC.EDTECH ---
This tech took over care of patient at 1900,on entry this tech went to take vitals,patient started getting upset stated I'm sick of getting my blood pressures taken I had educated patient on the importance of vitals and that he hasn't had them since 4PM, he stated I don't give a shit you are not doing my vitals Patient had his food tray at bedside and he didn't touch it I asked patient if he wanted me to leave it for him, he stated You can throw that sandwich as far as you can throw it. This tech took away tray and made Henok RN aware
--- NOTE | 2023-11-09 19:50 | PC.NURSE ---
this RN informed patient that he would be moving to the pod; pt agitated stating why is it always me that has to go to the pod? I don't want to fucking go in there. Someone else can fucking go in there because it's not going to be me. attempted to explain to pt the reasoning for the move pt quickly interjects stating I'm perfectly fine right here and I'm not fucking going anywhere. propellant charge zone assembler informed of the situation.
[2023-11-09] MEDS: Doxepin HCl 25 MG CAPSULE 100 MG PO (21:06)
[2023-11-09 21:09] VITALS: BP 128/69; PULSE 60; RESP 16; O2SAT 100
--- NOTE | 2023-11-10 03:05 | MHC.EDTECH ---
This tech took over care of patient at 0300AM.hourly rounds completed,patient is resting at this time,call gipson in reach and sitter at bedside for safety
[2023-11-10 03:49] VITALS: RESP 18
--- NOTE | 2023-11-10 05:27 | MHC.EDTECH ---
This tech attempted to get patient's vitals, patient refused and stated Why the fuck do you need my vitals your not giving me any medication Patient was very argumentive, attempted to redirect,patient stated Get the fuck out, this tech made RN aware. Sitter at bedside for safety
--- NOTE | 2023-11-10 07:36 | PC.NURSE ---
assumed care of pt at 0700. pt sleeping quietly on stretcher in no apparent distress. rr even/unlabored. 1:1 sitter at bedside. call gipson within reach. plan of care ongoing. report given to [facility] RN, pt to arrive at [facility] for 0900.
--- NOTE | 2023-11-10 08:18 | PC.NURSE ---
pt reporting he wants to go home and does not want to go to [facility]. asking to speak with someone from care team. Angy aware and spoke with pt. pt now asking for his meds. [facility] asking that we give methadone before pt leaves. Dr. Gr aware and putting in order.
[2023-11-10] MEDS: methADONE HCl 20 MG/2 ML ORAL.CONC 145 MG PO (08:37)
[2023-11-10] MEDS: Sennosides 8.6 MG TABLET PO (08:39)
[2023-11-10] MEDS: Gabapentin 400 MG CAPSULE 800 MG PO (08:39)
[2023-11-10] MEDS: Divalproex Sodium ER 250 MG TAB.ER.24H PO (08:40)
[2023-11-10] MEDS: Dextroamphetamine/Amphetamine XR 10 MG CAP.ER.24H 20 MG PO (08:40)
--- NOTE | 2023-11-10 08:53 | PC.NURSE ---
called for pt medication from pharmacy.
[2023-11-10] MEDS: Fenofibrate 54 MG TABLET PO (08:55)
== END 2023-11-10 11:55 ==
PROVIDERS: Physician Assistant; Student in an Organized Health Care Education/Training Program; Emergency Provider Emergency Medicine; PCP Internal Medicine
DX: F32.A Depression, unspecified (principal); R45.851 Suicidal ideations; F19.10 Other psychoactive substance abuse, uncomplicated; Z11.52 Encounter for screening for COVID-19; F43.12 Post-traumatic stress disorder, chronic; B19.20 Unspecified viral hepatitis C without hepatic coma; F11.20 Opioid dependence, uncomplicated; F17.210 Nicotine dependence, cigarettes, uncomplicated; Z79.899 Other long term (current) drug therapy
CPT/HCPCS: 36415; 80053; 80143; 80179; 80307; 85025; 87635; 93005; 99285; S9485

== ENCOUNTER → 2023-11-08 00:34 | Outpatient (BNV) | payer OTHER, SELFPAY | PROVIDERS: Emergency Provider Emergency Medicine; Visit Provider Internal Medicine Cardiovascular Disease | DX: R00.1 Bradycardia, unspecified (principal) | CPT/HCPCS: 93010 ==

== ENCOUNTER 2023-11-21 14:39 | Inpatient (IN) | payer OTHER, SELFPAY ==
[2023-11-21 14:47] VITALS: BP 134/83; PULSE 95; RESP 16; TEMP 36.1; O2SAT 96; BMI 30.7
--- NOTE | 2023-11-21 15:12 | ED_ITS ---
HPI - General Adult General Chief complaint: Psychiatric Symptoms Stated complaint: crisis Time Seen by Provider: 11/21/23 15:12 Source: patient Mode of arrival: ambulatory Limitations: no limitations History of Present Illness HPI narrative: This is a 43-year-old male history of major depression, PTSD, opiate use disorder, cocaine use disorder, hepatitis-C presenting with paranoia, depression, ongoing for past few days. Patient reports intermittent visual and auditory hallucinations, seeing shadows. Patient reports he has been feeling depressed due to increasing life stressors. Patient's girlfriend a few months ago they were dating for 11 years. He also relapsed on drugs after 6 months clean. Denies alcohol. Intermittent opiate and cocaine use. Not suicidal or homicidal. Denies any medical complaints at this time. Related Data Home Medications Medication Instructions Recorded Confirmed methadone 10 mg/mL oral 145 mg PO DAILY 06/12/21 11/21/23 concentrate (Methadose) dextroamphetamine-amphetamine ER 1 cap PO QAM 11/08/23 11/21/23 20 mg 24hr capsule,extend release oxcarbazepine 300 mg tablet 300 mg PO TID 11/21/23 11/21/23 sofosbuvir 400 mg-velpatasvir 100 1 tab PO DAILY 11/21/23 11/21/23 mg tablet Previous Rx's Medication Instructions Recorded clonidine HCl 0.1 mg tablet 0.1 mg PO DAILY PRN 03/17/22 anxiety/agitation 30 days #30 tabs divalproex 250 mg tablet,extended 250 mg PO BID 30 days #60 tabs 03/17/22 release 24 hr doxepin 25 mg capsule 100 mg (4 x 25 mg) PO BEDTIME 30 03/17/22 days #120 caps fenofibrate 54 mg tablet 54 mg PO DAILY 30 days #30 tabs 03/17/22 gabapentin 400 mg capsule 800 mg (2 x 400 mg) PO QID 30 days 03/17/22 #240 caps hydroxyzine HCl 50 mg tablet 50 mg PO BID PRN Anxiety 30 days 03/17/22 #60 tabs ibuprofen 800 mg tablet 800 mg PO BID PRN knee pain, tooth 03/17/22 pain 30 days #60 tabs melatonin 3 mg tablet 9 mg (3 x 3 mg) PO BEDTIME PRN 03/17/22 sleep 30 days #60 tabs nicotine (polacrilex) 2 mg gum 2 mg buccal Q2H PRN nicotine 03/17/22 withdrawal 30 days #120 ea Allergies Allergy/AdvReac Type Severity Reaction Status Date / Time fish derived [FISH] Allergy Severe ANAPHYLAXIS Verified 11/08/23 00:00 quetiapine [From SEROQUEL] AdvReac Severe INVOLUNTARY Verified 11/08/23 00:00 SPASMS trazodone AdvReac Unknown INVOLUNTARY Verified 11/08/23 00:00 SPASMS SEAFOOD Allergy Severe ANAPHYLAXIS Uncoded 03/04/21 20:52 Review of Systems 2 Review of Systems: Yes all other systems are reviewed and are negative FORMERLY [facility], [facility] Past Medical History Attestation statement: The following information was validated with the patient. Source: old records reviewed and nursing notes reviewed Medical History Chronic post-traumatic stress disorder (PTSD) Hepatitis C MDD (major depressive disorder), recurrent episode, moderate No known health problems Surgical History History of appendectomy Social History Social History Household Members: Other Household Members Other:: pt has been couch-surfing Housing: Other Do you presently have visiting nurse or other home services: No Alcohol intake: never Comment: 1:1 sitter Patient Tobacco Use Status: Current everyday Tobacco user Tobacco use type: Cigarette Cigarette Packs Per Day: 1 Cigarettes Per Day: 20.0 Years Smoked: 10 e-Cigarette/Vaping Use: Never Used Second Hand Smoke Exposure: No Substance Use Type: Heroin and Marijuana Advance Directives: No Advance Directives Information Provided: No service: No Current occupational status: unemployed Sexual orientation: Straight/Heterosexual Physical Exam ED Vital Signs: Vital Signs - 24 hr 11/21/23 14:47 Temperature 97.0 F Pulse Rate 95 Respiratory Rate 16 Blood Pressure 134/83 Pulse Oximetry 96 Oxygen Delivery Method Room Air BMI result Body Mass Index 30.7 vss Appearance: Alert.? Oriented X3.? No acute distress.? Head: Normocephalic, atraumatic, no step-offs or deformities Eyes: Pupils equal, round and reactive to light.? Neck: Normal inspection.? Neck supple.? CVS: Normal heart rate and rhythm.? Pulses normal.? Respiratory: No respiratory distress.? Breath sounds normal.? Abdomen: Soft and nontender.? Skin: Skin warm and dry.? Normal skin color.? Normal skin turgor.? Extremities: No lower extremity edema.? No calf ttp. 5/5 strength to bilateral upper and lower extremities Neuro: Oriented X 3.? No motor deficit.? No sensory deficit. CN 2-12 intact Course Reevaluation(s) Reevaluation #1: CBC unremarkable chemistry without electrolyte abnormalities requiring intervention. UA no infection. Urine toxicology positive for opiates, fentanyl, cocaine, marijuana. Ethanol negative. At this time patient to be placed into observation to allow more time to be evaluated by care team. At time observation started [facility] no acute distress Time: 16:08 Medical Decision Making Medical Decision Making [facility] Narrative: 43-year-old male presents with paranoia and depression, non med compliant ongoing for the past few weeks. Physical examination benign History and physical exam concerning for paranoia and depression. Other differentials include bipolar and schizophrenia. Will rule out metabolic derangements. Unlikely urinary tract infection. Will also rule out alcohol intoxication polysubstance abuse Plan at this time medical clearance evaluation by behavioral health team Differential Diagnosis Differential Diagnoses: The differential diagnosis associated with the presentation includes History and physical exam concerning for paranoia and depression. Other differentials include bipolar and schizophrenia. Will rule out metabolic derangements. Unlikely urinary tract infection. Will also rule out alcohol intoxication polysubstance abuse Admission/Observation Consideration of admission/observation: Escalation of care including admission/observation considered Lab Data [facility] Lab Attestation statement: I reviewed the patient's lab results. 11/21/23 15:41 11/21/23 15:41 Labs: Lab Results 11/21/23 Range/Units 15:41 WBC 7.2 (4.8-10.8) X10*3/uL RBC 4.86 (4.60-5.80) X10*6/uL Hgb 14.9 (14.0-18.0) g/dl Hct 43.4 (42.0-52.0) % MCV 89.3 (80.0-98.0) fL MCH 30.7 (27.0-33.0) pg MCHC 34.3 (31.0-36.0) g/dl RDW 12.4 (11.0-16.0) % Plt Count 228 (160-400) X10*3/uL MPV 9.9 (9.4-12.4) fL Immature Gran % (Auto) 0.1 (0.0-0.4) % Neut % (Auto) 50.6 (45-73) % Lymph % (Auto) 39.7 (20-40) % [place] % (Auto) 6.8 (2-11) % Eos % (Auto) 2.5 (0-4) % Baso % (Auto) 0.3 (0-2) % Lymph # (Auto) 2.8 (1.2-4.9) X10*3/uL [place] # (Auto) 0.5 (0.1-1.2) X10*3/uL Eos # (Auto) 0.2 (0.0-0.4) X10*3/uL Baso # (Auto) 0.0 (0.0-0.2) X10*3/uL Abs Immat Gran (auto) 0.01 (0.00-0.03) X10*3/uL Absolute Neuts (auto) 3.6 (2.0-8.3) x10*3/uL Absolute Nucleated RBC 0.000 (0.0-0.012) X10*3/uL Nucleated RBC % (auto) 0.0 (0.0-0.2) /100WBC Sodium 139 (135-145) mmol/L Potassium 4.0 (3.3-5.1) mmol/L Chloride 101 (96-108) mmol/L Carbon Dioxide 27 (22-29) mmol/L Anion Gap 15 (12-20) BUN 20 H (9-16) mg/dL Creatinine 1.03 (0.5-1.4) mg/dL Estim Creat Clear Calc 112.4 Estimated GFR > 60 Random Glucose 133 H (60-115) mg/dL Calcium 10.1 D (8.4-10.2) mg/dL Magnesium 1.9 (1.6-2.6) mg/dL Total Bilirubin 0.6 (0.0-1.0) mg/dL AST 26 (5-37) U/L ALT 26 (0-40) U/L Alkaline Phosphatase 67 (39-117) U/L Total Protein 9.1 H (6.5-8.0) g/dL Albumin 4.9 (3.5-5.0) g/dL Urine Color Dark Yellow Urine Appearance Clear Urine pH 6.0 (5.0-9.0) Ur Specific [place] >= 1.030 H (1.005-1.025) Urine Protein 30 (1+) H (Neg-Trace) mg/dL Urine Glucose (UA) Negative (Negative) mg/dL Urine Ketones Trace (Negative) mg/dL Urine Blood Negative (Negative) Urine Nitrite Negative (Negative) Ur Leukocyte Esterase Trace H (Negative) Urine Opiates Screen POSITIVE H (Not Detect) Urine Fentanyl Screen POSITIVE H (Not Detect) Ur Barbiturates Screen Not Detected (Not Detect) Ur Phencyclidine Scrn Not Detected (Not Detect) Ur Amphetamines Screen Not Detected (Not Detect) U Benzodiazepines Scrn Not Detected (Not Detect) Urine Cocaine Screen POSITIVE H (Not Detect) U Marijuana (THC) Screen POSITIVE H (Not Detect) Ethyl Alcohol < 10 mg/dL External Record Review External record reviewed: Inpatient record, Office record, Outpatient record, Prior outpatient labs, Prior outpatient radiology, Primary care record and Outside ED record Chronic Conditions Patient?s care impacted by: Other (bipolar, hep c, depression, opioid use d/o ) Social Determinants Patient?s care significantly limited by Social Determinants of Health including: Other Social Determinant of Health Critical Care Time Critical Care Time Critical Care Time: No Discharge Plan Discharge Clinical Impression: Acute paranoia, Depression Prescriptions: No Action methadone [Methadose] 10 mg/mL concentrate 145 mg PO DAILY Patient Comments: This was verified By Pura ROSEN Spoke with Marina Handy LPN at clinic nicotine (polacrilex) 2 mg Gum 2 mg buccal Q2H PRN (Reason: nicotine withdrawal) 30 Days Qty: 120 0RF clonidine HCl 0.1 mg Tablet 0.1 mg PO DAILY PRN (Reason: anxiety/agitation) 30 Days Qty: 30 0RF Protocol: Hold for SBP< HOLD for SBP < : 90 ibuprofen 800 mg Tablet 800 mg PO BID PRN (Reason: knee pain, tooth pain ) 30 Days Qty: 60 0RF doxepin 25 mg Capsule 100 mg PO BEDTIME 30 Days Qty: 120 0RF gabapentin 400 mg Capsule 800 mg PO QID 30 Days Qty: 240 0RF hydroxyzine HCl 50 mg Tablet 50 mg PO BID PRN (Reason: Anxiety) 30 Days Qty: 60 0RF divalproex 250 mg Tablet Extended Release 24 Hr 250 mg PO BID 30 Days Qty: 60 0RF fenofibrate 54 mg Tablet 54 mg PO DAILY 30 Days Qty: 30 0RF melatonin 3 mg Tablet 9 mg PO BEDTIME PRN (Reason: sleep) 30 Days Qty: 60 0RF sofosbuvir-velpatasvir 400-100 mg Tablet 1 tab PO DAILY oxcarbazepine 300 mg Tablet 300 mg PO TID dextroamphetamine-amphetamine 20 mg capsule,extended release 24hr 1 cap PO QAM Interventions: [place]-Suicide Risk Severity Scale Last Done: 11/21/23 14:49
--- NOTE | 2023-11-21 15:46 | HE.PHANOTE ---
METHADONE Patient receives 145 mg from [facility] ([phone]) last doses 11/19 @624 am
[2023-11-21 15:48] LABS: MANUAL DIFF FLAG NO
[2023-11-21 15:57] LABS: Basophils Percent Auto 0.3 % (0-2); Eosinophils Absolute Auto 0.2 X10*3/uL (0.0-0.4); Eosinophils Percent Auto 2.5 % (0-4); Hematocrit 43.4 % (42.0-52.0); Hemoglobin 14.9 g/dl (14.0-18.0); Imm Gran Abs Auto 0.01 X10*3/uL (0.00-0.03); Imm Gran Pct Auto 0.1 % (0.0-0.4); Lymphocytes Absolute Auto 2.8 X10*3/uL (1.2-4.9); Lymphocytes Percent Auto 39.7 % (20-40); Mean Corpuscular HGB Conc 34.3 g/dl (31.0-36.0); Mean Corpuscular Hemoglobin 30.7 pg (27.0-33.0); Mean Corpuscular Volume 89.3 fL (80.0-98.0); Mean Platelet Volume 9.9 fL (9.4-12.4); Monocytes Absolute Auto 0.5 X10*3/uL (0.1-1.2); Monocytes Percent Auto 6.8 % (2-11); Neutrophils Absolute Auto 3.6 x10*3/uL (2.0-8.3); Neutrophils Percent Auto 50.6 % (45-73); Platelet Count 228 X10*3/uL (160-400); Red Blood Count 4.86 X10*6/uL (4.60-5.80); Red Cell Distribution Width 12.4 % (11.0-16.0); White Blood Count 7.2 X10*3/uL (4.8-10.8)
[2023-11-21 16:00] LABS: Appearance Urine Clear; Color Urine Dark Yellow; Glucose Urine UA Negative (Negative); Leukocyte Esterase Urine Trace (Negative); Nitrite Urine Negative (Negative); Specific Gravity - Urine >= 1.030 (1.005-1.025); UMIC TRIGGER UACC YES; Urine Blood Negative (Negative); Urine Ketones Trace mg/dL (Negative); Urine Protein 30 (1+) mg/dL (Neg-Trace)
[2023-11-21 16:01] LABS: Amphetamine Screen Urine Not Detected (Not Detect); Barbiturates, Urine Not Detected (Not Detect); Benzodiazepines Screen Urine Not Detected (Not Detect); Cannabinoid Screen Urine POSITIVE (Not Detect); Cocaine Screen Urine POSITIVE (Not Detect); Ethanol < 10 mg/dL; Fentanyl, urine POSITIVE (Not Detect); Opiate Screen Urine POSITIVE (Not Detect); Phencyclidine Screen Urine Not Detected (Not Detect)
[2023-11-21 16:05] LABS: Bacteria Urine None Seen (None Seen); RBC Urine 0-2 /HPF (0-2); WBC Urine 0-5 /HPF (0-5)
[2023-11-21 16:06] LABS: Alanine Aminotransferase 26 U/L (0-40); Albumin Level 4.9 g/dL (3.5-5.0); Alkaline Phosphatase 67 U/L (39-117); Anion Gap 15 (12-20); Aspartate Amino Transferase 26 U/L (5-37); Bilirubin Total 0.6 mg/dL (0.0-1.0); Blood Urea Nitrogen 20 mg/dL (9-16); Calcium 10.1 mg/dL (8.4-10.2); Carbon Dioxide 27 mmol/L (22-29); Chloride 101 mmol/L (96-108); Creatinine Clr Calc Pharmacy 112.4; Estimated Glomerular Filt Rate > 60; Glucose Random 133 mg/dL (60-115); Magnesium 1.9 mg/dL (1.6-2.6); Sodium 139 mmol/L (135-145); Total Protein 9.1 g/dL (6.5-8.0)
--- NOTE | 2023-11-21 19:20 | PC.NURSE ---
patient appear to remain asleep at present respirations appears in no distress. maintains safe behavior in pod at present.
[2023-11-21] MEDS: Doxepin HCl 25 MG CAPSULE 100 MG PO (21:06)
[2023-11-21] MEDS: OXcarbazepine 300 MG TABLET PO (21:06)
[2023-11-21] MEDS: Gabapentin 400 MG CAPSULE 800 MG PO (21:06)
[2023-11-22 00:26] VITALS: BP 123/74; PULSE 68; RESP 16; TEMP 36; O2SAT 95
[2023-11-22] MEDS: Ibuprofen 800 MG TABLET PO (06:25)
[2023-11-22] MEDS: Nicotine Polacrilex 2 MG GUM BUCCAL ×3 (07:05→15:05)
--- NOTE | 2023-11-22 07:09 | PC.NURSE ---
Report taken from previous rn pt ambulating freely in pod, pt is speaking in clear even tones and maintains appropriate eye contact. pt resps = and nonlabored. pt's behavior is appropriate. awaiting care team eval.
[2023-11-22] MEDS: Dextroamphetamine/Amphetamine XR 10 MG CAP.ER.24H 20 MG PO (08:40)
[2023-11-22] MEDS: Gabapentin 400 MG CAPSULE 800 MG PO ×4 (08:41→20:17)
[2023-11-22] MEDS: OXcarbazepine 300 MG TABLET PO ×3 (08:41→20:17)
[2023-11-22] MEDS: Fenofibrate 54 MG TABLET PO (08:42)
[2023-11-22] MEDS: methADONE HCl 20 MG/2 ML ORAL.CONC 145 MG PO (09:18)
--- NOTE | 2023-11-22 13:15 | ECG_ITS ---
Test Reason : QT INTERVAL Blood Pressure : / mmHG Vent. Rate : 046 BPM Atrial Rate : 046 BPM P-R Int : 176 ms QRS Dur : 118 ms QT Int : 472 ms P-R-T Axes : 041 058 033 degrees QTc Int : 413 ms Sinus bradycardia Non-specific intra-ventricular conduction delay Borderline ECG When compared with ECG of 08-NOV-2023 03:38, No significant change was found Referred By: Nicholas Tamayo Electronically Signed By:Paolo aCrroll
[2023-11-22 13:42] LABS: COVID-19 Test Negative (Negative); IDNOW Serial# 08D9AD1C
[2023-11-22] MEDS: cloNIDine HCL 0.1 MG TABLET PO (15:05)
[2023-11-22 15:06] VITALS: BP 124/80; PULSE 58; RESP 18; TEMP 36.3; O2SAT 99
--- NOTE | 2023-11-22 15:25 | PC.NURSE ---
Patient given 3pm meds asked for clonidine and nicotene gum. Patient states he's upset he relapsed. Vitals taken awaiting bed on M3. No wounds or open areas on his body. Has been calm and cooperative the whole shift.
[2023-11-22 16:09] VITALS: BP 142/87; PULSE 62; RESP 18; TEMP 36.1; O2SAT 97
[2023-11-22 16:16] VITALS: BMI 33.2
--- NOTE | 2023-11-22 17:14 | PC.ADMIT ---
Pt is a 43 year old white male admitted from [facility] to [facility] on 11/22/23 at 1603 for treatment of psychosis on a CV. He came to the ED secondary to increased paranoia , increased depression and anxiety and reported intermittent AVH of shadows. At present, he denied SI/HI/AVH but endorsed depression and anxiety. He reports he came into the ED due to paranoia of others taking pictures of him and watching him, and increased depression due to losing his girlfriend of 11 years to addiction. He relapsed on cocaine, opiates and THC after 6 months of sobriety while at [facility]. He was calm and cooperative during admission process and skin check, which was performed by Rivka Marino RN and Rtichie SALAZAR. Small bruise on R forearm noted from IVDU and dry, flaky skin on bottoms of bilateral feet. He appeared to be depressed and anxious but was pleasant. His thoughts appear to be linear and he makes good eye contact. He reports no current medical issues but has a diagnosis of Hep C. He reports no issues with appetite but reports chronic poor sleep, often waking up multiple times through the night. He refused to sign release of information at this time as well as the Flu Vaccine. He was placed on 15 minute checks for safety.
[2023-11-22 18:00] VITALS: BP 120/66; PULSE 68; RESP 16; TEMP 36.6; O2SAT 95
[2023-11-22] MEDS: Nicotine Polacrilex 2 MG GUM 4 MG BUCCAL (19:11)
[2023-11-22] MEDS: Doxepin HCl 25 MG CAPSULE 100 MG PO (20:17)
[2023-11-22] MEDS: hydrOXYzine HCL 50 MG TABLET PO (20:17)
[2023-11-22] MEDS: Melatonin 3 MG TABLET 9 MG PO (20:17)
[2023-11-23] MEDS: hydrOXYzine HCL 50 MG TABLET PO (02:11)
[2023-11-23 07:20] VITALS: BP 137/65; PULSE 51; RESP 14; TEMP 35.9; O2SAT 98
[2023-11-23] MEDS: Gabapentin 400 MG CAPSULE 800 MG PO ×4 (08:37→20:15)
[2023-11-23] MEDS: buPROPion HCl XL 300 MG TAB.ER.24H PO (08:37)
[2023-11-23] MEDS: Fenofibrate 54 MG TABLET PO (08:37)
[2023-11-23] MEDS: OXcarbazepine 300 MG TABLET PO ×3 (08:38→20:15)
[2023-11-23] MEDS: Nicotine 21 MG PATCH.TD24 TRANSDERMA (08:39)
[2023-11-23] MEDS: methADONE HCl 20 MG/2 ML ORAL.CONC 145 MG PO (08:41)
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
--- NOTE | 2023-11-23 12:31 | MHC.CARE ---
Brian from [facility] authorized 5 days, 11/23/23-11/26/23 [id number]
[2023-11-23 13:14] VITALS: BP 133/77; PULSE 74
[2023-11-23] MEDS: cloNIDine HCL 0.1 MG TABLET PO ×2 (13:15→20:20)
[2023-11-23] MEDS: Nicotine Polacrilex 2 MG GUM 4 MG BUCCAL ×2 (13:15→18:39)
[2023-11-23] MEDS: Bacitracin Oint 14 GM TUBE 1 APPL TOPICAL ×2 (15:11→20:21)
[2023-11-23] MEDS: hydrOXYzine HCL 25 MG TABLET PO (17:55)
[2023-11-23] MEDS: Prazosin HCL 1 MG CAPSULE PO (20:14)
[2023-11-23] MEDS: Melatonin 3 MG TABLET 9 MG PO (20:14)
[2023-11-23 20:15] VITALS: BP 107/63; PULSE 67; RESP 14; TEMP 37; O2SAT 98
[2023-11-23] MEDS: Doxepin HCl 25 MG CAPSULE 100 MG PO (20:15)
[2023-11-23] MEDS: Mineral Oil/Petrolatum,White 106 GM Tube 1 APPL TOPICAL (20:21)
[2023-11-24] MEDS: methADONE HCl 20 MG/2 ML ORAL.CONC 145 MG PO (06:34)
[2023-11-24 08:07] VITALS: BP 125/69; PULSE 64; RESP 18; TEMP 35.2; O2SAT 97
[2023-11-24] MEDS: Gabapentin 400 MG CAPSULE 800 MG PO ×4 (08:12→20:37)
[2023-11-24] MEDS: Nicotine 21 MG PATCH.TD24 TRANSDERMA (08:12)
[2023-11-24] MEDS: OXcarbazepine 300 MG TABLET PO ×3 (08:12→20:38)
[2023-11-24] MEDS: Fenofibrate 54 MG TABLET PO (08:12)
[2023-11-24] MEDS: buPROPion HCl XL 300 MG TAB.ER.24H PO (08:12)
[2023-11-24] MEDS: Ibuprofen 800 MG TABLET PO (08:19)
[2023-11-24] MEDS: Nicotine Polacrilex 2 MG GUM 4 MG BUCCAL (08:19)
[2023-11-24] MEDS: Bacitracin Oint 14 GM TUBE 1 APPL TOPICAL ×2 (08:39→20:39)
[2023-11-24 09:56] VITALS: BP 142/79; PULSE 72
[2023-11-24] MEDS: cloNIDine HCL 0.1 MG TABLET PO ×2 (09:57→20:38)
--- NOTE | 2023-11-24 14:15 | HO.PSYCHPN ---
Subjective Subjective Date of Service: 11/24/23 Reason For Visit: Psychosis Interim History: calm, cooperative. not happy to be told stimulants Rx will not be forthcoming. asks about medications for anxiety, rejects meds offered. klonopin explicitly ruled out by . states he no longer wishes to take prazosin, so that is DCed. said he would continue on present meds and seemed like the plan is just to wait for a bed at [facility]. later asked MD if MD would be OK with his discharging back to his father's place, to which MD assented. per staff, dep 5 anx 8. no SI. tearful last NOC asking for meds for anxiety. Mental Status Exam Mental Status Exam Narrative: in today's visit he is alert, oriented.? Normal speech.? Good eye contact.? Appropriate affect.? no SI/HI/AVH expressed. Cognitively is intact.? Judgment is intact. Diagnostics Vital Signs (24Hr): Vital Signs - 24 hr 11/23/23 20:15 11/24/23 08:07 11/24/23 09:56 Temperature 98.6 F 95.4 F L Pulse Rate 67 64 72 Respiratory Rate 14 18 Blood Pressure 107/63 125/69 142/79 H Pulse Oximetry 98 97 Oxygen Delivery Method Room Air Room Air BMI result Body Mass Index 33.2 Labs 11/21/23 15:41 11/21/23 15:41 Medications Medications Current Medications Acetaminophen (Acetaminophen 325 Mg Tablet) 650 mg PO Q6H PRN PRN Reason: Headache/Pain Mild Scale (1-3) Al Hydroxide/Mg Hydroxide (Magnesium Hydrox/Alum Hydrox 30 Ml Oral.Susp) 30 ml PO Q6H PRN PRN Reason: Heartburn/Nausea Bacitracin (Bacitracin Oint 14 Gm Tube) 1 appl TOPICAL BID DACIA; Protocol Last Admin: 11/24/23 08:39 Dose: 1 appl Bupropion HCl (Bupropion Hcl Xl 300 Mg Tab.Er.24h) 300 mg PO DAILY DACIA Last Admin: 11/24/23 08:12 Dose: 300 mg Clonidine HCl (Clonidine Hcl 0.1 Mg Tablet) 0.1 mg PO Q2H PRN; Protocol PRN Reason: anxiety/agitation Last Admin: 11/24/23 09:57 Dose: 0.1 mg Doxepin HCl (Doxepin Hcl 25 Mg Capsule) 100 mg PO BEDTIME DACIA Last Admin: 11/23/23 20:15 Dose: 100 mg Fenofibrate (Fenofibrate 54 Mg Tablet) 54 mg PO DAILY [facility] Last Admin: 11/24/23 08:12 Dose: 54 mg Gabapentin (Gabapentin 400 Mg Capsule) 800 mg PO QID [facility] Last Admin: 11/24/23 12:14 Dose: 800 mg Hydroxyzine HCl (Hydroxyzine Hcl 50 Mg Tablet) 50 mg PO BID PRN PRN Reason: Anxiety Last Admin: 11/23/23 02:11 Dose: 50 mg Hydroxyzine HCl (Hydroxyzine Hcl 25 Mg Tablet) 25 mg PO Q6H PRN PRN Reason: Anxiety Last Admin: 11/23/23 17:55 Dose: 25 mg Ibuprofen (Ibuprofen 800 Mg Tablet) 800 mg PO BID PRN PRN Reason: knee pain, tooth pain Last Admin: 11/24/23 08:19 Dose: 800 mg Magnesium Hydroxide (Milk Of Magnesia 30 Ml Oral.Susp) 30 ml PO DAILY PRN PRN Reason: Constipation Melatonin (Melatonin 3 Mg Tablet) 9 mg PO BEDTIME PRN PRN Reason: sleep Last Admin: 11/23/23 20:14 Dose: 9 mg Methadone HCl (Methadone Hcl 20 Mg/2 Ml Oral.Conc) 145 mg PO DAILY@0600 [facility] Last Admin: 11/24/23 06:34 Dose: 145 mg Multi-Ingred Cream/Lotion/Oil/Oint (Mineral Oil/Petrolatum,White 106 Gm Tube) 1 appl TOPICAL BEDTIME [facility]; Protocol Last Admin: 11/23/23 20:21 Dose: 1 appl Nicotine (Nicotine 21 Mg Patch.Td24) 21 mg TRANSDERMA DAILY [facility] Last Admin: 11/24/23 08:12 Dose: 21 mg Nicotine Polacrilex (Nicotine Polacrilex 2 Mg Gum) 2 mg BUCCAL Q2H PRN PRN Reason: nicotine withdrawal Last Admin: 11/22/23 15:05 Dose: 2 mg Nicotine Polacrilex (Nicotine Polacrilex 2 Mg Gum) 4 mg BUCCAL Q2H PRN PRN Reason: Nicotine Cravings Last Admin: 11/24/23 08:19 Dose: 4 mg Pt Own (Sofosbuvir- Velpatasvir 400-100 Mg Tablet) 1 tab PO DAILY [facility] Last Admin: 11/24/23 08:19 Dose: 1 tab Oxcarbazepine (Oxcarbazepine 300 Mg Tablet) 300 mg PO TID [facility] Last Admin: 11/24/23 08:12 Dose: 300 mg Allergies Allergies Allergy/AdvReac Type Severity Reaction Status Date / Time fish derived [FISH] Allergy Severe ANAPHYLAXIS Verified 11/08/23 00:00 quetiapine [From SEROQUEL] AdvReac Severe INVOLUNTARY Verified 11/08/23 00:00 SPASMS trazodone AdvReac Unknown INVOLUNTARY Verified 11/08/23 00:00 SPASMS SEAFOOD Allergy Severe ANAPHYLAXIS Uncoded 03/04/21 20:52 Assessment & Plan Assessment & Plan (1) Cocaine use: Status: Acute Code(s): F14.90 - Cocaine use, unspecified, uncomplicated (2) Chronic post-traumatic stress disorder (PTSD): Status: Chronic Code(s): F43.12 - Post-traumatic stress disorder, chronic (3) Opioid use disorder: Status: Chronic Code(s): F11.99 - Opioid use, unspecified with unspecified opioid-induced disorder (4) Cannabis use disorder: Status: Acute Code(s): F12.90 - Cannabis use, unspecified, uncomplicated Plan 3/4: restart/continue prior med regimen of wellbutrin, trileptal, gabapentin, doxepin, melatonin, hydroxyzine, clonidine. DC adderall. pt's utox is NEG for adderall and POS for cocaine, opioids, fentanyl, and cannabis. this supports diversion. start prazosin 1 mg QHS for nightmares and insomnia in PTSD. 35: pt not happy to have stimulant Rx denied. asking for medications for anxiety, ruled klonopin out, pt declined other options. asking if MD would be OK if he discharged to his father's house, otherwise planning to attend [facility]. Reason for continued inpatient stay Substantial Risk for: inability to function and rapid decompensation Time Spent With Patient Time: Total time managing care of this patient today __25__ minutes.
[2023-11-24 20:15] VITALS: PULSE 75; RESP 16; TEMP 36.9; O2SAT 100
[2023-11-24] MEDS: hydrOXYzine HCL 50 MG TABLET PO (20:38)
[2023-11-24] MEDS: Doxepin HCl 25 MG CAPSULE 100 MG PO (20:38)
[2023-11-24] MEDS: Mineral Oil/Petrolatum,White 106 GM Tube 1 APPL TOPICAL (20:39)
[2023-11-25] MEDS: methADONE HCl 20 MG/2 ML ORAL.CONC 145 MG PO (06:02)
[2023-11-25] MEDS: cloNIDine HCL 0.1 MG TABLET PO ×3 (08:37→17:23)
[2023-11-25] MEDS: buPROPion HCl XL 300 MG TAB.ER.24H PO (08:37)
[2023-11-25] MEDS: Nicotine 21 MG PATCH.TD24 TRANSDERMA (08:37)
[2023-11-25] MEDS: Nicotine Polacrilex 2 MG GUM BUCCAL (08:37)
[2023-11-25] MEDS: Gabapentin 400 MG CAPSULE 800 MG PO ×4 (08:37→20:41)
[2023-11-25] MEDS: Fenofibrate 54 MG TABLET PO (08:37)
[2023-11-25] MEDS: Bacitracin Oint 14 GM TUBE 1 APPL TOPICAL (08:42)
[2023-11-25] MEDS: OXcarbazepine 300 MG TABLET PO ×3 (08:44→20:41)
[2023-11-25 09:24] VITALS: BP 136/88; PULSE 64; RESP 20; TEMP 36.1; O2SAT 97
[2023-11-25 13:35] VITALS: BP 135/87; PULSE 83
[2023-11-25] MEDS: Nicotine Polacrilex 2 MG GUM 4 MG BUCCAL (13:37)
[2023-11-25] MEDS: hydrOXYzine HCL 50 MG TABLET PO (13:38)
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
[2023-11-25 17:15] VITALS: BP 140/78; PULSE 85
[2023-11-25 20:00] VITALS: RESP 18
[2023-11-25] MEDS: Doxepin HCl 25 MG CAPSULE 100 MG PO (20:41)
[2023-11-25] MEDS: Melatonin 3 MG TABLET 9 MG PO (20:45)
[2023-11-26] MEDS: methADONE HCl 20 MG/2 ML ORAL.CONC 145 MG PO (06:03)
[2023-11-26] MEDS: Fenofibrate 54 MG TABLET PO (08:39)
[2023-11-26] MEDS: OXcarbazepine 300 MG TABLET PO (08:39)
[2023-11-26] MEDS: buPROPion HCl XL 300 MG TAB.ER.24H PO (08:39)
[2023-11-26] MEDS: Gabapentin 400 MG CAPSULE 800 MG PO (08:39)
[2023-11-26 08:54] VITALS: BP 106/62; PULSE 62; RESP 20; TEMP 36.2; O2SAT 94
[2023-11-26] MEDS: Naloxone HCl Nasal TAKE HOME 4 MG SPRAY 8 MG NOSTRILALT (10:55)
== END 2023-11-26 11:25 | disposition home or self-care (01) | DRG 882 ==
LOC: HO.ED 16:09 → HO.PADLT16 11-22 15:38
PROVIDERS: Physician Assistant; Admitting Provider Psychiatry & Neurology Psychiatry; Emergency Provider Emergency Medicine Emergency Medical Services; PCP Internal Medicine; Visit Provider Psychiatry & Neurology Psychiatry
DX: F43.12 Post-traumatic stress disorder, chronic (principal); F11.20 Opioid dependence, uncomplicated; F14.90 Cocaine use, unspecified, uncomplicated; F12.90 Cannabis use, unspecified, uncomplicated; Z20.822 Contact with and (suspected) exposure to COVID-19; Z79.899 Other long term (current) drug therapy
CPT/HCPCS: 36415; 80053; 80307; 81001; 81003; 83735; 85025; 87635; 93005; 99285; S9485

== ENCOUNTER → 2023-11-22 13:15 | Outpatient (BNV) | payer OTHER, SELFPAY | PROVIDERS: Admitting Provider Psychiatry & Neurology Psychiatry; Emergency Provider Emergency Medicine Emergency Medical Services; PCP Internal Medicine; Visit Provider Internal Medicine Cardiovascular Disease | DX: R00.1 Bradycardia, unspecified (principal) | CPT/HCPCS: 93010 ==

== ENCOUNTER → 2023-11-22 15:31 | Outpatient (BNV) | payer OTHER, SELFPAY | PROVIDERS: Admitting Provider Psychiatry & Neurology Psychiatry; Emergency Provider Emergency Medicine Emergency Medical Services; PCP Internal Medicine; Visit Provider Psychiatry & Neurology Psychiatry | DX: F14.90 Cocaine use, unspecified, uncomplicated (principal); F43.12 Post-traumatic stress disorder, chronic; F11.90 Opioid use, unspecified, uncomplicated; F12.90 Cannabis use, unspecified, uncomplicated | CPT/HCPCS: 90792; 99231; 99232; 99239 ==

== ENCOUNTER 2024-06-25 05:07 | Emergency (ER) | payer OTHER, SELFPAY ==
[2024-06-25 05:17] VITALS: BP 130/82; BP 139/85; PULSE 88; PULSE 92; RESP 18; TEMP 36.8; O2SAT 94; O2SAT 96; BMI 33.9
[2024-06-25 05:28] VITALS: BP 133/83; PULSE 82; RESP 19; TEMP 36.6; O2SAT 94
--- NOTE | 2024-06-25 05:32 | MHC.EDTECH ---
patient changed over into hospital gown/clothes. patient belongings taken with security to [facility].
--- OUTSIDE RECORDS SUMMARY | 2024-06-25 06:03 | XMS_ITS | Continuity of Care Document ---
Author Organization [facility] Address [address] [place] [address]- Care Team Providers Care Reducing System Operator Name Role Phone Darinel SHERIDAN, Erika Primary Care Physician Encounter [facility] Date(s): 03/06/21 - 03/08/21 [facility] [address] [place] [address]- Discharge Disposition: A-D/C Home Attending Physician: Kiera Smith MD Admitting Physician: Kiera Smith MD Referring Physician: Not on Staff, Referring MD Allergies, Adverse Reactions, Alerts Substance Reaction Severity Status Fish Active TraZODone Hydrochloride Acti ve SEROquel Active Immunizations Not Given Vaccine Date Status Refusal Reason pneumococcal 23-valent vaccine 12/04/20 Not Given Patient Refuses pneumococcal 23-valent vaccine 07/08/15 Not Given Patient Refuses influenza virus vaccine, inactivated 07/08/15 Not Given Patient Refuses Medications amphetamine-dextroamphetamine 30 mg oral capsule, extended release 1 capsule = 30 mg, By Mouth, Daily, # 30 capsule, 0 Refills, Maintenance, 03/08/21 14:22:00 EDT, ERCapsule, [facility] #[id number], Partial fill upon patient request if the prescription is for a schedule II opioid drug., 1 capsule By Mouth Daily... Start Date: 03/08/21 Status: Ordered clonazePAM 1 mg oral tablet 1 tablet = 1 mg, By Mouth, 3 times a day, PRN Anxiety, # 90 tablet, 1 Refills, Maintenance, 03/08/21 11:08:00 EDT, [facility] #[id number], Partial fill upon patient request if the prescription is for a schedule II opioid drug., 182.88, cm... Start Date: 03/08/21 Stop Date: 05/07/21 Status: Ordered docusate-senna 50 mg-8.6 mg oral capsule 1 capsule, By Mouth, 2 times a day, # 60 capsule, 1 Refills, Maintenance, 03/08/21 11:08:00 EDT, Capsule, [facility] #[id number], Partial fill upon patient request if the prescription is for a schedule II opioid drug., 1 capsule By Mouth 2 times... Start Date: 03/08/21 Status: Ordered doxazosin 1 mg oral tablet 1 mg, Tablet, By Mouth, 03/07/21 21:00:00 EDT Start Date: 03/07/21 Stop Date: 03/07/21 Status: Completed doxazosin 2 mg oral tablet 2 mg, 1, tablet, By Mouth, Daily, # 30 tablet, Refills 1, Tot. Refills 1, Maintenance, 03/08/21 11:12:00 EDT, Route to Pharmacy Electronically, [facility] #[id number], Partial fill upon patient request if the prescription is for a schedule II opi... Start Date: 03/08/21 Status: Ordered gabapentin 400 mg oral capsule 1,200 mg, Capsule, By Mouth, 03/08/21 9:00:00 EDT Start Date: 03/08/21 Stop Date: 03/08/21 Status: Completed gabapentin 400 mg oral capsule 1,200 mg, Capsule, By Mouth, 03/08/21 15:00:00 EDT Start Date: 03/08/21 Stop Date: 03/08/21 Status: Completed gabapentin 600 mg oral tablet 2 tablet = 1,200 mg, By Mouth, 3 times a day, # 180 tablet, 1 Refills, Maintenance, 03/08/21 11:09:00 EDT, Tablet, [facility] #[id number], Partial fill upon patient request if the prescription is for a schedule II opioid drug., 182.88, cm, ... Start Date: 03/08/21 Status: Ordered hydrOXYzine pamoate 50 mg oral capsule = 50 mg, By Mouth, 3 times a day, PRN Anxiety, # 90 capsule, 1 Refills, Maintenance, 03/08/21 11:12:00 EDT, Capsule, [facility] #[id number], Partial fill upon patient request if the prescriptionis for a schedule II opioid drug., 182.88, cm, 02/19... Start Date: 03/08/21 Status: Ordered lurasidone 60 mg oral tablet 1 tablet = 60 mg, By Mouth, Daily, # 30 tablet, 1 Refills, Maintenance, 03/08/21 11:10:00 EDT, Tablet, [facility] #[id number], Partial fill upon patient request if the prescription is for a schedule II opioid drug., 182.88, cm, 03/08/21 7:58:00 E... Start Date: 03/08/21 Status: Ordered melatonin 5 mg oral tablet 1 tablet = 5 mg, By Mouth, Daily at bedtime, # 30 tablet, 1 Refills, Maintenance, 03/08/21 11:11:00EDT, Tablet, [facility] #[id number], Partial fill upon patient request if the prescription is for a schedule II opioid drug., 182.88, cm, 03/08/21... Start Date: 03/08/21 Status: Ordered Methadone Liquid = 120 mg, By Mouth, Daily, 0 Refills, Maintenance, 03/06/21 12:02:00 EDT, [facility], Partial fill upon patient request if the prescription is for a schedule II opioid drug. Start Date: 03/06/21 Status: Ordered multivitamin Vitamin B Complex with C and Folic Acid oral capsule 1 capsule, By Mouth, Daily, # 30 capsule, 0 Refills, Maintenance, 12/17/20 16:46:00 EDT, Capsule, [facility], Partial fill upon patient request if the prescription is for a schedule II opioid drug., 1 capsule By Mouth Daily, 1... Start Date: 12/17/20 Status: Ordered Nicotine 2 mg gum 1 each = 2 mg, Chew, Every hour, PRN as needed for smoking cessation, # 160 each, 1 Refills, Maintenance, 03/08/21 11:23:00 EDT, Gum, [facility] #[id number], Partial fill upon patient request ifthe prescription is for a schedule II opioid drug.,... Start Date: 03/08/21 Status: Ordered Problem List Condition Effective Dates Status Health Status Inform ant Anxiety(Confirmed) Active Depression(Confirmed) Active Opioid use disorder(Confirmed) Active Vital Signs Most recent to oldest [Reference Range]: 1 2 3 Height 182.88 cm (03/08/21 7:58 AM) 182.88 cm (03/07/21 5:28 PM) 182.88 cm (03/07/21 8:27 AM) Weight 96.7 kg (03/06/21 12:04 PM) Oxygen Saturation [94-100 %] 98 % (03/08/21 7:58 AM) 100 % (03/07/21 5:28 PM) 98 % (03/07/21 8:27 AM) Pulse Rate [55-90 bpm] 74 bpm (03/08/21 7:58 AM) 61 bpm (03/07/21 5:28 PM) 76 bpm (03/07/21 8:27 AM) Body Mass Index [18.5-24.99] 28.91 *H* (03/06/21 12:04 PM) Blood Pressure [90-138/55-84 mm Hg] 115/72mm Hg (03/08/21 7:58 AM) 117/72mm Hg (03/07/21 9:10 PM) 130/76mm Hg (03/07/21 5:28 PM) Respiratory Rate [16-30 br/min] 18 br/min (03/08/21 2:23 PM) 18 br/min (03/08/21 12:03 PM) 18 br/min (03/08/21 8:02 AM) Temperature [96.8-100.4 DegF] 96.8 DegF (03/08/21 7:58 AM) 97 DegF (03/07/21 5:28 PM) 97.7 DegF (03/07/21 8:27 AM) Mode of Delivery (Oxygen) Room air (03/06/21 4:51 PM) Room air (03/06/21 12:04 PM) Blood pressure sites Arm, left (03/07/21 5:28 PM) Arm, left (03/06/21 4:51 PM) Arm, right (03/06/21 12:04 PM) Temperature Route Temporal (03/08/21 7:58 AM) Temporal (03/07/21 5:28 PM) Temporal (6/17/21 8:27 AM) Dry Weight 96.7 kg (03/06/21 12:04 PM) Sensory deficits None (03/06/21 12:04 PM) Social History Social History Type Response Smoking Status 5-9 cigarettes (betw een 1/4 to 1/2 pack)/day in last 30 days entered on: 08/21/20 Sex Male
--- OUTSIDE RECORDS SUMMARY | 2024-06-25 06:03 | XMS_ITS | Continuity of Care Document ---
Author Organization [facility] Address [address] [place] [address]- Care Team Providers Care Class A Truck Driver Name Role Phone Darinel SHERIDAN, Erika Primary Care Physician [phone] [place] [facility] [place] 04/24/20 [facility] [address] [place] [address]- [facility] Discharge Disposition: A-D/C Home Attending Physician: Madai Wright MD Admitting Physician: Madai Wright MD Referring Physician: Not on Staff, Referring MD Allergies, Adverse Reactions, Alerts Substance Reaction Severity Status Fish Active TraZODone Hydrochloride Acti ve SEROquel Active Immunizations Not Given Vaccine Date Status Refusal Reason influenza virus vaccine, inactivated 07/08/15 Not Given Patient Refuses pneumococcal 23-valent vaccine 07/08/15 Not Given Patient Refuses Medications amitriptyline 25 mg oral tablet 25 mg, 1, tablet, By Mouth, Daily at bedtime, # 30 tablet, Refills 0, Tot. Refills 0, Maintenance, 04/23/20 21:42:00 EDT, Route to Pharmacy Electronically, [facility] #[id number], 183, cm, 04/23/20 20:22:00 EDT, Height, 86.36, kg, 04/18/20 11:08:... Start Date: 04/23/20 Status: Ordered buPROPion 150 mg/24 hours (XL) oral tablet, extended release 1 tablet = 150 mg, By Mouth, Daily, # 30 tablet, 0 Refills, Maintenance, 04/23/20 21:40:00 EDT, XL Tablet, [facility] #[id number], 1 tablet By Mouth Daily, 183, cm, 04/23/20 20:22:00 EDT, Height, 86.36, kg, 04/18/20 11:08:00 EDT, Dry Weight Start Date: 04/23/20 Status: Ordered Colace sodium 100 mg oral capsule 100 mg, 1, capsule, By Mouth, 2 times a day, PRN, # 20 capsule, Refills 0, Maintenance, for constipation, 04/18/20 11:27:00 EDT Start Date: 04/18/20 Status: Ordered gabapentin 400 mg oral capsule 800 mg, 2, capsule, By Mouth, 3 times a day, # 180 capsule, Refills 0, Tot. Refills 0, Maintenance,04/23/20 21:40:00 EDT, Route to Pharmacy Electronically, [facility] #[id number], 183, cm, 04/23/20 20:22:00 EDT, Height, 86.36, kg, 04/18/20 11:08... Start Date: 04/23/20 Status: Ordered Ibuprofen 600 mg, By Mouth, Every 6 hours, PRN, Refills 0, Maintenance, Pain , Moderate, 04/18/20 11:27:00 EDT Start Date: 04/18/20 Status: Ordered Lexapro 10 mg oral tablet 1 tablet = 10 mg, By Mouth, Daily, # 30 tablet, 0 Refills, Maintenance, 04/23/20 21:42:00 EDT, Tablet, [facility] #[id number], 183, cm, 04/23/20 20:22:00 EDT, Height, 86.36, kg, 04/18/20 11:08:00 EDT, Dry Weight Start Date: 04/23/20 Status: Ordered Melatonin = 6 mg, By Mouth, Daily at bedtime, 0 Refills, Maintenance, 04/18/20 11:32:00 EDT Start Date: 04/18/20 Status: Ordered methadone 5 mg oral tablet By Mouth, Daily, 0 Refills, Maintenance, 04/23/20 21:42:00 EDT, Tablet, Partial fill upon patient request Start Date: 04/23/20 Status: Ordered MiraLax oral powder for reconstitution = 17 Gm, By Mouth, Daily, dissolve in water before taking, # 255 Gm, 0 Refills, Maintenance, 04/18/20 11:27:00 EDT, REC Powder Start Date: 04/18/20 Status: Ordered Vital Signs Most recent to oldest [Reference Range]: 1 2 3 Height 183 cm (04/24/20 8:02 AM) 183 cm (04/23/20 8:22 PM) 183 cm (04/22/20 7:56 AM) Weight 86.36 kg (04/18/20 11:08 AM) Oxygen Saturation [94-100 %] 99 % (04/24/20 8:02 AM) 99 % (04/23/20 8:22 PM) 97 % (04/23/20 8:08 AM) Pulse Rate [55-90 bpm] 82 bpm (04/24/20 8:02 AM) 70 bpm (04/23/20 8:22 PM) 70 bpm (04/23/20 8:08 AM) Body Mass Index [18.5-24.99] 25.79 *H* (04/18/20 11:08 AM) Blood Pressure [90-138/55-84 mm Hg] 149/87mm Hg *H* (04/24/20 8:02 AM) 142/82mm Hg *H* (04/23/20 8:22 PM) 125/78mm Hg (04/23/20 8:08 AM) Respiratory Rate [16-30 br/min] 18 br/min (04/24/20 8:07 AM) 18 br/min (04/24/20 8:06 AM) 18 br/min (04/24/20 8:02 AM) Temperature [96.8-100.4 DegF] 97.1 DegF (04/24/20 8:02 AM) 98.7 DegF (04/23/20 8:22 PM) 97.1 DegF (04/23/20 8:08 AM) Mode of Delivery (Oxygen) Room air (04/24/20 8:02 AM) Room air (04/23/20 8:22 PM) Room air (04/23/20 8:08 AM) Blood pressure sites Arm, left (04/24/20 8:02 AM) Arm, right (04/23/20 8:22 PM) Arm, left (04/22/20 7:56 AM) Temperature Route Oral (04/24/20 8:02 AM) Temporal (04/23/20 8:22 PM) Oral (04/23/20 8:08 AM) Dry Weight 86.36 kg (04/18/20 11:08 AM) Sensory deficits None (04/18/20 11:08 AM) Mobility assistance Independent (04/18/20 11:08 AM) Social History Social History Type Response Smoking Status Current every day fernando teran entered on: 03/12/17 Sex
--- OUTSIDE RECORDS SUMMARY | 2024-06-25 06:03 | XMS_ITS | Continuity of Care Document ---
Author Organization [facility] ter Address [address] [place] [address]- Care Team Providers Care Enrobing Machine Operator Name Role Phone Darinel SHERIDAN, Erika Primary Care Physician Encounter [facility] [place] Date(s): 05/17/20 - 05/18/[address] [address]- [facility] Discharge Disposition: A-D/C Home Attending Physician: Rohini Graf MD Admitting Physician: Rohini Graf MD Referring Physician: Not on Staff, Referring [...] 04/23/20 21:42:00 EDT, Route to Pharmacy Electronically, [facility] #[id number], 183, cm, 04/23/20 20:22:00 EDT, Height, 86.36, kg, 04/18/20 11:08:... Start Date: 04/23/20 Status: Ordered buPROPion 150 mg/24 hours (XL) oral tablet, extended release 1 tablet = 150 mg, By Mouth, Daily, # 30 tablet, 0 Refills, Maintenance, 04/23/20 21:40:00 EDT, XL Tablet, [facility] #[id number], 1 tablet By Mouth Daily, 183, cm, [...] Maintenance,04/23/20 21:40:00 EDT, Route to Pharmacy Electronically, [facility] #[id number], 183, cm, 04/23/20 20:22:00 EDT, Height, 86.36, kg, 04/18/20 11:08... Start Date: 04/23/20 Status: Ordered Ibuprofen 600 mg, By Mouth, Every 6 hours, PRN, Refills 0, Maintenance, Pain , Moderate, 04/18/20 11:27:00 EDT Start Date: 04/18/20 Status: Ordered Lexapro 10 mg oral tablet 1 tablet = 10 mg, By Mouth, Daily, # 30 tablet, 0 Refills, Maintenance, 04/23/20 21:42:00 EDT, Tablet, [facility] #[id number], 183, cm, 04/23/20 20:22:00 EDT, Height, 86.36, [...] REC Powder Start Date: 04/18/20 Status: Ordered Senna 8.6 mg oral tablet 8.6 mg, 1, tablet, By Mouth, Daily at bedtime, Refills 0, Maintenance, 05/18/20 22:26:00 EDT Start Date: 05/18/20 Status: Ordered Problem List Condition Effective Dates Status Health Status Inform ant Opioid use disorder(Confirmed) Active Vital Signs Most recent to oldest [Reference Range]: 1 2 3 Oxygen Saturation [94-100 %] 100 % (05/18/20 9:15 AM) 100 % (05/18/20 4:14 AM) 98 % (05/17/20 11:16 PM) Pulse Rate [55-90 bpm] 61 bpm (05/18/20 3:00 PM) 56 bpm (05/18/20 9:15 AM) 60 bpm (05/18/20 4:14 AM) Blood Pressure [90-138/55-84 mm Hg] 115/72mm Hg (05/18/20 3:00 PM) 124/74mm Hg (05/18/20 9:15 AM) 104/62mm Hg (05/18/20 4:14 AM) Respiratory Rate [16-30 br/min] 18 br/min (05/18/20 9:02 PM) 18 br/min (05/18/20 3:52 PM) 18 br/min (05/18/20 2:52 PM) Temperature [96.8-100.4 DegF] 97.6 DegF (05/18/20 3:00 PM) 97.9 DegF (05/18/20 9:15 AM) 97.9 DegF (05/18/20 4:14 AM) Liters per Minute 0 L/min (05/18/20 4:14 AM) Mode of Delivery (Oxygen) Room air (05/18/20 3:00 PM) Room air (05/18/20 9:15 AM) Room air (05/18/20 4:14 AM) Blood pressure sites Arm, left (05/18/20 3:00 PM) Arm, left (05/18/20 9:15 AM) Arm, right (05/17/20 11:16 PM) Temperature Route Oral (05/18/20 3:00 PM) Oral (05/18/20 9:15 AM) Oral (05/18/20 4:14 AM) Social History Social History Type Response Smoking Status Current every day sm oker entered on: 03/12/17 Sex Male
--- OUTSIDE RECORDS SUMMARY | 2024-06-25 06:03 | XMS_ITS | Continuity of Care Document ---
Author Organization [facility] ter Address [address] [place] [id number]- Care Team Providers Care Small Engine Technician Name Role Phone Not on Staff, PCP Primary Care Physician Unavail able [place] [facility] [place] 05/31/24 - 06/01/[address] [address]- Encounter Diagnosis Suicidal intent(Final) - 05/31/24 Discharge Disposition: Transfer to [facility] Facility Attending Physician: Dagoberto Esparza DO Admitting Physician: Dagoberto Esparza DO Referring Physician: Not on Staff, Referring MD Allergies, Adverse Reactions, Alerts Substance Reaction Severity Status Fish Active TraZODone Hydrochloride Acti ve SEROquel Active Medications amphetamine-dextroamphetamine 30 mg oral capsule, extended release 1 capsule = 30 mg, By Mouth, Daily, # 30 capsule, 0 Refills, Maintenance, 04/01/21 15:13:00 EDT, [id number], Partial fill upon patient request if the prescription is for aschedule II opioid drug., 1 capsule By Mouth Daily,... Start Date: 04/01/21 Status: Ordered clonazePAM 1 mg oral tablet 1 tablet = 1 mg, By Mouth, 3 times a day, PRN Anxiety, # 90 tablet, 1 Refills, Maintenance, 03/08/21 11:08:00 EDT, Tablet, [facility] #[id number], Partial fill upon patient request if the prescription is for a schedule II opioid drug., 182.88, cm... Start Date: 03/08/21 Stop Date: 05/07/21 Status: Ordered docusate-senna 50 mg-8.6 mg oral capsule 1 capsule, By Mouth, 2 times a day, # 60 capsule, 1 Refills, Maintenance, 03/08/21 11:08:00 EDT, Capsule, [facility] #[id number], Partial fill upon patient request if the prescription is for a schedule II opioid drug., 1 capsule By Mouth 2 times... Start Date: 03/08/21 Status: Ordered doxazosin 2 mg oral tablet 2 mg, 1, tablet, By Mouth, Daily, # 30 tablet, Refills 1, Tot. Refills 1, Maintenance, 03/08/21 11:12:00 EDT, Route to Pharmacy Electronically, [facility] #[id number], Partial fill upon patient request if the prescription is for a schedule II opi... Start Date: 03/08/21 Status: Ordered gabapentin 300 mg oral capsule 1,200 mg, 4, capsule, By Mouth, 3 times a day, # 84 capsule, Refills 0, Tot. Refills 0, Maintenance, 03/09/21 18:25:00 EDT, Route to Pharmacy Electronically, [facility]/pharmacy #[id number], Partial fill upon patient request if the prescription is for a schedule I... Start Date: 03/09/21 Stop Date: 03/16/21 Status: Ordered gabapentin 400 mg oral capsule 400 mg, Capsule, By Mouth, 06/01/24 9:00:00 EDT Start Date: 06/01/24 Stop Date: 06/01/24 Status: Completed gabapentin 600 mg oral tablet 2 tablet = 1,200 mg, By Mouth, 3 times a day, # 180 tablet, 1 Refills, Maintenance, 03/08/21 11:09:00 EDT, Tablet, [facility] #[id number], Partial fill upon patient request if the prescription is for a schedule II opioid drug., 182.88, cm, ... Start Date: 03/08/21 Status: Ordered hydrOXYzine pamoate 50 mg oral capsule = 50 mg, By Mouth, 3 times a day, PRN Anxiety, # 90 capsule, 1 Refills, Maintenance, 03/08/21 11:12:00 EDT, Capsule, [facility] #[id number], Partial fill upon patient request if the prescriptionis for a schedule II opioid drug., 182.88, cm, 02/19... Start Date: 03/08/21 Status: Ordered lurasidone 60 mg oral tablet 1 tablet = 60 mg, By Mouth, Daily, # 30 tablet, 1 Refills, Maintenance, 03/08/21 11:10:00 EDT, Tablet, [facility] #[id number], Partial fill upon patient request if the prescription is for a schedule II opioid drug., 182.88, cm, 03/08/21 7:58:00 E... Start Date: 03/08/21 Status: Ordered melatonin 5 mg oral tablet 1 tablet = 5 mg, By Mouth, Daily at bedtime, # 30 tablet, 1 Refills, Maintenance, 03/08/21 11:11:00EDT, Tablet, [facility] #[id number], Partial fill upon patient request if the prescription is for a schedule II opioid drug., 182.88, cm, 03/08/21... Start Date: 03/08/21 Status: Ordered Methadone Liquid 150 mg, Solution, By Mouth, confirmed with [facility], STAT, 06/01/24 6:49:00 EDT Start Date: 06/01/24 Stop Date: 06/01/24 Status: Completed Methadone Liquid = 120 mg, By Mouth, Daily, 0 Refills, Maintenance, 03/06/21 12:02:00 EDT, Solution, Partial fill upon patient request if the prescription is for a schedule II opioid drug. Start Date: 03/06/21 Status: Ordered multivitamin Vitamin B Complex with C and Folic Acid oral capsule 1 capsule, By Mouth, Daily, # 30 capsule, 0 Refills, Maintenance, 12/17/20 16:46:00 EDT, Capsule, [facility], Partial fill upon patient request if the prescription is for a schedule II opioid drug., 1 capsule By Mouth Daily, 1... Start Date: 12/17/20 Status: Ordered Nicotine 2 mg gum 1 each = 2 mg, Chew, Every hour, PRN as needed for smoking cessation, # 160 each, 1 Refills, Maintenance, 03/08/21 11:23:00 EDT, Gum, [facility] #[id number], Partial fill upon patient request ifthe prescription is for a schedule II opioid drug.,... Start Date: 03/08/21 Status: Ordered Problem List Condition Confirmation Course Effective Dates Status Health St [facility] Informant Anxiety Confirmed Active Depression Confirmed Active Obese class I Confirmed Active Opioid use disorder Confirmed Active Vital Signs Most recent to oldest [Reference Range]: 1 2 3 Height 180 cm (06/01/24:27 AM) 180 cm (05/31/24 4:55 PM) 180 cm (05/31/24 4:45 PM) Weight 104 kg (06/01/24:27 AM) 104 kg (05/31/24 4:55 PM) 104 kg (05/31/24 4:45 PM) Oxygen Saturation [94-100 %] 97 % (06/01/24: AM) 96 % (05/31/24 7:44 PM) 96 % (05/31/24 4:45 PM) Pulse Rate [55-90 bpm] 63 bpm (06/01/24: AM) 75 bpm (05/31/24 7:44 PM) 88 bpm (05/31/24 4:45 PM) Body Mass Index [18.5-24.99 kg/m2] 32.1 kg/m2 *>HHI* (06/01/24:27 AM) 32.1 kg/m2 *>HHI* (05/31/24 4:45 PM) Blood Pressure [90-138/55-84 mm Hg] 96/75mm Hg (06/01/24:27 AM) 120/78mm Hg (05/31/24 7:44 PM) 145/76mm Hg *H* (05/31/24 4:45 PM) Respiratory Rate [16-30 br/min] 18 br/min (06/01/24 8:25 AM) 18 br/min (06/01/24 7:53 AM) 16 br/min (06/01/24 7: AM) Temperature [96.8-100.4 DegF] 98.0 DegF (06/01/24:27 AM) 97.7 DegF (05/31/24 7:44 PM) 98.4 DegF (05/31/24 4:45 PM) Mode of Delivery (Oxygen) Room air (06/01/24 7:27 AM) Room air (05/31/24 7:44 PM) Room air (05/31/24 4:45 PM) Blood pressure sites Arm, right (06/01/24 7:27 AM) Arm, right (05/31/24 4:45 PM) Temperature Route Oral (06/01/24 7:27 AM) Oral (05/31/24 7:44 PM) Oral (05/31/24 4:45 PM) Dry Weight 104 kg (06/01/24 7:27 AM) 104 kg (05/31/24 4:55 PM) 104 kg (05/31/24 4:45 PM) Weight Obtained Via Patient/family state d (05/31/24 4:45 PM) Dry Weight Obtained Via Patient/family s tated (05/31/24 4:45 PM) Social History Social History Type Response Smoking Status 5-9 cigarettes (betw een 1/4 to 1/2 pack)/day in last 30 days entered on: 08/21/20 Sex Male History and physical note * Event Display: History and Physical Hospital Authored Date: EKG study * Event Display: EKG Authored Date: * Event Display: ECG 12-Lead Authored Date: Please click on pdf link to open report * Event Display: ECG 12-Lead Authored Date: Ventricular Rate: 72 BPM Atrial Rate: 72 BPM P-R Interval: 186 ms QRS Duration: 112 ms Q-T Interval: 436 ms QTC Calculation(Bazett): 477 ms P [place]: 30 degrees R [place]: 35 degrees T [place]: 12 degrees Normal sinus rhythm Normal ECG When compared with ECG of 06-MAR-2021 13:23, QT has lengthened Confirmed by CHRIS HA MD ([id number]) on 06/01/2024 8:23:01 AM [facility]: CHRIS HA MD Patient Care team information Care Team Personnel Name: Isaac Randolph RN Position: [facility] RN Member Role: Primary Care Nurse Name: Ana Luisa Jorgensen RN Position: [facility] RN Member Role: Primary Care Nurse Name: Sabra Fofana RN Position: [facility] RN Member Role: Primary Care Nurse Name: Kiera Mercer RN Position: [facility] RN Member Role: Primary Care Nurse Name: Saniya Rey RN Position: [facility] ED RN W/OE and Tasks Member Role: Primary Care Nurse Name: Tom Harp RN Position: [facility] RN Member Role: Primary Care Nurse Name: Not on Staff, PCP Position: [facility] Physician (General Medicine) Member Role: PCP Name: Philomena Mcnamara RN Position: [facility] RN Member Role: Primary Care Nurse Name: Kassie Phillips RN Position: [facility] RN Member Role: Primary Care Nurse Name: Claudia Medley RN Position: [facility] Hospital Merchandiser Seasonal Member Role: Primary Care Nurse Care Team Related Persons Name: MIRTHA MORRIS JR Address: [address] [place] [address] Name: YANETH LINARES Address: home [address] [place] [address]
--- OUTSIDE RECORDS SUMMARY | 2024-06-25 06:03 | XMS_ITS | Continuity of Care Document ---
Author Organization [facility] ter Address [address] [place] [id number]- Care Team Providers Care Food Service Substitute Name Role Phone Darinel SHERIDAN, Erika Primary Care Physician [place] [facility] [place] 09[place] - 10/01/[address] [address]- Encounter Diagnosis Ingestion of toxic substance(Final) - 09/28/20 Discharge Disposition: Transfer to [facility] Facility Attending Physician: Marian Chen MD Admitting Physician: Junaid Villalpando MD Referring Physician: Not on Staff, Referring MD Allergies, Adverse Reactions, Alerts Substance Reaction Severity Status Fish Active TraZODone Hydrochloride Acti ve SEROquel Active Immunizations Not Given Vaccine Date Status Refusal Reason pneumococcal 23-valent vaccine 07/08/15 Not Given Patient Refuses influenza virus vaccine, inactivated 07/08/15 Not Given Patient Refuses Medications acetaminophen 325 mg oral tablet 650 mg, By Mouth, Every 4 hours, PRN, Temperature Greater than 100.5, Refills 0, Maintenance, Pain , Mild, 10/01/20 13:43:00 EST, Partial fill upon patient request if the prescription is for a schedule II opioid drug. Start Date: 10/01/20 Status: Ordered Acetaminophen Tablet 650 mg, Tablet, By Mouth, Every 4 hours, PRN for Pain , Mild, Temperature Greater than 100.5, Routine, 09/28/20 7:55:00 EST Start Date: 09/28/20 Stop Date: 10/28/20 Status: Ordered Ambien 5 mg oral tablet 1 tablet = 5 mg, By Mouth, Daily at bedtime, PRN Sleep, 0 Refills, Maintenance, 09/24/20 11:43:00 EST, Tablet, Partial fill upon patient request if the prescription is for a schedule II opioid drug. Start Date: 09/24/20 Status: Ordered buPROPion 200 mg/12 hours (SR) oral tablet, extended release 1 tablet = 200 mg, By Mouth, Daily, # 30 tablet, 1 Refills, Maintenance, 09/24/20 11:40:00 EST, ER Tablet, [facility] #[id number], Partial fill upon patient request if the prescription is for a schedule II opioid drug., 178, cm, 09/24/20 8:49:00 E... Start Date: 09/24/20 Status: Ordered clonazePAM 0.5 mg oral tablet 1 tablet = 0.5 mg, By Mouth, 2 times a day, PRN Anxiety, 0 Refills, Maintenance, 09/24/20 11:43:00 EST, Tablet, Partial fill upon patient request if the prescription is for a schedule II opioid drug. Start Date: 09/24/20 Status: Ordered cloNIDine 0.1 mg oral tablet 0.1 mg, 1, tablet, By Mouth, 2 times a day, PRN, # 60 tablet, Refills 1, Tot. Refills 1, Maintenance, Anxiety, 09/24/20 11:40:00 EST, Route to Pharmacy Electronically, [facility] #[id number], Partial fill upon patient request if the prescription i... Start Date: 09/24/20 Status: Ordered escitalopram 20 mg oral tablet 1 tablet = 20 mg, By Mouth, Daily, # 30 tablet, 1 Refills, Maintenance, 09/24/20 11:47:00 EST, [facility] #[id number], Partial fill upon patient request if the prescription is for a schedule II opioid drug., 178, cm, 09/24/20 8:49:00 EST, Height,... Start Date: 09/24/20 Status: Ordered folic acid 1 mg oral tablet 1 mg, 1, tablet, By Mouth, Daily, Refills 0, Maintenance, 10/01/20 13:43:00 EST, Partial fill upon patient request if the prescription is for a schedule II opioid drug. Start Date: 10/01/20 Status: Ordered gabapentin 400 mg oral capsule 1,200 mg, Capsule, By Mouth, 10/01/20 15:00:00 EST Start Date: 10/01/20 Stop Date: 10/01/20 Status: Completed gabapentin 600 mg oral tablet 2 tablet = 1,200 mg, By Mouth, 3 times a day, # 180 tablet, 1 Refills, Maintenance, 09/24/20 11:48:00 EST, [facility] #[id number], Partial fill upon patient request if the prescription is for a schedule II opioid drug., elsie Bro, 09/24/20 8:49:00 E... Start Date: 09/24/20 Status: Ordered hydrOXYzine pamoate 50 mg oral capsule = 50 mg, By Mouth, 2 times a day, PRN Anxiety, # 60 capsule, 1 Refills, Maintenance, 09/24/20 11:41:00 EST, Capsule, [facility][id number], Partial fill upon patient request if the prescription is for a schedule II opioid drug., elsie Bro, 09/24/20... Start Date: 09/24/20 Status: Ordered LORazepam 1 mg oral tablet 1 tablet = 1 mg, By Mouth, 3 times a day, PRN Other, severe anxiety, 0 Refills, Maintenance, 10/01/20 18:19:00 EST, Tablet, Partial fill upon patient request if the prescription is for a schedule II opioid drug. Start Date: 10/01/20 Status: Ordered methadone 10 mg/5 mL oral solution 55 mL = 110 mg, By Mouth, Daily, 0 Refills, Maintenance, 10/01/20 13:43:00 EST, Solution, Partial fill upon patient request if the prescription is for a schedule II opioid drug. Start Date: 10/01/20 Status: Ordered Multivitamin Tablet 1 tablet, By Mouth, Daily, 0 Refills, Maintenance, 10/01/20 13:43:00 EST, Tablet, Partial fill uponpatient request if the prescription is for a schedule II opioid drug. Start Date: 10/01/20 Status: Ordered Pyridoxine Tablet 50 mg, By Mouth, Daily, Refills 0, Maintenance, 10/01/20 18:20:00 EST, Partial fill upon patient request if the prescription is for a schedule II opioid drug. Start Date: 10/01/20 Status: Ordered thiamine 100 mg oral tablet 100 mg, 1, tablet, By Mouth, 2 times a day, Refills 0, Maintenance, 10/01/20 13:44:00 EST, Partial fill upon patient request if the prescription is for a schedule II opioid drug. Start Date: 10/01/20 Status: Ordered Problem List Condition Effective Dates Status Health Status Inform ant Anxiety(Confirmed) Active Depression(Confirmed) Active Opioid use disorder(Confirmed) Active Vital Signs Most recent to oldest [Reference Range]: 1 2 3 Height 184 cm (10/01/20 4:21 PM) 184 cm (10/01/20 12:38 PM) 184 cm (10/01/20 4:30 AM) Weight 102.5 kg (09/28/20 8:48 AM) Oxygen Saturation [94-100 %] 95 % (10/01/20 4:21 PM) 98 % (10/01/20 12:38 PM) 98 % (10/01/20 4:30 AM) Pulse Rate [55-90 bpm] 53 bpm *L* (10/01/20 4:21 PM) 62 bpm (10/01/20 12:38 PM) 50 bpm *L* (10/01/20 4:30 AM) Body Mass Index [18.5-24.99] 30.28 *>HHI* (09/28/20 8:48 AM) Blood Pressure [90-138/55-84 mm Hg] 101/60mm Hg (10/01/20 4:21 PM) 113/72mm Hg (10/01/20 12:38 PM) 110/71mm Hg (10/01/20 4:30 AM) Respiratory Rate [16-30 br/min] 18 br/min (10/01/20 4:21 PM) 18 br/min (10/01/20 3:36 PM) 18 br/min (10/01/20 3:36 PM) Temperature [96.8-100.4 DegF] 98.1 DegF (10/01/20 4:21 PM) 98.0 DegF (10/01/20 12:38 PM) 97.5 DegF (10/01/20 4:30 AM) Liters per Minute 1 L/min (09/29/20 6:15 AM) 1 L/min (09/28/20 11:04 PM) 1 L/min (09/28/20 8:48 AM) Mode of Delivery (Oxygen) Room air (10/01/20 4:21 PM) Room air (10/01/20 12:38 PM) Room air (10/01/20 4:30 AM) Blood pressure sites Arm, right (10/01/20 4:21 PM) Arm, right (10/01/20 12:38 PM) Arm, right (10/01/20 4:30 AM) Temperature Route Oral (10/01/20 4:21 PM) Oral (10/01/20 12:38 PM) Oral (10/01/20 4:30 AM) Dry Weight 102.5 kg (09/28/20 8:48 AM) Weight Obtained Via Bed scale (09/28/20 8:48 AM) Social History Social History Type Response Smoking Status 5-9 cigarettes (betw een 1/4 to 1/2 pack)/day in last 30 days entered on: 08/21/20 Sex Male
--- OUTSIDE RECORDS SUMMARY | 2024-06-25 06:03 | XMS_ITS | Continuity of Care Document ---
Author Organization [facility] ter Address [address] [place] [address]- Care Team Providers Care [employer] Offbearer Name Role Phone Darinel SHERIDAN, Erika Primary Care Physician [phone] [place] [facility] [place] 04/18/[address] [address]- [facility] Discharge Disposition: Transfer to [facility] Facility Attending Physician: Chepe Barr MD Admitting Physician: Chepe Barr MD Referring Physician: Not on Staff, Referring MD Allergies, Adverse Reactions, Alerts Substance Reaction Severity Status Fish Active TraZODone Hydrochloride Acti ve SEROquel Active Immunizations Not Given Vaccine Date Status Refusal Reason influenza virus vaccine, inactivated 07/08/15 Not Given Patient Refuses pneumococcal 23-valent vaccine 07/08/15 Not Given Patient Refuses Medications cloNIDine 0.1 mg oral tablet 0.1 mg, By Mouth, 4 times a day, Hold if dizzy and/or BP less than 100, # 30 tablet, Refills 0, Maintenance, 04/18/20 11:23:00 EDT Start Date: 04/18/20 Status: Ordered Colace sodium 100 mg oral capsule 100 mg, 1, capsule, By Mouth, 2 times a day, PRN, # 20 capsule, Refills 0, Maintenance, for constipation, 04/18/20 11:27:00 EDT Start Date: 04/18/20 Status: Ordered doxepin 50 mg oral capsule 1 capsule = 50 mg, By Mouth, Daily at bedtime, PRN Sleep, 0 Refills, Maintenance, 02/26/18 9:22:09 EDT Start Date: 02/26/18 Status: Ordered doxycycline monohydrate 100 mg oral capsule 1 capsule = 100 mg, By Mouth, 2 times a day, # 10 capsule, 0 Refills, Maintenance, 01/29/19 21:16:27 EDT, Capsule Start Date: 01/29/19 Stop Date: 02/03/19 Status: Ordered Effexor XR 37.5 mg oral capsule, extended release 37.5 mg, By Mouth, Daily, # 14 capsule, Refills 1, Tot. Refills 1, Maintenance, 03/02/18 9:14:20 EDT, Print Requisition Start Date: 03/02/18 Stop Date: 03/30/18 Status: Ordered Gabapentin = 400 mg, By Mouth, 3 times a day, 0 Refills, Maintenance, 04/18/20 11:30:00 EDT Start Date: 04/18/20 Status: Ordered gabapentin 800 mg oral tablet 1 tablet = 800 mg, By Mouth, 3 times a day, # 42 tablet, 1 Refills, Maintenance, 03/02/18 9:13:59 EDT, Tablet Start Date: 03/02/18 Stop Date: 03/30/18 Status: Ordered Ibuprofen 600 mg, By Mouth, Every 6 hours, PRN, Refills 0, Maintenance, Pain , Moderate, 04/18/20 11:27:00 EDT Start Date: 04/18/20 Status: Ordered Keflex monohydrate 500 mg oral capsule = 500 mg, By Mouth, 4 times a day, # 28 capsule, 0 Refills, Maintenance, 11/06/18 8:04:44 EST Start Date: 11/06/18 Status: Ordered Melatonin = 6 mg, By Mouth, Daily at bedtime, 0 Refills, Maintenance, 04/18/20 11:32:00 EDT Start Date: 04/18/20 Status: Ordered methadone 10 mg oral tablet 6 tablets, By Mouth, Daily, 0 Refills, Maintenance, 02/26/18 9:24:20 EDT Start Date: 02/26/18 Status: Ordered Methocarbamol Tablet 500 mg, By Mouth, 3 times a day, PRN, Refills 0, Maintenance, Pain , Moderate, 04/18/20 11:28:00 EDT Start Date: 04/18/20 Status: Ordered MiraLax oral powder for reconstitution = 17 Gm, By Mouth, Daily, dissolve in water before taking, # 255 Gm, 0 Refills, Maintenance, 04/18/20 11:27:00 EDT, REC Powder Start Date: 04/18/20 Status: Ordered Nicotine = 21 mg, Topically, Daily, 0 Refills, Maintenance, 07/09/15 15:15:56, Patch Start Date: 07/09/15 Status: Ordered Vistaril Capsule = 25 mg, By Mouth, 2 times a day, PRN as needed for anxiety, 0 Refills, Maintenance, 04/18/20 11:31:00 EDT Start Date: 04/18/20 Status: Ordered Wellbutrin 75 mg oral tablet = 75 mg, By Mouth, 2 times a day, 0 Refills, Maintenance, 04/18/20 11:30:00 EDT Start Date: 04/18/20 Status: Ordered Vital Signs Most recent to oldest [Reference Range]: 1 2 3 Oxygen Saturation [94-100 %] 99 % (04/18/20 6:34 AM) 100 % (04/17/20 6:20 PM) 100 % (04/17/20 5:57 PM) Pulse Rate [55-90 bpm] 77 bpm (04/18/20 6:34 AM) 86 bpm (04/17/20 6:20 PM) 49 bpm *L* (04/17/20 5:57 PM) Blood Pressure [90-138/55-84 mm Hg] 105/64mm Hg (04/18/20 6:34 AM) 124/52mm Hg (04/17/20 6:20 PM) 132/77mm Hg (04/17/20 5:57 PM) Respiratory Rate [16-30 br/min] 18 br/min (04/18/20 9:05 AM) 18 br/min (04/18/20 9:05 AM) 17 br/min (04/18/20 6:34 AM) Temperature [96.8-100.4 DegF] 98.3 DegF (04/18/20 6:34 AM) 97.6 DegF (04/17/20 6:20 PM) 98.1 DegF (04/17/20 10:05 AM) Mode of Delivery (Oxygen) Room air (04/18/20 6:34 AM) Room air (04/17/20 6:20 PM) Room air (04/17/20 10:05 AM) Blood pressure sites Arm, right (04/18/20 6:34 AM) Arm, left (04/17/20 6:20 PM) Arm, right (04/17/20 1:21 AM) Temperature Route Oral (04/18/20 6:34 AM) Oral (04/17/20 6:20 PM) Oral (04/17/20 10:05 AM) Social History Social History Type Response Smoking Status Current every day fernando teran entered on: 03/12/17 Sex
--- OUTSIDE RECORDS SUMMARY | 2024-06-25 06:03 | XMS_ITS | Continuity of Care Document ---
Author Organization [facility] Address [address] [place] [id number] Encounter EMILEE GUERRA [id number] Date(s): 09/10/23 - 09/10/[address] [address] - Encounter Diagnosis Constipation(Discharge Diagnosis) - 09/10/23 Renal cyst(Discharge Diagnosis) - 09/10/23 Discharge Disposition: Home or Self Care Attending Physician: Kassie Carbajal NP Admitting Physician: Kassie Carbajal NP Referring Physician: Kassie Carbajal NP Allergies, Adverse Reactions, Alerts Substance Reaction Severity Status Seroquel Unknown Active traZODone Unknown Active Functional Status 09/10/23 Recent Travel History No recent travel Family Member Travel History No recent t ravel Other exposure to Infectious Disease Non e Medications buPROPion 300 mg/24 hours (XL) oral tablet, extended release 300 mg = 1 tab, Oral, Daily, # 30 tab, 0 Refill(s), Start Date: 09/10/23 5:01:00 PM IN HOME AIDE Start Date: 09/10/23 Status: Ordered cloNIDine 0.1 mg oral tablet 0.1 mg = 1 tab, Oral, TID, PRN anxiety, # 120 tab, 0 Refill(s), Start Date: 06/28/23 2:35:00 PM CDT Start Date: 06/28/23 Status: Ordered dextroamphetamine-amphetamine 10 mg oral capsule, extended release 10 mg = 1 cap, Oral, every morning, 0 Refill(s), Start Date: 09/10/23 5:01:00 PM IN HOME AIDE Start Date: 09/10/23 Status: Ordered doxepin 75 mg oral capsule 75 mg = 1 cap, Oral, every day at bedtime Start Date: 06/28/23 Status: Ordered famotidine 20 mg oral tablet 20 mg = 1 tab, Oral, BID, # 180 tab, 0 Refill(s), Start Date: 09/10/23 5:01:00 PM IN HOME AIDE Start Date: 09/10/23 Status: Ordered gabapentin 800 mg oral tablet 800 mg = 1 tab, Oral, TID, TAKE 1 TABLET BY MOUTH THREE TIMES A DAY FOR 30 DAYS Start Date: 06/28/23 Status: Ordered hydrOXYzine pamoate 50 mg oral capsule 50 mg = 1 cap, Oral, TID, PRN as needed for anxiety, # 40 cap, 0 Refill(s), Start Date: 06/28/23 2:34:00 PM CDT Start Date: 06/28/23 Status: Ordered methadone 145 mg =, Oral, Daily, 0 Refill(s), Start Date: 06/28/23 2:35:00 PM CDT Start Date: 06/28/23 Status: Ordered OXcarbazepine 300 mg oral tablet TAKE 1 TABLET BY MOUTH TWICE A DAY DIRECTED Start Date: 09/10/23 Status: Ordered sofosbuvir-velpatasvir 400 mg-100 mg oral tablet 1 tab, Oral, Daily, # 28 tab, 0 Refill(s), Start Date: 09/10/23 5:01:00 PM IN HOME AIDE Start Date: 09/10/23 Status: Ordered Problem List Condition Confirmation Course Effective Dates Status Health St at[facility] Informant Anxiety Confirmed Active Depression Confirmed Active Hepacivirus C antigen Confirmed Active PTSD (post-traumatic stress disorder) checklist for DSM-5 (Diagnostic and Statistical Manual of Mental Disorders - Fifth edition) Confirmed Active Results Laboratory List Name Date Urinalysis Complete with Culture if Rosa cated 09/10/23 Urinalysis Microscopic 09/10/23 Automated Differential 09/10/23 Basic Metabolic Panel (BMP) 09/10/23 CBC w/ Differential 09/10/23 Most recent to oldest [Reference Range]: 1 WBC [4.5-11.0 x10^3/mcL] 7.3 x10^3/mcL (09/10/23 6:34 PM) RBC [4.43-5.94 x10^6/mcL] 4.38 x10^6/mcL *LOW* (09/10/23 6:34 PM) Neutro Auto [42.0-72.0 %] 45.0 % (09/10/23 6:34 PM) Lymph Auto [25.0-45.0 %] 40.8 % (09/10/23 6:34 PM) Collier Auto [3.0-10.0 %] 7.7 % (09/10/23 6:34 PM) Basophil Auto [0.0-2.0 %] 0.4 % (09/10/23 6:34 PM) BUN [8-21 mg/dL] 12 mg/dL (09/10/23 6:34 PM) UA Color Light-Yellow *NA* (09/10/23 7:16 PM) UA WBC [0-5] 1 (09/10/23 7:16 PM) Glucose Level [70-100 mg/dL] 89 mg/dL (09/10/23 6:34 PM) Potassium Level [3.5-5.3 mmol/L] 4.2 mmo l/L (09/10/23 6:34 PM) Baso Absolute [0.00-0.20 x10^3/mcL] 0.03 x10^3/mcL (09/10/23 6:34 PM) MCV [81.0-97.0 fL] 86.1 fL (09/10/23 6:34 PM) UA Urobilinogen [Normal] Normal (09/10/23 7:16 PM) UA Bili [Normal] Negative (09/10/23 7:16 PM) UA Ketones [Negative] Negative (09/10/23 7:16 PM) MCHC [32.3-36.5 g/dL] 36.1 g/dL (09/10/23 6:34 PM) Sodium Level [136-145 mmol/L] 138 mmol/L (09/10/23 6:34 PM) UA RBC [0-3 /HPF] 1 /HPF (09/10/23 7:16 PM) UA Leuk Est [Negative] Negative (09/10/23 7:16 PM) Lymph Absolute [1.30-3.40 x10^3/mcL] 2.9 8 x10^3/mcL (09/10/23 6:34 PM) UA Nitrite Negative (09/10/23 7:16 PM) UA Glucose [Normal] Normal (09/10/23 7:16 PM) Hct [36.0-50.0 %] 37.7 % (09/10/23 6:34 PM) Calcium Level [8.7-10.4 mg/dL] 9.1 mg/dL (09/10/23 6:34 PM) Collier Absolute [0.00-0.60 x10^3/mcL] 0.56 x10^3/mcL (09/10/23 6:34 PM) UA Protein [Negative] Negative (09/10/23 7:16 PM) MCH [26.5-32.5 pg] 31.1 pg (09/10/23 6:34 PM) Neutro Absolute [1.40-6.50 x10^3/mcL] 3. 29 x10^3/mcL (09/10/23 6:34 PM) Hgb [12.9-17.7 g/dL] 13.6 g/dL (09/10/23 6:34 PM) UA Blood [Negative mg/dL] Negative mg/dL (09/10/23 7:16 PM) MPV [9.4-12.4 fL] 11.0 fL (09/10/23 6:34 PM) UA Mucous Rare /LPF *ABN* (09/10/23 7:16 PM) UA Spec Grav [1.005-1.035] 1.010 *NA* (09/10/23 7:16 PM) Platelets [150-450 x10^3/mcL] 224 x10^3/ mcL (09/10/23 6:34 PM) CO2 [24-31 mmol/L] 27 mmol/L (09/10/23 6:34 PM) Eos Absolute [0.00-0.30 x10^3/mcL] 0.44 x10^3/mcL *HI* (09/10/23 6:34 PM) UA pH [5.0-8.0] 6.5 (09/10/23 7:16 PM) UA Appear [Clear] Clear (09/10/23 7:16 PM) Chloride Level [98-107 mmol/L] 107 mmol/ L (09/10/23 6:34 PM) BUN/Creat Ratio [10.0-20.0 mg/dL] 11.5 m g/dL (09/10/23 6:34 PM) Imm Gran Auto [0.001-0.429 %] 0.100 % (09/10/23 6:34 PM) RDW-CV [12.0-15.0 %] 12.5 % (09/10/23 6:34 PM) UA Culture Indicated? Not Indicated (09/10/23 7:16 PM) Creatinine Level [0.70-1.30 mg/dL] 1.04 mg/dL (09/10/23 6:34 PM) Anion Gap [3-16] 4 (09/10/23 6:34 PM) Eos, Auto [0.0-5.0 %] 6.0 % *HI* (09/10/23 6:34 PM) eGFR CKD-EPI [>=60 mL/min/1.73 m2] >60 m L/min/1.73 m2 (09/10/23 6:34 PM) Radiology Reports * Exam Date Time Procedure Performing Provider Status 09/10/23 6:[address] Abdomen and Pelvi s w/ Contrast Cyril Washington (Verified) Notes: (CT Abdomen and Pelvis w/ Contrast) Reason For Exam: L sided abd tenderness CT Abdomen and Pelvis w/ Contrast HISTORY: L sided abd tenderness TECHNIQUE: Helical, multidetector row CT was performed through the abdomen and pelvis following administration of low-osmolar intravenous contrast material via power injector. Targeted CT protocols using provided history and dose modulation techniques based on this patient's anatomy were employed to minimize radiation exposure. Image post-processing was performed in the axial, coronal and sagittal planes. COMPARISON: None FINDINGS: Lower chest: No acute abnormality is seen in the visualized heart and lungs. Liver: No suspicious liver lesions. Biliary: No biliary dilatation. Gallbladder: Normal. Pancreas: Normal. Spleen: Normal. Adrenals: Normal. Kidneys/Ureters: There is a 1.5 cm hypodensity within the right mid kidney which is technically indeterminate with a Hounsfield unit measurement of 33. Gastrointestinal tract: There is a mild amount retained stool. Peritoneal cavity: No ascites. No free air. Pelvic organs: No pelvic masses or inflammatory process is identified. Lymph nodes: No pathologic lymphadenopathy. Abdominal wall: Normal. Vascular structures: Patent. Musculoskeletal: No acute abnormality identified. IMPRESSION: 1. Mild amount retained stool. Otherwise no acute pathology is identified to account for patient's symptoms. 2. 1.5 cm hypodensity within the right mid kidney which is technically indeterminate on this study however likely represents a cyst. Recommend initial evaluation with nonemergent ultrasound. Final Signed by: Talat Ferris MD Signed (Electronic Signature): 09/10/2023 7:37 pm Vital Signs Most recent to oldest [Reference Range]: 1 2 3 Temperature Temporal Artery [36-38 Deg C] 36 Deg C (09/10/23 4:39 PM) Peripheral Pulse Rate [60-100 bpm] 72 bpm (09/10/23 8:21 PM) 72 bpm (09/10/23 7:16 PM) 83 bpm (09/10/23 4:39 PM) Respiratory Rate [12-24 br/min] 20 br/min (09/10/23 7:16 PM) 20 br/min (09/10/23 4:39 PM) Blood Pressure [90-140/60-90 mmHg] 121/90mmHg (09/10/23 8:21 PM) 140/83mmHg (09/10/23 7:16 PM) 132/95mmHg (09/10/23 4:39 PM) SpO2 [94 %] 96 % (09/10/23 8:21 PM) 96 % (09/10/23 7:16 PM) 96 % (09/10/23 4:39 PM) Weight 120.2 kg (09/10/23 4:39 PM) Weight Dosing 120.200 kg (09/10/23 4:39 PM) 120.200 kg (09/10/23 4:39 PM) Height 180 cm (09/10/23 4:39 PM) Body Mass Index 37.1 kg/m2 (09/10/23 4:39 PM) Social History Social History Type Response Tobacco Tobacco Use: Current everyday tobacco user. Sex Male Hospital Discharge Instructions Patient Education 09/10/2023 19:35:25 Constipation, Adult Constipation, Adult Constipation is when a person has fewer than three bowel movements in a week, has difficulty havinga bowel movement, or has stools (feces) that are dry, hard, or larger than normal. Constipation maybe caused by an underlying condition. It may become worse with age if a person takes certain medicines and does not take in enough fluids. Follow these instructions at home: Eating and drinking ??? Eat foods that have a lot of fiber, such as beans, whole grains, and fresh fruits and vegetables. ??? Limit foods that are low in fiber and high in fat and processed sugars, such as fried or sweet foods. These include cook islander fries, hamburgers, cookies, candies, and soda. ??? Drink enough fluid to keep your urine pale yellow. General instructions ??? Exercise regularly or as told by your health care provider. Try to do 150 minutes of moderate exercise each week. ??? Use the bathroom when you have the urge to go. Do not hold it in. ??? Take ckhx-swt-wdjtjob and prescription medicines only as told by your health care provider. This includes any fiber supplements. ??? During bowel movements: ??? Practice deep breathing while relaxing the lower abdomen. ??? Practice pelvic floor relaxation. ??? Watch your condition for any changes. Let your health care provider know about them. ??? Keep all follow-up visits as told by your health care provider. This is important. Contact a health care provider if: ??? You have pain that gets worse. ??? You have a fever. ??? You do not have a bowel movement after 4 days. ??? You vomit. ??? You are not hungry or you lose weight. ??? You are bleeding from the opening between the buttocks (anus). ??? You have thin, pencil-like stools. Get help right away if: ??? You have a fever and your symptoms suddenly get worse. ??? You leak stool or have blood in your stool. ??? Your abdomen is bloated. ??? You have severe pain in your abdomen. ??? You feel dizzy or you faint. Summary ??? Constipation is when a person has fewer than three bowel movements in a week, has difficulty having a bowel movement, or has stools (feces) that are dry, hard, or larger than normal. ??? Eat foods that have a lot of fiber, such as beans, whole grains, and fresh fruits and vegetables. ??? Drink enough fluid to keep your urine pale yellow. ??? Take ivvu-mbh-htvneaz and prescription medicines only as told by your health care provider. This includes any fiber supplements. This information is not intended to replace advice given to you by your health care provider. Make sure you discuss any questions you have with your health care provider. Document Revised: 07/25/2020 Document Reviewed: 07/25/2020 [employer] Patient Education ?? 2022 [employer]. Follow Up Care 09/10/2023 16:03:15 With:Patient Instructions Address: When: Unknown Comments:You were evaluated today for left-sided abdominal pain. CAT scan shows that there is some constipation. You can continue with MiraLAX over the next several days. Your CAT scan does show a cyst on theright kidney. This will need continued monitoring by your primary care physician. If you continue with abdominal pain follow-up with your PCP. Emergency department Discharge summary * Katie Salas RN: PERFORM, SIGN, VERIFY Event Display: ED Clinical Summary Authored Date: [id number] [id number] Clinical Summary PERSON INFORMATION Name: MIRTHA MORRIS III Age: 42 Years : 1980 Sex: Male Language: Mongolian PCP: Marital Status: Phone: Med Service: Emergency Medicine Arrival: 09/10/2023 16:02:56 Visit Reason: Abdominal swelling; left abd pain and swelling Acuity: 3 - Urgent LOS: 000 04:41 Address: [address] [place] [phone] Diagnosis: 1:Constipation; 2:Renal cyst Medications Administered: Medication Dose Route iopamidol (Isovue-300) 100 mL IV Contrast ketorolac (Toradol) 15 mg IV Push Radiology Orders: CT Abdomen and Pelvis w/ Contrast 09/10/23 18:12:00 EST, Stat, Reason for exam L sided abd tenderness, Transport Mode: Stretcher, 09/10/23 18:12:00 EST Laboratory Orders: Automated Differential Blood, Stat, Collected, 09/10/23 18:34:00 EST, Once, Lab Collect, [id number] BMP Blood, Stat, 09/10/23 17:24:00 EST, Once, Lab Collect CBC w/ Differential Blood, Stat, 09/10/23 17:23:00 EST, Once, Lab Collect Extra Tube - Blue Blood, Stat, Collected, 09/10/23 18:34:00 EST, by [id number], Once, Lab Collect, 2.7 mL Blue NaCit 2.7mL/*[id number]*/ Urinalysis Complete with Culture if Indicated Urine, Stat Collect, 09/10/23 18:12:00 EST, Once, Nurse collect, Print Label Urinalysis Microscopic Urine, Stat Collect, Collected, 09/10/23 19:16:00 EST, Once, Nurse collect Lab and Rad: Laboratory or Other Results This Visit??(last charted value for your??09/10/2023??visit) ?Hematology ?09/10/2023?6:34 PM ?WBC:??7.3??x10^3/mcL??--??Normal range between??(??4.5??and??11.0??)?RBC:??4.38??x10^6/mcL??--??Normal range between??(??4.43??and??5.94??)?Neutro Auto:??45.0??%??--??Normal range between??(??42.0??and??72.0??)?Lymph Auto:??40.8??%??--??Normal range between??(??25.0??and??45.0??)?Collier Auto:??7.7??%??--??Normal range between??(??3.0??and??10.0??)?Basophil Auto:??0.4??%??--??Normal range between??(??0.0??and??2.0??)?Baso Absolute:??0.03??x10^3/mcL??--??Normal range between??(??0.00??and??0.20??)?MCV:??86.1??fL??--??Normal range between??(??81.0??and??97.0??)?MCHC:??36.1??g/dL??--??Normal range between??(??32.3??and??36.5??)?Lymph Absolute:??2.98??x10^3/mcL??--??Normal range between??(??1.30??and??3.40??)?Hct:??37.7??%??--??Normal range between??(??36.0??and??50.0??)?Collier Absolute:??0.56??x10^3/mcL??--??Normal range between??(??0.00??and??0.60??)?MCH:??31.1??pg??--??Normal range between??(??26.5??and??32.5??)?Neutro Absolute:??3.29??x10^3/mcL??--??Normal range between??(??1.40??and??6.50??)?Hgb:??13.6??g/dL??--??Normal range between??(??12.9??and??17.7??)?MPV:??11.0??fL??--??Normal range between??(??9.4??and??12.4??)?Platelets:??224??x10^3/mcL??--??Normal range between??(??150??and??450??)?Eos Absolute:??0.44??x10^3/mcL??--??Normal range between??(??0.00??and??0.30??)?Eos, Auto:??6.0??%??--??Normal range between??(??0.0??and??5.0??)?Imm Gran Auto:??0.100??%??--??Normal range between??(??0.001??and??0.429??)?RDW-CV:??12.5??%??--??Normal range between??(??12.0??and??15.0??)?Urinalysis ?09/10/2023?7:16 PM ?UA Color:??Light-Yellow?UA WBC:??1?--??Normal range between??(??0??and??5??)?UA Urobilinogen:??Normal?UA Bili:??Negative?UA Ketones:??Negative?UA RBC:??1??/HPF??--??Normal range between??(??0??and??3??)?UA Leuk Est:??Negative?UA Nitrite:??Negative?UA Glucose:??Normal?UA Protein:??Negative?UA Blood:??Negative??mg/dL ?UA Mucous:??Rare??/LPF ?UA Spec Grav:??1.010?--??Normal range between??(??1.005??and??1.035??)?UA pH:??6.5?--??Normal range between??(??5.0??and??8.0??)?UA Appear:??Clear?UA Culture Indicated?:??Not Indicated?Chemistry ?09/10/2023?6:34 PM ?Creatinine Level:??1.04??mg/dL??--??Normal range between??(??0.70??and??1.30??)?BUN:??12??mg/dL??--??Normal range between??(??8??and??21??)?Glucose Level:??89??mg/dL??--??Normal range between??(??70??and??100??)?Potassium Level:??4.2??mmol/L??--??Normal range between??(??3.5??and??5.3??)?Sodium Level:??138??mmol/L??--??Normal range between??(??136??and??145??)?Calcium Level:??9.1??mg/dL??--??Normal range between??(??8.7??and??10.4??)?CO2:??27??mmol/L??--??Normal range between??(??24??and??31??)?Chloride Level:??107??mmol/L??--??Normal range between??(??98??and??107??)?Anion Gap:??4?--??Normal range between??(??3??and??16??)?BUN/Creat Ratio:??11.5??mg/dL??--??Normal range between??(??10.0??and??20.0??)?eGFR CKD-EPI:??>60??mL/min/1.73 m2 ?Computed Tomography ?09/10/2023?6:45 PM ?CT Abdomen and Pelvis w/ Contrast:??CT Abdomen and Pelvis w/ Contrast?Radiology Report ?09/10/2023?7:37 PM ?Radiology Report:??Radiology Report Medications: PROVIDER INFORMATION Provider Role Assigned Unassigned Carlene Phelps ED Reg 09/10/2023 16:44:59 Katie Salas GUNNERY/ORDNANCE OFFICER Nurse 09/10/2023 17:13:41 Laura Matthews CNA ED Misc 09/10/2023 17:16:38 Kassie Carbajal NP ED Provider 09/10/2023 17:52:09 Alexsandra Choi GUNNERY/ORDNANCE OFFICER Nurse 09/10/2023 18:12:47 Tori Smith ED Misc 09/10/2023 20:02:13 Attending Physician: Kassie Carbajal ESTIMATOR PROJECT MANAGER Admit Doc Kassie Carbajal NP Consulting Doc VITALS INFORMATION Vital Sign Triage Latest Temp Oral Temp Temporal Temp Intravascular Temp Axillary Temp Rectal 02 Sat 96 % 96 % Respiratory Rate Peripheral Pulse Rate Apical Heart Rate Blood Pressure / 95 mmHg / 90 mmHg Allergies ?Seroquel ?traZODone Immunizations ?No Immunizations Documented This Visit DISCHARGE INFORMATION Discharge Disposition: Home or Self Care Discharge Location: Discharge Date and Time: 09/10/2023 20:43:00 ED Checkout Date and Time: 09/10/2023 20:43:00 DEPART REASON INCOMPLETE INFORMATION Depart Action Incomplete Reason Medication Reconciliation MD Decision to leave incomplete Problems ?Active ?Depression ?Anxiety ?PTSD (post-traumatic stress disorder) checklist for DSM-5 (Diagnostic and Statistical Manual of Mental Disorders - Fifth edition) ?Hepacivirus C antigen Smoking Status ?Current everyday tobacco user PATIENT EDUCATION INFORMATION Instructions: Constipation, Adult Follow up: With: Address: When: Patient Instructions Comments: You were evaluated today for left-sided abdominal pain. CAT scan shows that there is some constipation. You can continue with MiraLAX over the next several days. Your CAT scan does show a cyst on theright kidney. This will need continued monitoring by your primary care physician. If you continue with abdominal pain follow-up with your PCP. PATIENT INSTRUCTIONS Emergency department Discharge instructions * Katie Salas RN: PERFORM Event Display: ED Discharge Information Authored Date: [id number] ARTURO IRBY MIRTHA Amna :1980 Age:42 years Sex:Male Visit Date:09/10/2023 Discharge Instructions We would like to thank you for allowing us to assist you with your healthcare needs. The following includes patient education materials and information regarding your injury/illness. Diagnosis from Today's Visit Constipation Renal cyst Discharge Vitals Temperature??(Temporal Artery) 96.8 ??F (36 ??C) Heart Rate??(Peripheral) 72 Respiratory Rate?? 20 Blood Pressure?? 121/90?? Height?? 70.87 in (180 cm) Weight?? 265.04 lb (120.2 kg) BMI?? 37.1 Allergies Seroquel traZODone What to Do Next You Need to Schedule the Following Appointments Follow Up with??Patient Instructions Why: You were evaluated today for left-sided abdominal pain. ??CAT scan shows that there is some constipation. ??You can continue with MiraLAX over the next several days. ??Your CAT scan does show a cyst on the right kidney. ??This will need continued monitoring by your primary care physician. ??Ifyou continue with abdominal pain follow-up with your PCP. You were treated today on an emergency basis; it may be osborne to contact your primary care provider to notify them of your visit today. You may have been referred to your regular doctor or a specialist, please follow up as instructed. If your condition worsens or you can't get in to see the doctor, contact the Emergency Department. Medications What How Much When Instructions Next Dose Unchanged buPROPion (buPROPion 300 mg/ 24 hours (XL) oraltablet, extended release) 1 tab Oral (given by mouth) Every day Unchanged cloNIDine (cloNIDine 0.1 mg oral tablet) 1 tab Oral (given by mouth) 3 times a day as needed for anxiety Unchanged dextroamphetamine-amphetamine (dextroamphetamine-amphetamine 10 mg oral capsule, extendedrelease) 1 Capsules Oral (given by mouth) Every morning Unchanged doxepin (doxepin 75 mg oral capsule) 1 Capsules Oral (given by mouth) Every day at bedtime Unchanged famotidine (famotidine 20 mg oral tablet) 1 tab Oral (given by mouth) 2 times a day Unchanged gabapentin (gabapentin 800 mg oral tablet) 1 tab Oral (given by mouth) 3 times a day TAKE 1 TABLET BY MOUTH THREE TIMES A DAY FOR 30 DAYS ?? Unchanged hydrOXYzine (hydrOXYzine pamoate 50 mg oral capsule) 1 Capsules Oral (given by mouth) 3 times a day as needed for as needed for anxiety Unchanged methadone 145 Milligrams Oral (given by mouth) Every day Unchanged OXcarbazepine (OXcarbazepine 300 mg oral tablet) TAKE 1 TABLET BY MOUTH TWICE A DAY DIRECTED ?? Unchanged sofosbuvir-velpatasvir (sofosbuvir-velpatasvir 400 mg-100 mg oral tablet) 1 tab Oral (given by mouth) Every day Education Materials Constipation, Adult Constipation is when a person has fewer than three bowel movements in a week, has difficulty havinga bowel movement, or has stools (feces) that are dry, hard, or larger than normal. Constipation maybe caused by an underlying condition. It may become worse with age if a person takes certain medicines and does not take in enough fluids. Follow these instructions at home: Eating and drinking ? Eat foods that have a lot of fiber, such as beans, whole grains, and fresh fruits and vegetables. ? Limit foods that are low in fiber and high in fat and processed sugars, such as fried or sweet foods. These include cook islander fries, hamburgers, cookies, candies, and soda. ? Drink enough fluid to keep your urine pale yellow. General instructions ? Exercise regularly or as told by your health care provider. Try to do 150 minutes of moderate exercise each week. ? Use the bathroom when you have the urge to go. Do not hold it in. ? Take wzoy-xdc-sybsbcx and prescription medicines only as told by your health care provider. This includes any fiber supplements. ? During bowel movements: ? Practice deep breathing while relaxing the lower abdomen. ? Practice pelvic floor relaxation. ? Watch your condition for any changes. Let your health care provider know about them. ? Keep all follow-up visits as told by your health care provider. This is important. Contact a health care provider if: ? You have pain that gets worse. ? You have a fever. ? You do not have a bowel movement after 4 days. ? You vomit. ? You are not hungry or you lose weight. ? You are bleeding from the opening between the buttocks (anus). ? You have thin, pencil-like stools. Get help right away if: ? You have a fever and your symptoms suddenly get worse. ? You leak stool or have blood in your stool. ? Your abdomen is bloated. ? You have severe pain in your abdomen. ? You feel dizzy or you faint. Summary ? Constipation is when a person has fewer than three bowel movements in a week, has difficulty havinga bowel movement, or has stools (feces) that are dry, hard, or larger than normal. ? Eat foods that have a lot of fiber, such as beans, whole grains, and fresh fruits and vegetables. ? Drink enough fluid to keep your urine pale yellow. ? Take apzd-tmc-rbaqoxq and prescription medicines only as told by your health care provider. This includes any fiber supplements. This information is not intended to replace advice given to you by your health care provider. Make sure you discuss any questions you have with your health care provider. Document Revised: 07/25/2020 Document Reviewed: 07/25/2020 [employer] Patient Education ?? 2022 [employer] Tests Performed Radiology CT Abdomen and Pelvis w/ Contrast 09/10/2023 19:39 EST Medications and Immunizations Administered Given Isovue-300, 100 mL, IV Contrast Toradol, 15 mg, IV Push Lab Test Name Test Result Date/Time WBC 7.3 x10^3/mcL 09/10/2023 18:34 EST RBC 4.38 x10^6/mcL 09/10/2023 18:34 EST Hgb 13.6 g/dL 09/10/2023 18:34 EST Hct 37.7 % 09/10/2023 18:34 EST Platelets 224 x10^3/mcL 09/10/2023 18:34 EST MCV 86.1 fL 09/10/2023 18:34 EST MCH 31.1 pg 09/10/2023 18:34 EST MCHC 36.1 g/dL 09/10/2023 18:34 EST RDW-CV 12.5 % 09/10/2023 18:34 EST MPV 11.0 fL 09/10/2023 18:34 EST Neutro Auto 45.0 % 09/10/2023 18:34 EST Lymph Auto 40.8 % 09/10/2023 18:34 EST Collier Auto 7.7 % 09/10/2023 18:34 EST Eos, Auto 6.0 % 09/10/2023 18:34 EST Basophil Auto 0.4 % 09/10/2023 18:34 EST Imm Gran Auto 0.100 % 09/10/2023 18:34 EST Neutro Absolute 3.29 x10^3/mcL 09/10/2023 18:34 EST Lymph Absolute 2.98 x10^3/mcL 09/10/2023 18:34 EST Collier Absolute 0.56 x10^3/mcL 09/10/2023 18:34 EST Eos Absolute 0.44 x10^3/mcL 09/10/2023 18:34 EST Baso Absolute 0.03 x10^3/mcL 09/10/2023 18:34 EST Sodium Level 138 mmol/L 09/10/2023 18:34 EST Potassium Level 4.2 mmol/L 09/10/2023 18:34 EST Chloride Level 107 mmol/L 09/10/2023 18:34 EST CO2 27 mmol/L 09/10/2023 18:34 EST BUN 12 mg/dL 09/10/2023 18:34 EST Glucose Level 89 mg/dL 09/10/2023 18:34 EST Creatinine Level 1.04 mg/dL 09/10/2023 18:34 EST BUN/Creat Ratio 11.5 mg/dL 09/10/2023 18:34 EST eGFR CKD-EPI >60 mL/min/1.73 m2 09/10/2023 18:34 EST Calcium Level 9.1 mg/dL 09/10/2023 18:34 EST Anion Gap 4 09/10/2023 18:34 EST Patient/Surgery Attendant Signature Patient Name:MIRTHA MORRIS III, I have received this information and my questions have been answered. Patient/Surgery Attendant Name: Patient/Surgery Attendant Signature: Relationship to Patient: Witness Name/Signature: Date: Electronically Signed on: 09/10/2023 20:39 EST Signed by:ED Patient Care team information Care Team Personnel Name: Katie Salas RN Position: Nurse Member Role: Registered Nurse Name: Carlene Phelps Position: Registration - Child Care Group Leader Name: Kassie Carbajal ESTIMATOR PROJECT MANAGER Position: Mid-Level Provider - Unauth Member Role: Referring Physician Address: Address: [facility] Emergency Department [address] [place] [id number] Name: Tori Smith Position: Nurse Aide Member Role: bottom presser Name: Alexsandra Choi RN Position: Nurse Member Role: Registered Nurse Name: Laura Matthews CNA Position: Nurse Aide Member Role: bottom presser Care Team Related Persons Name: MIRTHA MORRIS Address: [address] [id number]
--- OUTSIDE RECORDS SUMMARY | 2024-06-25 06:03 | XMS_ITS | Continuity of Care Document ---
Author Organization [facility] Address [address] [place] [address]- Care Team Providers Care Shelf Drier Operator Name Role Phone Darinel SHERIDAN, Erika Primary Care Physician Encounter [facility] Date(s): 03/09/21 - 03/09/[address] [address]- Discharge Disposition: A-D/C Home Attending Physician: Nickie Shaffer MD Admitting Physician: Nickie Shaffer MD Referring Physician: Not on Staff, Referring [...] capsule, 0 Refills, Maintenance, 03/08/21 14:22:00 EDT, [id number], Partial fill upon patient request if the prescription is for a schedule II opioid drug., 1 capsule By Mouth Daily... Start Date: 03/08/21 Status: Ordered clonazePAM 1 mg oral tablet 1 tablet = 1 mg, By Mouth, 3 times a day, PRN Anxiety, # 90 tablet, 1 Refills, Maintenance, 03/08/21 11:08:00 EDT, [facility] #[id number], Partial fill upon patient request if the prescription is for a schedule II opioid drug., 182.88, cm... Start Date: 03/08/21 Stop Date: 05/07/21 Status: Ordered docusate-senna 50 mg-8.6 mg oral capsule 1 capsule, By Mouth, 2 times a day, # 60 capsule, 1 Refills, Maintenance, 03/08/21 11:08:00 EDT, Capsule, [facility] #[id number], Partial fill upon patient request if the prescription is for a schedule II opioid drug., 1 capsule By Mouth 2 times... Start Date: 03/08/21 Status: Ordered doxazosin 2 mg oral tablet 2 mg, 1, tablet, By Mouth, Daily, # 30 tablet, Refills 1, Tot. Refills 1, Maintenance, 03/08/21 11:12:00 EDT, Route to Pharmacy Electronically, [facility] #[id number], Partial fill upon patient request if the prescription is for a schedule II opi... Start Date: 03/08/21 Status: Ordered gabapentin 300 mg oral capsule 1,200 mg, 4, capsule, By Mouth, 3 times a day, # 84 capsule, Refills 0, Tot. Refills 0, Maintenance, 03/09/21 18:25:00 EDT, Route to Pharmacy Electronically, [facility]/pharmacy #[id number], Partial fill upon patient request if the prescription is for a schedule I... Start Date: 03/09/21 Stop Date: 03/16/21 Status: Ordered gabapentin 400 mg oral capsule 1,200 mg, Capsule, By Mouth, Once, STAT, 03/09/21 18:24:00 EDT, Stop date 03/09/21 18:24:00 EDT Start Date: 03/09/21 Stop Date: 03/09/21 Status: Completed gabapentin 600 mg oral tablet 2 tablet = 1,200 mg, By Mouth, 3 times a day, # 180 tablet, 1 Refills, Maintenance, 03/08/21 11:09:00 EDT, Tablet, [facility] #[id number], Partial fill upon patient request if the prescription is for a schedule II opioid drug., 182.88, cm, ... Start Date: 03/08/21 Status: Ordered hydrOXYzine pamoate 50 mg oral capsule = 50 mg, By Mouth, 3 times a day, PRN Anxiety, # 90 capsule, 1 Refills, Maintenance, 03/08/21 11:12:00 EDT, Capsule, [facility] #[id number], Partial fill upon patient request if the prescriptionis for a schedule II opioid drug., 182.88, cm, 02/19... Start Date: 03/08/21 Status: Ordered lurasidone 60 mg oral tablet 1 tablet = 60 mg, By Mouth, Daily, # 30 tablet, 1 Refills, Maintenance, 03/08/21 11:10:00 EDT, Tablet, [facility] #[id number], Partial fill upon patient request if the prescription is for a schedule II opioid drug., 182.88, cm, 03/08/21 7:58:00 E... Start Date: 03/08/21 Status: Ordered melatonin 5 mg oral tablet 1 tablet = 5 mg, By Mouth, Daily at bedtime, # 30 tablet, 1 Refills, Maintenance, 03/08/21 11:11:00EDT, Tablet, [facility] #[id number], Partial fill upon patient request if the [...] 0 Refills, Maintenance, 12/17/20 16:46:00 EDT, Capsule, [facility], Partial fill upon patient request if the prescription is for a schedule II opioid drug., 1 capsule By Mouth Daily, 1... Start Date: 12/17/20 Status: Ordered Nicotine 2 mg gum 1 each = 2 mg, Chew, Every hour, PRN as needed for smoking cessation, # 160 each, 1 Refills, Maintenance, 03/08/21 11:23:00 EDT, Gum, [facility] #[id number], Partial fill upon patient request ifthe prescription is for a schedule II opioid drug.,... Start Date: 03/08/21 Status: Ordered Problem List Condition Effective Dates Status Health Status Inform ant Anxiety(Confirmed) Active Depression(Confirmed) Active Opioid use disorder(Confirmed) Active Vital Signs Most recent to oldest [Reference Range]: 1 2 Height 182 cm (03/09/21 4:49 PM) Weight 98 kg (03/09/21 4:49 PM) Oxygen Saturation [94-100 %] 96 % (03/09/21 4:49 PM) Pulse Rate [55-90 bpm] 83 bpm (03/09/21 4:49 PM) Blood Pressure [90-138/55-84 mm Hg] 114/ 64mm Hg (03/09/21 4:49 PM) Respiratory Rate [16-30 br/min] -18 br/m in *L* (03/09/21 6:37 PM) 16 br/min (03/09/21 4:49 PM) Temperature [96.8-100.4 DegF] 97.8 DegF (03/09/21 4:49 PM) Mode of Delivery (Oxygen) Room air (03/09/21 4:49 PM) Blood pressure sites Arm, right (03/09/21 4:49 PM) Temperature Route Oral (03/09/21 4:49 PM) Dry Weight 98 kg (03/09/21 4:49 PM) Social History Social History Type Response Smoking Status 5-9 cigarettes (betw een 1/4 to 1/2 pack)/day in last 30 days entered on: 08/21/20 Sex Male
--- NOTE | 2024-06-25 06:06 | MHC.EDTECH ---
Blood work and urine sent
--- NOTE | 2024-06-25 06:06 | PC.NURSE ---
Labs/urine specimen obtained and sent to lab.
[2024-06-25 06:07] LABS: Hematocrit 39.3 % (42.0-52.0); Hemoglobin 13.2 g/dl (14.0-18.0); Mean Corpuscular HGB Conc 33.6 g/dl (31.0-36.0); Mean Corpuscular Volume 86.4 fL (80.0-98.0); Mean Platelet Volume 9.7 fL (9.4-12.4); Platelet Count 273 X10*3/uL (160-400); Red Blood Count 4.55 X10*6/uL (4.60-5.80); Red Cell Distribution Width 12.9 % (11.0-16.0); White Blood Count 7.6 X10*3/uL (4.8-10.8)
[2024-06-25 06:19] LABS: Amphetamine Screen Urine Not Detected (Not Detect); Barbiturates, Urine Not Detected (Not Detect); Benzodiazepines Screen Urine POSITIVE (Not Detect); Buprenorphine Scr Not Detected (Not Detect); Cannabinoid Screen Urine Not Detected (Not Detect); Cocaine Screen Urine POSITIVE (Not Detect); Fentanyl, urine POSITIVE (Not Detect); Methadone Screen, Urine Positive (Not Detect); Opiate Screen Urine POSITIVE (Not Detect); Oxycodone Screen Urine Not Detected (Not Detect); Phencyclidine Screen Urine Not Detected (Not Detect)
[2024-06-25 06:26] LABS: Anion Gap 17 (12-20); Blood Urea Nitrogen 22 mg/dL (9-16); Calcium 9.9 mg/dL (8.4-10.2); Carbon Dioxide 25 mmol/L (22-29); Chloride 102 mmol/L (96-108); Creatinine Clr Calc Pharmacy 134.4; Estimated Glomerular Filt Rate > 60; Ethanol < 10 mg/dL; Glucose Random 101 mg/dL (60-115); Potassium 4.2 mmol/L (3.3-5.1); Sodium 140 mmol/L (135-145)
--- NOTE | 2024-06-25 07:29 | ED_ITS ---
HPI - Psych General Chief Complaint: Psychiatric Symptoms Stated Complaint: etoh and drug use Time Seen by Provider: 06/25/24 06:22 Source: EMS Mode of arrival: EMS Limitations: no limitations History of Present Illness ED Provider: Dr. Nicole Lawrence HPI Narrative: Patient comes to the emergency room complaining of depression and alcohol abuse. Patient stated to EMS that he had suicidal thoughts pending to overdose on alcohol and cocaine. Patient denies HI. Patient admits that he was drinking alcohol yesterday and using cocaine. Patient was discharged from a facility for alcohol detox 3 days ago. Patient states that he has not been taking his meds for 3 days. Related Data Home Medications ?Medication ?Instructions ?Recorded ?Confirmed methadone 10 mg/mL oral 145 mg PO DAILY 06/12/21 11/21/23 concentrate (Methadose) sofosbuvir 400 mg-velpatasvir 100 1 tab PO DAILY 11/21/23 11/21/23 mg tablet Previous Rx's ?Medication ?Instructions ?Recorded doxepin 25 mg capsule 100 mg (4 x 25 mg) PO BEDTIME 30 03/17/22 days #120 caps fenofibrate 54 mg tablet 54 mg PO DAILY 30 days #30 tabs 03/17/22 hydroxyzine HCl 50 mg tablet 50 mg PO BID PRN Anxiety 30 days 03/17/22 #60 tabs ibuprofen 800 mg tablet 800 mg PO BID PRN knee pain, tooth 03/17/22 pain 30 days #60 tabs melatonin 3 mg tablet 9 mg (3 x 3 mg) PO BEDTIME PRN 03/17/22 sleep 30 days #60 tabs nicotine (polacrilex) 2 mg gum 2 mg buccal Q2H PRN nicotine 03/17/22 withdrawal 30 days #120 ea bupropion HCl 300 mg 24 hr tablet, 300 mg PO DAILY 30 days #30 tabs 11/25/23 extended release (Wellbutrin XL) clonidine HCl 0.1 mg tablet 0.1 mg PO DAILY PRN 11/25/23 anxiety/agitation 30 days #30 tabs gabapentin 400 mg capsule 800 mg (2 x 400 mg) PO QID 30 days 11/25/23 #240 caps oxcarbazepine 300 mg tablet 300 mg PO TID 30 days #90 tabs 11/25/23 Allergies Allergy/AdvReac Type Severity Reaction Status Date / Time fish derived [FISH] Allergy Severe ANAPHYLAXIS Verified 06/25/24 05:21 quetiapine [From SEROQUEL] AdvReac Severe INVOLUNTARY Verified 06/25/24 05:21 SPASMS trazodone AdvReac Unknown INVOLUNTARY Verified 06/25/24 05:21 SPASMS SEAFOOD Allergy Severe ANAPHYLAXIS Uncoded 06/25/24 05:21 Review of Systems 2 Review of Systems: Constitutional : No Weight loss, No Fever, No Chills, No Night Sweats, No Fatigue, No Malaise ENT/Mouth : No Hearing loss, No Ear Pain, No Nasal Congestion, No Sinus Pain, No Hoarseness, No sore throat, No Rhinorrhea, No Swallowing Difficulty Eyes: No Eye Pain, No Swelling, No Redness, No Foreign Body, No Discharge, No Vision Changes Cardiovascular : No Chest Pain, No SOB, No Dyspnea on Exertion, No Orthopnea, No Edema, No Palpitations Respiratory : No Cough, No Sputum, No Wheezing, No Smoke Exposure, No Dyspnea Gastrointestinal : No Nausea, No Vomiting, No Diarrhea, No Constipation, No abdominal Pain, No Hematochezia, No Melena Genitourinary : no irregular bleeding, No Dysuria, No Urinary Frequency, No Hematuria, No Urinary Incontinence, No Urgency, No Flank Pain, No Urinary Flow Changes, No Hesitancy Musculoskeletal : No joint pain, No Myalgias, No Joint Swelling Skin : No Skin Lesions, No rash Neuro : No Weakness, No Numbness, No Paresthesias, No Loss of Consciousness, No Dizziness, No Headache Psych : Complaining of anxiety and depression, SI, no HI, alcohol abuse and cocaine abuse Heme/Lymph: No Bruising, No Bleeding,No Lymphadenopathy Endocrine : No Polyuria, No Polydipsia, No Temperature Intolerance [facility] Past Medical History Medical History Opiate use Depression Hepatitis C Chronic post-traumatic stress disorder (PTSD) MDD (major depressive disorder), recurrent episode, moderate No known health problems Surgical History History of appendectomy Social History Social History Household Members: None Household Members Other:: pt has been couch-surfing Housing: Other Do you presently have visiting nurse or other home services: No Alcohol intake: current Alcohol intake frequency: a few times a week Alcohol type: wine Comment: 1:1 sitter Patient Tobacco Use Status: Current everyday Tobacco user Tobacco use type: Cigarette Cigarette Packs Per Day: 1 Cigarettes Per Day: 20.0 Years Smoked: 10 Smoked in Last 30 Days: Yes e-Cigarette/Vaping Use: Never Used Second Hand Smoke Exposure: No Use of substances other than those prescribed or required for medical reasons: Yes Substance Use Type: Crack/Cocaine and Marijuana Advance Directives: No Advance Directives Information Provided: Yes Do you have a plan to hurt others: No Plan service: No Current occupational status: unemployed Sexual orientation: Straight/Heterosexual Physical Exam 2 Vital Signs: Vital Signs: Last Vital Signs Temp 97.8 F 06/25/24 05:28 Pulse 82 06/25/24 05:28 Resp 19 06/25/24 05:28 BP 133/83 06/25/24 05:28 Pulse Ox 94 06/25/24 05:28 O2 Del Method Room Air 06/25/24 05:28 BMI result Body Mass Index 33.9 Const: Other: Appearance: Alert. Oriented X3. No acute distress. Eyes: Pupils equal, round and reactive to light. ENT: Pharynx normal. Neck: Normal inspection. Neck supple. No lymph nodes noted. No crepitus CVS: Normal heart rate and rhythm. Pulses normal. Normal S1 and S2 Respiratory: No respiratory distress. Breath sounds normal. No Wheezing. No rales Abdomen: Soft and nontender. No rigidity. No distention. Skin: Skin warm and dry. Normal skin color. Normal skin turgor. Extremities: No lower extremity edema. No Lacerations. No Rash Neuro: Oriented X 3. No motor deficit. No sensory deficit. Moving all extremities. No slurred speech. CN 2 through 12 grossly intact Psych: calm, cooperative, normal affect Medical Decision Making Medical Decision Making MDM Narrative: My interpretation of labs, hematology and chemistry at baseline. Urine toxicology positive for opiates, methadone, fentanyl, benzodiazepines and cocaine. ETOH negative -care team consult pending -physician observation started at 07:30 Differential Diagnosis Differential Diagnoses: The differential diagnosis associated with the presentation includes (Patient is under physician observation waiting to be seen by the care team) Admission/Observation Consideration of admission/observation: Escalation of care including admission/observation considered Lab Data 06/25/24 06:02 06/25/24 06:02 Labs: Lab Results 06/25/24 Range/Units 06:02 WBC 7.6 (4.8-10.8) X10*3/uL RBC 4.55 L (4.60-5.80) X10*6/uL Hgb 13.2 L (14.0-18.0) g/dl Hct 39.3 L (42.0-52.0) % MCV 86.4 (80.0-98.0) fL MCH 29.0 (27.0-33.0) pg MCHC 33.6 (31.0-36.0) g/dl RDW 12.9 (11.0-16.0) % Plt Count 273 (160-400) X10*3/uL MPV 9.7 (9.4-12.4) fL Absolute Nucleated RBC 0.000 (0.0-0.012) X10*3/uL Nucleated RBC % (auto) 0.0 (0.0-0.2) /100WBC Sodium 140 (135-145) mmol/L Potassium 4.2 (3.3-5.1) mmol/L Chloride 102 (96-108) mmol/L Carbon Dioxide 25 (22-29) mmol/L Anion Gap 17 (12-20) BUN 22 H (9-16) mg/dL Creatinine 0.93 (0.5-1.4) mg/dL Estim Creat Clear Calc 134.4 Estimated GFR > 60 Random Glucose 101 (60-115) mg/dL Calcium 9.9 (8.4-10.2) mg/dL Urine Opiates Screen POSITIVE H (Not Detect) Ur Buprenorphine Scrn Not Detected (Not Detect) ng/mL Ur Oxycodone Screen Not Detected (Not Detect) ng/mL Urine Methadone Screen Positive H (Not Detect) ng/mL Urine Fentanyl Screen POSITIVE H (Not Detect) Ur Barbiturates Screen Not Detected (Not Detect) Ur Phencyclidine Scrn Not Detected (Not Detect) Ur Amphetamines Screen Not Detected (Not Detect) U Benzodiazepines Scrn POSITIVE H (Not Detect) Urine Cocaine Screen POSITIVE H (Not Detect) U Marijuana (THC) Screen Not Detected (Not Detect) Ethyl Alcohol < 10 mg/dL Discharge Plan Discharge Clinical Impression: Depression, Alcohol dependence Patient Disposition: Still a Patient Prescriptions: No Action methadone [Methadose] 10 mg/mL concentrate 145 mg PO DAILY Patient Comments: This was verified By Pura ROSEN Spoke with Marina Handy LPN at clinic nicotine (polacrilex) 2 mg Gum 2 mg buccal Q2H PRN (Reason: nicotine withdrawal) 30 Days Qty: 120 0RF ibuprofen 800 mg Tablet 800 mg PO BID PRN (Reason: knee pain, tooth pain ) 30 Days Qty: 60 0RF doxepin 25 mg Capsule 100 mg PO BEDTIME 30 Days Qty: 120 0RF hydroxyzine HCl 50 mg Tablet 50 mg PO BID PRN (Reason: Anxiety) 30 Days Qty: 60 0RF fenofibrate 54 mg Tablet 54 mg PO DAILY 30 Days Qty: 30 0RF melatonin 3 mg Tablet 9 mg PO BEDTIME PRN (Reason: sleep) 30 Days Qty: 60 0RF sofosbuvir-velpatasvir 400-100 mg Tablet 1 tab PO DAILY clonidine HCl 0.1 mg Tablet 0.1 mg PO DAILY PRN (Reason: anxiety/agitation) 30 Days Qty: 30 0RF Protocol: Hold for SBP< HOLD for SBP < : 90 gabapentin 400 mg Capsule 800 mg PO QID 30 Days Qty: 240 0RF oxcarbazepine 300 mg Tablet 300 mg PO TID 30 Days Qty: 90 0RF bupropion HCl [Wellbutrin XL] 300 mg tablet extended release 24 hr 300 mg PO DAILY 30 Days Qty: 30 0RF Interventions: Ziebach-Suicide Risk Severity Scale Last Done: 06/25/24 05:33 Print Language: Bulgarian
--- NOTE | 2024-06-25 07:33 | HE.PHANOTE ---
METHADONE Dose: 150mg, last dosed 06/24/2024 @1123 per Kayleigh ROSEN at [facility] [phone].
[2024-06-25] MEDS: Gabapentin 400 MG CAPSULE 800 MG PO (10:00)
[2024-06-25] MEDS: Dextroamphetamine/Amphetamine XR 10 MG CAP.ER.24H 30 MG PO (10:00)
[2024-06-25] MEDS: methADONE HCl 20 MG/2 ML ORAL.CONC 150 MG PO (10:01)
[2024-06-25] MEDS: OXcarbazepine 300 MG TABLET 600 MG PO (10:01)
[2024-06-25] MEDS: Nicotine Polacrilex 2 MG GUM BUCCAL (11:01)
--- NOTE | 2024-06-25 11:12 | PC.NURSE ---
Assumed care of patient at 0645, patient appears to be in no apparent distress this am, calm and cooperative, ambulating around BH pod, able to make needs known. Patient verified home medications with this RN. Continue plan of care for CARE team eval and dispo today
[2024-06-25] MEDS: cloNIDine HCL 0.1 MG TABLET PO (11:33)
[2024-06-25] MEDS: buPROPion HCl XL 300 MG TAB.ER.24H PO (11:44)
[2024-06-25 12:08] VITALS: BP 129/91; PULSE 91; RESP 14; TEMP 37.2; O2SAT 97
--- NOTE | 2024-06-25 12:57 | MHC.CARE ---
Referral sent to [facility] for a 3 day follow up.
== END 2024-06-25 12:09 | disposition home or self-care (01) ==
PROVIDERS: Emergency Provider Emergency Medicine
DX: F32.A Depression, unspecified (principal); F10.20 Alcohol dependence, uncomplicated; Y90.0 Blood alcohol level of less than 20 mg/100 ml; F43.12 Post-traumatic stress disorder, chronic; B19.20 Unspecified viral hepatitis C without hepatic coma; F11.20 Opioid dependence, uncomplicated; F17.210 Nicotine dependence, cigarettes, uncomplicated; Z91.51 Personal history of suicidal behavior; Z79.899 Other long term (current) drug therapy
CPT/HCPCS: 36415; 80048; 80307; 85027; 99285; S9485

== ENCOUNTER 2024-09-18 23:10 | Inpatient (IN) | payer OTHER, SELFPAY ==
[2024-09-18 23:20] VITALS: BP 144/85; BP 166/86; PULSE 102; PULSE 113; RESP 20; TEMP 36.4; O2SAT 95; O2SAT 98; BMI 32.1
[2024-09-18 23:47] LABS: MANUAL DIFF FLAG NO
[2024-09-18 23:49] LABS: Appearance Urine Clear; Basophils Percent Auto 0.2 % (0-2); Color Urine Yellow; Eosinophils Absolute Auto 0.2 X10*3/uL (0.0-0.4); Eosinophils Percent Auto 2.3 % (0-4); Glucose Urine UA Negative (Negative); Hemoglobin 12.8 g/dl (14.0-18.0); Imm Gran Abs Auto 0.02 X10*3/uL (0.00-0.03); Imm Gran Pct Auto 0.2 % (0.0-0.4); Leukocyte Esterase Urine Negative (Negative); Lymphocytes Absolute Auto 4.8 X10*3/uL (1.2-4.9); Mean Corpuscular HGB Conc 34.6 g/dl (31.0-36.0); Mean Corpuscular Hemoglobin 29.4 pg (27.0-33.0); Mean Corpuscular Volume 85.1 fL (80.0-98.0); Mean Platelet Volume 9.5 fL (9.4-12.4); Monocytes Absolute Auto 0.7 X10*3/uL (0.1-1.2); Monocytes Percent Auto 6.8 % (2-11); Neutrophils Absolute Auto 4.1 x10*3/uL (2.0-8.3); Neutrophils Percent Auto 41.5 % (45-73); Nitrite Urine Negative (Negative); PH 6.5 (5.0-9.0); Platelet Count 258 X10*3/uL (160-400); Red Blood Count 4.35 X10*6/uL (4.60-5.80); Red Cell Distribution Width 13.4 % (11.0-16.0); Specific Gravity - Urine >= 1.030 (1.005-1.025); UMIC TRIGGER UACC YES; Urine Blood Negative (Negative); Urine Ketones Trace mg/dL (Negative); Urine Protein 30 (1+) mg/dL (Neg-Trace); White Blood Count 9.8 X10*3/uL (4.8-10.8)
[2024-09-18 23:54] LABS: Bacteria Urine None Seen (None Seen); Hyaline Casts Urine 0-2 /LPF (0-2); RBC Urine 0-2 /HPF (0-2); Squamous Epithelial Cell Urine 0-2 /HPF (0-2); WBC Urine 0-5 /HPF (0-5)
[2024-09-19] VITALS (7 sets, daily range): BP systolic 113–140; BP diastolic 69–89; PULSE 64–77; RESP 16–18; TEMP 36.3–36.4; O2SAT 95–96
[2024-09-19 00:01] LABS: Amphetamine Screen Urine POSITIVE (Not Detect); Barbiturates, Urine Not Detected (Not Detect); Benzodiazepines Screen Urine POSITIVE (Not Detect); Buprenorphine Scr Not Detected (Not Detect); Cannabinoid Screen Urine POSITIVE (Not Detect); Cocaine Screen Urine POSITIVE (Not Detect); Fentanyl, urine POSITIVE (Not Detect); Methadone Screen, Urine Positive (Not Detect); Opiate Screen Urine POSITIVE (Not Detect); Oxycodone Screen Urine Not Detected (Not Detect); Phencyclidine Screen Urine Not Detected (Not Detect)
[2024-09-19 00:04] LABS: Alanine Aminotransferase 41 U/L (0-40); Albumin Level 4.7 g/dL (3.5-5.0); Alkaline Phosphatase 73 U/L (39-117); Anion Gap 18 (12-20); Aspartate Amino Transferase 56 U/L (5-37); Bilirubin Total 0.4 mg/dL (0.0-1.0); Blood Urea Nitrogen 13 mg/dL (9-16); Calcium 9.6 mg/dL (8.4-10.2); Carbon Dioxide 22 mmol/L (22-29); Chloride 106 mmol/L (96-108); Estimated Glomerular Filt Rate > 60; Ethanol 72 mg/dL; Glucose Random 80 mg/dL (60-115); Potassium 3.6 mmol/L (3.3-5.1); Sodium 142 mmol/L (135-145)
[2024-09-19 00:04] LABS: Acetaminophen LAB < 3 mcg/mL (<30); Salicylate < 5.0 mg/dL (15-30)
--- NOTE | 2024-09-19 00:15 | PC.NURSE ---
lateentry: PT brought in BIBA on a section 12. PT presented to PD endorsing SI with a plan to shoot 5 bags of heroin to OD. PT states his girlfriend of an OD, and he has a hx of depression, anxiety, CHARISSA and AUD. He stopped drinking for 7 days but starting drinking half his normal amount Thursday during the day. States he wants detox. he is not interested in a detox facility in [facility] as he has been there three times but reports he doesn't feel it has been helpful. Pt changed over to POD appropriate hospital attire. Labs successfully obtained, belongings inventoried secured by security and MHT, med list verified and completed- provider notified and orders placed. pt oriented to POD unit including room locations, and protocols.
[2024-09-19] MEDS: Acetaminophen 325 MG TABLET 975 MG PO (01:24)
[2024-09-19] MEDS: OXcarbazepine 300 MG TABLET 600 MG PO ×3 (01:24→20:31)
[2024-09-19] MEDS: cloNIDine HCL 0.2 MG TABLET PO ×4 (01:25→20:32)
[2024-09-19] MEDS: Prazosin HCL 1 MG CAPSULE PO ×2 (01:28→20:32)
[2024-09-19] MEDS: Gabapentin 400 MG CAPSULE 800 MG PO ×4 (01:28→20:31)
[2024-09-19] MEDS: hydrOXYzine HCL 50 MG TABLET PO ×3 (01:28→18:49)
--- NOTE | 2024-09-19 02:03 | ED_ITS ---
HPI - Psych General Chief Complaint: Psychiatric Symptoms Stated Complaint: SI w/ plan coming from pd [place] [facility] Time Seen by Provider: 09/19/24 00:42 Source: patient Limitations: no limitations History of Present Illness ED Provider: Christie Ruano PA-C HPI Narrative: 43-year-old male with a history of substance use disorder, alcohol use disorder, anxiety and depression, presents with SI. Patient presented to a police department stating he had a plan to overdose on heroin. Patient has ongoing emotional stressors involving the of his partner last year; his partner overdosed. Patient verbalizes that he wants detox. Related Data Home Medications ?Medication ?Instructions ?Recorded ?Confirmed methadone 10 mg/mL oral 150 mg PO DAILY 06/12/21 06/25/24 concentrate (Methadose) dextroamphetamine-amphetamine ER 1 cap PO QAM 06/25/24 09/19/24 30 mg 24hr capsule,extend release gabapentin 400 mg capsule 800 mg PO TID 06/25/24 09/19/24 hydroxyzine HCl 50 mg tablet 50 mg PO QID PRN Anxiety 06/25/24 09/19/24 oxcarbazepine 300 mg tablet 600 mg PO BID 06/25/24 09/19/24 clonidine HCl 0.2 mg tablet 0.2 mg PO QD-TID 09/19/24 09/19/24 doxepin 100 mg capsule 100 mg PO BEDTIME 09/19/24 09/19/24 prazosin 1 mg capsule 1 mg PO BEDTIME 09/19/24 09/19/24 Previous Rx's ?Medication ?Instructions ?Recorded bupropion HCl 300 mg 24 hr tablet, 300 mg PO DAILY 30 days #30 tabs 11/25/23 extended release (Wellbutrin XL) Allergies Allergy/AdvReac Type Severity Reaction Status Date / Time fish derived [FISH] Allergy Severe ANAPHYLAXIS Verified 09/18/24 23:30 quetiapine [From SEROQUEL] AdvReac Severe INVOLUNTARY Verified 09/18/24 23:30 SPASMS trazodone AdvReac Unknown INVOLUNTARY Verified 09/18/24 23:30 SPASMS SEAFOOD Allergy Severe ANAPHYLAXIS Uncoded 09/18/24 23:30 Review of Systems 2 Review of Systems: Yes all other systems are reviewed and are negative Constitutional: Constitutional: Denies fatigue and Denies fever(s) Cardiovascular: Cardiovascular: Denies chest pain and Denies dyspnea Respiratory: Respiratory: Denies dyspnea Gastrointestinal: Gastrointestinal: Denies abdominal pain Endocrine: Endocrine: Denies fatigue PMFSH Past Medical History Attestation statement: The following information was validated with the patient. Medical History Opiate use Depression Hepatitis C Chronic post-traumatic stress disorder (PTSD) MDD (major depressive disorder), recurrent episode, moderate No known health problems Surgical History History of appendectomy Social History Social History Household Members: None Household Members Other:: pt has been couch-surfing Housing: Other Do you presently have visiting nurse or other home services: No Alcohol intake: current Alcohol intake frequency: 3 or more drinks per day Alcohol type: hard liquor Comment: 1:1 sitter Patient Tobacco Use Status: Current everyday Tobacco user Tobacco use type: Cigarette Cigarette Packs Per Day: 1 Cigarettes Per Day: 20.0 Years Smoked: 10 Smoked in Last 30 Days: Yes e-Cigarette/Vaping Use: Never Used Second Hand Smoke Exposure: No Use of substances other than those prescribed or required for medical reasons: Yes Substance Use Type: Crack/Cocaine, Heroin and Marijuana Substance Use Frequency: Chronic Longstanding Advance Directives: No Advance Directives Information Provided: Yes Do you have a plan to hurt others: No Plan service: No Current occupational status: unemployed Sexual orientation: Straight/Heterosexual Physical Exam 2 Vital Signs: Vital Signs: Last Vital Signs Temp 97.6 F 09/18/24 23:20 Pulse 77 09/19/24 01:29 Resp 18 09/19/24 01:29 BP 127/72 09/19/24 01:29 Pulse Ox 95 09/18/24 23:20 O2 Del Method Room Air 09/18/24 23:20 BMI result Body Mass Index 32.1 Const: Other: Awake Orientation/consciousness: patient oriented x3 Resp: Effort & Inspection: normal respiratory effort Cardio: Other: Normal peripheral perfusion Skin: Other: Warm dry no rash Neuro: General: patient oriented x3, no focal motor deficits and CN's II-XI intact bilaterally Psych: Other: Anxious at times, cooperative in the ER Medications Administered Generic Name Dose Route Start Last Admin Trade Name Freq PRN Reason Stop Dose Admin Clonidine HCl 0.2 mg 09/19/24 00:45 09/19/24 01:25 Clonidine Hcl 0.2 Mg Tablet PO 0.2 mg TID DACIA Administration Protocol Gabapentin 800 mg 09/19/24 00:45 09/19/24 01:28 Gabapentin 400 Mg Capsule PO 800 mg TID DACIA Administration Hydroxyzine HCl 50 mg 09/19/24 00:43 09/19/24 01:28 Hydroxyzine Hcl 50 Mg Tablet PO 50 mg QID PRN Administration Anxiety Oxcarbazepine 600 mg 09/19/24 00:45 09/19/24 01:24 Oxcarbazepine 300 Mg Tablet PO 600 mg BID DACIA Administration Prazosin HCl 1 mg 09/19/24 00:45 09/19/24 01:28 Prazosin Hcl 1 Mg Capsule PO 1 mg BEDTIME DACIA Administration Protocol Discontinued Medications Generic Name Dose Route Start Last Admin Trade Name Freq PRN Reason Stop Dose Admin Acetaminophen 975 mg 09/19/24 00:44 09/19/24 01:24 Acetaminophen 325 Mg Tablet PO 09/19/24 00:45 975 mg ONCE ONE Administration Medical Decision Making Medical Decision Making MDM Narrative: 43-year-old male with a history of substance use disorder, alcohol use disorder, anxiety and depression, presents with SI. Patient presented to a police department stating he had a plan to overdose on heroin. Patient has ongoing emotional stressors involving the of his partner last year; his partner overdosed. Patient verbalizes that he wants detox. Problem: Substance abuse, alcohol abuse, psychiatric illness History: Per patient I have considered the following differential diagnoses: SI, HI, decompensated psychiatric illness, drug/alcohol intoxication Plan: Screening labs including drug screen and serum ethanol were obtained. Care team consult placed, we will add physician arbs and a diet for the patient. He has numerous risk factors for an actual suicide attempt, I foresee him being a bed search. I have independently reviewed the following tests: Labs: No leukocytosis, not anemic, no electrolyte abnormality, U tox positive for opiates, methadone, fentanyl, amphetamine, benzos, cocaine, marijuana ethanol 72 Lab Data 09/18/24 23:39 09/18/24 23:39 Labs: Lab Results 09/18/24 09/18/24 Range/Units 23:39 23:40 WBC 9.8 (4.8-10.8) X10*3/uL RBC 4.35 L (4.60-5.80) X10*6/uL Hgb 12.8 L (14.0-18.0) g/dl Hct 37.0 L (42.0-52.0) % MCV 85.1 (80.0-98.0) fL MCH 29.4 (27.0-33.0) pg MCHC 34.6 (31.0-36.0) g/dl RDW 13.4 (11.0-16.0) % Plt Count 258 (160-400) X10*3/uL MPV 9.5 (9.4-12.4) fL Immature Gran % (Auto) 0.2 (0.0-0.4) % Neut % (Auto) 41.5 L (45-73) % Lymph % (Auto) 49.0 H (20-40) % [place] % (Auto) 6.8 (2-11) % Eos % (Auto) 2.3 (0-4) % Baso % (Auto) 0.2 (0-2) % Lymph # (Auto) 4.8 (1.2-4.9) X10*3/uL [place] # (Auto) 0.7 (0.1-1.2) X10*3/uL Eos # (Auto) 0.2 (0.0-0.4) X10*3/uL Baso # (Auto) 0.0 (0.0-0.2) X10*3/uL Abs Immat Gran (auto) 0.02 (0.00-0.03) X10*3/uL Absolute Neuts (auto) 4.1 (2.0-8.3) x10*3/uL Absolute Nucleated RBC 0.000 (0.0-0.012) X10*3/uL Nucleated RBC % (auto) 0.0 (0.0-0.2) /100WBC Sodium 142 (135-145) mmol/L Potassium 3.6 (3.3-5.1) mmol/L Chloride 106 (96-108) mmol/L Carbon Dioxide 22 (22-29) mmol/L Anion Gap 18 (12-20) BUN 13 (9-16) mg/dL Creatinine 0.94 (0.5-1.4) mg/dL Estim Creat Clear Calc 137.0 Estimated GFR > 60 Random Glucose 80 (60-115) mg/dL Calcium 9.6 (8.4-10.2) mg/dL Total Bilirubin 0.4 (0.0-1.0) mg/dL AST 56 H (5-37) U/L ALT 41 H (0-40) U/L Alkaline Phosphatase 73 (39-117) U/L Total Protein 9.0 H (6.5-8.0) g/dL Albumin 4.7 (3.5-5.0) g/dL Urine Color Yellow Urine Appearance Clear Urine pH 6.5 (5.0-9.0) Ur Specific [place] >= 1.030 H (1.005-1.025) Urine Protein 30 (1+) H (Neg-Trace) mg/dL Urine Glucose (UA) Negative (Negative) mg/dL Urine Ketones Trace (Negative) mg/dL Urine Blood Negative (Negative) Urine Nitrite Negative (Negative) Ur Leukocyte Esterase Negative (Negative) Urine RBC 0-2 (0-2) /HPF Urine WBC 0-5 (0-5) /HPF Ur Squamous Epith Cells 0-2 (0-2) /HPF Urine Bacteria None Seen (None Seen) Hyaline Casts 0-2 (0-2) /LPF Salicylates < 5.0 L (15-30) mg/dL Urine Opiates Screen POSITIVE H (Not Detect) Ur Buprenorphine Scrn Not Detected (Not Detect) ng/mL Ur Oxycodone Screen Not Detected (Not Detect) ng/mL Urine Methadone Screen Positive H (Not Detect) ng/mL Urine Fentanyl Screen POSITIVE H (Not Detect) Acetaminophen < 3 (<30) mcg/mL Ur Barbiturates Screen Not Detected (Not Detect) Ur Phencyclidine Scrn Not Detected (Not Detect) Ur Amphetamines Screen POSITIVE H (Not Detect) U Benzodiazepines Scrn POSITIVE H (Not Detect) Urine Cocaine Screen POSITIVE H (Not Detect) U Marijuana (THC) Screen POSITIVE H (Not Detect) Ethyl Alcohol 72 mg/dL Discharge Plan Discharge Clinical Impression: Suicidal ideation Patient Disposition: Still a Patient Prescriptions: No Action methadone [Methadose] 10 mg/mL concentrate 150 mg PO DAILY bupropion HCl [Wellbutrin XL] 300 mg tablet extended release 24 hr 300 mg PO DAILY 30 Days Qty: 30 0RF prazosin 1 mg capsule 1 mg PO BEDTIME clonidine HCl 0.2 mg tablet 0.2 mg PO QD-TID doxepin 100 mg capsule 100 mg PO BEDTIME gabapentin 400 mg capsule 800 mg PO TID hydroxyzine HCl 50 mg tablet 50 mg PO QID PRN (Reason: Anxiety) oxcarbazepine 300 mg tablet 600 mg PO BID dextroamphetamine-amphetamine 30 mg capsule,extended release 24hr 1 cap PO QAM Interventions: [place]-Suicide Risk Severity Scale Last Done: 09/18/24 23:20 Print Language: Upper Sorbian
--- NOTE | 2024-09-19 02:48 | PC.NURSE ---
PT agitated- becoming verbally aggressive and loud with t/w and MHTs. demanding meds and drinks being brought to him at bedside despite no mobility issues and pt ambulating periodically since presenting to unit. PT refusing meds then accepting meds then refusing again. Pt making claims that POD staff are treating him poorly and states he is anxious. PT medicated as per MAR for bedtime meds and PRN for anxiety. PT asleep soon after administration and remained asleep for much of the shift. Respirations even and unlabored and pt not in any acute distress or discomfort. CIWA score of 11 however assessment finding were subjective and tw did not note any objective signs of active alcohol withdrawal. Pt reported he was drinking earlier in the day, and prior to was sober for 7 days. he denied any tremors or nausea. Ativan order held to avoid disturbing pt as he was able to fall asleep soon after medication administration and he remains stable. Continuing monitoring for signs of alcohol withdrawal and awaiting care team consult.
--- NOTE | 2024-09-19 07:31 | PC.NURSE ---
Assumed care of patient at 0700. Patient currently sitting quietly watching TV. Continue with plan of care for Care team
--- NOTE | 2024-09-19 08:00 | HE.PHANOTE ---
Re Methadone Pt receives 160mg from [facility], last dose was 09/18/24 @[id number]
[2024-09-19] MEDS: Dextroamphetamine/Amphetamine XR 10 MG CAP.ER.24H 30 MG PO (08:21)
[2024-09-19] MEDS: methADONE HCl 20 MG/2 ML ORAL.CONC 160 MG PO (08:22)
[2024-09-19] MEDS: buPROPion HCl XL 300 MG TAB.ER.24H PO (08:47)
[2024-09-19] MEDS: Nicotine 21 MG PATCH.TD24 TRANSDERMA (11:06)
[2024-09-19] MEDS: LORazepam 1 MG TABLET 2 MG PO ×2 (11:06→20:32)
[2024-09-19] MEDS: Nicotine Polacrilex 2 MG GUM BUCCAL ×2 (11:06→15:13)
--- NOTE | 2024-09-19 17:01 | PC.NURSE ---
Patient refused EKG, MD aware.
--- NOTE | 2024-09-19 18:40 | PC.ADMIT ---
Germán is a 43 y/o maltese speaking male admitted to M3 from the [facility] pod on a CV for MDD with SI. Pt reports his depression gets worse this time of year since the of his . Pt went into the police station reporting that he was going to OD on the heroin he had. Police reported pt had around 60 bags of heroin. Pt reported to TW that he had been sober getting take home methadone until about a week ago when ?he started drinking and using everything I could, including crack and heroin.? Pt has had several IPLOC hospitalizations at [facility] and [facility]. Pt was A&O x4, calm and cooperative, thought process is linear. Pt denies any AH/VH, he denies ideation, plan or intent to harm himself or others. Mood is depressed and anxious with a range of affect. Pt reports a good appetite, poor sleep r/t racing thoughts and nightmares. Pt on prazosin, but states it doesn?t help.Pt denies any chronic or acute medical issues. Pt says,? I really only drank one day, I?m not going to withdrawal.? Pt has a long substance abuse hx and is on methadone. Methadone verified. Skin check completed, noted injection sites on tops of bilateral feet. Pts goal is to get his medications reviewed/ adjusted to treat his anxiety and depression. Pt placed on 15 minute safety checks.
[2024-09-19] MEDS: Nicotine Polacrilex 2 MG GUM 4 MG BUCCAL ×2 (18:52→20:39)
[2024-09-19] MEDS: Doxepin HCl 25 MG CAPSULE 100 MG PO (20:31)
[2024-09-20] MEDS: LORazepam 1 MG TABLET PO ×4 (00:13→20:25)
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
[2024-09-20 08:45] VITALS: BP 136/84; PULSE 80; RESP 18; TEMP 36.5; O2SAT 97
[2024-09-20] MEDS: Dextroamphetamine/Amphetamine XR 10 MG CAP.ER.24H 30 MG PO (08:51)
[2024-09-20] MEDS: Nicotine 21 MG PATCH.TD24 TRANSDERMA (08:51)
[2024-09-20] MEDS: OXcarbazepine 300 MG TABLET 600 MG PO ×2 (08:52→20:25)
[2024-09-20] MEDS: buPROPion HCl XL 300 MG TAB.ER.24H PO (08:52)
[2024-09-20] MEDS: Thiamine HCL 100 MG TABLET PO (08:52)
[2024-09-20] MEDS: Gabapentin 400 MG CAPSULE 800 MG PO (08:52)
[2024-09-20] MEDS: methADONE HCl 20 MG/2 ML ORAL.CONC 160 MG PO (08:58)
--- NOTE | 2024-09-20 10:10 | PHA.MEDREC ---
Addendum entered by William Alejo 09/20/24 10:16: reviewed Original Note: Pharmacy Consult ? Medication Reconciliation Pharmacy reviewed med rec done by nursing. Claims matched what nurse confirmed except the Hydroxyzine HCL 50mg tab; Nurse had confirmed 1 QID Prn and in claims it was last filled for QID in April, it was since filled in June and August for 1 TID. I updated the Hydroxyzine HCL 50mg to TID since that was the most recent claims.
[2024-09-20] MEDS: Nicotine Polacrilex 2 MG GUM 4 MG BUCCAL ×3 (10:35→15:11)
[2024-09-20 12:58] VITALS: BP 167/96; PULSE 88; RESP 18; O2SAT 96
[2024-09-20] MEDS: LORazepam 1 MG TABLET 2 MG PO (13:02)
[2024-09-20] MEDS: cloNIDine HCL 0.2 MG TABLET PO (13:03)
[2024-09-20] MEDS: Acetaminophen 325 MG TABLET 650 MG PO (13:03)
--- NOTE | 2024-09-20 15:57 | MHC.RECOVRN ---
AUDIT-C Brief Intervention Pt had positive screen for unhealthy alcohol use on admission, subsequently met with t/w to discuss alcohol use and recovery supports/options. This handbook writer met with patient to discuss current alcohol use and concerns related to increased risk of alcohol related problems.? Pt reports tat his drinking as of late has not been an issue. He stated he only drank that one time due to stressors. His main issue, per his report is opioid use. Discussed how alcohol use has impacted health, including negative impact on relationships and health Withdrawal History: Pt reports seizures with w/d in the past. Treatment History:Multiple facilities, pt. unable to accurately report when and where and reason for admission Supports:?father Discussed risk reduction strategies including drinking below the recommended limit. Provided pt with written resources including information on inpatient and outpatient treatment, HENRI, harm reduction, and recovery coaching. Pt plans to decide where he wants to be placed following D/C and accept assistance at that time with coordinating community resources. Pt provided with t/w contact information if questions or concerns arise. Denies other questions or concerns at this time.
[2024-09-20] MEDS: Gabapentin 600 MG TABLET PO ×2 (16:08→20:25)
[2024-09-20] MEDS: Gabapentin 400 MG CAPSULE PO ×2 (16:08→20:25)
[2024-09-20 16:40] VITALS: BP 137/67; PULSE 75; RESP 18; O2SAT 98
[2024-09-20 20:00] VITALS: BP 157/88; PULSE 83; RESP 16; TEMP 36.3; O2SAT 98
[2024-09-20] MEDS: Doxepin HCl 25 MG CAPSULE 100 MG PO (20:24)
[2024-09-20] MEDS: Prazosin HCL 1 MG CAPSULE PO (20:26)
[2024-09-21] MEDS: Acetaminophen 325 MG TABLET 650 MG PO (00:15)
[2024-09-21] MEDS: LORazepam 1 MG TABLET PO ×2 (00:16→04:33)
[2024-09-21] MEDS: hydrOXYzine HCL 50 MG TABLET PO (00:16)
[2024-09-21 07:10] VITALS: BP 150/69; PULSE 65; RESP 16; TEMP 36.6; O2SAT 95
[2024-09-21] MEDS: methADONE HCl 20 MG/2 ML ORAL.CONC 160 MG PO (08:38)
[2024-09-21] MEDS: OXcarbazepine 300 MG TABLET 600 MG PO ×2 (08:40→20:05)
[2024-09-21] MEDS: Gabapentin 400 MG CAPSULE PO ×3 (08:40→20:05)
[2024-09-21] MEDS: Thiamine HCL 100 MG TABLET PO (08:40)
[2024-09-21] MEDS: Gabapentin 600 MG TABLET PO ×3 (08:40→20:05)
[2024-09-21] MEDS: Dextroamphetamine/Amphetamine XR 10 MG CAP.ER.24H 30 MG PO (08:41)
[2024-09-21] MEDS: buPROPion HCl XL 300 MG TAB.ER.24H PO (08:41)
[2024-09-21] MEDS: Nicotine 21 MG PATCH.TD24 TRANSDERMA (08:42)
--- NOTE | 2024-09-21 11:37 | P.PNPSI_ITS ---
Subjective Subjective Date of Service: 09/21/24 Reason For Visit: SI w/ plan coming from [facility] Subjective Notes: Conditional Voluntary Healthcare Proxy: No Guardianship: No Medical Problems Affecting Mental Status: Yes (alcohol withdrawl- dilcia got 8mg ativan in 24 hr) Interim History: 43 yo who was using alcohol prior to admission and now in withdrawal feeling depressed, hopless, and not getting out of bed and apologizing for it- Not sleeping well- says he normally dose on doxepin, but also takes melatonin at home. NO ACTIVE SI, BUT doesn't care if he lives or dies. - I don't think there is a way I could do it here Medication Compliance: Yes Side effects from medications: No Attending Groups: No Review of Systems see above Mental Status Exam Mental Status Exam Patient Appearance: Appropriate Patient Orientation: Person, Place, Time and Situation Level of Consciousness: Awake Patient Behavior: Passive, Avoidant and Isolative Mood Description: Sad Affect Description: Blunted Patient Cognition Impaired: No Ability to Follow Directions: Fair Speech Pattern: Clear Hallucinations: None Delusions: Not Present Thought Process: Intact and Goal Oriented Thought Content: positive for Suicidal Ideation Depressive Symptoms: Feelings of Worthlessness, Hopelessness, Thoughts of /Suicide and Loss of Energy Judgement: Fair Diagnostics Vital Signs (24Hr): Vital Signs - 24 hr 09/20/24 12:58 09/20/24 16:40 09/20/24 20:00 Temperature 97.3 F Pulse Rate 88 75 83 Respiratory Rate 18 18 16 Blood Pressure 167/96 H 137/67 157/88 H Pulse Oximetry 96 98 98 Oxygen Delivery Method Room Air Room Air Room Air 09/21/24 07:10 Temperature 97.9 F Pulse Rate 65 Respiratory Rate 16 Blood Pressure 150/69 H Pulse Oximetry 95 Oxygen Delivery Method Room Air BMI result Body Mass Index 32.1 Labs 09/18/24 23:39 09/18/24 23:39 Medications Medications Current Medications Acetaminophen (Acetaminophen 325 Mg Tablet) 650 mg PO Q6H PRN PRN Reason: Headache/Pain Mild Scale (1-3) Last Admin: 09/21/24 00:15 Dose: 650 mg Al Hydroxide/Mg Hydroxide (Magnesium Hydrox/Alum Hydrox 30 Ml Oral.Susp) 30 ml PO Q6H PRN PRN Reason: Heartburn/Nausea Amphetamine/Dextroamphetamine (Dextroamphetamine/Amphetamine Xr 10 Mg Cap.Er.24h) 30 mg PO DAILY [facility] Last Admin: 09/21/24 08:41 Dose: 30 mg Bupropion HCl (Bupropion Hcl Xl 300 Mg Tab.Er.24h) 300 mg PO DAILY [facility] Last Admin: 09/21/24 08:41 Dose: 300 mg Clonidine HCl (Clonidine Hcl 0.2 Mg Tablet) 0.2 mg PO TID PRN; Protocol PRN Reason: anxiety/agitation Last Admin: 09/20/24 13:03 Dose: 0.2 mg Doxepin HCl (Doxepin Hcl 25 Mg Capsule) 100 mg PO BEDTIME [facility] Last Admin: 09/20/24 20:24 Dose: 100 mg Gabapentin (Gabapentin 400 Mg Capsule) 400 mg PO TID [facility] Last Admin: 09/21/24 08:40 Dose: 400 mg Gabapentin (Gabapentin 600 Mg Tablet) 600 mg PO TID [facility] Last Admin: 09/21/24 08:40 Dose: 600 mg Hydroxyzine HCl (Hydroxyzine Hcl 50 Mg Tablet) 50 mg PO QID PRN PRN Reason: Anxiety Last Admin: 09/21/24 00:16 Dose: 50 mg Lorazepam (Lorazepam 1 Mg Tablet) 1 mg PO Q2H PRN PRN Reason: CIWA 8-11 Last Admin: 09/21/24 04:33 Dose: 1 mg Lorazepam (Lorazepam 1 Mg Tablet) 3 mg PO Q2H PRN PRN Reason: CIWA > 15, and call MD Lorazepam (Lorazepam 1 Mg Tablet) 2 mg PO TID [facility] Magnesium Hydroxide (Milk Of Magnesia 30 Ml Oral.Susp) 30 ml PO DAILY PRN PRN Reason: Constipation Methadone HCl (Methadone Hcl 20 Mg/2 Ml Oral.Conc) 160 mg PO DAILY [facility] Last Admin: 09/21/24 08:38 Dose: 160 mg Nicotine (Nicotine 21 Mg Patch.Td24) 21 mg TRANSDERMA DAILY [facility] Last Admin: 09/21/24 08:42 Dose: 21 mg Nicotine Polacrilex (Nicotine Polacrilex 2 Mg Gum) 4 mg BUCCAL Q2H PRN PRN Reason: Nicotine Cravings Last Admin: 09/20/24 15:11 Dose: 4 mg Oxcarbazepine (Oxcarbazepine 300 Mg Tablet) 600 mg PO BID [facility] Last Admin: 09/21/24 08:40 Dose: 600 mg Prazosin HCl (Prazosin Hcl 1 Mg Capsule) 1 mg PO BEDTIME [facility]; Protocol Last Admin: 09/20/24 20:26 Dose: 1 mg Thiamine HCl (Thiamine Hcl 100 Mg Tablet) 100 mg PO DAILY [facility] Last Admin: 09/21/24 08:40 Dose: 100 mg Allergies Allergies Allergy/AdvReac Type Severity Reaction Status Date / Time fish derived [FISH] Allergy Severe ANAPHYLAXIS Verified 09/18/24 23:30 quetiapine [From SEROQUEL] AdvReac Severe INVOLUNTARY Verified 09/18/24 23:30 SPASMS trazodone AdvReac Unknown INVOLUNTARY Verified 09/18/24 23:30 SPASMS SEAFOOD Allergy Severe ANAPHYLAXIS Uncoded 09/18/24 23:30 Assessment & Plan Assessment & Plan (1) Cocaine use: Status: Acute Code(s): F14.90 - Cocaine use, unspecified, uncomplicated (2) Chronic post-traumatic stress disorder (PTSD): Status: Chronic Code(s): F43.12 - Post-traumatic stress disorder, chronic (3) Opioid use disorder: Status: Chronic Code(s): F11.99 - Opioid use, unspecified with unspecified opioid-induced disorder (4) Alcohol use disorder: Status: Acute Code(s): F10.90 - Alcohol use, unspecified, uncomplicated Plan pt reports minimal recent opioid use, states he will not be in withdrawal from opioids and will be fine to simply continue to take his methadone 160 mg daily. he reports taking stimulants as per his prescription. he reports benzos are residual from a recent detox at [facility] where he received valium. he endorses recently using cocaine briefly, as well as cannabis and alcohol. he will be continued on his home medications except for an increase in gabapentin from 800 TID to 1000 TID for anxiety. he was informed this handbook writer does not support stimulant script for him and will allow it to continue to be prescribed while inpatient as he appears to have an active outpt script/prescriber for it, but that this handbook writer will not prescribe the medication for him at discharge. supportive care for cocaine withdrawal, ativan per [facility] protocol for alcohol withdrawal; taper ativan 09/21 or 09/22. planning to get to [place] to stay with an ex- GF versus get into a program locally if the first option does not work out. 09/21/24- ativan scheduled 2mg tid then will need taper (still prn of 1mg q 4 for ciwa, or 3 mg if not held by this- added in melatonin for sleep and continue mileu as patient tolerates for now- Patient educated on: medication risk/benefits and substance abuse Informed Consent: understands Reason for continued inpatient stay Substantial Risk for: harm to self, rapid decompensation and med/psych decompensation Time Spent With Patient Time: Total time managing care of this patient today ____ minutes.
[2024-09-21 12:42] VITALS: BP 136/83
[2024-09-21] MEDS: cloNIDine HCL 0.2 MG TABLET PO (12:42)
[2024-09-21] MEDS: Nicotine Polacrilex 2 MG GUM 4 MG BUCCAL ×2 (12:43→15:03)
[2024-09-21] MEDS: LORazepam 1 MG TABLET 2 MG PO ×2 (15:02→20:06)
[2024-09-21 20:00] VITALS: BP 130/79; PULSE 70; RESP 18; TEMP 36.8; O2SAT 96
[2024-09-21] MEDS: Doxepin HCl 25 MG CAPSULE 100 MG PO (20:04)
[2024-09-21 20:05] VITALS: BP 130/79
[2024-09-21] MEDS: Prazosin HCL 1 MG CAPSULE PO (20:05)
[2024-09-21] MEDS: Melatonin 3 MG TABLET 6 MG PO (20:05)
[2024-09-22] MEDS: LORazepam 1 MG TABLET PO (03:40)
[2024-09-22] MEDS: hydrOXYzine HCL 50 MG TABLET PO ×2 (03:40→16:52)
[2024-09-22] MEDS: cloNIDine HCL 0.2 MG TABLET PO ×2 (03:40→15:26)
[2024-09-22 07:10] VITALS: BP 135/71; PULSE 71; RESP 14; TEMP 36.6; O2SAT 97
[2024-09-22] MEDS: methADONE HCl 20 MG/2 ML ORAL.CONC 160 MG PO (07:48)
[2024-09-22] MEDS: Nicotine 21 MG PATCH.TD24 TRANSDERMA (09:27)
[2024-09-22] MEDS: Thiamine HCL 100 MG TABLET PO (09:28)
[2024-09-22] MEDS: buPROPion HCl XL 300 MG TAB.ER.24H PO (09:28)
[2024-09-22] MEDS: Dextroamphetamine/Amphetamine XR 10 MG CAP.ER.24H 30 MG PO (09:29)
[2024-09-22] MEDS: OXcarbazepine 300 MG TABLET 600 MG PO ×2 (09:29→21:41)
[2024-09-22] MEDS: LORazepam 1 MG TABLET 2 MG PO (09:29)
[2024-09-22] MEDS: Gabapentin 600 MG TABLET PO ×3 (09:29→21:39)
[2024-09-22] MEDS: Gabapentin 400 MG CAPSULE PO ×3 (09:30→21:39)
[2024-09-22 10:00] VITALS: BMI 31.1
[2024-09-22] MEDS: Nicotine Polacrilex 2 MG GUM 4 MG BUCCAL ×2 (10:22→14:03)
--- NOTE | 2024-09-22 15:12 | HO.PSYCHPN ---
Subjective Subjective Date of Service: 09/22/24 Reason For Visit: SI w/ plan coming from [facility] Interim History: calm, cooperative. states he would like to discharge tomorrow and does not want to continue ativan taper. MD encouraged pt to continue taper and suggested could leave thursday. pt continues to say he prefers tomorrow and does not plan to take benzos anymore but will if he needs to. planning to go to his father's house and then directly to [place]. per staff, 3-day up 09/26. +dep/anx. ativan 2 TID scheduled. slept 6 hours. Mental Status Exam Mental Status Exam Narrative: in today's visit he is alert, oriented.? Normal speech.? Good eye contact.? Appropriate affect.? mood not assessed. no SI/HI/AVH expressed. Cognitively is intact.? Judgment is intact. Diagnostics Vital Signs (24Hr): Vital Signs - 24 hr 09/21/24 20:00 09/21/24 20:05 09/22/24 07:10 Temperature 98.2 F 97.8 F Pulse Rate 70 71 Respiratory Rate 18 14 Blood Pressure 130/79 130/79 135/71 Pulse Oximetry 96 97 Oxygen Delivery Method Room Air Room Air BMI result Body Mass Index 32.1 Labs 09/18/24 23:39 09/18/24 23:39 Medications Medications Current Medications Acetaminophen (Acetaminophen 325 Mg Tablet) 650 mg PO Q6H PRN PRN Reason: Headache/Pain Mild Scale (1-3) Last Admin: 09/21/24 00:15 Dose: 650 mg Al Hydroxide/Mg Hydroxide (Magnesium Hydrox/Alum Hydrox 30 Ml Oral.Susp) 30 ml PO Q6H PRN PRN Reason: Heartburn/Nausea Amphetamine/Dextroamphetamine (Dextroamphetamine/Amphetamine Xr 10 Mg Cap.Er.24h) 30 mg PO DAILY [facility] Last Admin: 09/22/24 09:29 Dose: 30 mg Bupropion HCl (Bupropion Hcl Xl 300 Mg Tab.Er.24h) 300 mg PO DAILY [facility] Last Admin: 09/22/24 09:28 Dose: 300 mg Clonidine HCl (Clonidine Hcl 0.2 Mg Tablet) 0.2 mg PO TID PRN; Protocol PRN Reason: anxiety/agitation Last Admin: 09/22/24 03:40 Dose: 0.2 mg Doxepin HCl (Doxepin Hcl 25 Mg Capsule) 100 mg PO BEDTIME [facility] Last Admin: 09/21/24 20:04 Dose: 100 mg Gabapentin (Gabapentin 400 Mg Capsule) 400 mg PO TID [facility] Last Admin: 09/22/24 14:03 Dose: 400 mg Gabapentin (Gabapentin 600 Mg Tablet) 600 mg PO TID [facility] Last Admin: 09/22/24 14:02 Dose: 600 mg Hydroxyzine HCl (Hydroxyzine Hcl 50 Mg Tablet) 50 mg PO QID PRN PRN Reason: Anxiety Last Admin: 09/22/24 03:40 Dose: 50 mg Lorazepam (Lorazepam 1 Mg Tablet) 1 mg PO QID [facility] Stop: 09/22/24 21:01 Last Admin: 09/22/24 13:00 Dose: Not Given Lorazepam (Lorazepam 1 Mg Tablet) 1 mg PO TID [facility] Stop: 09/23/24 21:01 Lorazepam (Lorazepam 0.5 Mg Tablet) 0.5 mg PO QID [facility] Stop: 09/24/24 21:01 Lorazepam (Lorazepam 0.5 Mg Tablet) 0.5 mg PO BID [facility] Stop: 09/26/24 09:01 Magnesium Hydroxide (Milk Of Magnesia 30 Ml Oral.Susp) 30 ml PO DAILY PRN PRN Reason: Constipation Melatonin (Melatonin 3 Mg Tablet) 6 mg PO BEDTIME [facility] Last Admin: 09/21/24 20:05 Dose: 6 mg Methadone HCl (Methadone Hcl 20 Mg/2 Ml Oral.Conc) 160 mg PO DAILY [facility] Last Admin: 09/22/24 07:48 Dose: 160 mg Nicotine (Nicotine 21 Mg Patch.Td24) 21 mg TRANSDERMA DAILY [facility] Last Admin: 09/22/24 09:27 Dose: 21 mg Nicotine Polacrilex (Nicotine Polacrilex 2 Mg Gum) 4 mg BUCCAL Q2H PRN PRN Reason: Nicotine Cravings Last Admin: 09/22/24 14:03 Dose: 4 mg Oxcarbazepine (Oxcarbazepine 300 Mg Tablet) 600 mg PO BID [facility] Last Admin: 09/22/24 09:29 Dose: 600 mg Prazosin HCl (Prazosin Hcl 1 Mg Capsule) 1 mg PO BEDTIME [facility]; Protocol Last Admin: 09/21/24 20:05 Dose: 1 mg Allergies Allergies Allergy/AdvReac Type Severity Reaction Status Date / Time fish derived [FISH] Allergy Severe ANAPHYLAXIS Verified 09/18/24 23:30 quetiapine [From SEROQUEL] AdvReac Severe INVOLUNTARY Verified 09/18/24 23:30 SPASMS trazodone AdvReac Unknown INVOLUNTARY Verified 09/18/24 23:30 SPASMS SEAFOOD Allergy Severe ANAPHYLAXIS Uncoded 09/18/24 23:30 Assessment & Plan Assessment & Plan (1) Cocaine use: Status: Acute Code(s): F14.90 - Cocaine use, unspecified, uncomplicated (2) Chronic post-traumatic stress disorder (PTSD): Status: Chronic Code(s): F43.12 - Post-traumatic stress disorder, chronic (3) Opioid use disorder: Status: Chronic Code(s): F11.99 - Opioid use, unspecified with unspecified opioid-induced disorder (4) Alcohol use disorder: Status: Acute Code(s): F10.90 - Alcohol use, unspecified, uncomplicated Plan pt reports minimal recent opioid use, states he will not be in withdrawal from opioids and will be fine to simply continue to take his methadone 160 mg daily. he reports taking stimulants as per his prescription. he reports benzos are residual from a recent detox at [facility] where he received valium. he endorses recently using cocaine briefly, as well as cannabis and alcohol. he will be continued on his home medications except for an increase in gabapentin from 800 TID to 1000 TID for anxiety. he was informed this consumer loan underwriter does not support stimulant script for him and will allow it to continue to be prescribed while inpatient as he appears to have an active outpt script/prescriber for it, but that this consumer loan underwriter will not prescribe the medication for him at discharge. supportive care for cocaine withdrawal, ativan per [facility] protocol for alcohol withdrawal; taper ativan 09/21 or 09/22. planning to get to [place] to stay with an ex-GF versus get into a program locally if the first option does not work out. 09/21/24- ativan scheduled 2mg tid then will need taper (still prn of 1mg q 4 for ciwa, or 3 mg if not held by this- added in melatonin for sleep and continue mileu as patient tolerates for now- 09/22: DC [facility], structure ativan taper. pt now refusing ativan saying he wants to discharge tomorrow. planning to return to his father's home and then fly to [place] as soon as possible. MD encouraged pt to continue with ativan taper with plan to check in tomorrow to see what his condition is. Reason for continued inpatient stay Substantial Risk for: rapid decompensation Time Spent With Patient Time: Total time managing care of this patient today _25___ minutes.
[2024-09-22 15:26] VITALS: BP 124/87
[2024-09-22 20:00] VITALS: BP 118/66; PULSE 77; RESP 20; TEMP 36.1; O2SAT 96
[2024-09-22] MEDS: Melatonin 3 MG TABLET 6 MG PO (21:38)
[2024-09-22] MEDS: Doxepin HCl 25 MG CAPSULE 100 MG PO (21:39)
[2024-09-22 21:41] VITALS: BP 118/66
[2024-09-22] MEDS: Prazosin HCL 1 MG CAPSULE PO (21:41)
--- NOTE | 2024-09-22 22:51 | PC.NURSE ---
Germán refused his evening Ativan and stated I don't want to be woken up for that again. I'm fine. I just want to sleep and I will not be taking the Ativan again.
[2024-09-23 01:56] VITALS: BP 135/79
[2024-09-23] MEDS: cloNIDine HCL 0.2 MG TABLET PO (01:56)
[2024-09-23] MEDS: hydrOXYzine HCL 50 MG TABLET PO ×2 (02:00→17:30)
[2024-09-23] MEDS: Nicotine Polacrilex 2 MG GUM 4 MG BUCCAL ×3 (02:00→15:30)
[2024-09-23] MEDS: methADONE HCl 20 MG/2 ML ORAL.CONC 160 MG PO (07:40)
[2024-09-23 08:00] VITALS: BP 145/88; PULSE 83; RESP 15; TEMP 36.6; O2SAT 97
[2024-09-23] MEDS: buPROPion HCl XL 300 MG TAB.ER.24H PO (08:10)
[2024-09-23] MEDS: Nicotine 21 MG PATCH.TD24 TRANSDERMA (08:10)
[2024-09-23] MEDS: Dextroamphetamine/Amphetamine XR 10 MG CAP.ER.24H 30 MG PO (08:10)
[2024-09-23] MEDS: Gabapentin 600 MG TABLET PO ×3 (08:11→20:29)
[2024-09-23] MEDS: OXcarbazepine 300 MG TABLET 600 MG PO (08:11)
[2024-09-23] MEDS: Gabapentin 400 MG CAPSULE PO ×3 (08:14→20:29)
[2024-09-23] MEDS: LORazepam 1 MG TABLET PO (08:22)
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
[2024-09-23] MEDS: Omeprazole 20 MG CAPSULE.DR PO (11:58)
[2024-09-23] MEDS: diazePAM 5 MG TABLET PO ×2 (13:31→20:29)
--- NOTE | 2024-09-23 13:32 | PC.NURSE ---
Dr Jose Dickerson gave verbal permission to this nurse, to give pt Valium 5mg early.
[2024-09-23 19:47] VITALS: BP 128/79; PULSE 66; RESP 16; TEMP 36.5; O2SAT 96
[2024-09-23] MEDS: Doxepin HCl 25 MG CAPSULE 100 MG PO (20:29)
[2024-09-23] MEDS: Prazosin HCL 1 MG CAPSULE PO (20:29)
[2024-09-23] MEDS: Melatonin 3 MG TABLET 6 MG PO (20:30)
[2024-09-24 03:32] VITALS: BP 137/78
[2024-09-24] MEDS: cloNIDine HCL 0.2 MG TABLET PO (03:32)
[2024-09-24] MEDS: Omeprazole 20 MG CAPSULE.DR PO (06:52)
[2024-09-24 07:45] VITALS: BP 144/86; PULSE 75; RESP 16; TEMP 36.3; O2SAT 96
[2024-09-24] MEDS: methADONE HCl 20 MG/2 ML ORAL.CONC 160 MG PO (08:04)
[2024-09-24] MEDS: Gabapentin 400 MG CAPSULE PO (08:07)
[2024-09-24] MEDS: Gabapentin 600 MG TABLET PO (08:07)
[2024-09-24] MEDS: buPROPion HCl XL 300 MG TAB.ER.24H PO (08:08)
[2024-09-24] MEDS: diazePAM 5 MG TABLET PO (08:08)
[2024-09-24] MEDS: OXcarbazepine 300 MG TABLET 600 MG PO (08:08)
[2024-09-24] MEDS: Dextroamphetamine/Amphetamine XR 10 MG CAP.ER.24H 30 MG PO (08:08)
--- NOTE | 2024-09-24 08:46 | P.PNPSI_ITS ---
Subjective Subjective Reason For Visit: SI w/ plan coming from pd lobby, sect 12 Diagnostics Vital Signs (24Hr): Vital Signs - 24 hr 09/23/24 19:47 09/24/24 03:32 09/24/24 07:45 Temperature 97.7 F 97.4 F Pulse Rate 66 75 Respiratory Rate 16 16 Blood Pressure 128/79 137/78 144/86 H Pulse Oximetry 96 96 Oxygen Delivery Method Room Air Room Air BMI result Body Mass Index 31.1 Labs 09/18/24 23:39 09/18/24 23:39 Medications Medications Current Medications Acetaminophen (Acetaminophen 325 Mg Tablet) 650 mg PO Q6H PRN PRN Reason: Headache/Pain Mild Scale (1-3) Last Admin: 09/21/24 00:15 Dose: 650 mg Al Hydroxide/Mg Hydroxide (Magnesium Hydrox/Alum Hydrox 30 Ml Oral.Susp) 30 ml PO Q6H PRN PRN Reason: Heartburn/Nausea Amphetamine/Dextroamphetamine (Dextroamphetamine/Amphetamine Xr 10 Mg Cap.Er.24h) 30 mg PO DAILY [facility] Last Admin: 09/24/24 08:08 Dose: 30 mg Bupropion HCl (Bupropion Hcl Xl 300 Mg Tab.Er.24h) 300 mg PO DAILY [facility] Last Admin: 09/24/24 08:08 Dose: 300 mg Clonidine HCl (Clonidine Hcl 0.2 Mg Tablet) 0.2 mg PO TID PRN; Protocol PRN Reason: anxiety/agitation Last Admin: 09/24/24 03:32 Dose: 0.2 mg Diazepam (Diazepam 5 Mg Tablet) 5 mg PO TID [facility] Last Admin: 09/24/24 08:08 Dose: 5 mg Doxepin HCl (Doxepin Hcl 25 Mg Capsule) 100 mg PO BEDTIME [facility] Last Admin: 09/23/24 20:29 Dose: 100 mg Gabapentin (Gabapentin 400 Mg Capsule) 400 mg PO TID [facility] Last Admin: 09/24/24 08:07 Dose: 400 mg Gabapentin (Gabapentin 600 Mg Tablet) 600 mg PO TID [facility] Last Admin: 09/24/24 08:07 Dose: 600 mg Hydroxyzine HCl (Hydroxyzine Hcl 50 Mg Tablet) 50 mg PO QID PRN PRN Reason: Anxiety Last Admin: 09/23/24 17:30 Dose: 50 mg Magnesium Hydroxide (Milk Of Magnesia 30 Ml Oral.Susp) 30 ml PO DAILY PRN PRN Reason: Constipation Melatonin (Melatonin 3 Mg Tablet) 6 mg PO BEDTIME [facility] Last Admin: 09/23/24 20:30 Dose: 6 mg Methadone HCl (Methadone Hcl 20 Mg/2 Ml Oral.Conc) 160 mg PO DAILY [facility] Last Admin: 09/24/24 08:04 Dose: 160 mg Nicotine (Nicotine 21 Mg Patch.Td24) 21 mg TRANSDERMA DAILY [facility] Last Admin: 09/24/24 08:08 Dose: Not Given Nicotine Polacrilex (Nicotine Polacrilex 2 Mg Gum) 4 mg BUCCAL Q2H PRN PRN Reason: Nicotine Cravings Last Admin: 09/23/24 15:30 Dose: 4 mg Omeprazole (Omeprazole 20 Mg Capsule.Dr) 20 mg PO DAILY@0630 [facility] Last Admin: 09/24/24 06:52 Dose: 20 mg Oxcarbazepine (Oxcarbazepine 300 Mg Tablet) 600 mg PO BID [facility] Last Admin: 09/24/24 08:08 Dose: 600 mg Prazosin HCl (Prazosin Hcl 1 Mg Capsule) 1 mg PO BEDTIME [facility]; Protocol Last Admin: 09/23/24 20:29 Dose: 1 mg Allergies Allergies Allergy/AdvReac Type Severity Reaction Status Date / Time fish derived [FISH] Allergy Severe ANAPHYLAXIS Verified 09/18/24 23:30 quetiapine [From SEROQUEL] AdvReac Severe INVOLUNTARY Verified 09/18/24 23:30 SPASMS trazodone AdvReac Unknown INVOLUNTARY Verified 09/18/24 23:30 SPASMS SEAFOOD Allergy Severe ANAPHYLAXIS Uncoded 09/18/24 23:30 Assessment & Plan Assessment & Plan (1) Cocaine use: Status: Acute Code(s): F14.90 - Cocaine use, unspecified, uncomplicated (2) Chronic post-traumatic stress disorder (PTSD): Status: Chronic Code(s): F43.12 - Post-traumatic stress disorder, chronic (3) Opioid use disorder: Status: Chronic Code(s): F11.99 - Opioid use, unspecified with unspecified opioid-induced disorder (4) Alcohol use disorder: Status: Acute Code(s): F10.90 - Alcohol use, unspecified, uncomplicated Plan pt reports minimal recent opioid use, states he will not be in withdrawal from opioids and will be fine to simply continue to take his methadone 160 mg daily. he reports taking stimulants as per his prescription. he reports benzos are residual from a recent detox at [facility] where he received valium. he endorses recently using cocaine briefly, as well as cannabis and alcohol. he will be continued on his home medications except for an increase in gabapentin from 800 TID to 1000 TID for anxiety. he was informed this curriculum writer does not support stimulant script for him and will allow it to continue to be prescribed while inpatient as he appears to have an active outpt script/prescriber for it, but that this curriculum writer will not prescribe the medication for him at discharge. supportive care for cocaine withdrawal, ativan per [facility] protocol for alcohol withdrawal; taper ativan 09/21 or 09/22. planning to get to [place] to stay with an ex- GF versus get into a program locally if the first option does not work out. 09/21/24- ativan scheduled 2mg tid then will need taper (still prn of 1mg q 4 for ciwa, or 3 mg if not held by this- added in melatonin for sleep and continue mileu as patient tolerates for now- 09/22: DANTE JAMES, structure ativan taper. pt now refusing ativan saying he wants to discharge tomorrow. planning to return to his father's home and then fly to [place] as soon as possible. MD encouraged pt to continue with ativan taper with plan to check in tomorrow to see what his condition is. Time Spent With Patient Time: Total time managing care of this patient today ____ minutes.
== END 2024-09-24 09:25 | disposition home or self-care (01) | DRG 882 ==
LOC: HO.ED 09-19 02:09 → HO.PADLT16 09-19 16:41
PROVIDERS: Admitting Provider Registered Nurse; Emergency Provider Emergency Medicine; Visit Provider Psychiatry & Neurology Psychiatry
DX: F43.12 Post-traumatic stress disorder, chronic (principal); R45.851 Suicidal ideations; F11.20 Opioid dependence, uncomplicated; F10.939 Alcohol use, unspecified with withdrawal, unspecified; F17.210 Nicotine dependence, cigarettes, uncomplicated; F14.90 Cocaine use, unspecified, uncomplicated; Y90.3 Blood alcohol level of 60-79 mg/100 ml; Z71.6 Tobacco abuse counseling; Z79.899 Other long term (current) drug therapy
CPT/HCPCS: 36415; 80053; 80143; 80179; 80307; 81001; 85025; 99285; S9485

== ENCOUNTER → 2024-09-19 16:37 | Outpatient (BNV) | payer OTHER, SELFPAY | PROVIDERS: Admitting Provider Registered Nurse; Emergency Provider Emergency Medicine; Visit Provider Psychiatry & Neurology Psychiatry | DX: F14.90 Cocaine use, unspecified, uncomplicated (principal); F11.90 Opioid use, unspecified, uncomplicated; F10.90 Alcohol use, unspecified, uncomplicated; F43.12 Post-traumatic stress disorder, chronic | CPT/HCPCS: 90792; 99232 ==

== ENCOUNTER 2025-01-01 09:29 | Emergency (ER) | payer OTHER, SELFPAY ==
--- NOTE | 2025-01-01 | ECG_ITS ---
Test Reason : cocaine abuse Blood Pressure : */* mmHG Vent. Rate : 70 BPM Atrial Rate : 70 BPM P-R Int : 168 ms QRS Dur : 106 ms QT Int : 420 ms P-R-T Axes : 18 21 26 degrees QTcB Int : 453 ms Normal sinus rhythm Normal ECG When compared with ECG of 22-Nov-2023 13:23, Vent. rate has increased by 24 bpm Referred By: Generic ED Physician Electronically Signed By: RACHEL GRECO MD
[2025-01-01 09:34] VITALS: BP 140/77; PULSE 83; RESP 18; TEMP 36.3; O2SAT 97; BMI 33.0
--- NOTE | 2025-01-01 10:06 | ED.PSYCH ---
HPI - Psych General Chief Complaint: Psychiatric Symptoms Stated Complaint: crisis Time Seen by Provider: 01/01/25 09:50 Source: patient Mode of arrival: ambulatory Limitations: no limitations History of Present Illness ED Provider: Valentine Marsh NP HPI Narrative: Patient is a 44-year-old male who presents emergency department for evaluation of suicidal ideations with a plan to overdose. He states that he has been compliant with his methadone 165 mg of which he received this morning at [facility] in [place] [facility] [address]. He states that 2 days ago he relapsed on cocaine and opiates with an intent to overdose on them. He has been experiencing increasing depression surrounding the recent loss of his girlfriend. He is experiencing hopelessness, insomnia, and feels he requires higher level of care before he hurts himself, he does not feel as though he has control over his urges of suicidal ideations. Reports that he receives his psychiatric care were virtually/telehealth through [facility] out of [place] - was in a program out there a few months back and continued with the services. States he has been compliant with his medications including his Trileptal which he feels typically worsens his symptoms. Patient denies any homicidal ideations, auditory or visual hallucinations Related Data Home Medications ?Medication ?Instructions ?Recorded ?Confirmed methadone 10 mg/mL oral 165 mg PO DAILY 06/12/21 01/02/25 concentrate (Methadose) hydroxyzine HCl 50 mg tablet 50 mg PO TID PRN Anxiety 06/25/24 01/01/25 clonidine HCl 0.2 mg tablet 0.2 mg PO QD-TID PRN Anxiety 09/19/24 01/01/25 dextroamphetamine-amphetamine 10 1 tab PO DAILY@1300 01/01/25 01/02/25 mg tablet gabapentin 800 mg tablet 800 mg PO TID 01/01/25 01/01/25 melatonin 10 mg tablet 10 mg PO BEDTIME 01/01/25 01/01/25 oxcarbazepine 600 mg tablet 600 mg PO BID@0800,1600 01/01/25 01/01/25 dextroamphetamine-amphetamine 1 tab PO DAILY@0800 01/02/25 01/02/25 Previous Rx's ?Medication ?Instructions ?Recorded bupropion HCl 300 mg 24 hr tablet, 300 mg PO DAILY 30 days #30 tabs 09/23/24 extended release (Wellbutrin XL) doxepin 100 mg capsule 100 mg PO BEDTIME 30 days #30 caps 09/23/24 Allergies Allergy/AdvReac Type Severity Reaction Status Date / Time fish derived [FISH] Allergy Severe ANAPHYLAXIS Verified 01/01/25 09:37 quetiapine [From SEROQUEL] AdvReac Severe INVOLUNTARY Verified 01/01/25 09:37 SPASMS trazodone AdvReac Unknown INVOLUNTARY Verified 01/01/25 09:37 SPASMS SEAFOOD Allergy Severe ANAPHYLAXIS Uncoded 09/18/24 23:30 Review of Systems Review of Systems: Yes all other systems are reviewed and are negative PMFSH Past Medical History Attestation statement: The following information was validated with the patient. Source: old records reviewed Medical History Opiate use Depression Hepatitis C Chronic post-traumatic stress disorder (PTSD) MDD (major depressive disorder), recurrent episode, moderate No known health problems Surgical History History of appendectomy Social History Social History Household Members: None Household Members Other:: pt has been couch-surfing Housing: Homeless Do you presently have visiting nurse or other home services: No Alcohol intake: current Alcohol intake frequency: a few times a week Alcohol type: hard liquor Comment: 1:1 sitter Patient Tobacco Use Status: Current someday Tobacco user Tobacco use type: Cigarette Cigarette Packs Per Day: 1 Cigarettes Per Day: 20.0 Years Smoked: 20 Smoked in Last 30 Days: Yes e-Cigarette/Vaping Use: Never Used Second Hand Smoke Exposure: Yes Use of substances other than those prescribed or required for medical reasons: Yes Substance Use Type: Crack/Cocaine, Heroin and Opiates Substance Use Frequency: Chronic Longstanding Last Used Substance: Days (ago) Any prior treatment program specific to substance use: Yes Advance Directives: No Advance Directives Information Provided: No service: No Current occupational status: unemployed Sexual orientation: Straight/Heterosexual Physical Exam Vital Signs: Vital Signs: Last Vital Signs Temp 97.8 F 01/02/25 13:33 Pulse 79 01/02/25 13:33 Resp 16 01/02/25 13:33 BP 128/78 01/02/25 13:33 Pulse Ox 97 01/02/25 13:33 O2 Del Method Room Air 01/02/25 13:33 BMI result Body Mass Index 33.0 Appearance: Alert.?Oriented to person, place and time. No acute distress.?Normal affect. Eyes: Pupils equal, round and reactive to light.? ENT: Pharynx normal.?? Neck: Normal inspection.? Neck supple.?? CVS: Heart sounds normal. Normal heart rate and rhythm.? Pulses normal.?? Respiratory: No respiratory distress.? Lung sounds clear to auscultation bilaterally?? Abdomen: Soft and non-tender. Normoactive bowel sounds. Skin: Skin warm and dry.? Normal skin color.? Extremities: No lower extremity edema.? Neuro: Moves all extremities spontaneously. Sensation intact bilaterally. CN II-XII intact. No focal neuro deficits. Ambulates with normal steady gait. Course Course Course Narrative: Time: :14 Date: 01/02/25 Provider: Amna Castillo DO Patient in physician observation for psychiatric evaluation.? No acute events reported overnight. No current complaints. VS stable.? Patient is in bed search status dual dx. Will continue to monitor. Reevaluation(s) Reevaluation #1: Time: 17:00 Date: 01/02/25 Provider: Amna Castillo DO Physician observation ended at 5pm Patient to be admitted as inpatient to psychiatry Medications Administered Generic Name Dose Route Start Last Admin Trade Name Freq PRN Reason Stop Dose Admin Amphetamine/Dextroamphetamine 10 mg 01/02/25 13:00 01/02/25 13:30 Amphetamine Mixed Salts 10 Mg Tablet PO 10 mg DAILY@1300 DACIA Administration Amphetamine/Dextroamphetamine 30 mg 01/03/25 08:00 01/02/25 11:27 Amphetamine Mixed Salts 10 Mg Tablet PO 30 mg DAILY@0800 [facility] Administration Bupropion HCl 300 mg 01/02/25 09:00 01/02/25 09:37 Bupropion Hcl Xl 300 Mg Tab.Er.24h PO 300 mg DAILY [facility] Administration Clonidine HCl 0.2 mg 01/01/25 18:14 01/02/25 13:30 Clonidine Hcl 0.2 Mg Tablet PO 0.2 mg TID PRN Administration Anxiety Protocol Doxepin HCl 100 mg 01/01/25 21:00 01/01/25 21:49 Doxepin Hcl 25 Mg Capsule PO 100 mg BEDTIME [facility] Administration Gabapentin 800 mg 01/01/25 21:00 01/02/25 09:37 Gabapentin 400 Mg Capsule PO 800 mg TID [facility] Administration Melatonin 9 mg 01/01/25 21:00 01/01/25 21:48 Melatonin 3 Mg Tablet PO 9 mg BEDTIME [facility] Administration Nicotine Polacrilex 2 mg 01/02/25 13:40 01/02/25 13:49 Nicotine Polacrilex 2 Mg Gum BUCCAL 2 mg Q2H PRN Administration Nicotine Cravings Oxcarbazepine 600 mg 01/02/25 08:00 01/02/25 08:30 Oxcarbazepine 300 Mg Tablet PO Not Given BID@0800,1600 DAC[facility] Discontinued Medications Generic Name Dose Route Start Last Admin Trade Name Freq PRN Reason Stop Dose Admin Hydroxyzine HCl 50 mg 01/01/25 16:56 01/01/25 17:01 Hydroxyzine Hcl 50 Mg Tablet PO 01/01/25 16:57 50 mg ONCE ONE Administration Lorazepam 2 mg 01/01/25 12:27 01/01/25 12:38 Lorazepam 1 Mg Tablet PO 01/01/25 12:28 2 mg ONCE ONE Administration Methadone HCl 165 mg 01/02/25 11:15 01/02/25 11:28 Methadone Hcl 20 Mg/2 Ml Oral.Conc PO 01/02/25 11:16 165 mg ONCE ONE Administration Medical Decision Making Medical Decision Making [facility] Narrative: Patient is a 44-year-old male with past medical history polysubstance use disorder, depression, PTSD, hepatitis-C who presents emergency department for evaluation of SI with a plan to overdose as per HPI. He offers no physical complaints at this time in his physical examination is benign. He states he is not interested in detox at this time, does not feel it is necessary as he only relapsed 2 days ago. He has been compliant with his methadone as well. He will be placed in physician observation pending serum labs for medical clearance and care team evaluation for safe disposition planning as noted below. Differential Diagnosis Differential Diagnoses: The differential diagnosis associated with the presentation includes (See narrative above and below for further detail) Admission/Observation Consideration of admission/observation: Escalation of care including admission/observation considered Patient is being observed in the Emergency Department for depression and suicidal ideations Observation time was started at 10:19 on 01/01/2025..?The patient is currently stable and non-toxic appearing. Observation is being initiated in the Emergency Department to allow time to help differentiate if the patient's depression and anxiety is due to Substance Induced Mood Disorder and Anxiety versus Major Depressive Disorder, Bipolar Ita, Bipolar Depression, and Schizophrenia. The patient will receive frequent psychiatric assessments from the provider as well as from nursing staff. The patient will also be monitored for the need of PRN agitation medications such as Haldol, Ativan, and Benadryl. Consult Healthcare Provider Management of the patient was discussed with: Behavioral Health Provider (CARE team) Patient evaluated by care team, deemed a dual diagnosis bed search. Patient agreeable with plan of care. Lab Data MDM Lab Attestation statement: I reviewed the patient's lab results. CBC is without leukocytosis anemia or thrombocytopenia. No electrolyte derangement. No JAKUB. LFTs unremarkable. Urinalysis not consistent with UTI microscopic hematuria. Toxicology is positive for opiates, methadone, fentanyl, amphetamines, benzodiazepines, cocaine, and marijuana. Alcohol level nondetectable 01/01/25 10:21 01/01/25 10:21 Labs: Lab Results 01/01/25 Range/Units 10:21 WBC 5.8 (4.8-10.8) X10*3/uL RBC 4.95 (4.60-5.80) X10*6/uL Hgb 14.3 (14.0-18.0) g/dl Hct 42.9 (42.0-52.0) % MCV 86.7 (80.0-98.0) fL MCH 28.9 (27.0-33.0) pg MCHC 33.3 (31.0-36.0) g/dl RDW 13.9 (11.0-16.0) % Plt Count 194 (160-400) X10*3/uL MPV 10.2 (9.4-12.4) fL Immature Gran % (Auto) 0.2 (0.0-0.4) % Neut % (Auto) 23.9 L (45-73) % Lymph % (Auto) 62.1 H (20-40) % [place] % (Auto) 7.2 (2-11) % Eos % (Auto) 6.1 H (0-4) % Baso % (Auto) 0.5 (0-2) % Lymph # (Auto) 3.6 (1.2-4.9) X10*3/uL [place] # (Auto) 0.4 (0.1-1.2) X10*3/uL Eos # (Auto) 0.4 (0.0-0.4) X10*3/uL Baso # (Auto) 0.0 (0.0-0.2) X10*3/uL Abs Immat Gran (auto) 0.01 (0.00-0.03) X10*3/uL Absolute Neuts (auto) 1.4 L (2.0-8.3) x10*3/uL Absolute Nucleated RBC 0.000 (0.0-0.012) X10*3/uL Nucleated RBC % (auto) 0.0 (0.0-0.2) /100WBC Smear Tech's Comments VERIFIED Sodium 142 (135-145) mmol/L Potassium 4.2 (3.3-5.1) mmol/L Chloride 108 (96-108) mmol/L Carbon Dioxide 24 (22-29) mmol/L Anion Gap 14 (12-20) BUN 18 H (9-16) mg/dL Creatinine 0.81 (0.5-1.4) mg/dL Estim Creat Clear Calc 142.2 Estimated GFR > 60 Random Glucose 95 (60-115) mg/dL Calcium 9.7 (8.4-10.2) mg/dL Total Bilirubin 0.3 (0.0-1.0) mg/dL AST 29 (5-37) U/L ALT 28 (0-40) U/L Alkaline Phosphatase 77 (39-117) U/L Total Protein 8.9 H (6.5-8.0) g/dL Albumin 4.6 (3.5-5.0) g/dL Urine Color Dark Yellow Urine Appearance Clear Urine pH 5.5 (5.0-9.0) Ur Specific [place] >= 1.030 H (1.005-1.025) Urine Protein Trace (Neg-Trace) mg/dL Urine Glucose (UA) Negative (Negative) mg/dL Urine Ketones Trace (Negative) mg/dL Urine Blood Negative (Negative) Urine Nitrite Negative (Negative) Ur Leukocyte Esterase Negative (Negative) Salicylates < 5.0 L (15-30) mg/dL Urine Opiates Screen POSITIVE H (Not Detect) Ur Buprenorphine Scrn Not Detected (Not Detect) ng/mL Ur Oxycodone Screen Not Detected (Not Detect) ng/mL Urine Methadone Screen Positive H (Not Detect) ng/mL Urine Fentanyl Screen POSITIVE H (Not Detect) Acetaminophen < 3 (<30) mcg/mL Ur Barbiturates Screen Not Detected (Not Detect) Ur Phencyclidine Scrn Not Detected (Not Detect) Ur Amphetamines Screen POSITIVE H (Not Detect) U Benzodiazepines Scrn POSITIVE H (Not Detect) Urine Cocaine Screen POSITIVE H (Not Detect) U Marijuana (THC) Screen POSITIVE H (Not Detect) Ethyl Alcohol < 10 mg/dL External Record Review External record reviewed: Outpatient record Chronic Conditions Patient?s care impacted by: Other (See narrative above) Discharge Plan Discharge Clinical Impression: Suicidal ideation Patient Disposition: Xfer Psychiatric Hosp Transfer Details: [facility] Prescriptions: No Action methadone [Methadose] 10 mg/mL concentrate 165 mg PO DAILY clonidine HCl 0.2 mg tablet 0.2 mg PO QD-TID PRN (Reason: Anxiety) doxepin 100 mg capsule 100 mg PO BEDTIME 30 Days Qty: 30 0RF bupropion HCl [Wellbutrin XL] 300 mg tablet extended release 24 hr 300 mg PO DAILY 30 Days Qty: 30 0RF dextroamphetamine-amphetamine 10 mg tablet 1 tab PO DAILY@1300 gabapentin 800 mg tablet 800 mg PO TID oxcarbazepine 600 mg tablet 600 mg PO BID@0800,1600 melatonin 10 mg Tablet 10 mg PO BEDTIME dextroamphetamine-amphetamine 30 mg tablet 1 tab PO DAILY@0800 hydroxyzine HCl 50 mg tablet 50 mg PO TID PRN (Reason: Anxiety) Interventions: [place]-Suicide Risk Severity Scale Last Done: 01/02/25 12:29 Print Language: Georgian
--- NOTE | 2025-01-01 10:18 | PC.NURSE ---
pts meds locked up in pharmacy
[2025-01-01 10:28] LABS: Appearance Urine Clear; Color Urine Dark Yellow; Glucose Urine UA Negative (Negative); Leukocyte Esterase Urine Negative (Negative); Nitrite Urine Negative (Negative); PH 5.5 (5.0-9.0); Specific Gravity - Urine >= 1.030 (1.005-1.025); Urine Blood Negative (Negative); Urine Ketones Trace mg/dL (Negative); Urine Protein Trace mg/dL (Neg-Trace)
[2025-01-01 10:29] LABS: Basophils Percent Auto 0.5 % (0-2); Eosinophils Absolute Auto 0.4 X10*3/uL (0.0-0.4); Eosinophils Percent Auto 6.1 % (0-4); Hematocrit 42.9 % (42.0-52.0); Hemoglobin 14.3 g/dl (14.0-18.0); Imm Gran Abs Auto 0.01 X10*3/uL (0.00-0.03); Imm Gran Pct Auto 0.2 % (0.0-0.4); Lymphocytes Absolute Auto 3.6 X10*3/uL (1.2-4.9); Lymphocytes Percent Auto 62.1 % (20-40); MANUAL DIFF FLAG SCAN; Mean Corpuscular HGB Conc 33.3 g/dl (31.0-36.0); Mean Corpuscular Hemoglobin 28.9 pg (27.0-33.0); Mean Corpuscular Volume 86.7 fL (80.0-98.0); Mean Platelet Volume 10.2 fL (9.4-12.4); Monocytes Absolute Auto 0.4 X10*3/uL (0.1-1.2); Monocytes Percent Auto 7.2 % (2-11); Neutrophils Absolute Auto 1.4 x10*3/uL (2.0-8.3); Neutrophils Percent Auto 23.9 % (45-73); PLT CLUMP 1; Red Blood Count 4.95 X10*6/uL (4.60-5.80); Red Cell Distribution Width 13.9 % (11.0-16.0); SCAN SMEAR FLAG 1
[2025-01-01 10:39] LABS: Amphetamine Screen Urine POSITIVE (Not Detect); Barbiturates, Urine Not Detected (Not Detect); Benzodiazepines Screen Urine POSITIVE (Not Detect); Buprenorphine Scr Not Detected (Not Detect); Cannabinoid Screen Urine POSITIVE (Not Detect); Cocaine Screen Urine POSITIVE (Not Detect); Fentanyl, urine POSITIVE (Not Detect); Methadone Screen, Urine Positive (Not Detect); Opiate Screen Urine POSITIVE (Not Detect); Oxycodone Screen Urine Not Detected (Not Detect); Phencyclidine Screen Urine Not Detected (Not Detect)
[2025-01-01 10:46] LABS: White Blood Count 5.8 X10*3/uL (4.8-10.8)
[2025-01-01 10:47] LABS: Platelet Count 194 X10*3/uL (160-400)
[2025-01-01 10:48] LABS: SLIDE REVIEW VERIFIED
[2025-01-01 10:55] LABS: Acetaminophen LAB < 3 mcg/mL (<30); Alanine Aminotransferase 28 U/L (0-40); Albumin Level 4.6 g/dL (3.5-5.0); Alkaline Phosphatase 77 U/L (39-117); Anion Gap 14 (12-20); Aspartate Amino Transferase 29 U/L (5-37); Bilirubin Total 0.3 mg/dL (0.0-1.0); Blood Urea Nitrogen 18 mg/dL (9-16); Calcium 9.7 mg/dL (8.4-10.2); Carbon Dioxide 24 mmol/L (22-29); Chloride 108 mmol/L (96-108); Creatinine Clr Calc Pharmacy 142.2; Estimated Glomerular Filt Rate > 60; Ethanol < 10 mg/dL; Glucose Random 95 mg/dL (60-115); Potassium 4.2 mmol/L (3.3-5.1); Salicylate < 5.0 mg/dL (15-30); Sodium 142 mmol/L (135-145); Total Protein 8.9 g/dL (6.5-8.0)
[2025-01-01] MEDS: LORazepam 1 MG TABLET 2 MG PO (12:38)
[2025-01-01 15:27] VITALS: RESP 14
[2025-01-01] MEDS: hydrOXYzine HCL 50 MG TABLET PO (17:01)
[2025-01-01 17:02] VITALS: BP 158/86; PULSE 63; RESP 14; TEMP 36.2; O2SAT 99
--- NOTE | 2025-01-01 17:23 | PHA.MEDREC ---
Addendum entered by Catherine Salazar RPh 01/01/25 17:32: med rec reviewed by [facility] Original Note: Pharmacy Consult ? Medication Reconciliation Pharmacy has completed the medication reconciliation. Spoke with patient to confirm medications. He reports methadone 165 mg last taken this morning. He has take home bottles from [facility] [place], he says his dad has his take home bottles. He takes adderall 30 mg in the morning (had this morning), and 10 mg in the afternoon. He reports gabapentin 800 mg tid, he is not taking 1000 mg tid, last shrimp picker for 800 mg tabs was in Aug 2024 x30 DS. He takes melatonin OTC 10 mg. He no longer takes prazosin or omeprazole. He only had methadone and adderall 30 mg today.
--- NOTE | 2025-01-01 17:27 | PC.NURSE ---
P medicated for anxiety; pt remains calm/cooperative with care; pharmacy to reconcile pt's meds
[2025-01-01 18:36] VITALS: BP 136/79
[2025-01-01] MEDS: cloNIDine HCL 0.2 MG TABLET PO (18:36)
[2025-01-01 21:46] VITALS: BP 143/86; PULSE 68; RESP 14; TEMP 35.9; O2SAT 96
[2025-01-01] MEDS: Melatonin 3 MG TABLET 9 MG PO (21:48)
[2025-01-01] MEDS: Gabapentin 400 MG CAPSULE 800 MG PO (21:48)
[2025-01-01] MEDS: Doxepin HCl 25 MG CAPSULE 100 MG PO (21:49)
[2025-01-02 09:06] VITALS: BP 118/70; PULSE 69; RESP 13; TEMP 36.3; O2SAT 97
--- NOTE | 2025-01-02 09:15 | PC.NURSE ---
This RN attempted to verify pt methadone dose with [facility]. Per pt, last dose 01/01/25, 165mg. No answer- voicemail with call back number left.
[2025-01-02] MEDS: buPROPion HCl XL 300 MG TAB.ER.24H PO (09:37)
[2025-01-02] MEDS: Gabapentin 400 MG CAPSULE 800 MG PO ×2 (09:37→15:14)
--- NOTE | 2025-01-02 10:38 | HE.PHANOTE ---
Methadone Pt last received 165mg on 01/02/25. Pt recevied 165mg at [facility] [place], on 01/01, and was given 3 take home bottles, per Gissel from facility.
[2025-01-02] MEDS: Amphetamine Mixed Salts 10 MG TABLET 30 MG PO (11:27)
[2025-01-02] MEDS: methADONE HCl 20 MG/2 ML ORAL.CONC 165 MG PO (11:28)
--- NOTE | 2025-01-02 12:30 | PC.NURSE ---
Assumed care of patient 1230, patient is calm and cooperative, no apparent distress noted, now resting in room, offers no complaints to this RN. Continue plan of care for Dual Dx bedsearch
--- NOTE | 2025-01-02 13:19 | MHC.CARE ---
Pt was accepted to [facility] for today 01/02/25 by Annel. The accepting doctor is Dr. Villalpando and the ETA is 6pm. The accepting facility does not require a nurse to nurse. [place] [address]. Pod RN and CARE team have been notified of placement.
[2025-01-02 13:30] VITALS: BP 128/78
[2025-01-02] MEDS: cloNIDine HCL 0.2 MG TABLET PO (13:30)
[2025-01-02] MEDS: Amphetamine Mixed Salts 10 MG TABLET PO (13:30)
[2025-01-02 13:33] VITALS: BP 128/78; PULSE 79; RESP 16; TEMP 36.6; O2SAT 97
[2025-01-02] MEDS: Nicotine Polacrilex 2 MG GUM BUCCAL ×2 (13:49→15:30)
--- NOTE | 2025-01-02 13:50 | MHC.EDTECH ---
This US placed a call to [facility] at [phone] for trip authorization. [facility] informed of patient being transported by [facility] at 5pm on a section 12 to [facility] in [place], [place]. [facility] said they will have to put out a request for this ride due to extended mileage. They are unable to tell me how long this will take as these trips should be booked 2 weeks out .
--- NOTE | 2025-01-02 15:11 | MHC.EDTECH ---
This US received phone call from [facility] informing that transport to [facility] has been approved. Authorization #[id number]
[2025-01-02] MEDS: OXcarbazepine 300 MG TABLET 600 MG PO (15:14)
[2025-01-02] MEDS: hydrOXYzine HCL 50 MG TABLET PO (15:30)
[2025-01-02 18:26] VITALS: BP 142/74; PULSE 84; RESP 16; TEMP 36.7; O2SAT 99
[2025-01-02 20:46] VITALS: BP 142/74; PULSE 84; RESP 16; TEMP 37; O2SAT 99
== END 2025-01-02 20:52 ==
PROVIDERS: Emergency Provider Emergency Medicine
DX: R45.851 Suicidal ideations (principal); G47.00 Insomnia, unspecified; F32.A Depression, unspecified; Z79.899 Other long term (current) drug therapy
CPT/HCPCS: 36415; 80053; 80143; 80179; 80307; 81003; 85025; 93005; 99285; S9485

== ENCOUNTER → 2025-01-01 10:30 | Outpatient (BNV) | payer OTHER, SELFPAY | PROVIDERS: Emergency Provider Emergency Medicine; Visit Provider Internal Medicine Cardiovascular Disease | DX: F14.10 Cocaine abuse, uncomplicated (principal) | CPT/HCPCS: 93010 ==